=== PATIENT | female | born 1950 | race Caucasian/White ===

== ENCOUNTER 2016-07-28 20:31 | Emergency (ER) | payer MEDICARE, OTHER ==
[2016-07-28 20:51] VITALS: TEMP 97.9
--- NOTE | 2016-07-28 21:27 | XR ---
EXAMINATION TYPE: XR wrist complete LT DATE OF EXAM: 07/28/2016 9:17 PM COMPARISON: NONE HISTORY: Pain after a fall TECHNIQUE: 4 views FINDINGS: There is impacted transverse fracture of the distal radial metaphysis. There is probably co mminution. Distal ulna appears intact. There is no dislocation. There is spurring at the scaphoid tra pezium joint with subchondral cystic changes on both sides of the joint. IMPRESSION: Acute impacted transverse fracture distal radial metaphysis. 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
--- NOTE | 2016-07-28 21:34 | ED ---
Upper Extremity HPI - General Chief Complaint: Extremity Injury, Upper Stated Complaint: fell, left arm injury Time Seen by Provider: 07/28/16 21:17 Source: patient, RN notes reviewed Mode of arrival: ambulatory Limitations: no limitations - History of Present Illness Initial Comments: 66 yo female presents to the ER with a chief complaint of right wrist pain. 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 At this time the patient is complaining of left wrist pain. Patient states there is no lightheadedness or dizziness before the incident. Patient states her original injury besides the left wrist with the incident. Patient states her pain is moderate worse to touch or movement. Patient states that she is not currently having any other symptoms at this time.Patient denies any recent fever, chills, shortness of breath, chest pain, back pain, abdominal pain, nausea vomiting, numbness or tingling, dysuria or hematuria, constipation or diarrhea, headaches or visual changes, or any other current symptoms. - Related Data Previous Rx's Medication Instructions Recorded Hydrocodone/Acetaminophen [Bill[place] 1 each PO Q6HR PRN #20 tab 07/28/16 5-325] Allergies Allergy/AdvReac Type Severity Reaction Status Date / Time No Known Allergies Allergy Verified 07/28/16 21:06 Review of Systems ROS Statement: Those systems with pertinent positive or pertinent negative responses have been documented in the HPI. ROS Other: All systems not noted in ROS Statement are negative. Past Medical History Past Medical History: No Reported History History of Any Multi-Drug Resistant Organisms: None Reported Past Surgical History: No Surgical Hx Reported Past Psychological History: No Psychological Hx Reported Smoking Status: Never smoker Past Alcohol Use History: None Reported Past Drug Use History: None Reported General Exam - General Exam Comments Initial Comments: General: The patient is awake and alert, in no distress, and does not appear acutely ill. Neck: The neck is supple, there is no tenderness . Cardiovascular: There is a regular rate and rhythm. No murmur, rub or gallop is appreciated. Respiratory: Lungs are clear to auscultation, respirations are non-labored, breath sounds are equal. No wheezes, stridor, rales, or rhonchi. Musculoskeletal: Sensation intact with 2+ pulses. Left . Full range of motion of the digits of the left hand. Patient has pain to palpation over the couple to the left hand into the wrist with noted swelling. No tenderness patient left elbow. Neurological: CN II-XII intact, There are no obvious motor or sensory deficits. Coordination appears grossly intact. Speech is normal. Skin: Skin is warm and dry and no rashes or lesions are noted. Psychiatric: Normal mood and affect. Limitations: no limitations Course Vital Signs 07/28/16 20:48 Temperature 97.9 F Pulse Rate 69 Respiratory 18 Rate Blood Pressure 118/65 O2 Sat by Pulse 100 Oximetry Procedures - Orthopedic Splinting/Casting Injury #1 Side: left Upper Extremity Injury Location: wrist Upper Extremity Immobilizer: thumb spica (Short arm) Medical Decision Making - Medical Decision Making 66-year-old female presents with what appears to be a left radial fracture as well as left scaphoid fracture. At this time patient was placed in a splint and given follow-up to orthopedics. We did discuss rest and ice. We did discuss follow-up and return parameters. We discussed all the patient's family' s questions. He stated he understood and agreed with plan. This and will be discharged home. - Radiology Data Radiology results: report reviewed, image reviewed Interpreted by me: There is concern for also a scaphoid fracture as well as an addition to the left radius fracture. Disposition Clinical Impression: Closed left radial fracture, Fracture of scaphoid of left wrist Disposition: HOME SELF-CARE Condition: Stable Instructions: Wrist Fracture in Adults (ED) Additional Instructions: Please use medication as discussed. Please follow up with family doctor if symptoms have not improved over the next two days. Please return to the emergency room if your symptoms increase or worsen or for any other concerns. Prescriptions: Hydrocodone/Acetaminophen [Billingsley 5-325] 1 each PO Q6HR PRN #20 tab PRN Reason: Pain Referrals: Magdy Cadet MD [Primary Care Provider] - 1-2 days Andrae Galvan MD [STAFF PHYSICIAN] - 1-2 days Time of Disposition: 21:34
[2016-07-28 22:01] VITALS: BP 118/72; PULSE 64; RESP 16
== END 2016-07-28 22:01 | disposition home or self-care (01) ==
LOC: EC 20:31
DX: S62.002A Unspecified fracture of navicular [scaphoid] bone of left wrist, initial encounter for closed fracture (principal); S59.202A Unspecified physeal fracture of lower end of radius, left arm, initial encounter for closed fracture; M25.531 Pain in right wrist; W01.0XXA Fall on same level from slipping, tripping and stumbling without subsequent striking against object, initial encounter; Y93.K1 Activity, walking an animal
CPT/HCPCS: 29125; 99283

== ENCOUNTER → 2016-07-29 | Outpatient (CLI) | payer MEDICARE, OTHER ==
--- NOTE | 2016-07-29 18:09 | XR ---
EXAMINATION TYPE: XR knee limited RT DATE OF EXAM: 07/29/2016 5:56 PM COMPARISON: NONE HISTORY: Knee pain TECHNIQUE: 2 views FINDINGS: I see no fracture nor dislocation. Joint spaces are normal. There is no sign of knee joint effusion. IMPRESSION: Negative right knee exam.
== END ==
LOC: RADXRMAIN 17:40
PROVIDERS: ATTEND Family Medicine
DX: M25.561 Pain in right knee (principal)

== ENCOUNTER 2020-04-17 07:16 | Inpatient (IN) | payer MEDICARE, OTHER ==
--- NOTE | 2020-04-17 07:40 | ED ---
SOB HPI - General Chief Complaint: Shortness of Breath Stated Complaint: ALTA Time Seen by Provider: 04/17/20 07:20 Source: patient, EMS Mode of arrival: EMS Limitations: no limitations - History of Present Illness Initial Comments: Patient is an 69-year-old female with no past medical history who presents to the emergency department with shortness of breath. Patient states she's been more dyspneic over the past couple days. 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 States that she's been unable to walk into work without feeling short of breath. She denies chest pain. No history of underlying lung or cardiac issues. Denies cough, fevers or chills, sick contacts with similar symptoms. No lower extremely swelling. No history of DVT or PE. No other alleviating, precipitating or modifying factors - Related Data Home Medications Medication Instructions Recorded Confirmed Ibuprofen [Motrin Ib] 400 mg PO DAILY PRN 04/17/20 04/17/20 Previous Rx's Medication Instructions Recorded Aspirin 81 mg PO DAILY #30 chew 04/21/20 Atorvastatin [Lipitor] 40 mg PO HS #30 tab 04/21/20 Famotidine [Pepcid] 20 mg PO Q24HR #30 tab 04/21/20 Furosemide [Lasix] 20 mg PO DAILY@1600 #30 tab 04/21/20 Metoprolol Tartrate [Lopressor] 12.5 mg PO DAILY #60 tab 04/21/20 Nitroglycerin Sl Tabs [Nitrostat] 0.4 mg SUBLINGUAL Q5M PRN #20 tab 04/21/20 Allergies Allergy/AdvReac Type Severity Reaction Status Date / Time No Known Allergies Allergy Verified 04/17/20 08:38 Review of Systems ROS Statement: Those systems with pertinent positive or pertinent negative responses have been documented in the HPI. ROS Other: All systems not noted in ROS Statement are negative. Past Medical History Past Medical History: No Reported History History of Any Multi-Drug Resistant Organisms: None Reported Past Surgical History: No Surgical Hx Reported Past Psychological History: No Psychological Hx Reported Smoking Status: Never smoker Past Alcohol Use History: None Reported Past Drug Use History: None Reported - Past Family History Father Family Medical History: Diabetes Mellitus Mother Family Medical History: Cancer Additional Family Medical History / Comment(s): cervical General Exam Limitations: no limitations General appearance: alert, in no apparent distress Head exam: Present: atraumatic, normocephalic, normal inspection Eye exam: Present: normal appearance, PERRL, EOMI. Absent: scleral icterus, conjunctival injection, periorbital swelling ENT exam: Present: normal exam, mucous membranes moist Neck exam: Present: normal inspection. Absent: tenderness, meningismus, lymphad enopathy Respiratory exam: Present: normal lung sounds bilaterally, other (Tachypnea). Absent: respiratory distress, wheezes, rales, rhonchi, stridor Cardiovascular Exam: Present: normal rhythm, tachycardia, normal heart sounds. Absent: systolic murmur, diastolic murmur, rubs, gallop, clicks GI/Abdominal exam: Present: soft, normal bowel sounds. Absent: distended, tenderness, guarding, rebound, rigid Extremities exam: Present: normal inspection, full ROM, normal capillary refill. Absent: tenderness, pedal edema, joint swelling, calf tenderness Back exam: Present: normal inspection Neurological exam: Present: alert, oriented X3, CN II-XII intact Psychiatric exam: Present: normal affect, normal mood Skin exam: Present: warm, dry, intact, normal color. Absent: rash Course Vital Signs 04/17/20 04/17/20 04/17/20 07:18 07:29 09:11 Temperature 97.9 F Pulse Rate 115 H 112 H Respiratory 22 22 20 Rate Blood Pressure 153/107 137/99 O2 Sat by Pulse 99 96 Oximetry 04/17/20 04/17/20 04/17/20 10:00 11:00 11:33 Temperature 97.9 F Pulse Rate 100 102 H 102 H Respiratory 24 24 24 Rate Blood Pressure 119/77 124/85 124/85 O2 Sat by Pulse 97 97 97 Oximetry Medical Decision Making - Medical Decision Making The patient is placed in room 15. A thorough history and physical was performed. Patient is tachycardic and tachypneic. She is placed on 2 L of oxygen. Laboratory studies were conducted. D-dimer elevated at 0.85. Troponin 0.023. BNP 8910. Chest x-ray demonstrates suspected CHF exacerbation with cardiomegaly and mild interstitial edema. Mild central vascular congestion with small tiny left pleural effusion. Chest CT demonstrates no CT evidence of acute pulmonary embolism. Patient does return from CT and is more dyspneic. She is placed on BiPAP. Did discuss results. Recommended hospitalization reports patient did agree to. The patient to Dr. Oconnor who accepted admission. Lasix 60 mg ordered as well as echo and cardio consult. Patient tolerated BiPap extremely well and is awaiting a bed on the floor - Lab Data Result diagrams: 04/18/20 07:26 04/20/20 10:22 Lab Results 04/17/20 04/17/20 04/17/20 Range/Units 07:36 07:36 07:36 WBC 8.6 (3.8-10.6) k/uL RBC 4.37 (3.80-5.40) m/uL Hgb 13.2 (11.4-16.0) gm/dL Hct 41.3 (34.0-46.0) % MCV 94.7 (80.0-100.0) fL MCH 30.2 (25.0-35.0) pg MCHC 31.9 (31.0-37.0) g/dL RDW 13.7 (11.5-15.5) % Plt Count 260 (150-450) k/uL MPV 7.1 Neutrophils % 84 % Lymphocytes % 9 % Monocytes % 5 % Eosinophils % 0 % Basophils % 1 % Neutrophils # 7.3 (1.3-7.7) k/uL Lymphocytes # 0.8 L (1.0-4.8) k/uL Monocytes # 0.4 (0-1.0) k/uL Eosinophils # 0.0 (0-0.7) k/uL Basophils # 0.1 (0-0.2) k/uL PT 10.6 (9.0-12.0) sec INR 1.0 (<1.2) APTT 21.4 L (22.0-30.0) sec D-Dimer 0.85 H (<0.60) mg/L FEU Sodium 138 (137-145) mmol/L Potassium 3.9 (3.5-5.1) mmol/L Chloride 110 H (98-107) mmol/L Carbon Dioxide 22 (22-30) mmol/L Anion Gap 6 mmol/L BUN 20 H (7-17) mg/dL Creatinine 0.80 (0.52-1.04) mg/dL Est GFR (CKD-EPI)AfAm 88 (>60 ml/min/1.73 sqM) Est GFR (CKD-EPI)NonAf 76 (>60 ml/min/1.73 sqM) Glucose 159 H (74-99) mg/dL Plasma Lactic Acid Sridhar (0.7-2.0) mmol/L Calcium 9.1 (8.4-10.2) mg/dL Total Bilirubin 0.7 (0.2-1.3) mg/dL AST 41 H (14-36) U/L ALT 50 H (4-34) U/L Alkaline Phosphatase 107 (38-126) U/L Troponin I (0.000-0.034) ng/mL NT-Pro-B Natriuret Pep pg/mL Total Protein 6.9 (6.3-8.2) g/dL Albumin 4.2 (3.5-5.0) g/dL Coronavirus (PCR) (Not Detectd) Influenza Type A RNA (Not Detectd) Influenza Type B (PCR) (Not Detectd) 04/17/20 04/17/20 04/17/20 Range/Units 07:36 07:36 07:37 WBC (3.8-10.6) k/uL RBC (3.80-5.40) m/uL Hgb (11.4-16.0) gm/dL Hct (34.0-46.0) % MCV (80.0-100.0) fL MCH (25.0-35.0) pg MCHC (31.0-37.0) g/dL RDW (11.5-15.5) % Plt Count (150-450) k/uL MPV Neutrophils % % Lymphocytes % % Monocytes % % Eosinophils % % Basophils % % Neutrophils # (1.3-7.7) k/uL Lymphocytes # (1.0-4.8) k/uL Monocytes # (0-1.0) k/uL Eosinophils # (0-0.7) k/uL Basophils # (0-0.2) k/uL PT (9.0-12.0) sec INR (<1.2) APTT (22.0-30.0) sec D-Dimer (<0.60) mg/L FEU Sodium (137-145) mmol/L Potassium (3.5-5.1) mmol/L Chloride (98-107) mmol/L Carbon Dioxide (22-30) mmol/L Anion Gap mmol/L BUN (7-17) mg/dL Creatinine (0.52-1.04) mg/dL Est GFR (CKD-EPI)AfAm (>60 ml/min/1.73 sqM) Est GFR (CKD-EPI)NonAf (>60 ml/min/1.73 sqM) Glucose (74-99) mg/dL Plasma Lactic Acid Sridhar 1.5 (0.7-2.0) mmol/L Calcium (8.4-10.2) mg/dL Total Bilirubin (0.2-1.3) mg/dL AST (14-36) U/L ALT (4-34) U/L Alkaline Phosphatase (38-126) U/L Troponin I 0.023 (0.000-0.034) ng/mL NT-Pro-B Natriuret Pep 8910 pg/mL Total Protein (6.3-8.2) g/dL Albumin (3.5-5.0) g/dL Coronavirus (PCR) (Not Detectd) Influenza Type A RNA (Not Detectd) Influenza Type B (PCR) (Not Detectd) 04/17/20 Range/Units 07:43 WBC (3.8-10.6) k/uL RBC (3.80-5.40) m/uL Hgb (11.4-16.0) gm/dL Hct (34.0-46.0) % MCV (80.0-100.0) fL MCH (25.0-35.0) pg MCHC (31.0-37.0) g/dL RDW (11.5-15.5) % Plt Count (150-450) k/uL MPV Neutrophils % % Lymphocytes % % Monocytes % % Eosinophils % % Basophils % % Neutrophils # (1.3-7.7) k/uL Lymphocytes # (1.0-4.8) k/uL Monocytes # (0-1.0) k/uL Eosinophils # (0-0.7) k/uL Basophils # (0-0.2) k/uL PT (9.0-12.0) sec INR (<1.2) APTT (22.0-30.0) sec D-Dimer (<0.60) mg/L FEU Sodium (137-145) mmol/L Potassium (3.5-5.1) mmol/L Chloride (98-107) mmol/L Carbon Dioxide (22-30) mmol/L Anion Gap mmol/L BUN (7-17) mg/dL Creatinine (0.52-1.04) mg/dL Est GFR (CKD-EPI)AfAm (>60 ml/min/1.73 sqM) Est GFR (CKD-EPI)NonAf (>60 ml/min/1.73 sqM) Glucose (74-99) mg/dL Plasma Lactic Acid Sridhar (0.7-2.0) mmol/L Calcium (8.4-10.2) mg/dL Total Bilirubin (0.2-1.3) mg/dL AST (14-36) U/L ALT (4-34) U/L Alkaline Phosphatase (38-126) U/L Troponin I (0.000-0.034) ng/mL NT-Pro-B Natriuret Pep pg/mL Total Protein (6.3-8.2) g/dL Albumin (3.5-5.0) g/dL Coronavirus (PCR) Not Detected (Not Detectd) Influenza Type A RNA Not Detected (Not Detectd) Influenza Type B (PCR) Not Detected (Not Detectd) - EKG Data EKG Comments: EKG demonstrates a sinus tachycardia with a ventricular rate of 110. LA interval 136. QRS 126. QTC 492. There is a left bundle-branch block present. No acute ST segment elevations Critical Care Time Critical Care Time: Yes Critical Care Time: 32 minutes Disposition Clinical Impression: Congestive heart failure, Tachycardia, Dependence on non-invasive ventilation, Respiratory insufficiency Disposition: ADMITTED IP TO THIS HOSP Condition: Serious Is patient prescribed a controlled substance at d/c from ED?: No Decision to Admit Reason: Admit from EC Decision Date: 04/17/20 Decision Time: 09:57
[2020-04-17 07:54] LABS: Basophils # (A) 0.1 k/uL (0-0.2); Basophils % (A) 1 %; Eosinophils % (A) 0 %; HCT 41.3 % (34.0-46.0); HGB 13.2 gm/dL (11.4-16.0); Lymphocytes # (A) 0.8 k/uL (1.0-4.8); Lymphocytes % (A) 9 %; MCH 30.2 pg (25.0-35.0); MCHC 31.9 g/dL (31.0-37.0); MCV 94.7 fL (80.0-100.0); Mean Platelet Volume 7.1; Monocytes # (A) 0.4 k/uL (0-1.0); Monocytes % (A) 5 %; Neutrophils # (A) 7.3 k/uL (1.3-7.7); Neutrophils % (A) 84 %; Platelet Count 260 k/uL (150-450); RBC 4.37 m/uL (3.80-5.40); RDW 13.7 % (11.5-15.5); WBC 8.6 k/uL (3.8-10.6)
[2020-04-17 08:03] LABS: Albumin 4.2 g/dL (3.5-5.0); Calcium 9.1 mg/dL (8.4-10.2); Potassium 3.9 mmol/L (3.5-5.1); Total Bilirubin 0.7 mg/dL (0.2-1.3); Total Protein 6.9 g/dL (6.3-8.2)
[2020-04-17 08:10] LABS: SARS-CoV-2 RNA Rapid Abbott Not Detected (Not Detectd)
[2020-04-17 08:15] LABS: Partial Thromboplastin Time 21.4 sec (22.0-30.0); Prothrombin Time 10.6 sec (9.0-12.0)
--- NOTE | 2020-04-17 08:22 | XR ---
EXAMINATION TYPE: XR chest 2V DATE OF EXAM: 04/17/2020 COMPARISON: NONE HISTORY: Difficulty in breathing. TECHNIQUE: Frontal and lateral views of the chest are obtained. FINDINGS: There is cardiomegaly with central vascular congestion and small to tiny left pleural effu juan. Background reticular interstitial prominence bilaterally. The osseous structures are are grover neralized. IMPRESSION: Suspect CHF exacerbation as there is cardiomegaly with suspected mild interstitial edema and mild central vascular congestion with small to tiny left pleural effusion. Correlate clinically. Correlation with old outside x-ray would be beneficial.
[2020-04-17 08:48] LABS: D-Dimer 0.85 mg/L FEU (<0.60)
[2020-04-17] MEDS ORDERED: FUROSEMIDE 10 MG/ML 10 ML VIAL IV STA (09:36)
--- NOTE | 2020-04-17 09:40 | CT ---
EXAMINATION TYPE: CT chest angio for PE DATE OF EXAM: 04/17/2020 COMPARISON: Chest x-ray earlier today HISTORY: Trouble breathing, elevated d-dimer CT DLP: 255.7 mGycm Automated exposure control for dose reduction was used. CONTRAST: CT Chest for pulmonary embolism performed with with IV Contrast, patient injected with 100 mL of Isov ue 370. FINDINGS: LUNGS: Exam suboptimal as patient unable to hold breath. Small bilateral pleural effusions are confir med as suspected on x-ray. There is likely mild interstitial edema with intralobar septal thickening. No suspicious focal consolidation no pneumothorax seen bilaterally. MEDIASTINUM: There is satisfactory enhancement of the pulmonary artery and its branches, there is no CT evidence for pulmonary embolism. Enlarged pulmonary arteries are present consistent with underlyin g pulmonary artery hypertension There is enlarged subcarinal adenopathy and less prominently enlarge d bilateral hilar lymph nodes. Cardiomegaly is confirmed. Reflux of contrast into IVC and hepatic ve ins suggests degree of right heart failure. No pericardial effusion is seen. OTHER: Straightening of spine with moderate multilevel disc space narrowing and spurring. Multilevel endplate sclerosis is seen IMPRESSION: 1. Suboptimal study but no CT evidence for acute pulmonary embolism. 2. Findings correlate with CHF exacerbation as there is cardiomegaly with small bilateral pleural eff usions and mild interstitial edema bilaterally. Abnormal thoracic adenopathy, consider follow-up. Kimberly dence of underlying pulmonary artery hypertension and right-sided heart failure.
[2020-04-17] MEDS ORDERED: NALOXONE 0.4 MG/ML 1 ML VIAL IV PRN (09:57)
--- NOTE | 2020-04-17 12:25 | P.HPIM ---
History of Present Illness this is a pleasant 69 years old female with no past medical history presents because of dyspnea. Patient was on BiPAP so she was able to give limited history. Patient states she does not follow up with PCP. She presents because of dyspnea on 5 days duration with some little or no coughing but no chest pain. No abdominal pain. No change in urine or bowel habits. No fever on admission she was tachycardic of 112-115. Rest of Vitas looks stable.unremarkable cbc, bmp, liver enzymes are slightly elevated with ast 41 and alt 50. coronavirus is not detected, influenza virus nondetected. her d- dimer was elevated at 0.85 and she underwent cta of the chest:suboptimal study but no evidence of acute pulmonary embolism. Correlates for CHF exacerbation, there is cardiomegaly with small bilateral pleural effusions and mild interstitial edema bilaterally. There is a large subcarinal adenopathy and less prominently enlarged bilateral hilar lymph nodes.possible underlying pulmonary artery hypertension Suspect CHF. Review of Systems CONSTITUTIONAL: No fever, no malaise, no fatigue. HEENT: No recent visual problems or hearing problems. Denied any sore throat. CARDIOVASCULAR: no palpitations, no syncope. PULMONARY: no cough, no hemoptysis. GASTROINTESTINAL: No diarrhea, no nausea, no vomiting, no abdominal pain. Normoactive bowel sounds. NEUROLOGICAL: No headaches, no weakness, no numbness. HEMATOLOGICAL: Denies any bleeding or petechiae. GENITOURINARY: Denies any burning micturition, frequency, or urgency. MUSCULOSKELETAL/RHEUMATOLOGICAL: Denies any joint pain, swelling, or any muscle pain. ENDOCRINE: Denies any polyuria or polydipsia. Past Medical History Past Medical History: No Reported History History of Any Multi-Drug Resistant Organisms: None Reported Past Surgical History: No Surgical Hx Reported Past Psychological History: No Psychological Hx Reported Smoking Status: Never smoker Past Alcohol Use History: None Reported Past Drug Use History: None Reported Medications and Allergies Home Medications Medication Instructions Recorded Confirmed Type RX: Ibuprofen [Motrin Ib] 400 mg PO DAILY PRN 04/17/20 04/17/20 History Allergies Allergy/AdvReac Type Severity Reaction Status Date / Time No Known Allergies Allergy Verified 04/17/20 08:38 Physical Exam Vitals: Vital Signs Temp Pulse Resp BP Pulse Ox 04/17/20 09:11 112 H 20 137/99 96 04/17/20 07:29 22 12/08/20 07:18 97.9 F 115 H 22 153/107 99 Intake and Output 04/16/20 04/17/20 04/17/20 22:59 06:59 14:59 Output Total 1300 Balance -1300 Output: Urine 1300 Uretheral ([place]) 1300 Other: Weight 64.864 kg GENERAL: The patient is alert and oriented x3, not in any acute distress. Well developed, well nourished. HEENT: Pupils are round and equally reacting to light. EOMI. No scleral icterus. No conjunctival pallor. Normocephalic, atraumatic. No pharyngeal erythema. No thyromegaly. CARDIOVASCULAR: S1 and S2 present. No murmurs, rubs, or gallops. PULMONARY: Chest is clear to auscultation, no wheezing. bilateral basal crepitation ABDOMEN: Soft, nontender, nondistended, normoactive bowel sounds. No palpable organomegaly. MUSCULOSKELETAL: No joint swelling or deformity. EXTREMITIES: No cyanosis, clubbing, or pedal edema. NEUROLOGICAL: Gross neurological examination did not reveal any focal deficits. SKIN: No rashes. No petechiae Results CBC & Chem 7: 04/17/20 07:36 04/17/20 07:36 Labs: Abnormal Lab Results - Last 24 Hours (Table) 04/17/20 04/17/20 04/17/20 Range/Units 07:36 07:36 07:36 Lymphocytes # 0.8 L (1.0-4.8) k/uL APTT 21.4 L (22.0-30.0) sec D-Dimer 0.85 H (<0.60) mg/L FEU Chloride 110 H (98-107) mmol/L BUN 20 H (7-17) mg/dL Glucose 159 H (74-99) mg/dL AST 41 H (14-36) U/L ALT 50 H (4-34) U/L Assessment and Plan Assessment: acute CHF exacerbation, unknown ejection fraction possible pulmonary artery hypertension large subcarinal adenopathy and less prominently enlarged bilateral hilar lymph nodes Plan: this is a pleasant 69 years old female who presents with CHF. We'll do serial troponins, cardiology consult. Check echocardiogram. Continue with Lasix twice daily. Monitor input and output. Pulmonary consult for lymphadenopathy. Labs and medication were reviewed.. Continue same treatment. Continue with symptomatic treatment. Resume home medication. Monitor lytes and vitals. DVT and GI prophylaxis. Further recommendationsas per clinical course of the patient DVT prophylaxis: Subcutaneous heparin GI Prophylaxis: Pepcid Prognosis is guarded
--- NOTE | 2020-04-17 13:47 | P.CRDCN ---
History of Present Illness History of present illness: HISTORY OF PRESENTING ILLNESS This is a pleasant 69-year-old female with no significant past medical history. She does not follow in the office with a police sergeant or even a prima ry care physician for that matter. We have been asked to see in consultation for new-onset heart failure. She presented to the hospital with symptoms of exertional shortness of breath. She states for the previous 2 days she has noticed a drastic increase in exertional shortness of breath. Even simple activities cause her to have to stop to catch her breath. In the previous one month she has had difficulty sleeping at night. Not specific orthopnea but just inability to get comfortable or have a restful night's week. She denies any associated chest pain, dizziness or palpitations. Initially on admission she was started on bipap and put out 2900 ml. DIAGNOSTICS EKG reveals sinus tachycardia heart rate of 110 with left axis deviation and left bundle branch block. There is no old EKG for comparison. Chest xray cardiomegaly with suspected mild interstitial edema and mild central vascular congestion with small to tiny left pleural effusion. CT angios was suboptimal for an acute PE, cardiomegaly with small bilateral pleural effusions and mild interstitial edema bilaterally with abnormal thoracic adenopathy noted. There is evidence of underlying pulmonary artery hypertension and right-sided heart failure. Laboratory reviewed, CBC unremarkable, d-dimer 0.85, sodium 138, potassium 3.9, creatinine 0.8, troponin 0.023 and 0.064, NT proBNP 8910 and covid negative. She takes no daily medications. REVIEW OF SYSTEMS At the time of my exam: CONSTITUTIONAL: Denies fever or chills. CARDIOVASCULAR: Complains of shortness of breath and PND. Denies chest pain, orthopnea or palpitations. RESPIRATORY: Denies cough. GASTROINTESTINAL: Denies abdominal pain, diarrhea, constipation, nausea or vomiting. MUSCULOSKELETAL: Denies myalgias. NEUROLOGIC: Denies numbness, tingling or weakness. ENDOCRINE: Denies fatigue, weight change, polydipsia or polyurina. GENITOURINARY: Denies burning, hematuria or urgency with micturation. HEMATOLOGIC: Denies history of anemia or bleeding. PHYSICAL EXAMINATION Blood pressure 112/67 heart rate 96 afebrile and maintaining oxygen saturation on nasal cannula. CONSTITUTIONAL: No apparent distress. HEENT: Head is normocephalic. Pupils are equal, round. Sclerae anicteric. Mucous membranes of the mouth are moist. No JVD. No carotid bruit. CHEST EXAMINATION: Bibasilar rales and expiratory wheezes. No rhonchi. No chest wall tenderness is noted on palpation or with deep breathing. HEART EXAMINATION: Regular rate and rhythm. S1, S2 heard. Systolic ejection murmur at all listening points, no gallops or rub. ABDOMEN: Soft, nontender. Positive bowel sounds. EXTREMITIES: 2+ peripheral pulses, no lower extremity edema and no calf tenderness. NEUROLOGIC EXAMINATION: Patient is awake, alert and oriented x3. ASSESSMENT Acute systolic heart failure, EF less than 20% Aortic stenosis, sounds moderate-severe on auscultation PLAN Continue IV diuresis. Document accurate intake and output along with daily weights. Follow renal function and electrolytes in the morning. Initiate small dose of beta jose, 12.5 mg BID and losartan 25 mg daily. Telemetry monitoring for an acute arrhythmia. Further recommendations to follow based on clinical course. Thank you kindly for this consultation. Nurse Practitioner note has been reviewed, I agree with a documented findings and plan of care. Patient was seen and examined. Past Medical History Past Medical History: No Reported History History of Any Multi-Drug Resistant Organisms: None Reported Past Surgical History: No Surgical Hx Reported Past Anesthesia/Blood Transfusion Reactions: No Reported Reaction Past Psychological History: No Psychological Hx Reported Smoking Status: Never smoker Past Alcohol Use History: None Reported Past Drug Use History: None Reported - Past Family History Father Family Medical History: Diabetes Mellitus Mother Family Medical History: Cancer Additional Family Medical History / Comment(s): cervical Medications and Allergies Home Medications Medication Instructions Recorded Confirmed Type Ibuprofen [Motrin Ib] 400 mg PO DAILY PRN 04/17/20 04/17/20 History Allergies Allergy/AdvReac Type Severity Reaction Status Date / Time No Known Allergies Allergy Verified 04/17/20 08:38 Physical Exam Vitals: Vital Signs Temp Pulse Pulse Resp BP BP Pulse Ox 04/17/20 12:30 98.1 F 96 16 112/67 95 04/17/20 11:33 97.9 F 102 H 24 124/85 97 04/17/20 11:00 102 H 24 124/85 97 04/17/20 10:00 100 24 119/77 97 04/17/20 09:11 112 H 20 137/99 96 04/17/20 07:29 22 04/17/20 07:18 97.9 F 115 H 22 153/107 99 Intake and Output 04/16/20 04/17/20 04/17/20 22:59 06:59 14:59 Output Total 2900 Balance -2900 Output: Urine 2900 Uretheral ([place]) 1300 Other: Voiding Method Indwelling Catheter Weight 63.3 kg Results 04/17/20 07:36 04/17/20 07:36 Cardiac Enzymes 04/17/20 04/17/20 04/17/20 Range/Units 07:36 07:36 11:52 AST 41 H (14-36) U/L Troponin I 0.023 0.064 H* (0.000-0.034) ng/mL Coagulation 04/17/20 Range/Units 07:36 PT 10.6 (9.0-12.0) sec APTT 21.4 L (22.0-30.0) sec CBC 04/17/20 Range/Units 07:36 WBC 8.6 (3.8-10.6) k/uL RBC 4.37 (3.80-5.40) m/uL Hgb 13.2 (11.4-16.0) gm/dL Hct 41.3 (34.0-46.0) % Plt Count 260 (150-450) k/uL Comprehensive Metabolic Panel 04/17/20 Range/Units 07:36 Sodium 138 (137-145) mmol/L Potassium 3.9 (3.5-5.1) mmol/L Chloride 110 H (98-107) mmol/L Carbon Dioxide 22 (22-30) mmol/L BUN 20 H (7-17) mg/dL Creatinine 0.80 (0.52-1.04) mg/dL Glucose 159 H (74-99) mg/dL Calcium 9.1 (8.4-10.2) mg/dL AST 41 H (14-36) U/L ALT 50 H (4-34) U/L Alkaline Phosphatase 107 (38-126) U/L Total Protein 6.9 (6.3-8.2) g/dL Albumin 4.2 (3.5-5.0) g/dL Current Medications Generic Name Dose Route Start Last Admin Trade Name Freq PRN Reason Stop Dose Admin Famotidine 20 mg 04/17/20 21:00 Famotidine 20 Mg/2 Ml Vial IV Q12HR [facility] Furosemide 40 mg 04/17/20 21:00 Furosemide 10 Mg/Ml 4 Ml Vial IV Q12HR [facility] Heparin Sodium (Porcine) 5,000 unit 04/17/20 21:00 Heparin Sodium,Porcine 5,000 Unit/Ml 1 Ml Vial SQ Q12HR [facility] Losartan Potassium 25 mg 04/18/20 09:00 Losartan 25 Mg Tab PO DAILY [facility] Metoprolol Tartrate 12.5 mg 04/17/20 21:00 Metoprolol Tartrate 12.5 Mg Tab PO BID [facility] Naloxone HCl 0.2 mg 04/17/20 09:57 Naloxone 0.4 Mg/Ml 1 Ml Vial IV Q2M PRN Opioid Reversal Intake and Output 04/16/20 04/17/20 04/17/20 22:59 06:59 14:59 Output Total 2900 Balance -2900 Output: Urine 2900 Uretheral ([place]) 1300 Other: Voiding Method Indwelling Catheter Weight 63.3 kg Patient Weight 04/18/20 06:59 Weight 63.3 kg 04/17/20 07:36 04/17/20 07:36
--- NOTE | 2020-04-17 17:48 | ECHOF ---
Referral Reason:new onset heart failure MEASUREMENTS -------- HEIGHT: 149.9 cm WEIGHT: 64.9 kg BP: 137/99 RVIDd: 1.9 cm (< 3.3) IVSd: 1.2 cm (0.6 - 1.1) LVIDd: 3.9 cm (3.9 - 5.3) LVPWd: 1.3 cm (0.6 - 1.1) IVSs: 1.3 cm LVIDs: 3.3 cm LVPWs: 1.6 cm LA Diam: 3.0 cm (2.7 - 3.8) LAESV Index (A-L): 29.83 ml/m Ao Diam: 2.8 cm (2.0 - 3.7) MV EXCURSION: 9.369 mm (> 18.000) MV EF SLOPE: 50 mm/s (70 - 150) EPSS: 1.5 cm MV E Ramon: 0.46 m/s MV DecT: 135 ms MV A Ramon: 0.96 m/s MV E/A Ratio: 0.48 AV maxP.24 mmHg AV meanP.35 mmHg RAP: 5.00 mmHg RVSP: 37.36 mmHg FINDINGS -------- This was a technically adequate study. The left ventricular size is normal. There is mild concentric left ventricular hypertrophy. Overa ll left ventricular systolic function is severely impaired with, an EF between 20 - 25 %. The right ventricle is normal in size. LA is midly dilated 29-33ml/m2. The right atrium is normal in size. Interatrial and interventricular septum intact. There is severe aortic valve sclerosis. There is severe aortic stenosis present. The maximum pres sure gradient across the aortic valve is 65.24mmHg. Vmax 4.08, dimensionless index 0.18. Peak/mean gradient across the Aortic Valve is 65.24mmHg / 37.35mmHg. Can't exclude Bicuspid valve vs fused c half-way. The mitral valve leaflets are mildly thickened. Moderate mitral annular calcification present. Mi ld mitral regurgitation is present. Mild tricuspid regurgitation present. There is mild pulmonary hypertension. The right ventricular systolic pressure, as measured by Doppler, is 37.36mmHg. Trace/mild (physiologic) pulmonic regurgitation. The aortic root size is normal. Normal inferior vena cava with normal inspiratory collapse consistent with estimated right atrial pre ssure of 5 mmHg. Echo free space represents a pericardial fat pad. There is a trivial pericardial effusion present. CONCLUSIONS -------- 1. The left ventricular size is normal. 2. There is mild concentric left ventricular hypertrophy. 3. Overall left ventricular systolic function is severely impaired with, an EF between 20 - 25 %. 4. LA is midly dilated 29-33ml/m2. 5. There is severe aortic stenosis present. 6. Peak/mean gradient across the Aortic Valve is 65.24mmHg / 37.35mmHg. 7. The mitral valve leaflets are mildly thickened. 8. Moderate mitral annular calcification present. 9. Mild mitral regurgitation is present. 10. Mild tricuspid regurgitation present. 11. There is mild pulmonary hypertension. 12. The right ventricular systolic pressure, as measured by Doppler, is 37.36mmHg. 13. Trace/mild (physiologic) pulmonic regurgitation. 14. Echo free space represents a pericardial fat pad. 15. There is a trivial pericardial effusion present. ADJUNCT HISTORY INSTRUCTOR: KIRSTEN Ramires
[2020-04-17] MEDS: METOPROLOL TARTRATE 12.5 MG TAB PO SCH (19:51)
[2020-04-17] MEDS: FAMOTIDINE 20 MG/2 ML VIAL IV SCH (19:51)
[2020-04-17] MEDS: FUROSEMIDE 10 MG/ML 4 ML VIAL IV SCH (19:52)
[2020-04-17] MEDS: HEPARIN SODIUM,PORCINE 5,000 UNIT/ML 1 ML VIAL SQ SCH (19:52)
[2020-04-18 08:34] LABS: Basophils % (A) 1 %; Eosinophils % (A) 0 %; HCT 45.2 % (34.0-46.0); HGB 14.8 gm/dL (11.4-16.0); Lymphocytes # (A) 1.2 k/uL (1.0-4.8); Lymphocytes % (A) 17 %; MCH 30.8 pg (25.0-35.0); MCHC 32.8 g/dL (31.0-37.0); MCV 94.1 fL (80.0-100.0); Mean Platelet Volume 7.2; Monocytes # (A) 0.5 k/uL (0-1.0); Monocytes % (A) 7 %; Neutrophils # (A) 4.9 k/uL (1.3-7.7); Neutrophils % (A) 73 %; Platelet Count 233 k/uL (150-450); RBC 4.81 m/uL (3.80-5.40); RDW 13.3 % (11.5-15.5); WBC 6.8 k/uL (3.8-10.6)
[2020-04-18] MEDS: METOPROLOL TARTRATE 12.5 MG TAB PO SCH ×2 (08:50→21:11)
[2020-04-18] MEDS: FUROSEMIDE 10 MG/ML 4 ML VIAL IV SCH ×3 (08:50→23:33)
[2020-04-18] MEDS: HEPARIN SODIUM,PORCINE 5,000 UNIT/ML 1 ML VIAL SQ SCH ×2 (08:50→21:14)
[2020-04-18] MEDS: FAMOTIDINE 20 MG/2 ML VIAL IV SCH (08:51)
[2020-04-18 08:58] LABS: Calcium 9.4 mg/dL (8.4-10.2)
[2020-04-18] MEDS ORDERED: LOSARTAN 25 MG TAB PO SCH (09:00)
--- NOTE | 2020-04-18 11:43 | P.PN ---
Subjective this is a pleasant 69 years old female with no past medical history presents because of dyspnea. Patient was on BiPAP so she was able to give limited history. Patient states she does not follow up with PCP. She presents because of dyspnea on 5 days duration with some little or no coughing but no chest pain. No abdominal pain. No change in urine or bowel habits. No fever on admission she was tachycardic of 112-115. Rest of Vitas looks st able.unremarkable cbc, bmp, liver enzymes are slightly elevated with ast 41 and alt 50. coronavirus is not detected, influenza virus nondetected. her d-dimer was elevated at 0.85 and she underwent cta of the chest:suboptimal study but no evidence of acute pulmonary embolism. Correlates for CHF exacerbation, there is cardiomegaly with small bilateral pleural effusions and mild interstitial edema bilaterally. There is a large subcarinal adenopathy and less prominently enlarged bilateral hilar lymph nodes.possible underlying pulmonary artery hypertension Suspect CHF. 04/18/2020 Patient is awake, no chest pain, her breathing is improving, currently she is on 3 L oxygen via nasal cannula. Patient informed she has CHF and severe aortic stenosis which she did not know about before Labs and vitals are stable. Creatinine and electrolytes are normal Patient continue with Lasix IV Follow-up with further recommendation by fish roe technician Review of Systems CONSTITUTIONAL: No fever, no malaise, no fatigue. HEENT: No recent visual problems or hearing problems. Denied any sore throat. CARDIOVASCULAR: no palpitations, no syncope. PULMONARY: no cough, no hemoptysis. GASTROINTESTINAL: No diarrhea, no nausea, no vomiting, no abdominal pain. Normoactive bowel sounds. NEUROLOGICAL: No headaches, no weakness, no numbness. HEMATOLOGICAL: Denies any bleeding or petechiae. Active Medications Generic Name Dose Route Start Last Admin Trade Name Freq PRN Reason Stop Dose Admin Famotidine 20 mg 04/17/20 21:00 04/18/20 08:51 Famotidine 20 Mg/2 Ml Vial IV 20 mg Q12HR MARAL Administration Furosemide 40 mg 04/17/20 21:00 04/18/20 08:50 Furosemide 10 Mg/Ml 4 Ml Vial IV 40 mg Q12HR MARAL Administration Heparin Sodium (Porcine) 5,000 unit 04/17/20 21:00 04/18/20 08:50 Heparin Sodium,Porcine 5,000 Unit/Ml 1 Ml Vial SQ 5,000 unit Q12HR [facility]AL Administration Losartan Potassium 25 mg 04/18/20 09:00 04/18/20 08:50 Losartan 25 Mg Tab PO 25 mg DAILY MARAL Administration Metoprolol Tartrate 12.5 mg 04/17/20 21:00 04/18/20 08:50 Metoprolol Tartrate 12.5 Mg Tab PO 12.5 mg BID MARAL Administration Naloxone HCl 0.2 mg 04/17/20 09:57 Naloxone 0.4 Mg/Ml 1 Ml Vial IV Q2M PRN Opioid Reversal Objective - Vital Signs Vital signs: Vital Signs Temp 98.6 F 04/18/20 08:00 Pulse 84 04/18/20 08:00 Resp 18 04/18/20 08:00 BP 108/47 04/18/20 08:00 Pulse Ox 96 04/18/20 08:00 Intake & Output 04/17/20 04/18/20 04/18/20 18:59 06:59 18:59 Intake Total 600 240 Output Total 2900 1200 Balance -2300 -1200 240 Weight 63.3 kg 62.4 kg Intake: Oral 600 240 Output: Urine 2900 1200 Uretheral ([place]) 1300 Other: Voiding Method Indwelling Catheter Indwelling Catheter Indwelling Catheter # Bowel Movements 1 - Exam GENERAL: The patient is alert and oriented x3, not in any acute distress. Well developed, well nourished. HEENT: Pupils are round and equally reacting to light. EOMI. No scleral icterus. No conjunctival pallor. Normocephalic, atraumatic. No pharyngeal erythema. No thyromegaly. CARDIOVASCULAR: S1 and S2 present. No murmurs, rubs, or gallops. -PULMONARY: Chest is clear to auscultation, no wheezing. Bilateral basal crepitation ABDOMEN: Soft, nontender, nondistended, normoactive bowel sounds. No palpable organomegaly. MUSCULOSKELETAL: No joint swelling or deformity. EXTREMITIES: No cyanosis, clubbing, or pedal edema. NEUROLOGICAL: Gross neurological examination did not reveal any focal deficits. SKIN: No rashes. no petechiae. - Labs CBC & Chem 7: 04/18/20 07:26 04/18/20 07:26 Labs: Abnormal Lab Results - Last 24 Hours (Table) 04/17/20 04/17/20 04/18/20 Range/Units 11:52 15:35 07:26 BUN 20 H (7-17) mg/dL Glucose 164 H (74-99) mg/dL Troponin I 0.064 H* 0.103 H* (0.000-0.034) ng/mL Assessment and Plan Assessment: acute CHF exacerbation, unknown ejection fraction possible pulmonary artery hypertension large subcarinal adenopathy and less prominently enlarged bilateral hilar lymph nodes Plan: this is a pleasant 69 years old female who presents with CHF. We'll do serial troponins, cardiology consult. Check echocardiogram. Continue with Lasix twice daily. Monitor input and output. Pulmonary consult for lymphadenopathy. Labs and medication were reviewed.. Continue same treatment. Continue with symptomatic treatment. Resume home medication. Monitor lytes and vitals. DVT and GI prophylaxis. Further recommendationsas per clinical course of the patient DVT prophylaxis: Subcutaneous heparin GI Prophylaxis: Pepcid Prognosis is guarded
--- NOTE | 2020-04-18 13:12 | P.CNPUL ---
History of Present Illness Consult date: 04/18/20 Reason for consult: dyspnea, hypoxemia Chief complaint: Shortness of breath History of present illness: This is a 69-year-old female with no significant past medical problems, patient presented into the hospital because of shortness of breath, she was placed on BiPAP in the emergency department, it appears that the shortness of breath started about 5 days ago has been more progressive however she denies any chest pain or cough or sputum production, on arrival in the emergency department she was noted to be tachycardic, testing for coronary virus is negative as well as influenza, d-dimer was elevated however, a computed tomography scan of the chest failed revealed presence of pulmonary embolism, obviously findings were more of a CHF exacerbation, patient also noted to have cardiomegaly interstitial edema bilateral small pleural effusion, subcarinal lymph nodes were seen as well likely reactive today however she feels much better shortness of breath improved significantly, she is not wearing oxygen, echocardiogram revealed ejection fraction only 20-25%, severe aortic stenosis has been noted, cardiovascular services are following Review of Systems All systems: negative Past Medical History Past Medical History: No Reported History History of Any Multi-Drug Resistant Organisms: None Reported Past Surgical History: No Surgical Hx Reported Past Anesthesia/Blood Transfusion Reactions: No Reported Reaction Past Psychological History: No Psychological Hx Reported Smoking Status: Never smoker Past Alcohol Use History: None Reported Past Drug Use History: None Reported - Past Family History Father Family Medical History: Diabetes Mellitus Mother Family Medical History: Cancer Additional Family Medical History / Comment(s): cervical Medications and Allergies Home Medications Medication Instructions Recorded Confirmed Type Ibuprofen [Motrin Ib] 400 mg PO DAILY PRN 04/17/20 04/17/20 History Allergies Allergy/AdvReac Type Severity Reaction Status Date / Time No Known Allergies Allergy Verified 04/17/20 08:38 Physical Exam Vitals: Vital Signs Temp Pulse Resp BP Pulse Ox 04/18/20 08:00 98.6 F 84 18 108/47 96 04/18/20 04:00 98.4 F 68 19 101/60 94 L 04/17/20 23:24 98.7 F 86 17 92/58 96 04/17/20 20:00 98.6 F 83 19 95/56 95 04/17/20 16:00 98.2 F 87 18 104/65 97 Intake and Output 04/17/20 04/18/2004/18/20 22:59 06:59 14:59 Intake Total 120 240 Output Total 1200 Balance -1080 240 Intake: Oral 120 240 Output: Urine 1200 Other: Voiding Method Indwelling Catheter Indwelling Catheter Indwelling Catheter # Bowel Movements 1 Weight 62.4 kg - Constitutional General appearance: average body habitus, cooperative, disheveled - EENT Eyes: PERRLA Ears: bilateral: normal - Neck Carotids: bilateral: upstroke normal - Respiratory Respiratory: bilateral: rales - Cardiovascular Rhythm: regular Heart sounds: normal: S1, S2 - Neurologic Neurologic: CNII-XII intact - Musculoskeletal Musculoskeletal: gait normal, generalized weakness, strength equal bilaterally - Psychiatric Psychiatric: A&O x's 3, appropriate affect, intact judgment & insight Results - Laboratory Findings CBC and BMP: 04/18/20 07:26 04/18/20 07:26 PT/INR, D-dimer PT 10.6 sec (9.0-12.0) 04/17/20 07:36 INR 1.0 (<1.2) 04/17/20 07:36 D-Dimer 0.85 mg/L FEU (<0.60) H 04/17/20 07:36 Abnormal lab findings: Abnormal Labs 04/17/20 04/17/20 04/17/20 07:36 07:36 07:36 Lymphocytes # 0.8 L APTT 21.4 L D-Dimer 0.85 H Chloride 110 H BUN 20 H Glucose 159 H AST 41 H ALT 50 H Troponin I 04/17/20 04/17/20 04/18/20 11:52 15:35 07:26 Lymphocytes # APTT D-Dimer Chloride BUN 20 H Glucose 164 H AST ALT Troponin I 0.064 H* 0.103 H* - Diagnostic Findings Chest x-ray: report reviewed, image reviewed Assessment and Plan Assessment: Acute systolic heart failure Severe aortic stenosis Mediastinal lymphadenopathy likely reactive cause is not clear well due to her short-term computed tomography scan once cardiovascular evaluation is completed for reassessment Pulmonary hypertension likely group 2/3 Plan: Continue gentle diuresis Further workup as per cardiovascular services For mediastinal lymphadenopathy will reassess with short-term computed tomography scan into the three-month as outpatient Time with Patient: Greater than 30
--- NOTE | 2020-04-18 13:23 | P.PN ---
Subjective HISTORY OF PRESENTING ILLNESS This is a pleasant 69-year-old female with no significant past medical history. She does not follow in the office with a certified detention deputy or even a primary care physician for that matter. She is seen and examined sitting up in bed. She continues to feel short of breath but with significant improvement since yesterday. She denies chest pain, dizziness or palpitations. Blood pressure 108/47 heart rate 84 afebrile maintaining oxygen saturation on nasal cannula. Laboratory data reviewed, CBC unremarkable, sodium 139, potassium 4.0, creatinine 0.87, troponin 0.023, 0.064 and 0.103. Currently maintained on Lasix IV 40 mg twice a day, losartan 25 mg daily and metoprolol 12.5 mg twice a day. Echocardiogram obtained reveals severely impaired LV systolic function with ejection fraction 20-25%, severe aortic stenosis with a mean gradient of 37 mmHg, moderate mitral annual calcification, mild mitral regurgitation, mild tricuspid regurgitation and mild pulmonary hypertension with an RVSP of 37 mmHg. Aortic valve is bicuspid. Telemetry tracings reveal persistent sinus mechanism. PHYSICAL EXAMINATION CONSTITUTIONAL: No apparent distress. HEENT: Head is normocephalic. Pupils are equal, round. Sclerae anicteric. Mucous membranes of the mouth are moist. No JVD. No carotid bruit. CHEST EXAMINATION: Bibasilar rales. No wheezes or rhonchi. No chest wall tenderness is noted on palpation or with deep breathing. HEART EXAMINATION: Regular rate and rhythm. S1, S2 heard. Systolic ejection murmur at all listening points, no gallops or rub. EXTREMITIES: 2+ peripheral pulses, no lower extremity edema and no calf tenderness. ASSESSMENT Acute systolic heart failure, EF less than 20% Aortic stenosis, severe Cardiomyopathy, unsure if ischemic or non-ischemic at this point Pulmonary hypertension PLAN Increase Lasix to 3 times a day. Add daily aspirin and atorvastatin to her regimen. If she continues to improve we will plan for left heart catheterization on Thursday to assess for underlying CAD. Follow renal function and electrolytes in the morning. Nurse Practitioner note has been reviewed, I agree with a documented findings and plan of care. Patient was seen and examined. Objective - Vital Signs Vital signs: Vital Signs Temp 98.6 F 04/18/20 08:00 Pulse 84 04/18/20 08:00 Resp 18 04/18/20 08:00 BP 108/47 04/18/20 08:00 Pulse Ox 96 04/18/20 08:00 Intake & Output 04/17/20 04/18/20 04/18/20 18:59 06:59 18:59 Intake Total 600 240 Output Total 2900 1200 Balance -2300 -1200 240 Weight 63.3 kg 62.4 kg Intake: Oral 600 240 Output: Urine 2900 1200 Uretheral ([place]) 1300 Other: Voiding Method Indwelling Catheter Indwelling Catheter Indwelling Catheter # Bowel Movements 1 - Labs CBC & Chem 7: 04/18/20 07:26 04/18/20 07:26 Labs: Abnormal Lab Results - Last 24 Hours (Table) 04/17/20 04/18/20 Range/Units 15:35 07:26 BUN 20 H (7-17) mg/dL Glucose 164 H (74-99) mg/dL Troponin I 0.103 H* (0.000-0.034) ng/mL
[2020-04-18] MEDS: ASPIRIN 81 MG PO SCH (15:48)
[2020-04-18] MEDS: ATORVASTATIN 40 MG TAB PO SCH (21:14)
[2020-04-18] MEDS: SODIUM CHLORIDE 0.9% 1,000 ML IV SCH (21:15)
[2020-04-19 08:10] LABS: Potassium 4.2 mmol/L (3.5-5.1)
[2020-04-19] MEDS ORDERED: FAMOTIDINE 20 MG/2 ML VIAL IV SCH (09:00)
[2020-04-19] MEDS: HEPARIN SODIUM,PORCINE 5,000 UNIT/ML 1 ML VIAL SQ SCH ×2 (09:04→21:18)
[2020-04-19] MEDS: ASPIRIN 81 MG PO SCH (09:04)
[2020-04-19] MEDS: METOPROLOL TARTRATE 12.5 MG TAB PO SCH (09:04)
[2020-04-19] MEDS: FUROSEMIDE 10 MG/ML 4 ML VIAL IV SCH (09:05)
--- NOTE | 2020-04-19 11:04 | P.PN ---
Subjective Progress Note Date: 04/19/20 Principal diagnosis: Acute systolic heart failure Severe aortic stenosis Mediastinal lymphadenopathy likely reactive cause is not clear well due to her short-term computed tomography scan once cardiovascular evaluation is completed for reassessment Pulmonary hypertension likely group 2/3 04/20/2020, shortness of breath slightly better cough congestion improved, breathing more comfortably, denies any chest pain no fever or chills present, patient underwent echocardiogram with ejection fraction of 25% was severity stenosis, mild pulmonary hypertension is seen as well, cardiovascular services following increasing the diuretics and optimizing care with maximum medical the rapy This is a 69-year-old female with no significant past medical problems, patient presented into the hospital because of shortness of breath, she was placed on BiPAP in the emergency department, it appears that the shortness of breath started about 5 days ago has been more progressive however she denies any chest pain or cough or sputum production, on arrival in the emergency department she was noted to be tachycardic, testing for coronary virus is negative as well as influenza, d-dimer was elevated however, a computed tomography scan of the chest failed revealed presence of pulmonary embolism, obviously findings were more of a CHF exacerbation, patient also noted to have cardiomegaly interstitial edema bilateral small pleural effusion, subcarinal lymph nodes were seen as well likely reactive today however she feels much better shortness of breath improved significantly, she is not wearing oxygen, echocardiogram revealed ejection fraction only 20-25%, severe aortic stenosis has been noted, cardiovascular services are following Objective - Vital Signs Vital signs: Vital Signs Temp 98.2 F 04/19/20 08:00 Pulse 82 04/19/20 08:00 Resp 16 04/19/20 08:00 BP 101/56 04/19/20 08:00 Pulse Ox 99 04/19/20 08:00 Intake & Output 04/18/20 04/19/20 04/19/20 18:59 06:59 18:59 Intake Total 1170 Balance 1170 Weight 62.5 kg Intake: Oral 1170 Other: Voiding Method Indwelling Catheter Indwelling Catheter Indwelling Catheter - Exam - Constitutional General appearance: average body habitus, cooperative, disheveled - EENT Eyes: PERRLA Ears: bilateral: normal - Neck Carotids: bilateral: upstroke normal - Respiratory Respiratory: bilateral: rales - Cardiovascular Rhythm: regular Heart sounds: normal: S1, S2 - Neurologic Neurologic: CNII-XII intact - Musculoskeletal Musculoskeletal: gait normal, generalized weakness, strength equal bilaterally - Psychiatric Psychiatric: A&O x's 3, appropriate affect, intact judgment & insight - Labs CBC & Chem 7: 04/18/20 07:26 04/19/20 07:05 Labs: Abnormal Lab Results - Last 24 Hours (Table) 04/19/20 Range/Units 07:05 BUN 31 H (7-17) mg/dL Glucose 135 H (74-99) mg/dL Assessment and Plan Assessment: Acute systolic heart failure Severe aortic stenosis Mediastinal lymphadenopathy likely reactive cause is not clear well due to her short-term computed tomography scan once cardiovascular evaluation is completed for reassessment Pulmonary hypertension likely group 2/3 Plan: Continue gentle diuresis Further workup as per cardiovascular services For mediastinal lymphadenopathy will reassess with short-term computed tomography scan into the three-month as outpatient
--- NOTE | 2020-04-19 12:24 | P.PN ---
Subjective this is a pleasant 69 years old female with no past medical history presents because of dyspnea. Patient was on BiPAP so she was able to give limited history. Patient states she does not follow up with PCP. She presents because of dyspnea on 5 days duration with some little or no coughing but no chest pain. No abdominal pain. No change in urine or bowel habits. No fever on admission she was tachycardic of 112-115. Rest of Vitas looks st able.unremarkable cbc, bmp, liver enzymes are slightly elevated with ast 41 and alt 50. coronavirus is not detected, influenza virus nondetected. her d-dimer was elevated at 0.85 and she underwent cta of the chest:suboptimal study but no evidence of acute pulmonary embolism. Correlates for CHF exacerbation, there is cardiomegaly with small bilateral pleural effusions and mild interstitial edema bilaterally. There is a large subcarinal adenopathy and less prominently enlarged bilateral hilar lymph nodes.possible underlying pulmonary artery hypertension Suspect CHF. 04/18/2020 Patient is awake, no chest pain, her breathing is improving, currently she is on 3 L oxygen via nasal cannula. Patient informed she has CHF and severe aortic stenosis which she did not know about before Labs and vitals are stable. Creatinine and electrolytes are normal Patient continue with Lasix IV Follow-up with further recommendation by dry roaster 04/19/2020 Patient feels a little better today. She's been feeling generally weak even before Admission to the hospital, mostly related to her aortic stenosis. Hemodynamically stable. Labs are stable. Patient is planned for cardiac cath tomorrow Objective - Vital Signs Vital signs: Vital Signs Temp 98.2 F 04/19/20 08:00 Pulse 82 04/19/20 08:00 Resp 16 04/19/20 08:00 BP 101/56 04/19/20 08:00 Pulse Ox 99 04/19/20 08:00 Intake & Output 04/18/20 04/19/20 04/19/20 18:59 06:59 18:59 Intake Total 1170 Balance 1170 Weight 62.5 kg Intake: Oral 1170 Other: Voiding Method Indwelling Catheter Indwelling Catheter Indwelling Catheter - Exam GENERAL: The patient is alert and oriented x3, not in any acute distress. Well developed, well nourished. HEENT: Pupils are round and equally reacting to light. EOMI. No scleral icterus. No conjunctival pallor. Normocephalic, atraumatic. No pharyngeal erythema. No thyromegaly. CARDIOVASCULAR: S1 and S2 present. No murmurs, rubs, or gallops. -PULMONARY: Chest is clear to auscultation, no wheezing. Bilateral basal crepitation ABDOMEN: Soft, nontender, nondistended, normoactive bowel sounds. No palpable organomegaly. MUSCULOSKELETAL: No joint swelling or deformity. EXTREMITIES: No cyanosis, clubbing, or pedal edema. NEUROLOGICAL: Gross neurological examination did not reveal any focal deficits. SKIN: No rashes. no petechiae. - Labs CBC & Chem 7: 04/18/20 07:26 04/19/20 07:05 Labs: Abnormal Lab Results - Last 24 Hours (Table) 04/19/20 Range/Units 07:05 BUN 31 H (7-17) mg/dL Glucose 135 H (74-99) mg/dL Assessment and Plan Assessment: acute CHF exacerbation, unknown ejection fraction possible pulmonary artery hypertension large subcarinal adenopathy and less prominently enlarged bilateral hilar lymph nodes Plan: this is a pleasant 69 years old female who presents with CHF. We'll do serial troponins, cardiology consult. Check echocardiogram. Continue with Lasix twice daily. Monitor input and output. Pulmonary consult for lymphadenopathy. Labs and medication were reviewed.. Continue same treatment. Continue with symptomatic treatment. Resume home medication. Monitor lytes and vitals. DVT and GI prophylaxis. Further recommendationsas per clinical course of the patient DVT prophylaxis: Subcutaneous heparin GI Prophylaxis: Pepcid Prognosis is guarded
[2020-04-19] MEDS ORDERED: NITROGLYCERIN SL TABS 0.4 MG TAB SUBLINGUAL PRN (12:43)
[2020-04-19] MEDS ORDERED: SODIUM CHLORIDE 0.9% 1,000 ML in EMPTY BAG 1 BAG IV ONE (12:43)
[2020-04-19] MEDS ORDERED: ALPRAZolam 0.25 MG TAB PO PRN (12:43)
[2020-04-19] MEDS ORDERED: ALPRAZolam 0.5 MG TAB PO PRN (12:43)
--- NOTE | 2020-04-19 12:46 | P.PN ---
Subjective HISTORY OF PRESENTING ILLNESS This is a pleasant 69-year-old female with no significant past medical history. She does not follow in the office with a accounting consultant or even a primary care physician for that matter. She is seen and examined sitting up in bed. She continues to feel short of breath but with significant improvement since yesterday. She denies chest pain, dizziness or palpitations. Blood pressure 108/47 heart rate 84 afebrile maintaining oxygen saturation on nasal cannula. Laboratory data reviewed, CBC unremarkable, sodium 139, potassium 4.0, creatinine 0.87, troponin 0.023, 0.064 and 0.103. Currently maintained on Lasix IV 40 mg twice a day, losartan 25 mg daily and metoprolol 12.5 mg twice a day. Echocardiogram obtained reveals severely impaired LV systolic function with ejection fraction 20-25%, severe aortic stenosis with a mean gradient of 37 mmHg, moderate mitral annual calcification, mild mitral regurgitation, mild tricuspid regurgitation and mild pulmonary hypertension with an RVSP of 37 mmHg. Aortic valve is bicuspid. Telemetry tracings reveal persistent sinus mechanism. 04/19/2020 Patient seen and examined sitting up in bed in no acute distress. Overall her breathing has greatly improved since admission. She has been up and moving around the room without difficulty. She denies chest pain, dizziness or palpitations. Blood pressure 101/56 heart rate 82 afebrile maintaining oxygen saturation on nasal cannula. Laboratory data reviewed, sodium 138, potassium 4.2, creatinine 1.03. No urine output has been documented for the previous 24 hours. PHYSICAL EXAMINATION CONSTITUTIONAL: No apparent distress. HEENT: Head is normocephalic. Pupils are equal, round. Sclerae anicteric. Mucous membranes of the mouth are moist. No JVD. No carotid bruit. CHEST EXAMINATION: Clear to auscultation bilaterally. No rales, wheezes or rhonchi. No chest wall tenderness is noted on palpation or with deep breathing. HEART EXAMINATION: Regular rate and rhythm. S1, S2 heard. Systolic ejection murmur at all listening points, no gallops or rub. EXTREMITIES: 2+ peripheral pulses, no lower extremity edema and no calf tenderness. ASSESSMENT Acute systolic heart failure, EF less than 20% Aortic stenosis, severe Cardiomyopathy, unsure if ischemic or non-ischemic at this point Pulmonary hypertension PLAN Transition to oral lasix. Decrease lopressor to daily dosing secondary to hypotension. The importance of accurate output documentation discussed with nursing staff. She will undergo cardiac catheterization tomorrow morning. I have discussed the risks, benefits and alternative therapies for the above-mentioned procedure and for both sedation/analgesia as well as necessary blood product administration, if indicated, as they pertain to this patient. The patient has indicated understanding and acceptance of the risks and procedures discussed. Questions have been answered appropriately and she is agreeable to move forward with the above stated procedure. Further recommendations to follow based upon clinical course. Nurse Practitioner note has been reviewed, I agree with a documented findings and plan of care. Patient was seen and examined. Objective - Vital Signs Vital signs: Vital Signs Temp 98.2 F 04/19/20 08:00 Pulse 82 04/19/20 08:00 Resp 16 04/19/20 08:00 BP 101/56 04/19/20 08:00 Pulse Ox 99 04/19/20 08:00 Intake & Output 04/18/20 04/19/20 04/19/20 18:59 06:59 18:59 Intake Total 1170 Balance 1170 Weight 62.5 kg Intake: Oral 1170 Other: Voiding Method Indwelling Catheter Indwelling Catheter Indwelling Catheter - Labs CBC & Chem 7: 04/18/20 07:26 04/19/20 07:05 Labs: Abnormal Lab Results - Last 24 Hours (Table) 04/19/20 Range/Units 07:05 BUN 31 H (7-17) mg/dL Glucose 135 H (74-99) mg/dL
[2020-04-19] MEDS: FUROSEMIDE 20 MG TAB PO SCH (17:21)
[2020-04-19] MEDS: SODIUM CHLORIDE 0.9% 1,000 ML IV SCH (17:22)
[2020-04-19] MEDS: ATORVASTATIN 40 MG TAB PO SCH (21:18)
[2020-04-20] MEDS ORDERED: ASPIRIN 325 MG TAB PO ONE (06:00)
[2020-04-20] MEDS ORDERED: LIDOCAINE 1% INJ 10MG/ML (20 ML MDV) ONE (07:19)
[2020-04-20] MEDS ORDERED: IV FLUID CONTINUATION 1,000 ML IV ONE (07:35)
[2020-04-20] MEDS ORDERED: VERAPAMIL 2.5 MG/ML 2 ML AMP ONE (07:47)
[2020-04-20] MEDS ORDERED: MIDAZOLAM 2 MG/2 ML VIAL IV ONE ×4 (07:58→09:16)
[2020-04-20] MEDS ORDERED: LIDOCAINE 1% INJ 10MG/ML (20 ML MDV) SQ ONE (08:00)
[2020-04-20] MEDS: VERAPAMIL SYRINGE (5 MG/10 ML) INTRAARTER ONE ×2 (08:07→08:17)
[2020-04-20] MEDS ORDERED: HEPARIN SODIUM 1,000 UN/ML (10ML VL) IV ONE (08:09)
[2020-04-20] MEDS ORDERED: IOPAMIDOL-370 100ML BTL INJ ONE (08:17)
[2020-04-20] MEDS ORDERED: fentaNYL (PF) 50 MCG/ML 2 ML AMP ONE (08:52)
[2020-04-20] MEDS ORDERED: IV FLUID CONTINUATION 800 ML IV ONE (09:02)
[2020-04-20] MEDS ORDERED: fentaNYL (PF) 50 MCG/ML 2 ML AMP IV ONE (09:05)
[2020-04-20] MEDS ORDERED: BENZOCAINE SPRAY 1 CAN TOPICAL ONE (09:05)
[2020-04-20] MEDS: METOPROLOL TARTRATE 12.5 MG TAB PO SCH (10:21)
--- NOTE | 2020-04-20 10:29 | CC ---
CARDIAC CATHETERIZATION REPORT DATE OF SERVICE: 04/20/2020. PROCEDURE: Coronary angiography. PERFORMED BY: Dr. Cinthya Zayas. Moderate conscious sedation time was 21 minutes. Patient was administered Versed. Oxygen saturation, hemodynamics and EKG were monitored closely. CLINICAL INFORMATION: Mrs. Najma Richardson is a 69-year-old lady with aortic stenosis and heart failure, who came into the hospital with congestive heart failure and was found to have significant aortic stenosis. After stabilizing her, she was advised coronary angiography to rule out obstructive CAD and a transesophageal echo and was brought in for the procedure electively. I had a long discussion with the patient regarding the risks, benefits, options, rationale, and she understood all details and wished to proceed. PROCEDURE NOTE: Under local anesthesia and strict aseptic precautions, a 6-Bengali introducer was placed in the right radial artery. Using a JL3.5 and JR4 catheters, I performed coronary angiography. I did not check LV pressures. The sheath was taken out and TR band applied as per protocol and patient was sent to the room in stable condition. CORONARY ANGIOGRAPHY FINDING: RIGHT CORONARY ARTERY: Nondominant vessel. No significant disease. LEFT MAIN CORONARY ARTERY: Long patent, disease-free vessel that bifurcates into LAD and circumflex. LEFT ANTERIOR DESCENDING CORONARY ARTERY: Good caliber vessel, extends along the anterior wall, gives off a large diagonal branch proximally. LAD: The large system supplies a lot of myocardium and inferoapical portion is also supplied by LAD. No significant disease. LEFT POSTERIOR CIRCUMFLEX CORONARY ARTERY: Technically a dominant vessel, gives off a large obtuse marginal proximally and in the distal portion it gives off two small PLV and PDA branches, both of which have minor irregularities. No significant disease. No significant disease noted in the dominant circumflex. FINAL IMPRESSION: This patient has a left dominant system, no significant obstructive CAD. Right coronary is small nondominant. LV pressures were not checked. RECOMMENDATIONS: Findings discussed with the patient and her friend, Clay Marie. I will await the for findings of PE and then make specific recommendations. Discussed my thoughts with the patient. MMODL / IJN: [id number] /
[2020-04-20 10:47] LABS: Calcium 8.7 mg/dL (8.4-10.2)
--- NOTE | 2020-04-20 13:15 | PN ---
PROGRESS NOTE Mrs. Najma Richardson had a cardiac cath today which revealed no significant obstructive CAD. She had a transesophageal echo by Dr. Null, which revealed a bicuspid aortic valve with severe aortic stenosis. It appears that her LV dysfunction is quite significant and even with such a poor LV she is able to generate a gradient of more than 50 mmHg, suggests that she will benefit from aortic valve replacement. Patient does not wish to have any procedures performed today wishes to go home. I will discharge her on current medical therapy, see her in the office and we will consider a percutaneous aortic valve implant to be in view of the fact patient is a moderate risk with multiple comorbid conditions and severely decreased LV systolic function. I discussed my thoughts in detail with the patient. PHYSICAL EXAMINATION: Vitals are stable. JVD is not evident, S1-S2 heard normally, ejection systolic murmur is audible. Second heart sound is not well heard. LUNGS: Revealed improved air entry. ABDOMEN: Soft. Lower extremities reveal diminished pulses. Right radial cath site is clean and dry with a good pulse. MMODL / IJN: [id number] /
[2020-04-20] MEDS: FAMOTIDINE 20 MG TAB PO SCH (13:57)
[2020-04-20] MEDS: HEPARIN SODIUM,PORCINE 5,000 UNIT/ML 1 ML VIAL SQ SCH ×2 (13:57→20:44)
[2020-04-20] MEDS: SODIUM CHLORIDE 0.9% 1,000 ML IV SCH (13:58)
--- NOTE | 2020-04-20 15:44 | P.PN ---
Subjective Progress Note Date: 04/20/20 Principal diagnosis: Acute systolic heart failure Severe aortic stenosis Mediastinal lymphadenopathy likely reactive cause is not clear well due to her short-term computed tomography scan once cardiovascular evaluation is completed for reassessment Pulmonary hypertension likely group 2/3 04/20/2020, patient seen eval examined during the rounds labs reviewed medications reviewed shortness of breath is stable, denies any chest pain, no cough congestion is present, currently stable, oxygen saturation is the 96% on 2 L oxygen down from 3 L now 04/19/2020, shortness of breath slightly better cough congestion improved, breathing more comfortably, denies any chest pain no fever or chills present, patient underwent echocardiogram with ejection fraction of 25% was severity s tenosis, mild pulmonary hypertension is seen as well, cardiovascular services following increasing the diuretics and optimizing care with maximum medical therapy This is a 69-year-old female with no significant past medical problems, patient presented into the hospital because of shortness of breath, she was placed on BiPAP in the emergency department, it appears that the shortness of breath star sydnie about 5 days ago has been more progressive however she denies any chest pain or cough or sputum production, on arrival in the emergency department she was noted to be tachycardic, testing for coronary virus is negative as well as influenza, d-dimer was elevated however, a computed tomography scan of the chest failed revealed presence of pulmonary embolism, obviously findings were more of a CHF exacerbation, patient also noted to have cardiomegaly interstitial edema bilateral small pleural effusion, subcarinal lymph nodes were seen as well likely reactive today however she feels much better shortness of breath improved significantly, she is not wearing oxygen, echocardiogram revealed ejection fraction only 20-25%, severe aortic stenosis has been noted, cardiovascular services are following Objective - Vital Signs Vital signs: Vital Signs Temp 97.9 F 04/20/20 09:40 Pulse 69 04/20/20 10:45 Resp 16 04/20/20 10:45 BP 105/62 04/20/20 10:45 Pulse Ox 96 04/20/20 10:45 Intake & Output 04/19/20 04/20/20 04/20/20 18:59 06:59 18:59 Intake Total 422 Output Total 1425 450 425 Balance -1425 -450 -3 Weight 62.7 kg Intake: IV 200 Oral 222 Output: Urine 1425 450 425 Other: Voiding Method Indwelling Catheter Indwelling Catheter Indwelling Catheter # Bowel Movements 1 - Exam - Constitutional General appearance: average body habitus, cooperative, disheveled - EENT Eyes: PERRLA Ears: bilateral: normal - Neck Carotids: bilateral: upstroke normal - Respiratory Respiratory: bilateral: rales - Cardiovascular Rhythm: regular Heart sounds: normal: S1, S2 - Neurologic Neurologic: CNII-XII intact - Musculoskeletal Musculoskeletal: gait normal, generalized weakness, strength equal bilaterally - Psychiatric Psychiatric: A&O x's 3, appropriate affect, intact judgment & insight - Labs CBC & Chem 7: 04/18/20 07:26 04/20/20 10:22 Labs: Abnormal Lab Results - Last 24 Hours (Table) 04/20/20 Range/Units 10:22 BUN 21 H (7-17) mg/dL Glucose 103 H (74-99) mg/dL Assessment and Plan Assessment: Acute systolic heart failure Severe aortic stenosis Mediastinal lymphadenopathy likely reactive cause is not clear well due to her short-term computed tomography scan once cardiovascular evaluation is completed for reassessment Pulmonary hypertension likely group 2/3 Plan: Continue gentle diuresis Further workup as per cardiovascular services For mediastinal lymphadenopathy will reassess with short-term computed tomog charlene scan into the three-month as outpatient Time with Patient: Greater than 30
[2020-04-20] MEDS: FUROSEMIDE 20 MG TAB PO SCH (17:15)
[2020-04-20 19:19] VITALS: RESP 18
[2020-04-20] MEDS: ATORVASTATIN 40 MG TAB PO SCH (20:44)
--- NOTE | 2020-04-20 22:33 | P.PN ---
Subjective this is a pleasant 69 years old female with no past medical history presents because of dyspnea. Patient was on BiPAP so she was able to give limited history. Patient states she does not follow up with PCP. She presents because of dyspnea on 5 days duration with some little or no coughing but no chest pain. No abdominal pain. No change in urine or bowel habits. No fever on admission she was tachycardic of 112-115. Rest of Vitas looks st able.unremarkable cbc, bmp, liver enzymes are slightly elevated with ast 41 and alt 50. coronavirus is not detected, influenza virus nondetected. her d-dimer was elevated at 0.85 and she underwent cta of the chest:suboptimal study but no evidence of acute pulmonary embolism. Correlates for CHF exacerbation, there is cardiomegaly with small bilateral pleural effusions and mild interstitial edema bilaterally. There is a large subcarinal adenopathy and less prominently enlarged bilateral hilar lymph nodes.possible underlying pulmonary artery hypertension Suspect CHF. 04/18/2020 Patient is awake, no chest pain, her breathing is improving, currently she is on 3 L oxygen via nasal cannula. Patient informed she has CHF and severe aortic stenosis which she did not know about before Labs and vitals are stable. Creatinine and electrolytes are normal Patient continue with Lasix IV Follow-up with further recommendation by glass bulb machine adjuster 04/19/2020 Patient feels a little better today. She's been feeling generally weak even before Admission to the hospital, mostly related to her aortic stenosis. Hemodynamically stable. Labs are stable. Patient is planned for cardiac cath tomorrow 04/20/2020 Patient underwent cardiac cath today which reveals no significant coronary artery disease CAYDEN was done with Dr. Null shows severe aortic disease however as per cardiology note the patient does not want any surgical intervention for her aortic stenosis at this time, glass bulb machine adjuster recommended to discharge the patient on the current regimen and follow-up as an outpatient for possible percutaneous aortic valve procedure Objective - Vital Signs Vital signs: Vital Signs Temp 98.6 F 04/20/20 20:00 Pulse 81 04/20/20 20:00 Resp 18 04/20/20 20:00 BP 95/56 04/20/20 20:00 Pulse Ox 96 04/20/20 20:00 Intake & Output 04/20/20 04/20/20 04/21/20 06:59 18:59 06:59 Intake Total 602 Output Total 450 625 Balance -450 -23 Weight 62.7 kg Intake: IV 200 Oral 402 Output: Urine 450 625 Other: Voiding Method Indwelling Catheter Indwelling Catheter Indwelling Catheter # Bowel Movements 1 - Exam GENERAL: The patient is alert and oriented x3, not in any acute distress. Well developed, well nourished. HEENT: Pupils are round and equally reacting to light. EOMI. No scleral icterus. No conjunctival pallor. Normocephalic, atraumatic. No pharyngeal erythema. No thyromegaly. CARDIOVASCULAR: S1 and S2 present. No murmurs, rubs, or gallops. -PULMONARY: Chest is clear to auscultation, no wheezing. Bilateral basal crepitation ABDOMEN: Soft, nontender, nondistended, normoactive bowel sounds. No palpable organomegaly. MUSCULOSKELETAL: No joint swelling or deformity. EXTREMITIES: No cyanosis, clubbing, or pedal edema. NEUROLOGICAL: Gross neurological examination did not reveal any focal deficits. SKIN: No rashes. no petechiae. - Labs CBC & Chem 7: 04/18/20 07:26 04/20/20 10:22 Labs: Abnormal Lab Results - Last 24 Hours (Table) 04/20/20 Range/Units 10:22 BUN 21 H (7-17) mg/dL Glucose 103 H (74-99) mg/dL Assessment and Plan Assessment: acute systolic CHF exacerbation, ejection fraction 20-25% (nonischemic cardiomyopathy) Severe aortic stenosis with unremarkable cardiac cath possible pulmonary artery hypertension large subcarinal adenopathy and less prominently enlarged bilateral hilar lymph nodes Plan: this is a pleasant 69 years old female who presents with CHF. We'll do serial troponins, cardiology consult. Principal Technologist. The patient for discharge and follow-up as an outpatient for possible percutaneous aortic valve procedure Labs and medication were reviewed.. Continue same treatment. Continue with symptomatic treatment. Resume home medication. Monitor lytes and vitals. DVT and GI prophylaxis. Further recommendationsas per clinical course of the patient DVT prophylaxis: Subcutaneous heparin GI Prophylaxis: Pepcid Prognosis is guarded possible discharge in 24-48 hours
[2020-04-21] MEDS: HEPARIN SODIUM,PORCINE 5,000 UNIT/ML 1 ML VIAL SQ SCH (07:56)
[2020-04-21] MEDS: SODIUM CHLORIDE 0.9% 1,000 ML IV SCH (07:56)
[2020-04-21] MEDS: METOPROLOL TARTRATE 12.5 MG TAB PO SCH (07:56)
[2020-04-21] MEDS: FAMOTIDINE 20 MG TAB PO SCH (07:56)
[2020-04-21] MEDS ORDERED: ASPIRIN 81 MG PO SCH (09:00)
--- NOTE | 2020-04-21 11:06 | P.PN ---
Subjective Progress Note Date: 04/21/20 Principal diagnosis: Acute systolic heart failure Severe aortic stenosis Mediastinal lymphadenopathy likely reactive cause is not clear well due to her short-term computed tomography scan once cardiovascular evaluation is completed for reassessment Pulmonary hypertension likely group 2/3 04/21/2020, patient seen eval examined during the rounds labs reviewed medications reviewed care plan discussed, denies any chest pain respiratory status remains stable, breathing comfortably, oxygen saturation 97% room air, cardiac cath and angiogram negative for significant stenosis however severity stenosis is seen, patient declined surgical evaluation cardiovascular service is planning to treat with maximum medical therapy as outpatient 04/20/2020, patient seen eval examined during the rounds labs reviewed medications reviewed shortness of breath is stable, denies any chest pain, no cough congestion is present, currently stable, oxygen saturation is the 96% on 2 L oxygen down from 3 L now 04/19/2020, shortness of breath slightly better cough congestion improved, breathing more comfortably, denies any chest pain no fever or chills present, patient underwent echocardiogram with ejection fraction of 25% was severity stenosis, mild pulmonary hypertension is seen as well, cardiovascular services following increasing the diuretics and optimizing care with maximum medical therapy This is a 69-year-old female with no significant past medical problems, patient presented into the hospital because of shortness of breath, she was placed on BiPAP in the emergency department, it appears that the shortness of breath started about 5 days ago has been more progressive however she denies any chest pain or cough or sputum production, on arrival in the emergency department she was noted to be tachycardic, testing for coronary virus is negative as well as influenza, d-dimer was elevated however, a computed tomography scan of the chest failed revealed presence of pulmonary embolism, obviously findings were more of a CHF exacerbation, patient also noted to have cardiomegaly interstitial edema bilateral small pleural effusion, subcarinal lymph nodes were seen as well likel y reactive today however she feels much better shortness of breath improved significantly, she is not wearing oxygen, echocardiogram revealed ejection fraction only 20-25%, severe aortic stenosis has been noted, cardiovascular services are following Objective - Vital Signs Vital signs: Vital Signs Temp 98.2 F 04/21/20 08:00 Pulse 66 04/21/20 08:00 Resp 18 04/21/20 08:00 BP 97/60 04/21/20 08:00 Pulse Ox 97 04/21/20 08:00 Intake & Output 04/20/20 04/21/20 04/21/20 18:59 06:59 18:59 Intake Total 602 120 Output Total 625 250 Balance -23 -250 120 Weight 63.5 kg Intake: IV 200 Oral 402 120 Output: Urine 625 250 Other: Voiding Method Indwelling Catheter Indwelling Catheter # Bowel Movements 1 - Exam - Constitutional General appearance: average body habitus, cooperative, disheveled - EENT Eyes: PERRLA Ears: bilateral: normal - Neck Carotids: bilateral: upstroke normal - Respiratory Respiratory: bilateral: rales - Cardiovascular Rhythm: regular Heart sounds: normal: S1, S2 - Neurologic Neurologic: CNII-XII intact - Musculoskeletal Musculoskeletal: gait normal, generalized weakness, strength equal bilaterally - Psychiatric Psychiatric: A&O x's 3, appropriate affect, intact judgment & insight - Labs CBC & Chem 7: 04/18/20 07:26 04/20/20 10:22 Assessment and Plan Assessment: Acute systolic heart failure Severe aortic stenosis Mediastinal lymphadenopathy likely reactive cause is not clear well due to her short-term computed tomography scan once cardiovascular evaluation is completed for reassessment Pulmonary hypertension likely group 2/3 Plan: Maximal medical therapy for aortic stenosis Continue gentle diuresis Further workup as per cardiovascular services Patient will need a sleep study as outpatient For mediastinal lymphadenopathy will reassess with short-term computed tomography scan into the three-month as outpatient Time with Patient: Greater than 30
[2020-04-21 11:54] VITALS: BP 99/66; PULSE 69; TEMP 98.4
--- NOTE | 2020-04-21 13:16 | P.PN ---
Subjective HISTORY OF PRESENTING ILLNESS This is a pleasant 69-year-old female with no significant past medical history. She does not follow in the office with a standpipe tender or even a primary care physician for that matter. She underwent cardiac catheterization yesterday with no significant obstructive disease noted. Transesophageal echocardiogram revealed bicuspid aortic valve for severe aortic stenosis. Gradient across the valve is [address] Null plans to evaluate the patient for TAVR. She is seen and examined resting comfortably in no acute distress. She denies any shortness of breath, dizziness or palpitations but she states s omar coming to the hospital and being diuresed her breathing is greatly improved and she feels back to her baseline. Blood pressure 97/60 heart rate 66 afebrile maintaining oxygen saturation on room air. Currently maintained on aspirin 81 mg daily, atorvastatin 40 mg at bedtime, Lasix 20 mg by mouth twice a day, Toprol 12.5 mg daily. Losartan has been discontinued secondary to hypotension. PHYSICAL EXAMINATION CONSTITUTIONAL: No apparent distress. HEENT: Head is normocephalic. Pupils are equal, round. Sclerae anicteric. Mucous membranes of the mouth are moist. No JVD. No carotid bruit. CHEST EXAMINATION: Clear to auscultation bilaterally. No rales, wheezes or rhonchi. No chest wall tenderness is noted on palpation or with deep breathing. HEART EXAMINATION: Regular rate and rhythm. S1, S2 heard. Systolic ejection murmur at all listening points, no gallops or rub. EXTREMITIES: 2+ peripheral pulses, no lower extremity edema and no calf tenderness. ASSESSMENT Acute systolic heart failure, EF less than 20% Aortic stenosis, severe Cardiomyopathy, unsure if ischemic or non-ischemic at this point Pulmonary hypertension PLAN Stable for discharge on current medical regimen. Follow-up in the office with Dr. Zayas in 1-2 weeks. Nurse Practitioner note has been reviewed, I agree with a documented findings and plan of care. Patient was seen and examined. Objective - Vital Signs Vital signs: Vital Signs Temp 98.2 F 04/21/20 08:00 Pulse 66 04/21/20 08:00 Resp 18 04/21/20 08:00 BP 97/60 04/21/20 08:00 Pulse Ox 97 04/21/20 08:00 Intake & Output 12/11/20 12/12/20 12/12/20 18:59 06:59 18:59 Intake Total 602 120 Output Total 625 250 Balance -23 -250 120 Weight 63.5 kg Intake: IV 200 Oral 402 120 Output: Urine 625 250 Other: Voiding Method Indwelling Catheter Indwelling Catheter # Bowel Movements 1 - Labs CBC & Chem 7: 04/18/20 07:26 04/20/20 10:22
--- NOTE | 2020-04-22 02:42 | P.DS ---
Providers Date of admission: 04/17/20 09:57 Attending physician: Magdaleno Oconnor MD Consults: 04/17/20 09:58 Consult Physician Urgent Consulting Provider: [facility] Consult Reason/Comments: new onset heart failure Do you want consulting provider notified?: Yes 04/17/20 11:09 Consult Physician Routine Consulting Provider: Martin Melchor Consult Reason/Comments: Hilar lymphadenopathy Do you want consulting provider notified?: Yes Primary care physician: Stated None Hospital Course: Diagnoses: acute systolic CHF exacerbation, ejection fraction 20-25% (nonischemic cardiomyopathy) Severe aortic stenosis with unremarkable cardiac cath possible pulmonary artery hypertension large subcarinal adenopathy and less prominently enlarged bilateral hilar lymph nodes hospital course: this is a pleasant 69 years old female with no past medical history presents because of dyspnea. Patient found to have acute systolic CHF with ejection fraction less than 20%, systems software specialist evaluated the patient, she underwent cardiac cath with systems software specialist team which was unremarkable for coronary artery disease, however CAYDEN done by Dr. Alcantara showing severe aortic stenosis with pressure gradient across the valve more than 50 mm which make her eligible for aortic valve repair, however patient does not want any surgical intervention now but she wants to follow up as an outpatient with Dr. pike for possible percutaneous aortic valve repair, risks, benefits explained to the patient extensively and she agrees as stated she will definitely call and make her own appointment. Also airport traffic controller evaluated the patient for hilar lymphadenopathy, felt it is reactive, patient was instructed upon Dr. Melchor the airport traffic controller recommendation to follow up with him to repeat imaging as an outpatient to monitor stability, risks including but not limited to cancer are explained to the patient and she is willing to: Make her own appointment with Dr. Melchor in about 2 weeks as she told me On the day of discharge patient was fully awake and oriented when she was breathing quietly on room air, no respiratory difficulty, no chest pain, no other symptoms. Patient states that she is at her normal self and she thinks emily sinclair can go home today. I discussed the case with cardiology team and they cleared her for discharge Patient also was cleared for discharge by pulmonary service Problems and management plan were discussed with the patient and he verbalized understanding and acceptance Patient was found stable and can be discharged home however he needs follow-up as an outpatient. Patient was instructed to follow up with PCP within one week and patient agrees.Patient does not have PCP and she wants to follow up with Dr. Ponce Suarez and his contact information is provided for the patient. Also patient was instructed to follow up with Dr. pike the systems software specialist in 1 week and she told me she going to call and make appointment in 1 week as instructed. Also she was instructed to follow up with Dr. Melchor the airport traffic controller and make appointment with him within a few weeks and she agrees with that as well Gen: patient is a AAOx3, no distress CVS: S1-S2, RRR, no murmur Lungs: B/L CTA, no wheezing Abdomen: soft, no distention, no tenderness, positive bowel sounds Extremity: no leg edema or induration Time spent more than 35 minutes Patient Condition at Discharge: Serious Plan - Discharge Summary Discharge Rx Participant: No New Discharge Prescriptions: New Aspirin 81 mg PO DAILY #30 chew Furosemide [Lasix] 20 mg PO DAILY@1600 #30 tab Atorvastatin [Lipitor] 40 mg PO HS #30 tab Metoprolol Tartrate [Lopressor] 12.5 mg PO DAILY #60 tab Nitroglycerin Sl Tabs [Nitrostat] 0.4 mg SUBLINGUAL Q5M PRN #20 tab PRN Reason: Chest Pain Famotidine [Pepcid] 20 mg PO Q24HR #30 tab Continue Ibuprofen [Motrin Ib] 400 mg PO DAILY PRN PRN Reason: leg pain Discharge Medication List Ibuprofen [Motrin Ib] 400 mg PO DAILY PRN 04/17/20 [History] Aspirin 81 mg PO DAILY #30 chew 04/21/20 [Rx] Atorvastatin [Lipitor] 40 mg PO HS #30 tab 04/21/20 [Rx] Famotidine [Pepcid] 20 mg PO Q24HR #30 tab 04/21/20 [Rx] Furosemide [Lasix] 20 mg PO DAILY@1600 #30 tab 04/21/20 [Rx] Metoprolol Tartrate [Lopressor] 12.5 mg PO DAILY #60 tab 04/21/20 [Rx] Nitroglycerin Sl Tabs [Nitrostat] 0.4 mg SUBLINGUAL Q5M PRN #20 tab 04/21/20 [Rx] Follow up Appointment(s)/Referral(s): Ponce Suarez MD [STAFF PHYSICIAN] - 1 Week (call office to make follow up appt ) Odilia Zayas MD [STAFF PHYSICIAN] - 1 Week (call office to make follow up appt ) Martin Melchor MD [STAFF PHYSICIAN] - 4 Weeks (call office to make follow up appt) Patient Instructions/Handouts: Heart Failure (DC) Activity/Diet/Wound Care/Special Instructions: heart healthy diet activity is restricted till you see your doctor Discharge Disposition: HOME SELF-CARE
--- NOTE | 2020-04-23 09:40 | ECHOT ---
TRANSESOPHAGEAL ECHOCARDIOGRAM DATE OF SERVICE: 04/20/2020. PERFORMING PHYSICIAN: Amos Null MD. PROCEDURE PERFORMED: Transesophageal echocardiogram. INDICATION: Aortic stenosis. COMPLICATION: None. LEVEL OF SEDATION: Moderate with sedation length of about 10 minutes. PROCEDURE: Description please use my template for transesophageal echo. FINDINGS: The left ventricle appeared to be severely dilated. The left ventricular systolic function is severely impaired with EF around 15% only with global hypokinesia. The right ventricle appeared to be of normal size and function. The left atrium appeared to be dilated. The interatrial septum appeared to be intact. The aortic valve is bicuspid valve with fusion of the right and non coronary cusp and evidence of severe aortic stenosis with a mean gradient of 40 and peak of 68 mmHg. The mitral valve appeared thickened with moderate MR. There was moderate tricuspid regurgitation seen. CONCLUSION: 1. Severely impaired LV function with ejection fraction of 15%-20% and global hypokinesia. 2. Bicuspid aortic valve with evidence of fusion of the right and non coronary cusp and evidence of severe aortic stenosis with a mean gradient of 40 and peak of 68 mmHg. 3. Moderately thickened mitral valve leaflets with moderate mitral regurgitation. 4. Moderate tricuspid regurgitation. 5. No evidence of pericardial effusion. MMODL / IJN: [id number] /
== END 2020-04-21 15:02 | disposition home or self-care (01) | DRG 287 ==
LOC: EC 07:16 → 3SCARD 09:57
PROVIDERS: ADMIT Internal Medicine; ATTEND Internal Medicine
PROC: 5A09357 Assistance with Respiratory Ventilation, Less than 24 Consecutive Hours, Continuous Positive Airway Pressure (ICD-10-PCS; 2020-04-17)
PROC: B2111ZZ Fluoroscopy of Multiple Coronary Arteries using Low Osmolar Contrast (ICD-10-PCS; principal; 2020-04-20 07:30)
DX: I50.23 Acute on chronic systolic (congestive) heart failure (principal); Q23.1 Congenital insufficiency of aortic valve; I42.8 Other cardiomyopathies; I27.21 Secondary pulmonary arterial hypertension; I44.7 Left bundle-branch block, unspecified; Z20.828 Contact with and (suspected) exposure to other viral communicable diseases; R59.0 Localized enlarged lymph nodes; Z79.899 Other long term (current) drug therapy; Z79.82 Long term (current) use of aspirin; Z83.3 Family history of diabetes mellitus; Z80.8 Family history of malignant neoplasm of other organs or systems
CPT/HCPCS: 36415; 51702; 71046; 71275; 80048; 80053; 83605; 83880; 84484; 85025; 85379; 85610; 85730; 87502; 87635; 93005; 93306; 93312; 93320; 93325; 93454; 94660; 96374; 99285

== ENCOUNTER → 2020-05-24 | Outpatient (CLI) | payer MEDICARE ==
[2020-05-24 14:56] LABS: HCT 41.4 % (34.0-46.0); HGB 14.2 gm/dL (11.4-16.0); MCHC 34.3 g/dL (31.0-37.0); MCV 93.4 fL (80.0-100.0); Mean Platelet Volume 6.6; Platelet Count 265 k/uL (150-450); RBC 4.43 m/uL (3.80-5.40); RDW 12.6 % (11.5-15.5); WBC 7.6 k/uL (3.8-10.6)
[2020-05-25 03:38] LABS: African American GFR (CKD) 53.8 (60.0-200.0); Albumin/Globulin Ratio 2.27 (1.60-3.17); Anion Gap 11.4 mmol/L (4.00-12.00); BUN/Creat Ratio 14.17 Ratio (12.00-20.00); Calcium 9.9 mg/dL (8.7-10.3); Carbon Dioxide 26.6 mmol/L (21.6-31.8); Globulin 2.2 g/dL (1.6-3.3); Non-African American GFR(CKD) 46.4 (60.0-200.0); Potassium 3.7 mmol/L (3.5-5.5); Total Bilirubin 0.8 mg/dL (0.3-1.2); Total Protein 7.2 g/dL (6.2-8.2)
[2020-05-25 04:20] LABS: Hemoglobin A1C 6.2 % (4.0-6.0)
== END | disposition home or self-care (01) ==
LOC: LABWHC1 14:18
PROVIDERS: ATTEND Thoracic Surgery (Cardiothoracic Vascular Surgery)
DX: I50.9 Heart failure, unspecified (principal); R73.9 Hyperglycemia, unspecified; R94.6 Abnormal results of thyroid function studies
CPT/HCPCS: 36415; 80053; 83036; 83880; 84443; 85027

== ENCOUNTER 2020-06-12 15:57 | Observation (INO) | payer MEDICARE ==
[2020-06-12 16:48] LABS: Basophils % (A) 0 %; Eosinophils % (A) 0 %; HCT 40.6 % (34.0-46.0); HGB 13.4 gm/dL (11.4-16.0); Lymphocytes # (A) 1.2 k/uL (1.0-4.8); Lymphocytes % (A) 14 %; MCH 30.3 pg (25.0-35.0); MCHC 32.9 g/dL (31.0-37.0); MCV 91.9 fL (80.0-100.0); Mean Platelet Volume 6.8; Monocytes # (A) 0.5 k/uL (0-1.0); Monocytes % (A) 6 %; Neutrophils # (A) 6.7 k/uL (1.3-7.7); Neutrophils % (A) 78 %; Platelet Count 221 k/uL (150-450); RBC 4.41 m/uL (3.80-5.40); RDW 13.2 % (11.5-15.5); WBC 8.6 k/uL (3.8-10.6)
[2020-06-12 16:58] LABS: ALT 21 U/L (4-34); AST 28 U/L (14-36); African American GFR (CKD) >90 (>60 ml/min/1.73 sqM); Albumin 4.2 g/dL (3.5-5.0); Alkaline Phosphatase 91 U/L (38-126); Anion Gap 10 mmol/L; Blood Urea Nitrogen 14 mg/dL (7-17); Calcium 9.3 mg/dL (8.4-10.2); Carbon Dioxide 28 mmol/L (22-30); Chloride 100 mmol/L (98-107); Creatine Kinase 208 U/L (30-135); Glucose 123 mg/dL (74-99); Non-African American GFR(CKD) 89 (>60 ml/min/1.73 sqM); Potassium 3.7 mmol/L (3.5-5.1); Sodium 138 mmol/L (137-145); Total Bilirubin 0.9 mg/dL (0.2-1.3); Total Protein 7.1 g/dL (6.3-8.2)
--- NOTE | 2020-06-12 17:09 | ED ---
General Adult HPI - General Chief complaint: Syncope Stated complaint: Heart problems,Poss broken nose Time Seen by Provider: 06/12/20 16:00 Source: patient Mode of arrival: ambulatory Limitations: no limitations - History of Present Illness Initial comments: 69-year-old female with past history of aortic stenosis, nonischemic cardiomyopathy who presents to the emergency room after she had a syncopal episode. Patient states that she had awoken early in the morning to let her dogs outside. States she ambulated down the hallway when she ended up having a syncopal episode. She fell to the ground and hit her face on the wooden floor. She was able to get up right after the incident. Denies having any chest pain or shortness of breath prior to the incident. She does admit to a presyncopal sensation. No headaches or visual changes. Did have some bleeding from the right nare which has since stopped. She is not on any blood thinners. She is currently awaiting aortic valve replacement by Dr. Arias. Patient admits that she did have 4 teeth pulled yesterday. Denies any changes in her medication. No fevers or chills. She followed up with Dr. Suarez for the incident recommended that she come into the emergency room for evaluation. Denies any back or flank pain. Does admit to bilateral ischial pain. No difficulties with ambulation. No other alleviating, precipitating or modifying factors - Related Data Home Medications Medication Instructions Recorded Confirmed Ibuprofen [Motrin Ib] 400 mg PO DAILY PRN 04/17/20 06/12/20 Famotidine [Pepcid] 20 mg PO DAILY 06/12/20 06/12/20 Previous Rx's Medication Instructions Recorded Aspirin 81 mg PO DAILY #30 chew 04/21/20 Atorvastatin [Lipitor] 40 mg PO HS #30 tab 04/21/20 Furosemide [Lasix] 20 mg PO DAILY@1600 #30 tab 04/21/20 Metoprolol Tartrate [Lopressor] 12.5 mg PO DAILY #60 tab 04/21/20 Nitroglycerin Sl Tabs [Nitrostat] 0.4 mg SUBLINGUAL Q5M PRN #20 tab 04/21/20 Allergies Allergy/AdvReac Type Severity Reaction Status Date / Time No Known Allergies Allergy Verified 06/12/20 18:21 Review of Systems ROS Statement: Those systems with pertinent positive or pertinent negative responses have been documented in the HPI. ROS Other: All systems not noted in ROS Statement are negative. Past Medical History Past Medical History: No Reported History Additional Past Medical History / Comment(s): Aortic stenosis History of Any Multi-Drug Resistant Organisms: None Reported Past Surgical History: No Surgical Hx Reported Past Anesthesia/Blood Transfusion Reactions: No Reported Reaction Past Psychological History: No Psychological Hx Reported Smoking Status: Never smoker Past Alcohol Use History: None Reported Past Drug Use History: None Reported - Past Family History Father Family Medical History: Diabetes Mellitus Mother Family Medical History: Cancer Additional Family Medical History / Comment(s): cervical General Exam Limitations: no limitations General appearance: alert, in no apparent distress Head exam: Present: atraumatic, normocephalic, normal inspection Eye exam: Present: normal appearance, PERRL, EOMI. Absent: scleral icterus, conjunctival injection, periorbital swelling ENT exam: Present: mucous membranes moist, other (ecchymosis under patients right eye. ecchymosis of right nasal ala with enlargement. no compression on nasal septum. no septal hematoma. no palpable step offs. No occular entraptment) Neck exam: Present: normal inspection. Absent: tenderness, meningismus, lymphadenopathy Respiratory exam: Present: normal lung sounds bilaterally. Absent: respiratory distress, wheezes, rales, rhonchi, stridor Cardiovascular Exam: Present: regular rate, normal rhythm, normal heart sounds. Absent: systolic murmur, diastolic murmur, rubs, gallop, clicks GI/Abdominal exam: Present: soft, normal bowel sounds. Absent: distended, tenderness, guarding, rebound, rigid Extremities exam: Present: normal inspection, full ROM, normal capillary refill. Absent: tenderness, pedal edema, joint swelling, calf tenderness Back exam: Present: normal inspection Neurological exam: Present: alert, oriented X3, CN II-XII intact Psychiatric exam: Present: normal affect, normal mood Skin exam: Present: warm, dry, intact, normal color. Absent: rash Course Vital Signs 06/12/20 06/12/20 06/12/20 15:59 17:33 18:40 Temperature 98.1 F Pulse Rate 85 64 63 Respiratory 20 16 16 Rate Blood Pressure 125/79 126/67 95/68 O2 Sat by Pulse 97 100 97 Oximetry EKG Findings - EKG Comments: EKG Findings:: EKG demonstrates a sinus rhythm with a ventricular rate 72. CO interval 112. QRS 130. QTC of 462. Left bundle branch block present. Negative for sgarbossa criteria. branch seen on previous EKG during last hospitalization Medical Decision Making - Medical Decision Making Upon arrival patient was placed into room 6. A thorough history and physical exam was performed here patient hooked up to continuous pulse ox and cardiac monitoring. 12-lead EKG is performed. Laboratory studies were conducted and reviewed. Patient went over for CT of her head, cervical spine and facial bones. Chest and pelvic x-ray are also performed. CT of the brain demonstrates mild cerebral atrophy. No acute intracranial abnormality. Minor degenerative disc changes. 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 Chest x-ray demonstrates no active cardiopulmonary disease. Results are discussed the patient. Did recommend admission for cardiothoracic and cardiology consultation. Spoke with Anila from Dr. Suarez's office, who is on site to evaluate the patien, who agreed with the patient. We'll consult ENT. Patient agreed to the treatment plan and was transferred to the floor in stable condition - Lab Data Result diagrams: 06/13/20 04:35 06/13/20 04:35 Lab Results 06/12/20 06/12/20 06/12/20 Range/Units 16:28 16:28 16:28 WBC 8.6 (3.8-10.6) k/uL RBC 4.41 (3.80-5.40) m/uL Hgb 13.4 (11.4-16.0) gm/dL Hct 40.6 (34.0-46.0) % MCV 91.9 (80.0-100.0) fL MCH 30.3 (25.0-35.0) pg MCHC 32.9 (31.0-37.0) g/dL RDW 13.2 (11.5-15.5) % Plt Count 221 (150-450) k/uL MPV 6.8 Neutrophils % 78 % Lymphocytes % 14 % Monocytes % 6 % Eosinophils % 0 % Basophils % 0 % Neutrophils # 6.7 (1.3-7.7) k/uL Lymphocytes # 1.2 (1.0-4.8) k/uL Monocytes # 0.5 (0-1.0) k/uL Eosinophils # 0.0 (0-0.7) k/uL Basophils # 0.0 (0-0.2) k/uL PT 10.5 (9.0-12.0) sec INR 1.0 (<1.2) APTT 21.8 L (22.0-30.0) sec Sodium 138 (137-145) mmol/L Potassium 3.7 (3.5-5.1) mmol/L Chloride 100 (98-107) mmol/L Carbon Dioxide 28 (22-30) mmol/L Anion Gap 10 mmol/L BUN 14 (7-17) mg/dL Creatinine 0.70 (0.52-1.04) mg/dL Est GFR (CKD-EPI)AfAm >90 (>60 ml/min/1.73 sqM) Est GFR (CKD-EPI)NonAf 89 (>60 ml/min/1.73 sqM) Glucose 123 H (74-99) mg/dL Calcium 9.3 (8.4-10.2) mg/dL Total Bilirubin 0.9 (0.2-1.3) mg/dL AST 28 (14-36) U/L ALT 21 (4-34) U/L Alkaline Phosphatase 91 (38-126) U/L Creatine Kinase 208 H (30-135) U/L Troponin I (0.000-0.034) ng/mL Total Protein 7.1 (6.3-8.2) g/dL Albumin 4.2 (3.5-5.0) g/dL 06/12/20 Range/Units 16:36 WBC (3.8-10.6) k/uL RBC (3.80-5.40) m/uL Hgb (11.4-16.0) gm/dL Hct (34.0-46.0) % MCV (80.0-100.0) fL MCH (25.0-35.0) pg MCHC (31.0-37.0) g/dL RDW (11.5-15.5) % Plt Count (150-450) k/uL MPV Neutrophils % % Lymphocytes % % Monocytes % % Eosinophils % % Basophils % % Neutrophils # (1.3-7.7) k/uL Lymphocytes # (1.0-4.8) k/uL Monocytes # (0-1.0) k/uL Eosinophils # (0-0.7) k/uL Basophils # (0-0.2) k/uL PT (9.0-12.0) sec INR (<1.2) APTT (22.0-30.0) sec Sodium (137-145) mmol/L Potassium (3.5-5.1) mmol/L Chloride (98-107) mmol/L Carbon Dioxide (22-30) mmol/L Anion Gap mmol/L BUN (7-17) mg/dL Creatinine (0.52-1.04) mg/dL Est GFR (CKD-EPI)AfAm (>60 ml/min/1.73 sqM) Est GFR (CKD-EPI)NonAf (>60 ml/min/1.73 sqM) Glucose (74-99) mg/dL Calcium (8.4-10.2) mg/dL Total Bilirubin (0.2-1.3) mg/dL AST (14-36) U/L ALT (4-34) U/L Alkaline Phosphatase (38-126) U/L Creatine Kinase (30-135) U/L Troponin I <0.012 (0.000-0.034) ng/mL Total Protein (6.3-8.2) g/dL Albumin (3.5-5.0) g/dL Disposition Clinical Impression: Syncope and collapse, Traumatic hematoma of face, Aortic stenosis Disposition: ADMITTED IP TO THIS [facility] Condition: Fair Is patient prescribed a controlled substance at d/c from ED?: No Decision to Admit Reason: Admit from EC Decision Date: 06/12/20 Decision Time: 18:22
[2020-06-12 17:15] LABS: Prothrombin Time 10.5 sec (9.0-12.0)
[2020-06-12 17:20] LABS: Partial Thromboplastin Time 21.8 sec (22.0-30.0)
--- NOTE | 2020-06-12 17:39 | CT ---
EXAMINATION TYPE: CT brain chris fields DATE OF EXAM: 06/12/2020 COMPARISON: None HISTORY: syncope Headache Neck pain CT DLP: 1024.3 mGycm Automated exposure control for dose reduction was used. There is mild cerebral cortical atrophy. There is no mass effect nor midline shift. There is no sign of intracranial hemorrhage. The calvarium is intact. There is some straightening of the cervical spine. There is disc space narrowing from C4 to C7 with m ild spurring of the endplates. The posterior elements are intact. There is minimal cervical facet art hropathy. Prevertebral soft tissues are intact. The skull base is intact. There is normal aeration of the mastoid sinuses. IMPRESSION: Mild cerebral atrophy. No acute intracranial abnormality. Minor degenerative disc changes in the cervical spine. No fracture seen.
--- NOTE | 2020-06-12 17:41 | CT ---
EXAMINATION TYPE: CT facial bones wo con DATE OF EXAM: 06/12/2020 COMPARISON: None HISTORY: syncope, fall, nose disfigurement CT DLP: 747.2 mGycm Automated exposure control for dose reduction was used. Images obtained from the bottom of the mandible to the top of the frontal sinuses without contrast. The mandibular ring is intact. Temporomandibular joints appear intact. Zygomatic arches appear normal . The maxilla is intact. There is no evidence of a blowout fracture. Orbital margins are intact. Ther e is no retro-orbital mass. There is soft tissue swelling around the nasal bone. There is increased density in the anterior nasop harynx consistent with blood clot and debris. I see no displaced nasal bone fracture. The temporal vince poonam are intact. There is normal aeration of the mastoid sinuses. There is normal aeration of the epit ympanic recess bilaterally. IMPRESSION: Nasal soft tissue swelling. Increased density in the anterior nasopharynx. No displaced fracture seen .
--- NOTE | 2020-06-12 18:17 | XR ---
EXAMINATION TYPE: XR pelvis AP view DATE OF EXAM: 06/12/2020 COMPARISON: NONE HISTORY: Pain TECHNIQUE: Single view FINDINGS: Pelvic ring is intact. There is sclerosis and cystic changes in the right femoral head with some collapse of the articular surface. Sacroiliac joints appear normal. Left proximal femur and hip joint appear intact. 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 No acute bony abnormality.
--- NOTE | 2020-06-12 18:20 | XR ---
EXAMINATION TYPE: XR chest 2V DATE OF EXAM: 06/12/2020 COMPARISON: 04/17/2020 HISTORY: Syncope TECHNIQUE: FINDINGS: There is no heart failure nor confluent pneumonic infiltrate. Costophrenic angles are clear . There are chest leads. Bony thorax is intact. IMPRESSION: No active cardiopulmonary disease. Normal heart. There is clearing of the pulmonary edema compared to old exam.
[2020-06-12] MEDS ORDERED: NALOXONE 0.4 MG/ML 1 ML VIAL IV PRN (18:22)
[2020-06-12] MEDS ORDERED: ATORVASTATIN 40 MG TAB PO SCH (21:00)
[2020-06-13 03:28] VITALS: RESP 16
--- NOTE | 2020-06-13 08:55 | P.HPIM ---
History of Present Illness H&P Date: 06/13/20 Chief Complaint: Acute syncopal episode, facial trauma This 69-year-old female is known to the practice, she presented to the office yesterday after she states she woke up at 2 AM to let her dogs outside, she walked to the area to get leashes and by the time she got to the chair she felt lightheaded and fell, she states she hit her face when she fell and experienced epistaxis, she denies any loss of consciousness during the fall. She states she had had for teeth removed the day before from the dentist for an upcoming cardiac surgery, she states she did have something to eat light soft foods during the day but did not eat a full meal she did not experience any vertigo symptoms she states she was lightheaded after walking throughout her house. She was sent to the ER for an evaluation as there are concerns for her having the fall as result of a cardiac episode, as she has history of systolic congestive heart failure and severe aortic stenosis. Chest x-sera did not reveal any congestive heart failure at this time, CT of head and pelvis do not show any acute fracture, she is alert and oriented 3 and is in agreement for the admission at this time. Review of Systems Constitutional: Reports as per HPI Ears, nose, mouth and throat: Reports epistaxis (Beta-2, which has since resolved), Reports nose pain (Related to trauma) Cardiovascular: Reports lightheadedness, Reports syncope Musculoskeletal: Reports as per HPI (Recent fall with facial injury) Past Medical History Past Medical History: No Reported History, Heart Failure Additional Past Medical History / Comment(s): Aortic stenosis History of Any Multi-Drug Resistant Organisms: None Reported Past Surgical History: No Surgical Hx Reported Past Anesthesia/Blood Transfusion Reactions: No Reported Reaction Past Psychological History: No Psychological Hx Reported Smoking Status: Never smoker Past Alcohol Use History: None Reported Past Drug Use History: None Reported - Past Family History Father Family Medical History: Diabetes Mellitus Mother Family Medical History: Cancer Additional Family Medical History / Comment(s): cervical Medications and Allergies Home Medications Medication Instructions Recorded Confirmed Type Ibuprofen [Motrin Ib] 400 mg PO DAILY PRN 04/17/20 06/12/20 History Aspirin 81 mg PO DAILY #30 chew 04/21/20 06/12/20 Rx Atorvastatin [Lipitor] 40 mg PO HS #30 tab 04/21/20 06/12/20 Rx Furosemide [Lasix] 20 mg PO DAILY@1600 #30 tab 04/21/20 06/12/20 Rx Metoprolol Tartrate [Lopressor] 12.5 mg PO DAILY #60 tab 04/21/20 06/12/20 Rx Nitroglycerin Sl Tabs [Nitrostat] 0.4 mg SUBLINGUAL Q5M PRN #20 tab 04/21/20 06/12/20 Rx Famotidine [Pepcid] 20 mg PO DAILY 06/12/20 06/12/20 History Allergies Allergy/AdvReac Type Severity Reaction Status Date / Time No Known Allergies Allergy Verified 06/12/20 18:21 Physical Exam Vitals: Vital Signs Temp Pulse Pulse Resp BP BP Pulse Ox 06/13/20 07:52 98.6 F 72 16 109/68 96 06/13/20 07:24 72 16 06/13/20 03:28 98.3 F 70 16 108/59 95 06/12/20 20:10 72 15 06/12/20 20:00 97.8 F 72 15 111/66 98 06/12/20 18:40 63 16 95/68 97 06/12/20 17:33 64 16 126/67 100 06/12/20 15:59 98.1 F 85 20 125/79 97 Intake and Output 06/12/20 06/13/20 06/13/20 22:59 06:59 14:59 Intake Total 720 Balance 720 Intake: Oral 720 Other: Voiding Method Toilet # Voids 1 Weight 61.689 kg - Constitutional General appearance: average body habitus, cooperative, mild distress - EENT Eyes: poor dentition ENT: hearing grossly normal Ears: bilateral: normal - Respiratory Respiratory: bilateral: CTA - Cardiovascular Rhythm: regular Abnormal Heart Sounds: systolic murmur - Gastrointestinal General gastrointestinal: normal bowel sounds, soft - Integumentary Integumentary: normal - Neurologic Neurologic: CNII-XII intact - Musculoskeletal Musculoskeletal: gait normal, strength equal bilaterally - Psychiatric Psychiatric: A&O x's 3, appropriate affect, intact judgment & insight Results CBC & Chem 7: 06/12/20 16:28 06/12/20 16:28 Labs: Abnormal Lab Results - Last 24 Hours (Table) 06/12/20 06/12/20 Range/Units 16:28 16:28 APTT 21.8 L (22.0-30.0) sec Glucose 123 H (74-99) mg/dL Creatine Kinase 208 H (30-135) U/L Chest x-ray: report reviewed CT Scan - head: report reviewed CT scan - pelvis: report reviewed Thrombosis Risk Factor Assmnt - Choose All That Apply Each Factor Represents 1 point: Swollen legs (current) Other Risk Factors: Yes Each Risk Factor Represents 2 Points: Age 61-74 years Other congenital or acquired thrombophilia - If yes, enter type in comment: No Thrombosis Risk Factor Assessment Total Risk Factor Score: 3 Thrombosis Risk Factor Assessment Level: Moderate Risk Assessment and Plan Assessment: Syncope with collapse Traumatic facial injury without airway obstruction History of systolic murmur History of systolic congestive heart failure with EF of 15% in 04/2020 History of aortic stenosis (1) Syncope and collapse Narrative/Plan: Cardiology consultation for recommendations of further treatment and plan Cardiothoracic surgery consultation for recommendations for treatment and plan Imdurand throat consultation for recommendations Current Visit: Yes Status: Acute Code(s): R55 - SYNCOPE AND COLLAPSE SNOMED Code(s): 947389872 Plan: Cardiology consultation for treatment recommendations and plan Cardiothoracic surgery consultation for treatment recommendations and plan Ear nose and throat consultation for recommendations and plan Continue medications as prescribed Telemetry monitoring Time with Patient: Greater than 30
[2020-06-13] MEDS ORDERED: ASPIRIN 81 MG PO SCH (09:00)
[2020-06-13] MEDS ORDERED: FAMOTIDINE 20 MG TAB PO SCH (09:00)
[2020-06-13] MEDS ORDERED: METOPROLOL TARTRATE 12.5 MG TAB PO SCH (09:00)
[2020-06-13 09:17] LABS: Basophils # (A) 0.05 X 10*3/uL (0.00-0.10); Basophils % (A) 0.8 %; Eosinophils # (A) 0.05 X 10*3/uL (0.04-0.35); Eosinophils % (A) 0.8 %; HCT 36.9 % (37.2-46.3); HGB 12.2 g/dL (12.0-15.0); Lymphocytes # (A) 1.33 X 10*3/uL (0.90-5.00); Lymphocytes % (A) 20.8 %; MCH 30.9 pg (27.0-32.0); MCHC 33.1 g/dL (32.0-37.0); MCV 93.4 fL (80.0-97.0); Mean Platelet Volume 9.7 fL (9.5-12.2); Monocytes % (A) 12.5 %; Neutrophils # (A) 4.16 X 10*3/uL (1.80-7.70); Neutrophils % (A) 64.9 %; Platelet Count 203 X 10*3/uL (140-440); RBC 3.95 X 10*6/uL (4.10-5.20)
[2020-06-13 10:01] LABS: African American GFR (CKD) 103.2 (60.0-200.0); Anion Gap 8.7 mmol/L (4.00-12.00); BUN/Creat Ratio 17.14 Ratio (12.00-20.00); Calcium 9.1 mg/dL (8.7-10.3); Carbon Dioxide 28.3 mmol/L (21.6-31.8); Potassium 3.6 mmol/L (3.5-5.5)
--- NOTE | 2020-06-13 10:26 | P.CRDCN ---
History of Present Illness Consult date: 06/13/20 History of present illness: CHIEF COMPLAINT: Syncope, aortic stenosis HISTORY OF PRESENT ILLNESS: This is a 69-year-old female with a past medical history significant for aortic stenosis and congestive heart failure. Patient junior lopezs in the office with Dr. Zayas. We have been asked to see the patient in consultation for syncope. Patient examined this morning at the bedside. Patient is currently in the process of getting scheduled for an aortic valve replacement. She reports having some teeth pulled on Thursday. She states that Thursday morning she woke up around 2am to let her dogs outside to go to the bathroom. She states she had bent over to grab the dog leashes when she began to feel dizzy and lightheaded. She reports falling onto the wood floor and also hitting a chair as she fell. She denies any loss of consciousness. She reports having a nosebleed after she fell. She also sustained some trauma to her right eye. She currently denies chest pain or pressure. Denies shortness of breath. Denies dizziness or lightheadedness. DIAGNOSTICS: EKG reveals sinus mechanism with left axis deviation and left bundle branch block Chest xray no active cardiopulmonary process Laboratory data: WBC 6.4. Hemoglobin 12.2. Platelet count 203. Sodium 140. Potassium 3.6. BUN 12. Creatinine 0.7. Troponin negative 3. Current home cardiac medications include Lasix 20 mg daily, Lipitor 40 mg daily, metoprolol 12.5 mg daily, and aspirin 81 mg daily Echocardiogram completed in April 2020 revealed ejection fraction 20-25%, severe aortic stenosis, mild mitral regurgitation, and mild tricuspid regurg itation Chronic catheterization performed in April 2020 revealed a left dominant system, no significant obstructive CAD. REVIEW OF SYSTEMS: At the time of my exam: CONSTITUTIONAL: Denies fever or chills. HEENT: Denies blurred vision, vision changes, or eye pain. Denies hemoptysis CARDIOVASCULAR: Denies chest pain, orthopnea, PND or palpitations RESPIRATORY: No shortness of breath. GASTROINTESTINAL: Denies abdominal pain. Denies nausea or vomiting. HEMATOLOGIC: Denies bleeding disorders. GENITOURINARY: Denies any blood in urine. SKIN: Denies pruitis. Denies rash. PHYSICAL EXAM: VITAL SIGNS: Reviewed. GENERAL: Well-developed in no acute distress. HEENT: Ecchymosis of right orbital region. Head is normocephalic. Pupils are equal, round. Sclerae anicteric. Mucous membranes of the mouth are moist. Neck supple. No JVD or thyromegaly LUNGS: Respirations even and unlabored. Lungs essentially clear to auscultation bilaterally. HEART: Regular rate and rhythm. S1 and S2 heard. Systolic murmur noted. ABDOMEN: Soft. Nondistended. Nontender. EXTREMITIES: Normal range of motion. No clubbing or cyanosis. Peripheral pulses intact. No lower extremity edema NEUROLOGIC: Awake and alert. Oriented x 3. ASSESSMENT: Pre-syncope Facial trauma and epistaxis secondary to fall Severe aortic stenosis Chronic systolic heart failure, EF 20-25%, currently euvolemic PLAN: No need to repeat echocardiogram as this was performed April 2020 Obtain orthostatic blood pressures. Recommend small dose SUBHASH inhibitor if blood pressure able to tolerate. Will hold off for now and continue monitoring blood pressures. Cardiothoracic surgery on consult. Await recommendations Patient to have a 30 day event monitor placed at discharge Further recommendations pending patient course Nurse practitioner note has been reviewed by physician. Signing provider agrees with the documented findings, assessment, and plan of care. Past Medical History Past Medical History: No Reported History, Heart Failure Additional Past Medical History / Comment(s): Aortic stenosis History of Any Multi-Drug Resistant Organisms: None Reported Past Surgical History: No Surgical Hx Reported Past Anesthesia/Blood Transfusion Reactions: No Reported Reaction Past Psychological History: No Psychological Hx Reported Smoking Status: Never smoker Past Alcohol Use History: None Reported Past Drug Use History: None Reported - Past Family History Father Family Medical History: Diabetes Mellitus Mother Family Medical History: Cancer Additional Family Medical History / Comment(s): cervical Medications and Allergies Home Medications Medication Instructions Recorded Confirmed Type Ibuprofen [Motrin Ib] 400 mg PO DAILY PRN 04/17/20 06/12/20 History Aspirin 81 mg PO DAILY #30 chew 04/21/20 06/12/20 Rx Atorvastatin [Lipitor] 40 mg PO HS #30 tab 04/21/20 06/12/20 Rx Furosemide [Lasix] 20 mg PO DAILY@1600 #30 tab 04/21/20 06/12/20 Rx Metoprolol Tartrate [Lopressor] 12.5 mg PO DAILY #60 tab 04/21/20 06/12/20 Rx Nitroglycerin Sl Tabs [Nitrostat] 0.4 mg SUBLINGUAL Q5M PRN #20 tab 04/21/20 06/12/20 Rx Famotidine [Pepcid] 20 mg PO DAILY 06/12/20 06/12/20 History Allergies Allergy/AdvReac Type Severity Reaction Status Date / Time No Known Allergies Allergy Verified 06/12/20 18:21 Physical Exam Vitals: Vital Signs Temp Pulse Pulse Resp BP BP Pulse Ox 06/13/20 07:52 98.6 F 72 16 109/68 96 06/13/20 07:24 72 16 06/13/20 03:28 98.3 F 70 16 108/59 95 06/12/20 20:10 72 15 06/12/20 20:00 97.8 F 72 15 111/66 98 06/12/20 18:40 63 16 95/68 97 06/12/20 17:33 64 16 126/67 100 06/12/20 15:59 98.1 F 85 20 125/79 97 Intake and Output 06/12/20 06/13/20 06/13/20 22:59 06:59 14:59 Intake Total 720 Balance 720 Intake: Oral 720 Other: Voiding Method Toilet # Voids 1 Weight 61.689 kg Results 06/13/20 04:35 06/13/20 04:35 Cardiac Enzymes 06/12/20 06/12/20 06/12/20 Range/Units 16:28 16:36 19:17 AST 28 (14-36) U/L Troponin I <0.012 <0.012 (0.000-0.034) ng/mL 06/12/20 Range/Units 23:06 AST (14-36) U/L Troponin I <0.012 (0.000-0.034) ng/mL Coagulation 06/12/20 Range/Units 16:28 PT 10.5 (9.0-12.0) sec APTT 21.8 L (22.0-30.0) sec CBC 06/12/20 06/13/20 Range/Units 16:28 04:35 WBC 8.6 6.40 (3.8-10.6) k/uL RBC 4.41 3.95 L (3.80-5.40) m/uL Hgb 13.4 12.2 (11.4-16.0) gm/dL Hct 40.6 36.9 L (34.0-46.0) % Plt Count 221 203 (150-450) k/uL Comprehensive Metabolic Panel 06/12/20 Range/Units 16:28 Sodium 138 (137-145) mmol/L Potassium 3.7 (3.5-5.1) mmol/L Chloride 100 (98-107) mmol/L Carbon Dioxide 28 (22-30) mmol/L BUN 14 (7-17) mg/dL Creatinine 0.70 (0.52-1.04) mg/dL Glucose 123 H (74-99) mg/dL Calcium 9.3 (8.4-10.2) mg/dL AST 28 (14-36) U/L ALT 21 (4-34) U/L Alkaline Phosphatase 91 (38-126) U/L Total Protein 7.1 (6.3-8.2) g/dL Albumin 4.2 (3.5-5.0) g/dL Current Medications Generic Name Dose Route Start Last Admin Trade Name Freq PRN Reason Stop Dose Admin Aspirin 81 mg 06/13/20 09:00 Aspirin 81 Mg PO DAILY [facility] Atorvastatin Calcium 40 mg 06/12/20 21:00 06/12/20 21:25 Atorvastatin 40 Mg Tab PO 40 mg HS MARAL Administration Famotidine 20 mg 06/13/20 09:00 Famotidine 20 Mg Tab PO DAILY [facility] Furosemide 20 mg 06/13/20 16:00 Furosemide 20 Mg Tab PO DAILY@1600 [facility] Metoprolol Tartrate 12.5 mg 06/13/20 09:00 Metoprolol Tartrate 12.5 Mg Tab PO DAILY [facility] Naloxone HCl 0.2 mg 06/12/20 18:22 Naloxone 0.4 Mg/Ml 1 Ml Vial IV Q2M PRN Opioid Reversal Intake and Output 06/12/20 06/13/20 06/13/20 22:59 06:59 14:59 Intake Total 720 Balance 720 Intake: Oral 720 Other: Voiding Method Toilet # Voids 1 Weight 61.689 kg 06/13/20 04:35 06/12/20 16:28
--- NOTE | 2020-06-13 12:24 | P.GSCN ---
History of Present Illness Consult date: 06/13/20 Reason for Consult: Symptomatic aortic stenosis Requesting physician: Ida Leal History of present illness: This is a 69-year-old female who follows on an outpatient basis with Dr. Ponce Suarez for primary care and Dr. SANYA Zayas for cardiology. She has a previous medical history of severe aortic valve stenosis with a bicuspid aortic valve and severe left ventricular dysfunction, hypertension, and hyperlipidemia. Apparently she was admitted to [facility] in April with signs and symptoms of acute congestive heart failure. Workup at that time included heart catheterization revealing nonsignificant coronary artery disease, transthoracic echocardiogram, followed by transesophageal echocardiogram which demonstrated severely impaired LV dysfunction with ejection fraction 15-20% and global hypokinesia, bicuspid aortic valve with evidence of fusion of the right and non- coronary cusp and severe aortic stenosis with peak/mean gradient 68/40 mmHg, moderate mitral regurgitation, and moderate tricuspid regurgitation. She was treated for her heart failure symptoms, diuresed appropriately, improved c linically and she was discharged. She had an outpatient follow-up transthoracic echocardiogram at [facility] which demonstrated ejection fraction 35%, severe/critical bicuspid aortic stenosis with valve area 0.37 cm and mean gradient 55 mmHg, mild mitral regurgitation, and mild to moderate tricuspid regurgitation. She was referred to the [facility] at [facility] for potential TAVR. At that time she denied chest pain, lightheadedness, or syncope. Computed tomography scan demonstrated no ascending aortic dilatation and calcification at the level of the aortic valve. Carotid Dopplers demonstrated no significant disease. Pulmonary function test demonstrated FEV1 of 1.44 which is 80% of predicted. EKG showed sinus rhythm with left bundle branch block. Her STS risk was calculated at 2.6%. The patient was doing clinically better and was generating enough mean gradient across the aortic valve demonstrating substantial reserve in her ventricular function, she was considered to be low surgical risk. Discussion took place between Dr. Zayas and Dr. Arias who felt that the patient should undergo surgical aortic valve replacement after appropriate dental clearance. She did have 4 teeth extracted 06/11/2020. Yesterday morning she went to let her dogs outside and when she bent over to grab the dogs leashes she began to feel dizzy and lightheaded and subsequently fell onto the wood floor hitting her face. She denies any loss of consciousness, she did have a nosebleed after the fall. She came in to [facility] emergency room for evaluation and treatment. Chest x-ray demonstrated no acute cardiopulmonary process. EKG showed sinus rhythm with left bundle branch block. A CT demonstrated soft tissue swelling around the nasal bone with no displaced fracture. WBC 8.6, hemoglobin 13.4, creatinine 0.7, troponin negative 3, Miller virus non-detected by PCR. She was admitted to observation for evaluation and treatment. Consultation was placed to cardiology and Dr. Arias from cardiothoracic surgery regarding her aortic stenosis. Review of Systems Review of systems was completed and was negative except as noted - Cardiovascular Cardiovascular Comment(s): States she previously had lower extremity swelling which has resolved Reports as per HPI, Reports leg edema, Reports lightheadedness Past Medical History Past Medical History: Heart Failure, Hyperlipidemia, Hypertension, Syncope Additional Past Medical History / Comment(s): Severe aortic stenosis, impaired left ventricular function History of Any Multi-Drug Resistant Organisms: None Reported Past Surgical History: No Surgical Hx Reported Past Anesthesia/Blood Transfusion Reactions: No Reported Reaction Past Psychological History: No Psychological Hx Reported Smoking Status: Never smoker Past Alcohol Use History: None Reported Past Drug Use History: None Reported - Past Family History Father Family Medical History: Diabetes Mellitus Mother Family Medical History: Cancer Additional Family Medical History / Comment(s): cervical Medications and Allergies Home Medications Medication Instructions Recorded Confirmed Type Ibuprofen [Motrin Ib] 400 mg PO DAILY PRN 04/17/20 06/12/20 History Aspirin 81 mg PO DAILY #30 chew 04/21/20 06/12/20 Rx Atorvastatin [Lipitor] 40 mg PO HS #30 tab 04/21/20 06/12/20 Rx Furosemide [Lasix] 20 mg PO DAILY@1600 #30 tab 04/21/20 06/12/20 Rx Metoprolol Tartrate [Lopressor] 12.5 mg PO DAILY #60 tab 04/21/20 06/12/20 Rx Nitroglycerin Sl Tabs [Nitrostat] 0.4 mg SUBLINGUAL Q5M PRN #20 tab 04/21/20 06/12/20 Rx Famotidine [Pepcid] 20 mg PO DAILY 06/12/20 06/12/20 History Allergies Allergy/AdvReac Type Severity Reaction Status Date / Time No Known Allergies Allergy Verified 06/12/20 18:21 Surgical - Exam Vital Signs Temp Pulse Resp BP Pulse Ox 98.1 F 85 20 125/79 97 06/12/20 15:59 06/12/20 15:59 06/12/20 15:59 06/12/20 15:59 06/12/20 15:59 - General well developed, well nourished, no distress, no pain - Eyes Bruising around the right eye normal ocular movement - ENT no hearing loss, poor senior care - Neck no masses, trachea midline carotid bruit: bilateral - Respiratory Lungs sounds clear bilaterally. Respirations even, nonlabored. Currently on room air with oxygen saturation 96%. No chest wall deformities. No clubbing or cyanosis present. - Cardiovascular S1, St. S2 present. High-pitched 3/6 systolic ejection murmur heard. Regular rate and rhythm, sinus rhythm with bundle branch block with rate in the 70s on telemetry. Palpable peripheral pulses bilaterally. No edema present. No calf pain or tenderness noted. - Abdomen Abdomen: soft, non tender, bowel sounds - Genitourinary Deferred - Rectum Deferred - Integumentary no rash, no growths - Neurologic normal sensation - Musculoskeletal normal posture - Psychiatric oriented to time, oriented to person, oriented to place, speech is normal Results - Labs 06/13/20 04:35 06/13/20 04:35 Abnormal Lab Results - Last 24 Hours (Table) 06/12/20 06/12/20 06/13/20 Range/Units 16:28 16:28 04:35 RBC 3.95 L (4.10-5.20) X 10*6/uL Hct 36.9 L (37.2-46.3) % APTT 21.8 L (22.0-30.0) sec Glucose 123 H (74-99) mg/dL Creatine Kinase 208 H (30-135) U/L 06/13/20 Range/Units 04:35 RBC (4.10-5.20) X 10*6/uL Hct (37.2-46.3) % APTT (22.0-30.0) sec Glucose 112 H (74-99) mg/dL Creatine Kinase (30-135) U/L Diabetes panel 06/12/20 06/13/20 Range/Units 16:28 04:35 Sodium 138 140 (137-145) mmol/L Potassium 3.7 3.6 (3.5-5.1) mmol/L Chloride 100 103 (98-107) mmol/L Carbon Dioxide 28 28.3 (22-30) mmol/L BUN 14 12.0 (7-17) mg/dL Creatinine 0.70 0.7 (0.52-1.04) mg/dL Glucose 123 H 112 H (74-99) mg/dL Calcium 9.3 9.1 (8.4-10.2) mg/dL AST 28 (14-36) U/L ALT 21 (4-34) U/L Alkaline Phosphatase 91 (38-126) U/L Total Protein 7.1 (6.3-8.2) g/dL Albumin 4.2 (3.5-5.0) g/dL Calcium panel 06/12/20 06/13/20 Range/Units 16:28 04:35 Calcium 9.3 9.1 (8.4-10.2) mg/dL Albumin 4.2 (3.5-5.0) g/dL Pituitary panel 06/12/20 06/13/20 Range/Units 16:28 04:35 Sodium 138 140 (137-145) mmol/L Potassium 3.7 3.6 (3.5-5.1) mmol/L Chloride 100 103 (98-107) mmol/L Carbon Dioxide 28 28.3 (22-30) mmol/L BUN 14 12.0 (7-17) mg/dL Creatinine 0.70 0.7 (0.52-1.04) mg/dL Glucose 123 H 112 H (74-99) mg/dL Calcium 9.3 9.1 (8.4-10.2) mg/dL Adrenal panel 06/12/20 06/13/20 Range/Units 16:28 04:35 Sodium 138 140 (137-145) mmol/L Potassium 3.7 3.6 (3.5-5.1) mmol/L Chloride 100 103 (98-107) mmol/L Carbon Dioxide 28 28.3 (22-30) mmol/L BUN 14 12.0 (7-17) mg/dL Creatinine 0.70 0.7 (0.52-1.04) mg/dL Glucose 123 H 112 H (74-99) mg/dL Calcium 9.3 9.1 (8.4-10.2) mg/dL Total Bilirubin 0.9 (0.2-1.3) mg/dL AST 28 (14-36) U/L ALT 21 (4-34) U/L Alkaline Phosphatase 91 (38-126) U/L Total Protein 7.1 (6.3-8.2) g/dL Albumin 4.2 (3.5-5.0) g/dL - Imaging Chest x-ray: report reviewed, image reviewed EKG: image reviewed Additional studies: Head and cervical spine, face CT reviewed. Transthoracic echocardiogram report and TAVR workup from [facility] reviewed Assessment and Plan Assessment: 1. Syncopal episode 2. Severe aortic stenosis with bicuspid aortic valve 3. Severe left ventricular dysfunction 4. History of hypertension 5. History of hyperlipidemia 6. Recent teeth extraction Plan: The patient was seen and examined at the bedside. Chart/diagnostics were revie wed. The case was discussed in detail with Dr. Arias. The patient is currently chest pain-free, denies any shortness of breath, denies any dizziness. She has been up to the bathroom with standby assist without any lightheadedness or dizziness. Our office did receive a phone call from the patient's dentist who extracted her teeth 2 days ago, he did say he would not clear her for surgical aortic valve replacement for at least 1 week after extraction. The patient does have a follow-up appointment with Dr. Arias in the office this 06/15/2020 at 10 AM, if she is discharged from the ospital she should keep that appointment to schedule surgical aortic valve replacement. The patient was instructed to avoid getting out of bed or out of the chair fast, she was instructed to take her time to reduce the incidence of lightheadedness/dizziness. She should continue current medication regimen. No plans for surgical intervention during this admission. Medical management per primary care, cardiology. Thank you for this consult. Please call us with any further questions Time with Patient: Greater than 30
[2020-06-13 13:51] VITALS: BP 94/53; PULSE 73; TEMP 97.6
[2020-06-13] MEDS ORDERED: FUROSEMIDE 20 MG TAB PO SCH (16:00)
--- NOTE | 2020-06-13 17:27 | P.DS ---
Providers Date of admission: 06/12/20 18:22 Expected date of discharge: 06/13/20 Attending physician: Ponce Suarez Consults: 06/12/20 18:26 Consult Physician Urgent Consulting Provider: Thomas Airas Consult Reason/Comments: aortic stenosis Do you want consulting provider notified?: Yes 06/12/20 18:28 Consult Physician Urgent Consulting Provider: Johnny Ochoa Consult Reason/Comments: acute syncope, severe aortic stenosis Do you want consulting provider notified?: Yes 06/12/20 18:30 Consult Physician Urgent Consulting Provider: Fabian Rosas Consult Reason/Comments: facial trauma s/p fall Do you want consulting provider notified?: Yes Primary care physician: Ponce Suarez - Discharge Diagnosis(es) (1) Syncope and collapse She was placed on a telemetry floor for monitoring has not experienced any near- syncope episodes, lightheadedness, dizziness, shortness of breath, or chest pain during this admission. Current Visit: Yes Status: Acute Hospital Course: This pleasant 69-year-old female patient was admitted overnight for syncope and collapse with facial trauma, she denies any feelings of lightheadedness, dizziness, shortness of breath, palpitations, or chest pain during admission. She was placed on telemetry floor for monitoring had consultation by cardiology; orthostatic pressures were taken no other intervention at this time per cardiology, she was evaluated by ear nose and throat physician with no intervention at this time, she was seen by cardiothoracic surgeon with no plans of intervention during this admission. She remains alert and oriented 3 she is in distress at the bedside and will be discharged home with self-care with follow-up with cardiology and cardiothoracic surgeon as previously scheduled. Assessment: Syncope with collapse Traumatic facial injury without airway obstruction History of systolic murmur History of systolic congestive heart failure with EF of 15% in 04/2020 Severe artery stenosis with bicuspid aortic valve Severe left ventricular dysfunction History of hypertension History of hyperlipidemia Recent teeth extraction Health Concerns: Significant cardiac history and she lives alone she does have a friend that does check in on her and attends her physician appointments Pertinent Studies: Head, cervical spine, and facial CT Chest x-ray Patient Condition at Discharge: Fair Plan - Discharge Summary New Discharge Prescriptions: Continue Ibuprofen [Motrin Ib] 400 mg PO DAILY PRN PRN Reason: leg pain Aspirin 81 mg PO DAILY #30 chew Furosemide [Lasix] 20 mg PO DAILY@1600 #30 tab Atorvastatin [Lipitor] 40 mg PO HS #30 tab Metoprolol Tartrate [Lopressor] 12.5 mg PO DAILY #60 tab Nitroglycerin Sl Tabs [Nitrostat] 0.4 mg SUBLINGUAL Q5M PRN #20 tab PRN Reason: Chest Pain Famotidine [Pepcid] 20 mg PO DAILY Discharge Medication List Ibuprofen [Motrin Ib] 400 mg PO DAILY PRN 04/17/20 [History] Aspirin 81 mg PO DAILY #30 chew 04/21/20 [Rx] Atorvastatin [Lipitor] 40 mg PO HS #30 tab 04/21/20 [Rx] Furosemide [Lasix] 20 mg PO DAILY@1600 #30 tab 04/21/20 [Rx] Metoprolol Tartrate [Lopressor] 12.5 mg PO DAILY #60 tab 04/21/20 [Rx] Nitroglycerin Sl Tabs [Nitrostat] 0.4 mg SUBLINGUAL Q5M PRN #20 tab 04/21/20 [Rx] Famotidine [Pepcid] 20 mg PO DAILY 06/12/20 [History] Follow up Appointment(s)/Referral(s): Ponce Suarez MD [Primary Care Provider] - 1-2 days Thomas Arias MD [STAFF PHYSICIAN] - 06/15/20 10:00 am Discharge Disposition: HOME SELF-CARE
--- NOTE | 2020-06-13 18:02 | CONS ---
CONSULTATION REASON FOR CONSULTATION: Facial trauma. HISTORY: This is a 69-year-old white female who yesterday early in the morning went to let her dogs outside, and she became lightheaded and fell. She had no actual vertigo. She struck her face on the floor and had epistaxis, although it stopped spontaneously. She came to the ER and has had cardiac workup. She does have cardiac valvular disease and has had proposed valve replacement surgery. She had CT scan of the facial bones which did not show fracture but did show nasal soft tissue swelling. She does have some facial pain on the right side, although it is mild and improving. She has had no visual changes or any further epistaxis. She has not noted any malocclusion. She did just have some dental extractions 2 days ago. She has had no further lightheadedness or dizziness. She states she did not pass out. PAST MEDICAL HISTORY: Positive for heart failure and aortic stenosis. PAST SURGICAL HISTORY: Negative. ALLERGIES: NO KNOWN DRUG ALLERGIES. HOME MEDICATIONS: Ibuprofen, baby aspirin a day, Lipitor, Lasix, Lopressor, Nitrostat as needed, Pepcid. FAMILY HISTORY: Positive for diabetes. SOCIAL HISTORY: She does not smoke or drink alcohol. REVIEW OF SYSTEMS: Pertinent positive and negative responses were documented in the HPI. Other all systems not noted in review of systems were negative. PHYSICAL EXAMINATION: GENERAL: This is a well-developed adult white female in no acute distress. Vital signs are overall stable. HEENT: Head normocephalic. Facial appearance: Periorbital ecchymosis on the right as well as ecchymosis of the right nasal ala, including intranasal. This is purple ecchymosis. Eyes show extraocular movements are intact. Grossly normal vision. The facial bones in general show no palpable step-offs or tenderness. The nose shows no drainage or bleeding. No septal hematoma. Septum is deviated mildly to the left. Again, no hematoma or perforation is noted. External nasal bones appear intact. Mouth and throat show some missing teeth with recent extraction sites that are appearing to be healing well. Occlusion is intact with no tenderness on chewing. Oropharynx shows no abnormal lesions or masses. No postnasal bleeding. NECK: Supple without adenopathy or tenderness. ASSESSMENT: Facial contusions, including right periorbital and right nasal. PLAN: The patient does not have any focal facial fractures and therefore does not appear to require any surgical intervention. The ecchymosis will resolve given time, and I have reviewed this with the patient today. If she does have any issues with nasal airway obstruction or any other facial symptomatology issues once the swelling subsides, then she will call for outpatient followup in our office. If there are questions or concerns regarding this consultation, please free to contact me. THEA / DION: [id number] /
== END 2020-06-13 17:51 | disposition home or self-care (01) ==
LOC: EC 15:57 → 6NMEDSUR 18:22
PROVIDERS: ADMIT Family Medicine; ATTEND Family Medicine
DX: R55 Syncope and collapse (principal); S00.11XA Contusion of right eyelid and periocular area, initial encounter; S00.33XA Contusion of nose, initial encounter; S00.83XA Contusion of other part of head, initial encounter; I11.0 Hypertensive heart disease with heart failure; I50.22 Chronic systolic (congestive) heart failure; I42.8 Other cardiomyopathies; Q23.1 Congenital insufficiency of aortic valve; E78.5 Hyperlipidemia, unspecified; M79.89 Other specified soft tissue disorders; R01.1 Cardiac murmur, unspecified; R04.0 Epistaxis; Z79.899 Other long term (current) drug therapy; Z79.1 Long term (current) use of non-steroidal anti-inflammatories (NSAID); Z79.82 Long term (current) use of aspirin; Z83.3 Family history of diabetes mellitus; Z80.49 Family history of malignant neoplasm of other genital organs; Z20.822 Contact with and (suspected) exposure to COVID-19; W19.XXXA Unspecified fall, initial encounter; W22.03XA Walked into furniture, initial encounter
CPT/HCPCS: 99285; 36415; 93005; 93270; 80053; 80048; 82550; 84484; 85025 ×2; 85610; 85730; 87635; 72170; 71046; 72125; 70486; 70450; G0378 ×2

== ENCOUNTER → 2020-06-15 | Outpatient (CLI) | payer MEDICARE ==
--- NOTE | 2020-06-15 12:15 | P.PN ---
Progress Note - Text Progress Note Date: 06/15/20 Five meter walk test completed with the patient. Time 1: 2.25 seconds, time 2: 2.29 seconds, time 3: 2.56 seconds. STS risk was calculated and discussed with the patient by Dr. Arias.
[2020-06-15 12:27] LABS: HCT 37.3 % (34.0-46.0); HGB 12.6 gm/dL (11.4-16.0); MCH 31.2 pg (25.0-35.0); MCHC 33.9 g/dL (31.0-37.0); MCV 92.1 fL (80.0-100.0); Mean Platelet Volume 6.7; Platelet Count 228 k/uL (150-450); RBC 4.05 m/uL (3.80-5.40); RDW 12.9 % (11.5-15.5); WBC 7.1 k/uL (3.8-10.6)
[2020-06-15 12:41] LABS: INR 0.9 (<1.2); Prothrombin Time 10.2 sec (9.0-12.0)
[2020-06-15 12:52] LABS: ALT 23 U/L (4-34); AST 26 U/L (14-36); African American GFR (CKD) >90 (>60 ml/min/1.73 sqM); Albumin 4.2 g/dL (3.5-5.0); Alkaline Phosphatase 101 U/L (38-126); Anion Gap 10 mmol/L; Blood Urea Nitrogen 12 mg/dL (7-17); Calcium 9.3 mg/dL (8.4-10.2); Carbon Dioxide 26 mmol/L (22-30); Chloride 103 mmol/L (98-107); Cholesterol 160 mg/dL (<200); Glucose 99 mg/dL (74-99); HDL Cholesterol 48 mg/dL (40-60); LDL Cholesterol,Calculated 91 mg/dL (0-99); Non-African American GFR(CKD) 87 (>60 ml/min/1.73 sqM); Potassium 3.9 mmol/L (3.5-5.1); Sodium 139 mmol/L (137-145); Total Bilirubin 0.8 mg/dL (0.2-1.3); Total Protein 7.1 g/dL (6.3-8.2); Triglycerides 107 mg/dL (<150)
[2020-06-15 13:19] LABS: Appearance,Urine Cloudy (Clear); Bilirubin,Urine Negative (Negative); Blood,Urine Trace (Negative); Color,Urine Yellow; Glucose,Urine (UA) Negative (Negative); Ketones,Urine Negative (Negative); Leukocyte Esterase,Urine Negative (Negative); Mucus,Urine Many /hpf; Nitrite,Urine Negative (Negative); PH, Urine 5.5 (5.0-8.0); Protein,Urine Trace (Negative); RBC,Urine 5 /hpf (0-5); Squamous Epithelial Cell,Urine 7 /hpf (0-4); WBC,Urine 2 /hpf (0-5)
[2020-06-16 02:21] LABS: Hepatitis A Antibody IgM Non-Reactive (Non-Reactive); Hepatitis B Core IgM Non-Reactive (Non-Reactive); Hepatitis B Surface Antigen Non-Reactive (Non-Reactive); Hepatitis C IgG Antibody Non-Reactive (Non-Reactive)
== END | disposition home or self-care (01) ==
LOC: LABPAT 11:38
PROVIDERS: ATTEND Surgery
DX: Z01.818 Encounter for other preprocedural examination (principal); U07.1 COVID-19; I35.1 Nonrheumatic aortic (valve) insufficiency; R55 Syncope and collapse; Z79.01 Long term (current) use of anticoagulants
CPT/HCPCS: 80053; 80074; 80061; 85027; 85610; 81001; 87070; U0003; C9803; U0005

== ENCOUNTER 2020-06-19 05:46 | Inpatient (IN) | payer MEDICARE ==
[~2020-06-19 05:46] MED LIST: ALBUMIN HUMAN 25% 50 ML IV ONE; ALBUMIN HUMAN 5% 500 ML IVPB ONE; ASPIRIN 325 MG TAB PO ONE; ATORVASTATIN 10 MG TAB PO ONE; CALCIUM CHLORIDE 100 MG/ML 10 ML SYRINGE IV ONE; CHLORHEXIDINE GLUCONATE 15 ML CUP MUCOUS MEM ONE; CLEVIDIPINE BUTYRATE 25 MG in EMPTY BAG 1 BAG IV ONE; DEXTROSE 5% IN WATER 1,000 ML with POTASSIUM CHLORIDE 110 MEQ, MAGNESIUM SULFATE 16 MEQ... IV ONE; DEXTROSE 5% IN WATER 1,000 ML with POTASSIUM CHLORIDE 25 MEQ, SODIUM CHLORIDE 4MEQ/ML V... IRRIGATION ONE; HEPARIN SODIUM 1,000 UN/ML (10ML VL) IV ONE; HEPARIN SODIUM,PORCINE 5,000 UNIT in SODIUM CHLORIDE 0.9% 500 ML 500 ML IV ONE; INSULIN REGULAR 100 UNIT in SODIUM CHLORIDE 0.9% 100 ML IV ONE; LACTATED RINGERS 1,000 ML IV ONE; LACTATED RINGERS 1,000 ML IV SCH; MAGNESIUM SULFATE MG 500 MG/ML IV ONE; MANNITOL 25% 12.5 GM/50 ML VIAL IV ONE; METOPROLOL TARTRATE 12.5 MG TAB PO ONE; MIDAZOLAM 2 MG/2 ML VIAL IV PRN; NITROGLYCERIN-D5W PMX 25 MG/250 ML BTL IV ONE; NITROGLYCERIN-D5W PMX 50 MG in DEXTROSE/WATER 1 250ML.BAG IV ONE; NOREPINEPHRINE 4 MG in SODIUM CHLORIDE 0.9% 250 ML IV ONE; PHENYLEPHRINE 10 MG/ML VIAL IV ONE; PHENYLEPHRINE 40 MG in SODIUM CHLORIDE 0.9% 250 ML IV ONE; PROTAMINE SULFATE 10 MG/ML 25 ML VIAL IV ONE; PROTAMINE SULFATE 250 MG in EMPTY BAG 1 BAG IV ONE; SODIUM BICARB 8.4% 50 ML SYR (1 MEQ/ML) IV ONE; SODIUM CHLORIDE 0.9% 1,000 ML IV ONE; TRANEXAMIC ACID 2,000 MG in SODIUM CHLORIDE 0.9% 80 ML IV ONE; ceFAZolin 1,000 MG in SODIUM CHLORIDE 0.9% IRRIGATIO 1,000 ML IRRIGATION ONE; propofoL 1,000 MG/100 ML VIAL IV ONE
[2020-06-19] MEDS ORDERED: HEPARIN SODIUM,PORCINE 10,000 UNIT/ML 1 ML VIAL ONE (07:51)
[2020-06-19] MEDS ORDERED: fentaNYL (PF) 50 MCG/ML 2 ML AMP ONE (07:51)
[2020-06-19] MEDS ORDERED: GLYCOPYRROLATE 0.2 MG/ML 2 ML VIAL ONE (07:51)
[2020-06-19] MEDS ORDERED: ceFAZolin 1,000 MG VIAL ONE (07:51)
[2020-06-19] MEDS ORDERED: ALBUMIN HUMAN 5% (25gm) 500 ML VIAL IVPB ONE (07:51)
[2020-06-19] MEDS ORDERED: SODIUM CHLORIDE 0.9% 100 ML BAG ONE (07:51)
[2020-06-19] MEDS ORDERED: VECURONIUM 10 MG VIAL IV ONE (07:51)
[2020-06-19] MEDS ORDERED: MIDAZOLAM 2 MG/2 ML VIAL ONE (07:51)
[2020-06-19] MEDS ORDERED: ELECTROLYTE-R (PH 7.4) 1,000 ML IV.SOLN IV ONE (07:51)
[2020-06-19] MEDS ORDERED: SUCCINYLCHOLINE CHLORIDE 100 MG/5 ML SYR IV ONE (07:51)
[2020-06-19] MEDS ORDERED: SODIUM CHLORIDE 0.9% IRRIG 1,000 ML BTL IRRIGATION ONE (07:51)
[2020-06-19] MEDS ORDERED: LIDOCAINE 2% SYG (PF) 100 MG/5 ML ONE (07:51)
[2020-06-19] MEDS ORDERED: MAGNESIUM SULFATE 4 MEQ/ML 10ML VIAL ONE (07:51)
[2020-06-19] MEDS ORDERED: PROPOFOL 10 MG/ML 20 ML VIAL IV ONE (07:51)
[2020-06-19] MEDS ORDERED: INSULIN REGULAR 100 UNIT/ML VIAL ONE (07:51)
[2020-06-19] MEDS ORDERED: TRANEXAMIC ACID 1,000 MG/10 ML VIAL ONE (07:51)
[2020-06-19] MEDS ORDERED: SODIUM CHLORIDE 0.9% 250 ML BAG ONE (07:51)
[2020-06-19] MEDS ORDERED: PROTAMINE SULFATE 10 MG/ML 25 ML VIAL IV ONE (07:51)
[2020-06-19] MEDS ORDERED: fentaNYL (PF) 50 MCG/ML 50 ML VIAL ONE (07:51)
[2020-06-19 08:39] LABS: ABG Base Excess 0.9 mmol/L; ABG Glucose Whole Blood 122 mg/dL (75-99); ABG HCO3 27 mmol/L (21-25); ABG Hematocrit 33 % (34.0-46.0); ABG Ionized Calcium 4.8 mg/dL (4.5-5.3); ABG Lactic Acid Whole Blood 1.6 mmol/L (0.5-1.6); ABG PCO2 45 mmHg (35-45); ABG PH 7.37 (7.35-7.45); ABG Potassium Whole Blood 4.3 mmol/L (3.4-4.5); ABG Sodium Whole Blood 143 mmol/L (135-146); ABG TCO2 28 mmol/L (19-24)
[2020-06-19 09:33] LABS: ABG Base Excess 1.5 mmol/L; ABG Glucose Whole Blood 126 mg/dL (75-99); ABG HCO3 26 mmol/L (21-25); ABG Hematocrit 32 % (34.0-46.0); ABG Ionized Calcium 4.6 mg/dL (4.5-5.3); ABG Lactic Acid Whole Blood 1.5 mmol/L (0.5-1.6); ABG PCO2 40 mmHg (35-45); ABG PH 7.43 (7.35-7.45); ABG PO2 215 mmHg (83-108); ABG Potassium Whole Blood 4.1 mmol/L (3.4-4.5); ABG Sodium Whole Blood 141 mmol/L (135-146); ABG TCO2 27 mmol/L (19-24)
[2020-06-19 10:12] LABS: ABG Base Excess 0.6 mmol/L; ABG Glucose Whole Blood 229 mg/dL (75-99); ABG HCO3 26 mmol/L (21-25); ABG Ionized Calcium 4.1 mg/dL (4.5-5.3); ABG Lactic Acid Whole Blood 1.5 mmol/L (0.5-1.6); ABG PCO2 42 mmHg (35-45); ABG PH 7.39 (7.35-7.45); ABG PO2 360 mmHg (83-108); ABG Potassium Whole Blood 5.8 mmol/L (3.4-4.5); ABG Sodium Whole Blood 139 mmol/L (135-146); ABG TCO2 27 mmol/L (19-24)
[2020-06-19 10:37] LABS: ABG Base Excess -0.4 mmol/L; ABG Glucose Whole Blood 183 mg/dL (75-99); ABG HCO3 25 mmol/L (21-25); ABG Ionized Calcium 4.3 mg/dL (4.5-5.3); ABG Lactic Acid Whole Blood 1.8 mmol/L (0.5-1.6); ABG PCO2 44 mmHg (35-45); ABG PH 7.36 (7.35-7.45); ABG PO2 393 mmHg (83-108); ABG Potassium Whole Blood 4.3 mmol/L (3.4-4.5); ABG Sodium Whole Blood 137 mmol/L (135-146); ABG TCO2 27 mmol/L (19-24)
[2020-06-19 11:05] LABS: ABG Base Excess -0.6 mmol/L; ABG Glucose Whole Blood 184 mg/dL (75-99); ABG HCO3 25 mmol/L (21-25); ABG Ionized Calcium 4.3 mg/dL (4.5-5.3); ABG PCO2 43 mmHg (35-45); ABG PH 7.37 (7.35-7.45); ABG Potassium Whole Blood 4.7 mmol/L (3.4-4.5); ABG Sodium Whole Blood 138 mmol/L (135-146); ABG TCO2 26 mmol/L (19-24)
[2020-06-19] MEDS ORDERED: BENZOCAINE/MENTHOL LOZENG 1 EACH LOZENGE MUCOUS MEM PRN (12:47)
[2020-06-19] MEDS ORDERED: AMIODARONE 360 MG in DEXTROSE 5% IN WATER 200 ML IV PRN ×2 (12:47)
[2020-06-19] MEDS ORDERED: hydrALAZINE HCL 20 MG/ML 1 ML VIAL IVP PRN (12:47)
[2020-06-19] MEDS ORDERED: AMIODARONE 450 MG in DEXTROSE 5% IN WATER 250 ML IV PRN ×2 (12:47)
[2020-06-19] MEDS ORDERED: Phosphorus Replacement Protoco 1 EACH MISC MISCELLANE PRN (12:47)
[2020-06-19] MEDS ORDERED: Potassium Replacement Protocol 1 EACH MISC MISCELLANE PRN (12:47)
[2020-06-19] MEDS ORDERED: CLEVIDIPINE BUTYRATE 25 MG in EMPTY BAG 1 BAG IV SCH (12:47)
[2020-06-19] MEDS ORDERED: Magnesium Replacement Protocol 1 EACH MISC MISCELLANE PRN (12:47)
[2020-06-19] MEDS ORDERED: INSULIN REGULAR 100 UNIT in SODIUM CHLORIDE 0.9% 100 ML IV SCH (12:47)
[2020-06-19] MEDS ORDERED: MORPHINE SULFATE 2 MG/ML SYRINGE IVP PRN (12:47)
[2020-06-19] MEDS ORDERED: DEXMEDETOMIDINE/0.9% NACL(PMX) 400 MCG in EMPTY BAG 1 BAG IV SCH (12:47)
[2020-06-19] MEDS ORDERED: ONDANSETRON 4 MG/2 ML VIAL IVP PRN (12:47)
[2020-06-19] MEDS ORDERED: CALCIUM GLUCONATE 2 GM in SODIUM CHLORIDE 0.9% 100 ML IVPB PRN (12:47)
[2020-06-19] MEDS ORDERED: METOCLOPRAMIDE 5 MG/ML 2 ML VIAL IVP PRN (12:47)
[2020-06-19] MEDS ORDERED: IPRATROPIUM-ALBUTEROL 3 ML NEB INHALATION PRN (12:47)
[2020-06-19 13:06] LABS: ABG PO2 >420 mmHg (83-108)
[2020-06-19 13:08] LABS: ABG Hematocrit 23 % (34.0-46.0)
[2020-06-19 13:10] LABS: ABG Hematocrit 22 % (34.0-46.0)
[2020-06-19 13:11] LABS: ABG Hematocrit 22 % (34.0-46.0); ABG Lactic Acid Whole Blood 2.7 mmol/L (0.5-1.6); ABG PO2 >420 mmHg (83-108)
[2020-06-19 13:14] LABS: Glucose,Whole Blood 100 mg/dL (75-99)
[2020-06-19 13:15] LABS: ABG Base Excess -0.5 mmol/L; ABG Glucose Whole Blood 113 mg/dL (75-99); ABG HCO3 25 mmol/L (21-25); ABG Ionized Calcium 4.5 mg/dL (4.5-5.3); ABG PCO2 41 mmHg (35-45); ABG PH 7.38 (7.35-7.45); ABG Potassium Whole Blood 3.9 mmol/L (3.4-4.5); ABG Sodium Whole Blood 141 mmol/L (135-146); ABG TCO2 26 mmol/L (19-24)
[2020-06-19 13:16] LABS: ABG Hematocrit 22 % (34.0-46.0); ABG Lactic Acid Whole Blood 2.6 mmol/L (0.5-1.6); ABG PO2 >420 mmHg (83-108)
[2020-06-19] MEDS: SODIUM CHLORIDE 0.9% 1,000 ML IV SCH (13:20)
[2020-06-19 13:23] LABS: Basophils % (A) 0 %; Eosinophils % (A) 0 %; HCT 24.7 % (34.0-46.0); Lymphocytes # (A) 0.9 k/uL (1.0-4.8); Lymphocytes % (A) 8 %; MCH 31.6 pg (25.0-35.0); MCHC 33.7 g/dL (31.0-37.0); MCV 93.9 fL (80.0-100.0); Monocytes # (A) 0.6 k/uL (0-1.0); Monocytes % (A) 6 %; Neutrophils # (A) 9.1 k/uL (1.3-7.7); Neutrophils % (A) 85 %; Platelet Count 117 k/uL (150-450); RBC 2.63 m/uL (3.80-5.40); RDW 13.1 % (11.5-15.5); WBC 10.7 k/uL (3.8-10.6)
[2020-06-19 13:35] LABS: HGB 8.3 gm/dL (11.4-16.0)
[2020-06-19 13:41] LABS: Ionized Calcium 5.5 mg/dL (4.5-5.3)
--- NOTE | 2020-06-19 13:49 | XR ---
EXAMINATION TYPE: XR chest 1V portable DATE OF EXAM: 06/19/2020 COMPARISON: Chest x-ray 06/12/2020 HISTORY: Postop cardiac surgery TECHNIQUE: Single frontal view of the chest is obtained. FINDINGS: Patient is post median sternotomy and left atrial appendage clipping placement, aortic froy ve replacement. Endotracheal tube, NG tube, right jugular central venous catheter are overlying appro priate positions, median sternal drains are in place. There is no evident pneumothorax. No pleural ef fusion is evident. Patchy basilar density is present. Heart is enlarged. IMPRESSION: Satisfactory postoperative chest x-ray, basilar atelectasis.
[2020-06-19 13:55] LABS: ALT 14 U/L (4-34); AST 31 U/L (14-36); African American GFR (CKD) >90 (>60 ml/min/1.73 sqM); Albumin 2.8 g/dL (3.5-5.0); Alkaline Phosphatase 41 U/L (38-126); Anion Gap 4 mmol/L; Blood Urea Nitrogen 11 mg/dL (7-17); Calcium 8.8 mg/dL (8.4-10.2); Carbon Dioxide 26 mmol/L (22-30); Chloride 107 mmol/L (98-107); Glucose 95 mg/dL (74-99); INR 1.2 (<1.2); Magnesium 2.9 mg/dL (1.6-2.3); Non-African American GFR(CKD) >90 (>60 ml/min/1.73 sqM); Partial Thromboplastin Time 29.3 sec (22.0-30.0); Potassium 4.9 mmol/L (3.5-5.1); Prothrombin Time 12.1 sec (9.0-12.0); Sodium 137 mmol/L (137-145); Total Bilirubin 0.7 mg/dL (0.2-1.3); Total Protein 4.5 g/dL (6.3-8.2)
[2020-06-19] MEDS: ALBUMIN HUMAN 5% 250 ML in EMPTY BAG 1 BAG IVPB PRN ×3 (14:15→23:01)
[2020-06-19 14:34] LABS: Glucose,Whole Blood 122 mg/dL (75-99)
[2020-06-19 15:20] LABS: Glucose,Whole Blood 140 mg/dL (75-99)
--- NOTE | 2020-06-19 15:51 | OP ---
OPERATIVE REPORT DATE OF THE SURGERY: 06/19/2020. SURGEON: Dr. Thomas Arias. TETRYL NITRATOR OPERATOR: 1. Issa Goodrich, nurse practitioner. 2. YUE Taylor. PREOPERATIVE DIAGNOSES: 1. Severe bicuspid aortic valve stenosis. 2. Left ventricular dysfunction. 3. Hyperlipidemia. 4. Hypertension. POSTOPERATIVE DIAGNOSIS: 1. Severe bicuspid aortic valve stenosis. 2. Left ventricular dysfunction. 3. Hyperlipidemia. 4. Hypertension. PROCEDURE: 1. Aortic valve replacement using a 21 mm Inspiris pericardial bioprosthesis. 2. Exclusion of the left atrial appendage using a 35 mm AtriClip. 3. Intraoperative transesophageal echocardiogram and epiaortic scanning. INDICATION FOR SURGERY: The patient is a 69-year-old lady who presented around 3 months ago to [facility] in congestive heart failure. A 2D echo at that time as well as CAYDEN showed severe bicuspid aortic valve stenosis with severe left ventricular dysfunction. The patient was considered for a transcatheter aortic valve replacement evaluation as she had been treated medically. While she was seen in our [facility], her functional status had been excellent relatively and repeat 2D echo showed ejection fraction of around 35%, and for that reason, in view of her severe calcified bicuspid aortic valve and the fact that she has reasonable reserve, we recommended surgical aortic valve replacement. The STS risk was discussed with her. She understood it and agreed to proceed. DESCRIPTION OF PROCEDURE: The patient had a right internal jugular Underwood-Kendy catheter and a right radial arterial line placed. Her PA pressure was 36/14 and cardiac index was 2.1. Subsequently, she was brought to the operating room where general endotracheal anesthesia was induced uneventfully. The León catheter was inserted. The chest, abdomen and both lower extremities were prepped and draped using ChloraPrep. Ioban was used to cover the skin. The patient received 2 grams of cefazolin intravenously. Transesophageal echocardiogram confirmed the preoperative finding of severe aortic valve stenosis, moderate left ventricular dysfunction and mild to moderate mitral valve regurgitation. Midline sternotomy was performed and the bone was mildly osteoporotic. Bone seal was used. Standard retractor was placed. Mediastinal fat was transected between 2 ties and epiaortic scanning revealed some posterior wall intramural calcific thickening in its mid aspect of the aorta. The pericardium was opened in an inverted T-fashion. Pericardial cradle was created. Findings included a normal size heart and normal size aorta. After systemic heparinization and after placement of respective pledgeted pursestring, aortic cannulation with a 21-Luxembourger soft flow cannula and venous cannulation with a 3- stage 29-Luxembourger cannula was performed via the right atrial appendage. Antegrade as well as retrograde cardioplegia catheters were placed. Cardiopulmonary bypass was initiated and patient temperature was allowed to drift down to 34 degrees Celsius. The aorta was clamped and successful arrest was obtained with 800 mL of antegrade cold blood cardioplegia followed by 300 mL of retrograde cold blood cardioplegia. All subsequent doses were given retrograde at 15-minute intervals. We started by excluding the left atrial appendage by deploying a 35 mm AtriClip at its base. Subsequently, a transverse aortotomy around 1 cm above the sinotubular junction was performed over around 2/3 of the circumference of the aorta. Exploration revealed a heavily calcified bicuspid aortic valve with fusion of the right and noncoronary cusp. The valve was excised and the anulus debrided to pliable tissue. Thorough irrigation with around 1 L of cold saline was done at this point. The coronary ostia were high. Subsequently, a total of 14 sutures of pledgeted Ti-Cron 2-0 were placed in horizontal mattress fashion with a pledget on the ventricular side. The valve was sized at this point, at a 21 mm Inspiris which was selected, brought into the field. All the sutures were passed symmetrically into the valve cuff which eventually seated nicely in a supra- annular position. All the needles were cut and the suture tied using the Cor-Knot device. Both coronary ostia were clear. Thorough irrigation had followed placement of the initial valve suture and after placement of the valve. At this point, rewarming was started and warm blood via the retrograde route was started as we closed the aorta in 2 layers using Prolene 4-0 pledgeted on each corner with the first layer being in a horizontal mattress and the second layer being an [id number] technique. The patient was placed in Trendelenburg position and de-airing maneuvers were followed. Subsequent to the aortic vent on maximum, we unclamped the aorta. The patient required a couple of electrocardioversions to regain spontaneous sinus rhythm. She was given lidocaine and magnesium. The aortotomy was hemostatic. Initial CAYDEN showed no paravalvular leak. After around 15 to 20 minutes of reperfusion, we were able to wean off cardiopulmonary bypass without the need of any inotropic or vasopressor support. Cardiac index was 2.2. The valve was functioning well with low gradient and no paravalvular leak. Left ventricular function was actually mildly depressed. There was mild mitral valve regurgitation. All the suckers were stopped as we gave a test dose and full dose protamine. Decannulation followed. No reinforcement sutures were required. Two monopolar atrial pacing wires were affixed to the respective pursestring of the right atrium and one bipolar ventricular pacing wire was driven via the inferior aspect of the right ventricle. Two 19-Luxembourger Emanuel drains were placed substernally. The pericardium was loosely approximated over the heart and the aorta. After ensuring adequate hemostasis and hemodynamic and after correct sponge, instrument, and needle count, the sternum was closed using 4 [id number] stainless steel wires as well as one additional interrupted stainless steel wires after interposing Fibrillar between the sternal edges. Thorough irrigation with cefazolin followed. The rest of the closure proceeded in layers. Skin glue was applied. Patient did not receive any blood product, but received 350 mL of Cell Saver blood. She was transferred to the ICU on atrial pacing at 70 for a baseline sinus bradycardia of around 60 with a mean arterial pressure of 60, PA pressure 28/13 and a cardiac index of 2.3. JANIL / IJN: [id number] /
[2020-06-19] MEDS ORDERED: IPRATROPIUM-ALBUTEROL 3 ML NEB INHALATION SCH (16:00)
[2020-06-19 16:10] LABS: Glucose,Whole Blood 145 mg/dL (75-99)
[2020-06-19 16:29] LABS: Basophils % (A) 0 %; Eosinophils % (A) 0 %; HCT 23.5 % (34.0-46.0); HGB 8.1 gm/dL (11.4-16.0); Lymphocytes # (A) 0.7 k/uL (1.0-4.8); Lymphocytes % (A) 7 %; MCH 32.4 pg (25.0-35.0); MCHC 34.4 g/dL (31.0-37.0); MCV 94.2 fL (80.0-100.0); Mean Platelet Volume 7.1; Monocytes # (A) 0.5 k/uL (0-1.0); Monocytes % (A) 5 %; Neutrophils # (A) 8.3 k/uL (1.3-7.7); Neutrophils % (A) 86 %; Platelet Count 117 k/uL (150-450); RBC 2.49 m/uL (3.80-5.40); RDW 13.1 % (11.5-15.5); WBC 9.6 k/uL (3.8-10.6)
[2020-06-19 17:12] LABS: Glucose,Whole Blood 141 mg/dL (75-99)
[2020-06-19 18:00] LABS: ABG Base Excess -0.9 mmol/L; ABG HCO3 25 mmol/L (21-25); ABG Oxygen Saturation 99.9 % (94-97); ABG PCO2 45 mmHg (35-45); ABG PH 7.35 (7.35-7.45); ABG PO2 166 mmHg (83-108); ABG TCO2 26 mmol/L (19-24); Allen Test Performed? Yes
[2020-06-19 18:01] LABS: Glucose,Whole Blood 141 mg/dL (75-99)
[2020-06-19] MEDS: KETOROLAC 15 MG/ML 1 ML VIAL IVP SCH ×2 (18:15→23:05)
[2020-06-19] MEDS: ACETAMINOPHEN IV (For NPO) 1,000 MG in EMPTY BAG 1 BAG IVPB SCH ×2 (18:16→23:25)
[2020-06-19] MEDS: IPRATROPIUM-ALBUTEROL 3 ML NEB INHALATION SCH ×2 (18:34→21:00)
[2020-06-19 19:02] LABS: Glucose,Whole Blood 121 mg/dL (75-99)
[2020-06-19 19:54] LABS: Basophils % (A) 0 %; Eosinophils % (A) 0 %; HCT 22.8 % (34.0-46.0); HGB 7.6 gm/dL (11.4-16.0); Lymphocytes # (A) 0.4 k/uL (1.0-4.8); Lymphocytes % (A) 4 %; MCH 31.3 pg (25.0-35.0); MCHC 33.3 g/dL (31.0-37.0); Monocytes # (A) 0.4 k/uL (0-1.0); Monocytes % (A) 4 %; Neutrophils # (A) 8.2 k/uL (1.3-7.7); Neutrophils % (A) 91 %; Platelet Count 109 k/uL (150-450); RBC 2.42 m/uL (3.80-5.40); RDW 13.2 % (11.5-15.5)
[2020-06-19 19:58] LABS: Glucose,Whole Blood 119 mg/dL (75-99)
--- NOTE | 2020-06-19 20:03 | P.HPIM ---
History of Present Illness H&P Date: 06/19/20 Chief Complaint: Symptomatic aortic stenosis/aortic valve replacement 69-year-old female was admitted to the hospital for aortic valve replacement, due to severe symptomatic aortic stenosis. Significant medical history severe aortic stenosis with a bicuspid aortic valve, severe left ventricular dysfunction-thin ejection fraction of 15-20% and global hypokinesia, hypertensi on, and hyperlipidemia. Cardiothoracic performed surgical intervention for aortic valve replacement. Patient evaluated this p.m., patient resting comfortably in bed, speaking full sentences, able to recall significant events; patient denies fever, chills, chest pain, palpitations, shortness of breath, abdominal pain, or nausea at this time. Cardiothoracic surgery consulted cardiology and pulmonology management from their perspective. Review of Systems Constitutional: Reports weakness Musculoskeletal: Reports muscle weakness Neurological: Reports lack of coordination, Reports weakness Past Medical History Past Medical History: Heart Failure, Hyperlipidemia, Hypertension Additional Past Medical History / Comment(s): Aortic stenosis, recent admission for fall, syncope & facial trauma, no fx's. per pt., wearing heart monitor @home History of Any Multi-Drug Resistant Organisms: None Reported Past Surgical History: Heart Catheterization Additional Past Surgical History / Comment(s): recent CAYDEN & cardiac cath Past Anesthesia/Blood Transfusion Reactions: No Reported Reaction Additional Past Anesthesia/Blood Transfusion Reaction / Comment(s): never had blood transfusion Smoking Status: Never smoker Past Alcohol Use History: None Reported Past Drug Use History: None Reported - Past Family History Father Family Medical History: Diabetes Mellitus Mother Family Medical History: Cancer Additional Family Medical History / Comment(s): cervical Medications and Allergies Home Medications and Allergies Comment(s): Medications and ALLERGIES reviewed Home Medications Medication Instructions Recorded Confirmed Type Aspirin 81 mg PO DAILY #30 chew 04/21/20 06/19/20 Rx Atorvastatin [Lipitor] 40 mg PO HS #30 tab 04/21/20 06/19/20 Rx Furosemide [Lasix] 20 mg PO DAILY@1600 #30 tab 04/21/20 06/19/20 Rx Metoprolol Tartrate [Lopressor] 12.5 mg PO DAILY #60 tab 04/21/20 06/19/20 Rx Nitroglycerin Sl Tabs [Nitrostat] 0.4 mg SUBLINGUAL Q5M PRN #20 tab 04/21/20 06/19/20 Rx Famotidine [Pepcid] 20 mg PO DAILY 06/12/20 06/19/20 History Mupirocin 2% Oint [Bactroban 2% 1 applic NASAL BID 06/18/20 06/19/20 History Oint] Allergies Allergy/AdvReac Type Severity Reaction Status Date / Time No Known Allergies Allergy Verified 06/19/20 05:59 Physical Exam Vitals: Vital Signs Temp Pulse Pulse Resp BP BP BP 06/19/20 19:00 73 20 91/48 06/19/20 18:30 70 16 94/46 06/19/20 18:20 89 25 H 94/46 06/19/20 18:10 70 19 101/46 06/19/20 18:00 70 16 101/42 06/19/20 17:30 70 22 99/45 06/19/20 17:00 69 16 99/46 06/19/20 16:30 71 12 103/46 06/19/20 16:00 37.2 F L 69 14 103/46 06/19/20 15:56 98 06/19/20 15:43 70 06/19/20 15:30 37.1 F L 70 26 H 108/82 06/19/20 15:15 70 16 108/82 06/19/20 15:00 69 15 99/53 06/19/20 14:45 69 16 98/48 06/19/20 14:30 70 16 06/19/20 14:15 69 15 06/19/20 14:00 69 14 06/19/20 13:45 69 12 06/19/20 13:30 70 12 06/19/20 13:15 36.1 F L 69 12 06/19/20 06:11 110/65 06/19/20 06:06 98.5 F 63 120/68 Pulse Ox 06/19/20 19:00 100 06/19/20 18:30 100 06/19/20 18:20 100 06/19/20 18:10 100 06/19/20 18:00 100 06/19/20 17:30 100 06/19/20 17:00 100 06/19/20 16:30 96 06/19/20 16:00 100 06/19/20 15:56 06/19/20 15:43 06/19/20 15:30 100 06/19/20 15:15 06/19/20 15:00 100 06/19/20 14:45 100 06/19/20 14:30 100 06/19/20 14:15 100 06/19/20 14:00 100 06/19/20 13:45 100 06/19/20 13:30 100 06/19/20 13:15 100 06/19/20 06:11 06/19/20 06:06 99 Intake and Output 06/19/20 06/19/20 06/19/20 06:59 14:59 22:59 Intake Total 200 166.906 932.836 Output Total 1605 435 Balance 200 -1438.094 497.836 Intake: IV 200 156 925 Albumin Human 5% 250 ml 500 In Empty Bag 1 bag @ 250 mls/hr IVPB Q1HR PRN Rx#: [id number] Cardiac Output 20 80 Pressure Bag 9 45 Sodium Chloride 0.9% 1, 75 250 000 ml @ 50 mls/hr IV . Q20H [facility] Rx#:[id number] ceFAZolin 2 gm In Sodium 50 Chloride 0.9% 50 ml @ 100 mls/hr IVPB Q8H [facility] Rx#: [id number] Intake, IV Titration 10.906 7.836 Amount Insulin Regular 100 unit 7.836 In Sodium Chloride 0.9% 100 ml @ Per Protocol IV .Q0M [facility] Rx#:[id number] propofoL 1,000 mg In 10.906 Empty Bag 1 bag @ Titrate IV .Q0M [facility] Rx#: [id number] Output: Chest Tube Drainage 90 50 Bilateral Mediastinal 90 50 Urine 515 385 Estimated Blood Loss 1000 Other: Voiding Method Indwelling Catheter Indwelling Catheter Weight 64 kg ABP, PAP, CO, CI - Last 8 Hours Arterial Blood Pressure 107/44 Arterial Blood Pressure 108/43 Arterial Blood Pressure 95/41 Arterial Blood Pressure 109/44 Arterial Blood Pressure 109/44 Arterial Blood Pressure 104/46 Arterial Blood Pressure 102/46 Arterial Blood Pressure 106/46 Arterial Blood Pressure 113/50 Arterial Blood Pressure 110/56 Arterial Blood Pressure 112/49 Arterial Blood Pressure 102/49 Arterial Blood Pressure 112/52 Arterial Blood Pressure 102/48 Arterial Blood Pressure 106/49 Arterial Blood Pressure 116/55 Pulmonary Artery Pressure 26/9 Pulmonary Artery Pressure 27/5 Pulmonary Artery Pressure 31/13 Pulmonary Artery Pressure 28/12 Pulmonary Artery Pressure 28/11 Pulmonary Artery Pressure 29/16 Pulmonary Artery Pressure 29/15 Pulmonary Artery Pressure 33/14 Pulmonary Artery Pressure 35/16 Pulmonary Artery Pressure 37/18 Pulmonary Artery Pressure 36/18 Pulmonary Artery Pressure 38/18 Pulmonary Artery Pressure 40/16 Pulmonary Artery Pressure 38/17 Pulmonary Artery Pressure 39/18 Pulmonary Artery Pressure 41/20 Pulmonary Artery Pressure 38/15 Pulmonary Artery Pressure 34/15 Pulmonary Artery Pressure 32/17 Cardiac Output 4.1 Cardiac Output 3.6 Cardiac Output 3.6 Cardiac Output 3.6 Cardiac Output 3.6 Cardiac Output 3.6 Cardiac Output 3.6 Cardiac Output 3.6 Cardiac Output 3.6 Cardiac Output 3.6 Cardiac Output 3.2 Cardiac Output 3.7 Cardiac Output 3.7 Cardiac Output 3.7 Cardiac Index 2.6 Cardiac Index 2.3 Cardiac Index 2.3 Cardiac Index 2.3 Cardiac Index 2.3 Cardiac Index 2.3 Cardiac Index 2.3 Cardiac Index 2.3 Cardiac Index 2.3 Cardiac Index 2.3 Cardiac Index 2 Cardiac Index 2.3 Cardiac Index 2.3 Cardiac Index 2.3 - Constitutional General appearance: mild distress - EENT Eyes: EOMI Ears: bilateral: normal - Neck Thyroid: bilateral: normal size - Respiratory Chest tube present Respiratory: bilateral: diminished (Anterior and posterior lung reyes) - Cardiovascular Pacer wires in place foot Peripheral Edema: bilateral: Trace radial pulse Peripheral Pulses: bilateral: Normal - Gastrointestinal General gastrointestinal: normal bowel sounds - Genitourinary León catheter in place - Integumentary Integumentary: pale - Musculoskeletal Musculoskeletal: generalized weakness - Psychiatric Alert to person and place Results CBC & Chem 7: 06/19/20 16:00 06/19/20 13:13 Labs: Abnormal Lab Results - Last 24 Hours (Table) 06/15/20 06/19/20 06/19/20 Range/Units 11:43 08:40 09:35 WBC (3.8-10.6) k/uL RBC (3.80-5.40) m/uL Hgb (11.4-16.0) gm/dL Hct (34.0-46.0) % Plt Count (150-450) k/uL Neutrophils # (1.3-7.7) k/uL Lymphocytes # (1.0-4.8) k/uL PT (9.0-12.0) sec INR (<1.2) ABG pO2 >420 H 215 H (83-108) mmHg ABG HCO3 27 H 26 H (21-25) mmol/L ABG Total CO2 28 H 27 H (19-24) mmol/L ABG O2 Saturation 100.0 H 100.0 H (94-97) % ABG Hematocrit 33 L 32 L (34.0-46.0) % ABG Potassium (3.4-4.5) mmol/L ABG Ionized Calcium (4.5-5.3) mg/dL ABG Glucose 122 H 126 H (75-99) mg/dL ABG Lactic Acid (0.5-1.6) mmol/L Hemoglobin 10.7 L 10.4 L (11.4-16.0) gm/dL POC Glucose (mg/dL) (75-99) mg/dL Ionized Calcium [place] (4.5-5.3) mg/dL Magnesium (1.6-2.3) mg/dL Total Protein (6.3-8.2) g/dL Albumin (3.5-5.0) g/dL Arterial Blood Potassium (3.4-4.5) mmol/L Arterial Blood Glucose 122 H 126 H (75-99) mg/dL Crossmatch See Detail 06/19/20 06/19/20 06/19/20 Range/Units 10:13 10:38 11:06 WBC (3.8-10.6) k/uL RBC (3.80-5.40) m/uL Hgb (11.4-16.0) gm/dL Hct (34.0-46.0) % Plt Count (150-450) k/uL Neutrophils # (1.3-7.7) k/uL Lymphocytes # (1.0-4.8) k/uL PT (9.0-12.0) sec INR (<1.2) ABG pO2 360 H 393 H >420 H (83-108) mmHg ABG HCO3 26 H (21-25) mmol/L ABG Total CO2 27 H 27 H 26 H (19-24) mmol/L ABG O2 Saturation 100.0 H 100.0 H 100.0 H (94-97) % ABG Hematocrit 23 L 22 L 22 L (34.0-46.0) % ABG Potassium 5.8 H 4.7 H (3.4-4.5) mmol/L ABG Ionized Calcium 4.1 L 4.3 L 4.3 L (4.5-5.3) mg/dL ABG Glucose 229 H 183 H 184 H (75-99) mg/dL ABG Lactic Acid 1.8 H 2.7 H* (0.5-1.6) mmol/L Hemoglobin 7.6 L 7.1 L 7.1 L (11.4-16.0) gm/dL POC Glucose (mg/dL) (75-99) mg/dL Ionized Calcium [place] (4.5-5.3) mg/dL Magnesium (1.6-2.3) mg/dL Total Protein (6.3-8.2) g/dL Albumin (3.5-5.0) g/dL Arterial Blood Potassium 5.8 H 4.7 H (3.4-4.5) mmol/L Arterial Blood Glucose 229 H 183 H 184 H (75-99) mg/dL Crossmatch 06/19/20 06/19/20 06/19/20 Range/Units 12:20 13:13 13:13 WBC 10.7 H (3.8-10.6) k/uL RBC 2.63 L (3.80-5.40) m/uL Hgb 8.3 L D (11.4-16.0) gm/dL Hct 24.7 L (34.0-46.0) % Plt Count 117 L (150-450) k/uL Neutrophils # 9.1 H (1.3-7.7) k/uL Lymphocytes # 0.9 L (1.0-4.8) k/uL PT 12.1 H (9.0-12.0) sec INR 1.2 H (<1.2) ABG pO2 >420 H (83-108) mmHg ABG HCO3 (21-25) mmol/L ABG Total CO2 26 H (19-24) mmol/L ABG O2 Saturation 100.0 H (94-97) % ABG Hematocrit 22 L (34.0-46.0) % ABG Potassium (3.4-4.5) mmol/L ABG Ionized Calcium (4.5-5.3) mg/dL ABG Glucose 113 H (75-99) mg/dL ABG Lactic Acid 2.6 H* (0.5-1.6) mmol/L Hemoglobin 7.3 L (11.4-16.0) gm/dL POC Glucose (mg/dL) (75-99) mg/dL Ionized Calcium [place] (4.5-5.3) mg/dL Magnesium (1.6-2.3) mg/dL Total Protein (6.3-8.2) g/dL Albumin (3.5-5.0) g/dL Arterial Blood Potassium (3.4-4.5) mmol/L Arterial Blood Glucose 113 H (75-99) mg/dL Crossmatch 06/19/20 06/19/20 06/19/20 Range/Units 13:13 13:13 14:24 WBC (3.8-10.6) k/uL RBC (3.80-5.40) m/uL Hgb (11.4-16.0) gm/dL Hct (34.0-46.0) % Plt Count (150-450) k/uL Neutrophils # (1.3-7.7) k/uL Lymphocytes # (1.0-4.8) k/uL PT (9.0-12.0) sec INR (<1.2) ABG pO2 (83-108) mmHg ABG HCO3 (21-25) mmol/L ABG Total CO2 (19-24) mmol/L ABG O2 Saturation (94-97) % ABG Hematocrit (34.0-46.0) % ABG Potassium (3.4-4.5) mmol/L ABG Ionized Calcium (4.5-5.3) mg/dL ABG Glucose (75-99) mg/dL ABG Lactic Acid (0.5-1.6) mmol/L Hemoglobin (11.4-16.0) gm/dL POC Glucose (mg/dL) 100 H 122 H (75-99) mg/dL Ionized Calcium [place] 5.5 H (4.5-5.3) mg/dL Magnesium 2.9 H (1.6-2.3) mg/dL Total Protein 4.5 L (6.3-8.2) g/dL Albumin 2.8 L (3.5-5.0) g/dL Arterial Blood Potassium (3.4-4.5) mmol/L Arterial Blood Glucose (75-99) mg/dL Crossmatch 06/19/20 06/19/20 06/19/20 Range/Units 15:17 16:00 16:08 WBC (3.8-10.6) k/uL RBC 2.49 L (3.80-5.40) m/uL Hgb 8.1 L (11.4-16.0) gm/dL Hct 23.5 L (34.0-46.0) % Plt Count 117 L (150-450) k/uL Neutrophils # 8.3 H (1.3-7.7) k/uL Lymphocytes # 0.7 L (1.0-4.8) k/uL PT (9.0-12.0) sec INR (<1.2) ABG pO2 (83-108) mmHg ABG HCO3 (21-25) mmol/L ABG Total CO2 (19-24) mmol/L ABG O2 Saturation (94-97) % ABG Hematocrit (34.0-46.0) % ABG Potassium (3.4-4.5) mmol/L ABG Ionized Calcium (4.5-5.3) mg/dL ABG Glucose (75-99) mg/dL ABG Lactic Acid (0.5-1.6) mmol/L Hemoglobin (11.4-16.0) gm/dL POC Glucose (mg/dL) 140 H 145 H (75-99) mg/dL Ionized Calcium [place] (4.5-5.3) mg/dL Magnesium (1.6-2.3) mg/dL Total Protein (6.3-8.2) g/dL Albumin (3.5-5.0) g/dL Arterial Blood Potassium (3.4-4.5) mmol/L Arterial Blood Glucose (75-99) mg/dL Crossmatch 06/19/20 06/19/20 06/19/20 Range/Units 17:10 17:54 17:59 WBC (3.8-10.6) k/uL RBC (3.80-5.40) m/uL Hgb (11.4-16.0) gm/dL Hct (34.0-46.0) % Plt Count (150-450) k/uL Neutrophils # (1.3-7.7) k/uL Lymphocytes # (1.0-4.8) k/uL PT (9.0-12.0) sec INR (<1.2) ABG pO2 166 H (83-108) mmHg ABG HCO3 (21-25) mmol/L ABG Total CO2 26 H (19-24) mmol/L ABG O2 Saturation 99.9 H (94-97) % ABG Hematocrit (34.0-46.0) % ABG Potassium (3.4-4.5) mmol/L ABG Ionized Calcium (4.5-5.3) mg/dL ABG Glucose (75-99) mg/dL ABG Lactic Acid (0.5-1.6) mmol/L Hemoglobin (11.4-16.0) gm/dL POC Glucose (mg/dL) 141 H 141 H (75-99) mg/dL Ionized Calcium [place] (4.5-5.3) mg/dL Magnesium (1.6-2.3) mg/dL Total Protein (6.3-8.2) g/dL Albumin (3.5-5.0) g/dL Arterial Blood Potassium (3.4-4.5) mmol/L Arterial Blood Glucose (75-99) mg/dL Crossmatch 06/19/20 Range/Units 19:00 WBC (3.8-10.6) k/uL RBC (3.80-5.40) m/uL Hgb (11.4-16.0) gm/dL Hct (34.0-46.0) % Plt Count (150-450) k/uL Neutrophils # (1.3-7.7) k/uL Lymphocytes # (1.0-4.8) k/uL PT (9.0-12.0) sec INR (<1.2) ABG pO2 (83-108) mmHg ABG HCO3 (21-25) mmol/L ABG Total CO2 (19-24) mmol/L ABG O2 Saturation (94-97) % ABG Hematocrit (34.0-46.0) % ABG Potassium (3.4-4.5) mmol/L ABG Ionized Calcium (4.5-5.3) mg/dL ABG Glucose (75-99) mg/dL ABG Lactic Acid (0.5-1.6) mmol/L Hemoglobin (11.4-16.0) gm/dL POC Glucose (mg/dL) 121 H (75-99) mg/dL Ionized Calcium [place] (4.5-5.3) mg/dL Magnesium (1.6-2.3) mg/dL Total Protein (6.3-8.2) g/dL Albumin (3.5-5.0) g/dL Arterial Blood Potassium (3.4-4.5) mmol/L Arterial Blood Glucose (75-99) mg/dL Crossmatch Comments: Operative report reviewed Chest x-ray: report reviewed Thrombosis Risk Factor Assmnt - Choose All That Apply Each Factor Represents 1 point: Obesity (BMI >25) Each Risk Factor Represents 2 Points: Age 61-74 years, Central venous access Each Risk Factor Represents 5 Points: Major surgery lasting over 3 hours Thrombosis Risk Factor Assessment Total Risk Factor Score: 10 Thrombosis Risk Factor Assessment Level: High Risk Assessment and Plan Assessment: Status post aortic valve replacementfor history of severe aortic stenosis with bicuspid aortic valve continue to follow treatment plan from cardiothoracic, cardiology, and pulmonology for recommendations and treatment plan History of severe left ventricular dysfunction Hypertension Hyperlipidemia History of syncope History of tooth extraction Full code Continue medical management Time with Patient: Greater than 30
[2020-06-19] MEDS: ATORVASTATIN 40 MG TAB PO SCH (20:10)
[2020-06-19] MEDS: HEPARIN SODIUM,PORCINE 5,000 UNIT/ML 1 ML VIAL SQ SCH (20:10)
[2020-06-19] MEDS ORDERED: METOPROLOL TARTRATE 12.5 MG TAB PO STA (20:25)
[2020-06-19 21:19] LABS: Glucose,Whole Blood 127 mg/dL (75-99)
[2020-06-19 22:47] LABS: Glucose,Whole Blood 109 mg/dL (75-99)
[2020-06-20 00:19] LABS: Glucose,Whole Blood 108 mg/dL (75-99)
[2020-06-20] MEDS ORDERED: HYDROcodone/APAP 5-325MG 1 EACH TAB PO PRN ×2 (00:31)
[2020-06-20] MEDS: ALBUMIN HUMAN 5% 250 ML in EMPTY BAG 1 BAG IVPB PRN ×2 (00:45→05:14)
[2020-06-20 02:01] LABS: Glucose,Whole Blood 144 mg/dL (75-99)
[2020-06-20 03:12] LABS: Glucose,Whole Blood 144 mg/dL (75-99)
[2020-06-20 03:33] LABS: Ionized Calcium 5.1 mg/dL (4.5-5.3)
[2020-06-20 03:40] LABS: ALT 14 U/L (4-34); AST 33 U/L (14-36); African American GFR (CKD) >90 (>60 ml/min/1.73 sqM); Albumin 3.3 g/dL (3.5-5.0); Alkaline Phosphatase 40 U/L (38-126); Anion Gap 6 mmol/L; Blood Urea Nitrogen 13 mg/dL (7-17); Calcium 8.3 mg/dL (8.4-10.2); Carbon Dioxide 23 mmol/L (22-30); Chloride 108 mmol/L (98-107); Glucose 127 mg/dL (74-99); Magnesium 2.4 mg/dL (1.6-2.3); Non-African American GFR(CKD) >90 (>60 ml/min/1.73 sqM); Potassium 4.3 mmol/L (3.5-5.1); Sodium 137 mmol/L (137-145); Total Bilirubin 1.3 mg/dL (0.2-1.3)
[2020-06-20 03:45] LABS: Basophils % (A) 0 %; Eosinophils % (A) 0 %; Lymphocytes # (A) 0.5 k/uL (1.0-4.8); Lymphocytes % (A) 9 %; MCH 31.4 pg (25.0-35.0); MCHC 32.9 g/dL (31.0-37.0); MCV 95.5 fL (80.0-100.0); Mean Platelet Volume 7.2; Monocytes # (A) 0.3 k/uL (0-1.0); Monocytes % (A) 5 %; Neutrophils # (A) 4.9 k/uL (1.3-7.7); Neutrophils % (A) 84 %; RBC 2.08 m/uL (3.80-5.40); RDW 13.6 % (11.5-15.5); WBC 5.8 k/uL (3.8-10.6)
[2020-06-20 04:10] LABS: HCT 19.9 % (34.0-46.0); HGB 6.5 gm/dL (11.4-16.0)
[2020-06-20 04:31] LABS: Platelet Count 85 k/uL (150-450)
[2020-06-20 05:24] LABS: Glucose,Whole Blood 113 mg/dL (75-99)
[2020-06-20] MEDS: KETOROLAC 15 MG/ML 1 ML VIAL IVP SCH ×4 (05:35→23:32)
[2020-06-20] MEDS: IPRATROPIUM-ALBUTEROL 3 ML NEB INHALATION SCH ×4 (07:08→19:08)
[2020-06-20 07:14] LABS: Glucose,Whole Blood 130 mg/dL (75-99)
[2020-06-20] MEDS ORDERED: ACETAMINOPHEN TAB 500 MG TAB PO PRN (08:20)
--- NOTE | 2020-06-20 08:23 | XR ---
EXAMINATION TYPE: XR chest 1V portable DATE OF EXAM: 06/20/2020 COMPARISON: 06/19/2020 HISTORY: Post cardiac surgery TECHNIQUE: Single frontal view of the chest is obtained. FINDINGS: ET and NG tube have been removed. Postsurgical change, mediastinal drain and [place]-Kendy cat heter are stable. No sizable pneumothorax. Interstitial pattern with basilar consolidation and small effusion noted. Heart size stable. IMPRESSION: 1. Postsurgical changes. 2. Basilar consolidation and small effusion with residual mild central venous congestion.
[2020-06-20] MEDS: METOPROLOL TARTRATE 12.5 MG TAB PO SCH ×2 (08:52→20:01)
[2020-06-20] MEDS: ASPIRIN 325 MG TAB PO SCH (08:52)
[2020-06-20] MEDS: HEPARIN SODIUM,PORCINE 5,000 UNIT/ML 1 ML VIAL SQ SCH ×3 (08:52→23:32)
[2020-06-20] MEDS: CLOPIDOGREL 75 MG TAB PO SCH (08:52)
[2020-06-20] MEDS ORDERED: FUROSEMIDE 10 MG/ML 2 ML VIAL IV ONE (08:52)
--- NOTE | 2020-06-20 08:52 | P.PN ---
Subjective Progress Note Date: 06/20/20 Principal diagnosis: Symptomatic severe bicuspid aortic valve stenosis. Past medical history significant for hypertension, hyperlipidemia, preoperative syncopal event with traumatic facial trauma and chronic systolic congestive heart failure with severe left ventricular dysfunction and an ejection fraction of 20-25%. POD #1 aortic valve replacement using a 21 mm Inspiris pericardial bioprosthesis, exclusion of the left atrial appendage using a 35 mm Atriclip, intraoperative transesophageal echocardiogram and epi-aortic scanning. Postoperative acute blood loss anemia, expected due to cardiopulmonary bypass and hemodilution. The patient was seen in follow-up today 06/20/2020 at her bedside in the intensive care unit. Currently she is sitting up to the bedside chair, is awake, alert and oriented 3. Denies any complaints of shortness of breath although is complaining of some surgical type pain to her chest tube insertion sites. She rates her pain 4 out of 10 on the pain scale at this time. Oxygen saturations are 95% on 1 L nasal cannula and she is achieving 500 mL on her incentive spirometry. She remained hemodynamically stable and is currently on no inotropic or pressor support. Right IJ Cordis with Cleveland-Kendy catheter in place with current hemodynamics showing a cardiac output of 4.4, cardiac index 2.8, PA pressures 41/14 and CVP 15 mmHg. Bedside telemetry showing normal sinus rhythm heart rate 68 BPM. Atrial and ventricular epicardial wires in place and connected to a backup bedside pacemaker generator rhythm VVI 50 BPM. Mediastinal chest tubes in place to low continuous wall suction -20 cm H2O. No air leak is present. Draining thin serosanguineous drainage with 25 mL output in the last 8 hours and 180 mL output since surgery. Objective - Vital Signs Vital signs: Vital Signs Temp 99.3 F 06/20/20 04:00 Pulse 68 06/20/20 07:18 Resp 18 06/20/20 07:18 BP 83/42 06/20/20 00:00 Pulse Ox 95 06/20/20 07:07 Intake & Output 06/19/20 06/20/20 06/20/20 18:59 06:59 18:59 Intake Total 2668.177 8830.790 79 Output Total 1975 518 42 Balance -029.987 2505.790 37 Weight 65.3 kg Intake: IV 1002 1628 79 ACETAMINOPHEN IV (For NPO 100 ) 1,000 mg In Empty Bag 1 bag @ 400 mls/hr IVPB Q6HR MARAL Rx#:[id number] Albumin Human 5% 250 ml 500 500 In Empty Bag 1 bag @ 250 mls/hr IVPB Q1HR PRN Rx#: [id number] Cardiac Output 80 220 20 Pressure Bag 45 108 9 Sodium Chloride 0.9% 1, 275 600 50 000 ml @ 50 mls/hr IV . Q20H MARAL Rx#:[id number] ceFAZolin 2 gm In Sodium 50 100 Chloride 0.9% 50 ml @ 100 mls/hr IVPB Q8H MARAL Rx#: [id number] Intake, IV Titration 16.133 15.790 0 Amount Insulin Regular 100 unit 5.227 15.790 0 In Sodium Chloride 0.9% 100 ml @ Per Protocol IV .Q0M MARAL Rx#:[id number] propofoL 1,000 mg In 10.906 Empty Bag 1 bag @ Titrate IV .Q0M MARAL Rx#: [id number] Output: Chest Tube Drainage 140 34 12 Bilateral Mediastinal 140 34 12 Urine 835 484 30 Estimated Blood Loss 1000 Other: Voiding Method Indwelling Catheter Indwelling Catheter ABP, PAP, CO, CI - Last Documented Arterial Blood Pressure 100/43 Pulmonary Artery Pressure 43/18 Cardiac Output 4.4 Cardiac Index 2.8 - Constitutional General appearance: Present: cooperative, no acute distress, obese - EENT Eyes: Present: poor dentition, normal appearance. Absent: scleral icterus ENT: Present: hearing grossly normal - Neck Details: Neck is supple, no JVD. - Respiratory Details: Lung sounds are essentially clear throughout, diminished bilateral bases left greater than right. No wheezes, rhonchi or crackles. Respirations are symmetrical and nonlabored. Oxygen saturation are 95% on 1 L nasal cannula. Achieving 500 mL on her incentive spirometry. Mediastinal chest tubes in place to low continuous wall suction -20 cm H2O. No air leak is present. Draining thin serosanguineous drainage with 25 mL output in the last 8 hours and 180 mL output since surgery. - Cardiovascular Details: Regular rhythm and rate. S1 and S2 present, negative for S3, gallop or murmur. Sternum is stable. Bedside telemetry showing normal sinus rhythm heart rate 68 BPM. Atrial and ventricular epicardial pacemaker wires in place and connected to bedside pacemaker generator with a VVI of 50 BPM. Right IJ Cordis with Cleveland- Kendy catheter in place with current hemodynamic showing a cardiac output of 4.4, cardiac index 2.8, PA pressures 41/14 CVP 15 mmHg. Knee-high NADEEN hose and sequential compression devices in place to her bilateral lower extremities. - Gastrointestinal Gastrointestinal Comment(s): Abdomen is soft, nontender and nondistended. Hypoactive bowel sounds present all 4 abdominal quadrants. No guarding or rigidity. Tolerating oral intake. - Genitourinary Genitourinary Comment(s): León catheter for accurate I&O. Draining clear yellow urine. 300 mL of urine output in the last 8 hours. - Integumentary Integumentary Comment(s): Skin is warm and dry. No clubbing or cyanosis is present. Midline sternal incision is clean, dry and approximated. No drainage or redness is present. - Neurologic Neurologic: Present: CNII-XII intact. Absent: focal deficits - Musculoskeletal Musculoskeletal: Present: gait normal, generalized weakness, strength equal bilaterally - Psychiatric Psychiatric: Present: A&O x's 3, appropriate affect, intact judgment & insight - Allied health notes Allied health notes reviewed: nursing - Labs CBC & Chem 7: 06/20/20 03:10 06/20/20 03:10 Labs: Abnormal Lab Results - Last 24 Hours (Table) 06/15/20 06/19/20 06/19/20 Range/Units 11:43 08:40 09:35 WBC (3.8-10.6) k/uL RBC (3.80-5.40) m/uL Hgb (11.4-16.0) gm/dL Hct (34.0-46.0) % Plt Count (150-450) k/uL Neutrophils # (1.3-7.7) k/uL Lymphocytes # (1.0-4.8) k/uL PT (9.0-12.0) sec INR (<1.2) ABG pO2 >420 H 215 H (83-108) mmHg ABG HCO3 27 H 26 H (21-25) mmol/L ABG Total CO2 28 H 27 H (19-24) mmol/L ABG O2 Saturation 100.0 H 100.0 H (94-97) % ABG Hematocrit 33 L 32 L (34.0-46.0) % ABG Potassium (3.4-4.5) mmol/L ABG Ionized Calcium (4.5-5.3) mg/dL ABG Glucose 122 H 126 H (75-99) mg/dL ABG Lactic Acid (0.5-1.6) mmol/L Hemoglobin 10.7 L 10.4 L (11.4-16.0) gm/dL Chloride (98-107) mmol/L Glucose (74-99) mg/dL POC Glucose (mg/dL) (75-99) mg/dL Calcium (8.4-10.2) mg/dL Ionized Calcium Leilani (4.5-5.3) mg/dL Magnesium (1.6-2.3) mg/dL Total Protein (6.3-8.2) g/dL Albumin (3.5-5.0) g/dL Arterial Blood Potassium (3.4-4.5) mmol/L Arterial Blood Glucose 122 H 126 H (75-99) mg/dL Crossmatch See Detail 06/19/20 06/19/20 06/19/20 Range/Units 10:13 10:38 11:06 WBC (3.8-10.6) k/uL RBC (3.80-5.40) m/uL Hgb (11.4-16.0) gm/dL Hct (34.0-46.0) % Plt Count (150-450) k/uL Neutrophils # (1.3-7.7) k/uL Lymphocytes # (1.0-4.8) k/uL PT (9.0-12.0) sec INR (<1.2) ABG pO2 360 H 393 H >420 H (83-108) mmHg ABG HCO3 26 H (21-25) mmol/L ABG Total CO2 27 H 27 H 26 H (19-24) mmol/L ABG O2 Saturation 100.0 H 100.0 H 100.0 H (94-97) % ABG Hematocrit 23 L 22 L 22 L (34.0-46.0) % ABG Potassium 5.8 H 4.7 H (3.4-4.5) mmol/L ABG Ionized Calcium 4.1 L 4.3 L 4.3 L (4.5-5.3) mg/dL ABG Glucose 229 H 183 H 184 H (75-99) mg/dL ABG Lactic Acid 1.8 H 2.7 H* (0.5-1.6) mmol/L Hemoglobin 7.6 L 7.1 L 7.1 L (11.4-16.0) gm/dL Chloride (98-107) mmol/L Glucose (74-99) mg/dL POC Glucose (mg/dL) (75-99) mg/dL Calcium (8.4-10.2) mg/dL Ionized Calcium [place]ani (4.5-5.3) mg/dL Magnesium (1.6-2.3) mg/dL Total Protein (6.3-8.2) g/dL Albumin (3.5-5.0) g/dL Arterial Blood Potassium 5.8 H 4.7 H (3.4-4.5) mmol/L Arterial Blood Glucose 229 H 183 H 184 H (75-99) mg/dL Crossmatch 06/19/20 06/19/20 06/19/20 Range/Units 12:20 13:13 13:13 WBC 10.7 H (3.8-10.6) k/uL RBC 2.63 L (3.80-5.40) m/uL Hgb 8.3 L D (11.4-16.0) gm/dL Hct 24.7 L (34.0-46.0) % Plt Count 117 L (150-450) k/uL Neutrophils # 9.1 H (1.3-7.7) k/uL Lymphocytes # 0.9 L (1.0-4.8) k/uL PT 12.1 H (9.0-12.0) sec INR 1.2 H (<1.2) ABG pO2 >420 H (83-108) mmHg ABG HCO3 (21-25) mmol/L ABG Total CO2 26 H (19-24) mmol/L ABG O2 Saturation 100.0 H (94-97) % ABG Hematocrit 22 L (34.0-46.0) % ABG Potassium (3.4-4.5) mmol/L ABG Ionized Calcium (4.5-5.3) mg/dL ABG Glucose 113 H (75-99) mg/dL ABG Lactic Acid 2.6 H* (0.5-1.6) mmol/L Hemoglobin 7.3 L (11.4-16.0) gm/dL Chloride (98-107) mmol/L Glucose (74-99) mg/dL POC Glucose (mg/dL) (75-99) mg/dL Calcium (8.4-10.2) mg/dL Ionized Calcium Leilani (4.5-5.3) mg/dL Magnesium (1.6-2.3) mg/dL Total Protein (6.3-8.2) g/dL Albumin (3.5-5.0) g/dL Arterial Blood Potassium (3.4-4.5) mmol/L Arterial Blood Glucose 113 H (75-99) mg/dL Crossmatch 06/19/20 06/19/20 06/19/20 Range/Units 13:13 13:13 14:24 WBC (3.8-10.6) k/uL RBC (3.80-5.40) m/uL Hgb (11.4-16.0) gm/dL Hct (34.0-46.0) % Plt Count (150-450) k/uL Neutrophils # (1.3-7.7) k/uL Lymphocytes # (1.0-4.8) k/uL PT (9.0-12.0) sec INR (<1.2) ABG pO2 (83-108) mmHg ABG HCO3 (21-25) mmol/L ABG Total CO2 (19-24) mmol/L ABG O2 Saturation (94-97) % ABG Hematocrit (34.0-46.0) % ABG Potassium (3.4-4.5) mmol/L ABG Ionized Calcium (4.5-5.3) mg/dL ABG Glucose (75-99) mg/dL ABG Lactic Acid (0.5-1.6) mmol/L Hemoglobin (11.4-16.0) gm/dL Chloride (98-107) mmol/L Glucose (74-99) mg/dL POC Glucose (mg/dL) 100 H 122 H (75-99) mg/dL Calcium (8.4-10.2) mg/dL Ionized Calcium Leilani 5.5 H (4.5-5.3) mg/dL Magnesium 2.9 H (1.6-2.3) mg/dL Total Protein 4.5 L (6.3-8.2) g/dL Albumin 2.8 L (3.5-5.0) g/dL Arterial Blood Potassium (3.4-4.5) mmol/L Arterial Blood Glucose (75-99) mg/dL Crossmatch 06/19/20 06/19/20 06/19/20 Range/Units 15:17 16:00 16:08 WBC (3.8-10.6) k/uL RBC 2.49 L (3.80-5.40) m/uL Hgb 8.1 L (11.4-16.0) gm/dL Hct 23.5 L (34.0-46.0) % Plt Count 117 L (150-450) k/uL Neutrophils # 8.3 H (1.3-7.7) k/uL Lymphocytes # 0.7 L (1.0-4.8) k/uL PT (9.0-12.0) sec INR (<1.2) ABG pO2 (83-108) mmHg ABG HCO3 (21-25) mmol/L ABG Total CO2 (19-24) mmol/L ABG O2 Saturation (94-97) % ABG Hematocrit (34.0-46.0) % ABG Potassium (3.4-4.5) mmol/L ABG Ionized Calcium (4.5-5.3) mg/dL ABG Glucose (75-99) mg/dL ABG Lactic Acid (0.5-1.6) mmol/L Hemoglobin (11.4-16.0) gm/dL Chloride (98-107) mmol/L Glucose (74-99) mg/dL POC Glucose (mg/dL) 140 H 145 H (75-99) mg/dL Calcium (8.4-10.2) mg/dL Ionized Calcium [place] (4.5-5.3) mg/dL Magnesium (1.6-2.3) mg/dL Total Protein (6.3-8.2) g/dL Albumin (3.5-5.0) g/dL Arterial Blood Potassium (3.4-4.5) mmol/L Arterial Blood Glucose (75-99) mg/dL Crossmatch 06/19/20 06/19/20 06/19/20 Range/Units 17:10 17:54 17:59 WBC (3.8-10.6) k/uL RBC (3.80-5.40) m/uL Hgb (11.4-16.0) gm/dL Hct (34.0-46.0) % Plt Count (150-450) k/uL Neutrophils # (1.3-7.7) k/uL Lymphocytes # (1.0-4.8) k/uL PT (9.0-12.0) sec INR (<1.2) ABG pO2 166 H (83-108) mmHg ABG HCO3 (21-25) mmol/L ABG Total CO2 26 H (19-24) mmol/L ABG O2 Saturation 99.9 H (94-97) % ABG Hematocrit (34.0-46.0) % ABG Potassium (3.4-4.5) mmol/L ABG Ionized Calcium (4.5-5.3) mg/dL ABG Glucose (75-99) mg/dL ABG Lactic Acid (0.5-1.6) mmol/L Hemoglobin (11.4-16.0) gm/dL Chloride (98-107) mmol/L Glucose (74-99) mg/dL POC Glucose (mg/dL) 141 H 141 H (75-99) mg/dL Calcium (8.4-10.2) mg/dL Ionized Calcium [place]ilani (4.5-5.3) mg/dL Magnesium (1.6-2.3) mg/dL Total Protein (6.3-8.2) g/dL Albumin (3.5-5.0) g/dL Arterial Blood Potassium (3.4-4.5) mmol/L Arterial Blood Glucose (75-99) mg/dL Crossmatch 06/19/20 06/19/20 06/19/20 Range/Units 19:00 19:00 19:57 WBC (3.8-10.6) k/uL RBC 2.42 L (3.80-5.40) m/uL Hgb 7.6 L (11.4-16.0) gm/dL Hct 22.8 L (34.0-46.0) % Plt Count 109 L (150-450) k/uL Neutrophils # 8.2 H (1.3-7.7) k/uL Lymphocytes # 0.4 L (1.0-4.8) k/uL PT (9.0-12.0) sec INR (<1.2) ABG pO2 (83-108) mmHg ABG HCO3 (21-25) mmol/L ABG Total CO2 (19-24) mmol/L ABG O2 Saturation (94-97) % ABG Hematocrit (34.0-46.0) % ABG Potassium (3.4-4.5) mmol/L ABG Ionized Calcium (4.5-5.3) mg/dL ABG Glucose (75-99) mg/dL ABG Lactic Acid (0.5-1.6) mmol/L Hemoglobin (11.4-16.0) gm/dL Chloride (98-107) mmol/L Glucose (74-99) mg/dL POC Glucose (mg/dL) 121 H 119 H (75-99) mg/dL Calcium (8.4-10.2) mg/dL Ionized Calcium [place]ilani (4.5-5.3) mg/dL Magnesium (1.6-2.3) mg/dL Total Protein (6.3-8.2) g/dL Albumin (3.5-5.0) g/dL Arterial Blood Potassium (3.4-4.5) mmol/L Arterial Blood Glucose (75-99) mg/dL Crossmatch 06/19/20 06/19/20 06/20/20 Range/Units 21:18 22:46 00:18 WBC (3.8-10.6) k/uL RBC (3.80-5.40) m/uL Hgb (11.4-16.0) gm/dL Hct (34.0-46.0) % Plt Count (150-450) k/uL Neutrophils # (1.3-7.7) k/uL Lymphocytes # (1.0-4.8) k/uL PT (9.0-12.0) sec INR (<1.2) ABG pO2 (83-108) mmHg ABG HCO3 (21-25) mmol/L ABG Total CO2 (19-24) mmol/L ABG O2 Saturation (94-97) % ABG Hematocrit (34.0-46.0) % ABG Potassium (3.4-4.5) mmol/L ABG Ionized Calcium (4.5-5.3) mg/dL ABG Glucose (75-99) mg/dL ABG Lactic Acid (0.5-1.6) mmol/L Hemoglobin (11.4-16.0) gm/dL Chloride (98-107) mmol/L Glucose (74-99) mg/dL POC Glucose (mg/dL) 127 H 109 H 108 H (75-99) mg/dL Calcium (8.4-10.2) mg/dL Ionized Calcium Leilani (4.5-5.3) mg/dL Magnesium (1.6-2.3) mg/dL Total Protein (6.3-8.2) g/dL Albumin (3.5-5.0) g/dL Arterial Blood Potassium (3.4-4.5) mmol/L Arterial Blood Glucose (75-99) mg/dL Crossmatch 06/20/20 06/20/20 06/20/20 Range/Units 02:00 03:10 03:10 WBC (3.8-10.6) k/uL RBC 2.08 L (3.80-5.40) m/uL Hgb 6.5 L* (11.4-16.0) gm/dL Hct 19.9 L* (34.0-46.0) % Plt Count 85 L (150-450) k/uL Neutrophils # (1.3-7.7) k/uL Lymphocytes # 0.5 L (1.0-4.8) k/uL PT (9.0-12.0) sec INR (<1.2) ABG pO2 (83-108) mmHg ABG HCO3 (21-25) mmol/L ABG Total CO2 (19-24) mmol/L ABG O2 Saturation (94-97) % ABG Hematocrit (34.0-46.0) % ABG Potassium (3.4-4.5) mmol/L ABG Ionized Calcium (4.5-5.3) mg/dL ABG Glucose (75-99) mg/dL ABG Lactic Acid (0.5-1.6) mmol/L Hemoglobin (11.4-16.0) gm/dL Chloride 108 H (98-107) mmol/L Glucose 127 H (74-99) mg/dL POC Glucose (mg/dL) 144 H (75-99) mg/dL Calcium 8.3 L (8.4-10.2) mg/dL Ionized Calcium Leilani (4.5-5.3) mg/dL Magnesium 2.4 H (1.6-2.3) mg/dL Total Protein 5.0 L (6.3-8.2) g/dL Albumin 3.3 L (3.5-5.0) g/dL Arterial Blood Potassium (3.4-4.5) mmol/L Arterial Blood Glucose (75-99) mg/dL Crossmatch 06/20/20 06/20/20 06/20/20 Range/Units 03:10 05:23 07:13 WBC (3.8-10.6) k/uL RBC (3.80-5.40) m/uL Hgb (11.4-16.0) gm/dL Hct (34.0-46.0) % Plt Count (150-450) k/uL Neutrophils # (1.3-7.7) k/uL Lymphocytes # (1.0-4.8) k/uL PT (9.0-12.0) sec INR (<1.2) ABG pO2 (83-108) mmHg ABG HCO3 (21-25) mmol/L ABG Total CO2 (19-24) mmol/L ABG O2 Saturation (94-97) % ABG Hematocrit (34.0-46.0) % ABG Potassium (3.4-4.5) mmol/L ABG Ionized Calcium (4.5-5.3) mg/dL ABG Glucose (75-99) mg/dL ABG Lactic Acid (0.5-1.6) mmol/L Hemoglobin (11.4-16.0) gm/dL Chloride (98-107) mmol/L Glucose (74-99) mg/dL POC Glucose (mg/dL) 144 H 113 H 130 H (75-99) mg/dL Calcium (8.4-10.2) mg/dL Ionized Calcium Leilani (4.5-5.3) mg/dL Magnesium (1.6-2.3) mg/dL Total Protein (6.3-8.2) g/dL Albumin (3.5-5.0) g/dL Arterial Blood Potassium (3.4-4.5) mmol/L Arterial Blood Glucose (75-99) mg/dL Crossmatch - Imaging and Cardiology Chest x-ray: report reviewed, image reviewed Assessment and Plan Assessment: 1. Symptomatic severe bicuspid aortic valve stenosis, status post aortic valve replacement using a 21 mm Inspiris bioprosthesis 2. Chronic systolic congestive heart failure with severe left ventricular dysfunction and an ejection fraction 20-25% 3. Preoperative syncopal event with traumatic facial trauma 4. Hypertension 5. Hyperlipidemia 6. Postoperative acute blood loss anemia, expected Plan: 1. Continue aspirin, statin, Plavix, beta jose therapy. Will increase beta jose therapy as tolerated. 2. Transfuse 1 unit of PRBCs for hemoglobin of 6.5 this morning. Lasix 20 mg IV 1 post transfusion. 3. Wean O2 as tolerated. Encourage incentive spirometry is 10 times every hour while awake. Bronchodilators per pulmonology. 4. Increase activity, ambulate as tolerated. PT/OT/cardiac rehab following. 5. Will monitor daily labs and chest x-rays. Electrolyte replacement per protocol. 6. GI/DVT prophylaxis. 7. Insulin management per primary care service. Patient's preoperative hemoglobin A1c was 6.2%. 8. Discontinue Cleveland. Connect Cordis to continuous CVP monitoring. 9. Will continue mediastinal chest tubes for another 24 hours. 10. Will continue León catheter for another 24 hours for strict accurate intake and output. Daily weights. 11. More recommendations to follow based on patient's clinical course. Time with Patient: Greater than 30
[2020-06-20] MEDS ORDERED: PANTOPRAZOLE 40 MG/10 ML VIAL IVP SCH (09:00)
[2020-06-20] MEDS ORDERED: MAGNESIUM HYDROXIDE 2,400 MG/10 ML CUP PO PRN (09:00)
[2020-06-20] MEDS ORDERED: bisacodyL 10 MG SUPP RECTAL PRN (09:00)
[2020-06-20] MEDS: SODIUM CHLORIDE 0.9% 1,000 ML IV SCH (09:03)
[2020-06-20 09:24] LABS: Glucose,Whole Blood 153 mg/dL (75-99)
--- NOTE | 2020-06-20 10:12 | P.CNPUL ---
History of Present Illness Consult date: 06/20/20 Reason for consult: dyspnea, COPD, hypoxemia Chief complaint: Postop aortic valve replacement History of present illness: Patient is a 69-year-old well-known to me initially admitted with syncope found to have a significant aortic stenosis of severe category and bicuspid aortic well, patient has LV dysfunction with reduced ejection fraction 20%, she has receptive dyslipidemia hypertension hypertensive cardiovascular disease patient admitted electively for aortic valve replacement tolerated well successfully weaned and extubated, currently patient is on 2 L sitting upright postop day #1 blood pressure slightly low hemoglobin drop down to 6 undergoing unit of packed RBC, off of pressors, on insulin drip per protocol, awake and alert denies any chest pain or shortness of breath mild discomfort is present at the operative site, breathing comfortably on 2 L sats are 92-94%, but pressure systolic runs slightly low 90, sinus rhythm, doing well off incentive spirometry 500 ML's, range, chest x-ray performed today shows bilateral basal atelectasis/consolidation, stable mediastinal drain and [place]-Kendy catheter, and small effusions seen interstitial edema, along with postoperative changes Review of Systems All systems: negative Past Medical History Past Medical History: Heart Failure, Hyperlipidemia, Hypertension Additional Past Medical History / Comment(s): Aortic stenosis, recent admission for fall, syncope & facial trauma, no fx's. per pt., wearing heart monitor @home History of Any Multi-Drug Resistant Organisms: None Reported Past Surgical History: Heart Catheterization Additional Past Surgical History / Comment(s): recent CAYDEN & cardiac cath Past Anesthesia/Blood Transfusion Reactions: No Reported Reaction Additional Past Anesthesia/Blood Transfusion Reaction / Comment(s): never had blood transfusion Smoking Status: Never smoker Past Alcohol Use History: None Reported Past Drug Use History: None Reported - Past Family History Father Family Medical History: Diabetes Mellitus Mother Family Medical History: Cancer Additional Family Medical History / Comment(s): cervical Medications and Allergies Home Medications Medication Instructions Recorded Confirmed Type Aspirin 81 mg PO DAILY #30 chew 04/21/20 06/19/20 Rx Atorvastatin [Lipitor] 40 mg PO HS #30 tab 04/21/20 06/19/20 Rx Furosemide [Lasix] 20 mg PO DAILY@1600 #30 tab 04/21/20 06/19/20 Rx Metoprolol Tartrate [Lopressor] 12.5 mg PO DAILY #60 tab 04/21/20 06/19/20 Rx Nitroglycerin Sl Tabs [Nitrostat] 0.4 mg SUBLINGUAL Q5M PRN #20 tab 04/21/20 06/19/20 Rx Famotidine [Pepcid] 20 mg PO DAILY 06/12/20 06/19/20 History Mupirocin 2% Oint [Bactroban 2% 1 applic NASAL BID 06/18/20 06/19/20 History Oint] Allergies Allergy/AdvReac Type Severity Reaction Status Date / Time No Known Allergies Allergy Verified 06/19/20 05:59 Physical Exam Vitals: Vital Signs Temp Pulse Pulse Resp BP Pulse Ox 06/20/20 08:46 100.0 F H 75 20 99/38 92 L 06/20/20 07:18 68 18 06/20/20 07:08 66 21 06/20/20 07:07 95 06/20/20 07:00 68 29 H 97 06/20/20 06:30 78 20 95 06/20/20 06:00 68 16 95 06/20/20 05:30 70 22 96 06/20/20 05:00 71 29 H 100 06/20/20 04:30 72 22 94 L 06/20/20 04:00 99.3 F 69 22 95 06/20/20 03:46 76 18 06/20/20 03:30 66 18 96 06/20/20 03:00 69 20 95 06/20/20 02:30 70 15 96 06/20/20 02:00 70 19 96 06/20/20 01:30 70 25 H 95 06/20/20 01:00 69 13 98 06/20/20 00:30 69 20 97 06/20/20 00:25 70 17 97 06/20/20 00:00 99.5 F 69 70 18 83/42 98 06/19/20 23:30 65 16 87/42 99 06/19/20 23:00 65 21 100 06/19/20 22:30 65 21 98 06/19/20 22:00 68 23 98 06/19/20 21:30 61 16 99 06/19/20 21:20 74 06/19/20 21:00 67 16 93/46 100 06/19/20 20:30 67 14 99 06/19/20 20:00 99.5 F 70 20 99/60 100 06/19/20 19:41 70 14 06/19/20 19:30 74 22 100 06/19/20 19:00 73 20 91/48 100 06/19/20 18:30 70 16 94/46 100 06/19/20 18:20 89 25 H 94/46 100 06/19/20 18:10 70 19 101/46 100 06/19/20 18:00 70 16 101/42 100 06/19/20 17:30 70 22 99/45 100 06/19/20 17:00 69 16 99/46 100 06/19/20 16:30 71 12 103/46 96 06/19/20 16:00 37.2 F L 69 14 103/46 100 06/19/20 15:56 78 06/19/20 15:43 70 06/19/20 15:30 37.1 F L 70 26 H 108/82 100 06/19/20 15:15 70 16 108/82 06/19/20 15:00 69 15 99/53 100 06/19/20 14:45 69 16 98/48 100 06/19/20 14:30 70 16 100 06/19/20 14:15 69 15 100 06/19/20 14:00 69 14 100 06/19/20 13:45 69 12 100 06/19/20 13:30 70 12 100 06/19/20 13:15 36.1 F L 69 12 100 Intake and Output 06/19/20 06/20/20 06/20/20 22:59 06:59 14:59 Intake Total 0338.369 5802.801 80.936 Output Total 542 346 42 Balance 834.216 772.801 38.936 Intake: IV 1362 1112 79 ACETAMINOPHEN IV (For NPO 100 ) 1,000 mg In Empty Bag 1 bag @ 400 mls/hr IVPB Q6HR [facility] Rx#:[id number] Albumin Human 5% 250 ml 500 500 In Empty Bag 1 bag @ 250 mls/hr IVPB Q1HR PRN Rx#: [id number] Cardiac Output 140 140 20 Pressure Bag 72 72 9 Sodium Chloride 0.9% 1, 400 400 50 000 ml @ 50 mls/hr IV . Q20H [facility] Rx#:[id number] ceFAZolin 2 gm In Sodium 150 Chloride 0.9% 50 ml @ 100 mls/hr IVPB Q8H [facility] Rx#: [id number] Intake, IV Titration 14.216 6.801 1.936 Amount Insulin Regular 100 unit 14.216 6.801 1.936 In Sodium Chloride 0.9% 100 ml @ Per Protocol IV .Q0M [facility] Rx#:[id number] Blood Product 0 Rc As-1 Unit 0 [id number] Output: Chest Tube Drainage 60 24 12 Bilateral Mediastinal 60 24 12 Urine 482 322 30 Other: Voiding Method Indwelling Catheter Indwelling Catheter Weight 65.3 kg ABP, PAP, CO, CI - Last 8 Hours Arterial Blood Pressure 100/43 Arterial Blood Pressure 93/40 Arterial Blood Pressure 90/41 Arterial Blood Pressure 86/40 Arterial Blood Pressure 96/44 Arterial Blood Pressure 110/48 Arterial Blood Pressure 101/44 Arterial Blood Pressure 95/41 Arterial Blood Pressure 96/42 Arterial Blood Pressure 95/42 Pulmonary Artery Pressure 43/18 Pulmonary Artery Pressure 35/12 Pulmonary Artery Pressure 34/14 Pulmonary Artery Pressure 38/16 Pulmonary Artery Pressure 40/19 Pulmonary Artery Pressure 40/19 Pulmonary Artery Pressure 42/18 Pulmonary Artery Pressure 38/16 Pulmonary Artery Pressure 41/17 Pulmonary Artery Pressure 44/18 Cardiac Output 4.4 Cardiac Output 4.2 Cardiac Index 2.8 Cardiac Index 2.6 - Constitutional General appearance: average body habitus, disheveled, mild distress - EENT Eyes: PERRLA Ears: bilateral: normal - Neck Neck: normal ROM Carotids: bilateral: upstroke normal Thyroid: bilateral: normal size - Respiratory Respiratory: bilateral: diminished (Predominantly at the bases) - Cardiovascular Rhythm: regular Heart sounds: normal: S1, S2 - Gastrointestinal General gastrointestinal: normal bowel sounds - Integumentary Integumentary: normal turgor - Neurologic Neurologic: CNII-XII intact - Musculoskeletal Musculoskeletal: gait normal, generalized weakness, strength equal bilaterally - Psychiatric Psychiatric: A&O x's 3, appropriate affect, intact judgment & insight Results - Laboratory Findings CBC and BMP: 06/20/20 03:10 06/20/20 03:10 ABG ABG pH 7.35 (7.35-7.45) 06/19/20 17:54 ABG pCO2 45 mmHg (35-45) 06/19/20 17:54 ABG pO2 166 mmHg (83-108) H 06/19/20 17:54 ABG O2 Saturation 99.9 % (94-97) H 06/19/20 17:54 PT/INR, D-dimer PT 12.1 sec (9.0-12.0) H 06/19/20 13:13 INR 1.2 (<1.2) H 06/19/20 13:13 Abnormal lab findings: Abnormal Labs 06/15/20 06/19/20 06/19/20 11:43 08:40 09:35 WBC RBC Hgb Hct Plt Count Neutrophils # Lymphocytes # PT INR ABG pO2 >420 H 215 H ABG HCO3 27 H 26 H ABG Total CO2 28 H 27 H ABG O2 Saturation 100.0 H 100.0 H ABG Hematocrit 33 L 32 L ABG Potassium ABG Ionized Calcium ABG Glucose 122 H 126 H ABG Lactic Acid Hemoglobin 10.7 L 10.4 L Chloride Glucose POC Glucose (mg/dL) Calcium Ionized Calcium [place] Magnesium Total Protein Albumin Arterial Blood Potassium Arterial Blood Glucose 122 H 126 H Crossmatch See Detail 06/19/20 06/19/20 06/19/20 10:13 10:38 11:06 WBC RBC Hgb Hct Plt Count Neutrophils # Lymphocytes # PT INR ABG pO2 360 H 393 H >420 H ABG HCO3 26 H ABG Total CO2 27 H 27 H 26 H ABG O2 Saturation 100.0 H 100.0 H 100.0 H ABG Hematocrit 23 L 22 L 22 L ABG Potassium 5.8 H 4.7 H ABG Ionized Calcium 4.1 L 4.3 L 4.3 L ABG Glucose 229 H 183 H 184 H ABG Lactic Acid 1.8 H 2.7 H* Hemoglobin 7.6 L 7.1 L 7.1 L Chloride Glucose POC Glucose (mg/dL) Calcium Ionized Calcium [place] Magnesium Total Protein Albumin Arterial Blood Potassium 5.8 H 4.7 H Arterial Blood Glucose 229 H 183 H 184 H Crossmatch 06/19/20 06/19/20 06/19/20 12:20 13:13 13:13 WBC 10.7 H RBC 2.63 L Hgb 8.3 L D Hct 24.7 L Plt Count 117 L Neutrophils # 9.1 H Lymphocytes # 0.9 L PT 12.1 H INR 1.2 H ABG pO2 >420 H ABG HCO3 ABG Total CO2 26 H ABG O2 Saturation 100.0 H ABG Hematocrit 22 L ABG Potassium ABG Ionized Calcium ABG Glucose 113 H ABG Lactic Acid 2.6 H* Hemoglobin 7.3 L Chloride Glucose POC Glucose (mg/dL) Calcium Ionized Calcium [place] Magnesium Total Protein Albumin Arterial Blood Potassium Arterial Blood Glucose 113 H Crossmatch 06/19/20 06/19/20 06/19/20 13:13 13:13 14:24 WBC RBC Hgb Hct Plt Count Neutrophils # Lymphocytes # PT INR ABG pO2 ABG HCO3 ABG Total CO2 ABG O2 Saturation ABG Hematocrit ABG Potassium ABG Ionized Calcium ABG Glucose ABG Lactic Acid Hemoglobin Chloride Glucose POC Glucose (mg/dL) 100 H 122 H Calcium Ionized Calcium [place] 5.5 H Magnesium 2.9 H Total Protein 4.5 L Albumin 2.8 L Arterial Blood Potassium Arterial Blood Glucose Crossmatch 06/19/20 06/19/20 06/19/20 15:17 16:00 16:08 WBC RBC 2.49 L Hgb 8.1 L Hct 23.5 L Plt Count 117 L Neutrophils # 8.3 H Lymphocytes # 0.7 L PT INR ABG pO2 ABG HCO3 ABG Total CO2 ABG O2 Saturation ABG Hematocrit ABG Potassium ABG Ionized Calcium ABG Glucose ABG Lactic Acid Hemoglobin Chloride Glucose POC Glucose (mg/dL) 140 H 145 H Calcium Ionized Calcium [place] Magnesium Total Protein Albumin Arterial Blood Potassium Arterial Blood Glucose Crossmatch 06/19/20 06/19/20 06/19/20 17:10 17:54 17:59 WBC RBC Hgb Hct Plt Count Neutrophils # Lymphocytes # PT INR ABG pO2 166 H ABG HCO3 ABG Total CO2 26 H ABG O2 Saturation 99.9 H ABG Hematocrit ABG Potassium ABG Ionized Calcium ABG Glucose ABG Lactic Acid Hemoglobin Chloride Glucose POC Glucose (mg/dL) 141 H 141 H Calcium Ionized Calcium [place] Magnesium Total Protein Albumin Arterial Blood Potassium Arterial Blood Glucose Crossmatch 06/19/20 06/19/20 06/19/20 19:00 19:00 19:57 WBC RBC 2.42 L Hgb 7.6 L Hct 22.8 L Plt Count 109 L Neutrophils # 8.2 H Lymphocytes # 0.4 L PT INR ABG pO2 ABG HCO3 ABG Total CO2 ABG O2 Saturation ABG Hematocrit ABG Potassium ABG Ionized Calcium ABG Glucose ABG Lactic Acid Hemoglobin Chloride Glucose POC Glucose (mg/dL) 121 H 119 H Calcium Ionized Calcium [place] Magnesium Total Protein Albumin Arterial Blood Potassium Arterial Blood Glucose Crossmatch 06/19/20 06/19/20 06/20/20 21:18 22:46 00:18 WBC RBC Hgb Hct Plt Count Neutrophils # Lymphocytes # PT INR ABG pO2 ABG HCO3 ABG Total CO2 ABG O2 Saturation ABG Hematocrit ABG Potassium ABG Ionized Calcium ABG Glucose ABG Lactic Acid Hemoglobin Chloride Glucose POC Glucose (mg/dL) 127 H 109 H 108 H Calcium Ionized Calcium [place] Magnesium Total Protein Albumin Arterial Blood Potassium Arterial Blood Glucose Crossmatch 06/20/20 06/20/20 06/20/20 02:00 03:10 03:10 WBC RBC 2.08 L Hgb 6.5 L* Hct 19.9 L* Plt Count 85 L Neutrophils # Lymphocytes # 0.5 L PT INR ABG pO2 ABG HCO3 ABG Total CO2 ABG O2 Saturation ABG Hematocrit ABG Potassium ABG Ionized Calcium ABG Glucose ABG Lactic Acid Hemoglobin Chloride 108 H Glucose 127 H POC Glucose (mg/dL) 144 H Calcium 8.3 L Ionized Calcium [place] Magnesium 2.4 H Total Protein 5.0 L Albumin 3.3 L Arterial Blood Potassium Arterial Blood Glucose Crossmatch 06/20/20 06/20/20 06/20/20 03:10 05:23 07:13 WBC RBC Hgb Hct Plt Count Neutrophils # Lymphocytes # PT INR ABG pO2 ABG HCO3 ABG Total CO2 ABG O2 Saturation ABG Hematocrit ABG Potassium ABG Ionized Calcium ABG Glucose ABG Lactic Acid Hemoglobin Chloride Glucose POC Glucose (mg/dL) 144 H 113 H 130 H Calcium Ionized Calcium [place] Magnesium Total Protein Albumin Arterial Blood Potassium Arterial Blood Glucose Crossmatch 06/20/20 09:09 WBC RBC Hgb Hct Plt Count Neutrophils # Lymphocytes # PT INR ABG pO2 ABG HCO3 ABG Total CO2 ABG O2 Saturation ABG Hematocrit ABG Potassium ABG Ionized Calcium ABG Glucose ABG Lactic Acid Hemoglobin Chloride Glucose POC Glucose (mg/dL) 153 H Calcium Ionized Calcium [place] Magnesium Total Protein Albumin Arterial Blood Potassium Arterial Blood Glucose Crossmatch - Diagnostic Findings Chest x-ray: report reviewed, image reviewed Assessment and Plan Assessment: Severe aortic stenosis with bicuspid aortic valve status post to the aortic valve replacement Successfully weaned and extubated on 2 L oxygen Severe acute anemia Hypotension likely due to anemia Hypertension hypertensive cardiovascular disease Dyslipidemia Chronic systolic heart failure baseline ejection fraction of 15-20% Obstructive sleep apnea Plan: Agree with blood transfusion keep hemoglobin over 7-8 Deep breathing sense incentive spirometry early ambulation Supplemental oxygen Increase activity as tolerated Follow clinical course closely further recommendations pending Time with Patient: Greater than 30
[2020-06-20 10:13] LABS: Glucose,Whole Blood 127 mg/dL (75-99)
[2020-06-20 10:39] VITALS: BMI 29.0
[2020-06-20 11:21] LABS: Glucose,Whole Blood 136 mg/dL (75-99)
[2020-06-20 12:19] LABS: Glucose,Whole Blood 148 mg/dL (75-99)
--- NOTE | 2020-06-20 14:06 | CONS ---
CONSULTATION CHIEF COMPLAINT: Status post aortic valve replacement. Najma is a 69-year-old lady, developed severe aortic stenosis and cardiomyopathy with severe LV dysfunction, who underwent aortic valve replacement. She has a bicuspid aortic valve. Today is postop day #1. She is doing well. Weaned and extubated yesterday. She is stable hemodynamically. Remains in sinus rhythm. Blood pressure is normal. She lost quite a bit of blood and her hemoglobin is around 6 and is requiring blood transfusion. PAST MEDICAL HISTORY: Significant for hypertension, dyslipidemia, and congestive heart failure related to cardiomyopathy. Past medical history is significant for cardiomyopathy, congestive heart failure, aortic stenosis, dyslipidemia. MEDICATIONS: Medications at home include aspirin, Lipitor, Lasix, Lopressor. ALLERGIES: No known drug allergies. FAMILY HISTORY: Negative for premature coronary artery disease. SOCIAL HISTORY: Negative for current smoking, EtOH abuse, or drug abuse. REVIEW OF SYSTEMS: HEENT is unremarkable. CARDIAC: As described above. RESPIRATORY: As described above. GI: Negative. GENITOURINARY: Negative. ALLERGY/IMMUNOLOGY: Negative. SKIN: Negative. MUSCULOSKELETAL: Negative. ENDOCRINE: Negative. DERM: Negative. CONSTITUTIONAL: Negative. ONCOLOGICAL: Negative. Rest of the system review is not relevant. PHYSICAL EXAMINATION: On exam, she is comfortable at rest. Vital signs are stable. Chest exam reveals diminished air entry at the bases. Heart exam reveals first and second heart sounds. No gallop. No murmur. Abdomen is soft. Examination of extremities reveals mild edema. Peripheral pulses are felt. LABS: Labs show a hemoglobin of 6.5, platelet count is 85. Potassium is 4.3. Creatinine is 0.6. ASSESSMENT: 1. Bicuspid aortic valve with severe aortic stenosis. 2. Cardiomyopathy with congestive heart failure. PLAN: The patient is status post aortic valve replacement. Continue with the supportive care. MMODL / IJN: [id number] /
[2020-06-20 15:00] LABS: Glucose,Whole Blood 104 mg/dL (75-99)
[2020-06-20 15:55] LABS: Glucose,Whole Blood 115 mg/dL (75-99)
[2020-06-20 17:07] LABS: Glucose,Whole Blood 126 mg/dL (75-99)
[2020-06-20] MEDS: PANTOPRAZOLE 40 MG TABLET PO SCH (17:50)
[2020-06-20 17:52] LABS: Basophils % (A) 0 %; Eosinophils % (A) 0 %; HCT 23.8 % (34.0-46.0); Lymphocytes % (A) 11 %; MCH 31.6 pg (25.0-35.0); MCHC 34.2 g/dL (31.0-37.0); MCV 92.3 fL (80.0-100.0); Mean Platelet Volume 7.2; Monocytes # (A) 0.6 k/uL (0-1.0); Monocytes % (A) 7 %; Neutrophils # (A) 7.2 k/uL (1.3-7.7); Neutrophils % (A) 81 %; RBC 2.58 m/uL (3.80-5.40); RDW 13.6 % (11.5-15.5); WBC 8.9 k/uL (3.8-10.6)
[2020-06-20 17:54] LABS: HGB 8.1 gm/dL (11.4-16.0); Platelet Count 93 k/uL (150-450)
[2020-06-20 17:55] LABS: Glucose,Whole Blood 160 mg/dL (75-99)
--- NOTE | 2020-06-20 19:05 | P.PN ---
Subjective Progress Note Date: 06/20/20 Principal diagnosis: Symptomatic severe bicuspid aortic valve stenosis Postoperative aortic valve replacement Evaluated patient this a.m., resting comfortably in chair, postop day 1 from open heart surgery with aortic valve replacement. She denies any complaints of shortness of breath patient endorsing surgical pain to chest tube insertion sites. Patient alert, awake and oriented 3.patient receiving 1 packed red blood cells for drop in hemoglobin. Patient denies fever, chills, palpitations, abdominal pain, nausea, vomiting, or diarrhea . Patient noted to in be normal s inus rhythm on the monitorpacer wires still present. Objective - Vital Signs Vital signs: Vital Signs Temp 99.1 F 06/20/20 16:00 Pulse 77 06/20/20 18:00 Resp 15 06/20/20 18:00 BP 105/49 06/20/20 17:00 Pulse Ox 92 L 06/20/20 18:00 Intake & Output 06/19/20 06/20/20 06/20/20 18:59 06:59 18:59 Intake Total 0898.720 5068.790 1199.628 Output Total 1975 518 656 Balance -388.104 5136.790 543.628 Weight 65.3 kg 65.3 kg Intake: IV 1002 1628 520 ACETAMINOPHEN IV (For NPO 100 ) 1,000 mg In Empty Bag 1 bag @ 400 mls/hr IVPB Q6HR [facility] Rx#:[id number] Albumin Human 5% 250 ml 500 500 In Empty Bag 1 bag @ 250 mls/hr IVPB Q1HR [facility] Rx#: [id number] Cardiac Output 80 220 30 Pressure Bag 45 108 90 Sodium Chloride 0.9% 1, 275 600 300 000 ml @ 20 mls/hr IV . Q24H [facility] Rx#:[id number] ceFAZolin 2 gm In Sodium 50 100 100 Chloride 0.9% 50 ml @ 100 mls/hr IVPB Q8H [facility] Rx#: [id number] Intake, IV Titration 16.133 15.790 9.628 Amount Insulin Regular 100 unit 5.227 15.790 9.628 In Sodium Chloride 0.9% 100 ml @ Per Protocol IV .Q0M [facility] Rx#:[id number] propofoL 1,000 mg In 10.906 Empty Bag 1 bag @ Titrate IV .Q0M [facility] Rx#: [id number] Oral 360 Blood Product 310 Rc As-1 Unit 310 [id number] Output: Chest Tube Drainage 140 34 106 Bilateral Mediastinal 140 34 106 Urine 835 484 550 Estimated Blood Loss 1000 Other: Voiding Method Indwelling Catheter Indwelling Catheter Indwelling Catheter ABP, PAP, CO, CI - Last Documented Arterial Blood Pressure 116/52 Pulmonary Artery Pressure 60/36 Cardiac Output 4.2 Cardiac Index 2.3 - Constitutional General appearance: Present: cooperative, mild distress - EENT Eyes: Present: EOMI, PERRLA Ears: bilateral: normal - Neck Carotids: bilateral: upstroke normal Thyroid: bilateral: normal size - Respiratory Respiratory: bilateral: CTA - Cardiovascular Details: Sinus rhythm Heart rate: 74 Rhythm: regular Heart sounds: normal: S1, S2 - Peripheral edema foot Peripheral Edema: bilateral: Trace - Peripheral pulses dorsalis pedis Peripheral Pulses: bilateral: Normal radial pulse Peripheral Pulses: bilateral: Normal - Gastrointestinal General gastrointestinal: Present: decreased bowel sounds - Integumentary Integumentary: Present: pale - Neurologic Neurologic: Present: CNII-XII intact - Musculoskeletal Musculoskeletal: Present: generalized weakness - Psychiatric Psychiatric: Present: A&O x's 3, appropriate affect, intact judgment & insight - Allied health notes Allied health notes reviewed: nursing - Labs CBC & Chem 7: 06/20/20 17:11 06/20/20 03:10 Labs: Abnormal Lab Results - Last 24 Hours (Table) 06/15/20 06/19/20 06/19/20 Range/Units 11:43 19:00 19:00 RBC 2.42 L (3.80-5.40) m/uL Hgb 7.6 L (11.4-16.0) gm/dL Hct 22.8 L (34.0-46.0) % Plt Count 109 L (150-450) k/uL Neutrophils # 8.2 H (1.3-7.7) k/uL Lymphocytes # 0.4 L (1.0-4.8) k/uL Chloride (98-107) mmol/L Glucose (74-99) mg/dL POC Glucose (mg/dL) 121 H (75-99) mg/dL Calcium (8.4-10.2) mg/dL Magnesium (1.6-2.3) mg/dL Total Protein (6.3-8.2) g/dL Albumin (3.5-5.0) g/dL Crossmatch See Detail 06/19/20 06/19/20 06/19/20 Range/Units 19:57 21:18 22:46 RBC (3.80-5.40) m/uL Hgb (11.4-16.0) gm/dL Hct (34.0-46.0) % Plt Count (150-450) k/uL Neutrophils # (1.3-7.7) k/uL Lymphocytes # (1.0-4.8) k/uL Chloride (98-107) mmol/L Glucose (74-99) mg/dL POC Glucose (mg/dL) 119 H 127 H 109 H (75-99) mg/dL Calcium (8.4-10.2) mg/dL Magnesium (1.6-2.3) mg/dL Total Protein (6.3-8.2) g/dL Albumin (3.5-5.0) g/dL Crossmatch 06/20/20 06/20/20 06/20/20 Range/Units 00:18 02:00 03:10 RBC 2.08 L (3.80-5.40) m/uL Hgb 6.5 L* (11.4-16.0) gm/dL Hct 19.9 L* (34.0-46.0) % Plt Count 85 L (150-450) k/uL Neutrophils # (1.3-7.7) k/uL Lymphocytes # 0.5 L (1.0-4.8) k/uL Chloride (98-107) mmol/L Glucose (74-99) mg/dL POC Glucose (mg/dL) 108 H 144 H (75-99) mg/dL Calcium (8.4-10.2) mg/dL Magnesium (1.6-2.3) mg/dL Total Protein (6.3-8.2) g/dL Albumin (3.5-5.0) g/dL Crossmatch 06/20/20 06/20/20 06/20/20 Range/Units 03:10 03:10 05:23 RBC (3.80-5.40) m/uL Hgb (11.4-16.0) gm/dL Hct (34.0-46.0) % Plt Count (150-450) k/uL Neutrophils # (1.3-7.7) k/uL Lymphocytes # (1.0-4.8) k/uL Chloride 108 H (98-107) mmol/L Glucose 127 H (74-99) mg/dL POC Glucose (mg/dL) 144 H 113 H (75-99) mg/dL Calcium 8.3 L (8.4-10.2) mg/dL Magnesium 2.4 H (1.6-2.3) mg/dL Total Protein 5.0 L (6.3-8.2) g/dL Albumin 3.3 L (3.5-5.0) g/dL Crossmatch 06/20/20 06/20/20 06/20/20 Range/Units 07:13 09:09 10:11 RBC (3.80-5.40) m/uL Hgb (11.4-16.0) gm/dL Hct (34.0-46.0) % Plt Count (150-450) k/uL Neutrophils # (1.3-7.7) k/uL Lymphocytes # (1.0-4.8) k/uL Chloride (98-107) mmol/L Glucose (74-99) mg/dL POC Glucose (mg/dL) 130 H 153 H 127 H (75-99) mg/dL Calcium (8.4-10.2) mg/dL Magnesium (1.6-2.3) mg/dL Total Protein (6.3-8.2) g/dL Albumin (3.5-5.0) g/dL Crossmatch 06/20/20 06/20/20 06/20/20 Range/Units 11:18 12:18 14:56 RBC (3.80-5.40) m/uL Hgb (11.4-16.0) gm/dL Hct (34.0-46.0) % Plt Count (150-450) k/uL Neutrophils # (1.3-7.7) k/uL Lymphocytes # (1.0-4.8) k/uL Chloride (98-107) mmol/L Glucose (74-99) mg/dL POC Glucose (mg/dL) 136 H 148 H 104 H (75-99) mg/dL Calcium (8.4-10.2) mg/dL Magnesium (1.6-2.3) mg/dL Total Protein (6.3-8.2) g/dL Albumin (3.5-5.0) g/dL Crossmatch 06/20/20 06/20/20 06/20/20 Range/Units 15:52 17:06 17:11 RBC 2.58 L (3.80-5.40) m/uL Hgb 8.1 L D (11.4-16.0) gm/dL Hct 23.8 L (34.0-46.0) % Plt Count 93 L (150-450) k/uL Neutrophils # (1.3-7.7) k/uL Lymphocytes # (1.0-4.8) k/uL Chloride (98-107) mmol/L Glucose (74-99) mg/dL POC Glucose (mg/dL) 115 H 126 H (75-99) mg/dL Calcium (8.4-10.2) mg/dL Magnesium (1.6-2.3) mg/dL Total Protein (6.3-8.2) g/dL Albumin (3.5-5.0) g/dL Crossmatch 06/20/20 Range/Units 17:53 RBC (3.80-5.40) m/uL Hgb (11.4-16.0) gm/dL Hct (34.0-46.0) % Plt Count (150-450) k/uL Neutrophils # (1.3-7.7) k/uL Lymphocytes # (1.0-4.8) k/uL Chloride (98-107) mmol/L Glucose (74-99) mg/dL POC Glucose (mg/dL) 160 H (75-99) mg/dL Calcium (8.4-10.2) mg/dL Magnesium (1.6-2.3) mg/dL Total Protein (6.3-8.2) g/dL Albumin (3.5-5.0) g/dL Crossmatch - Imaging and Cardiology Chest x-ray: report reviewed Assessment and Plan Assessment: Status post aortic valve replacementfor history of severe aortic stenosis with bicuspid aortic valve continue to follow treatment plan from cardiothoracic, cardiology, and pulmonology for recommendations and treatment plan History of severe left ventricular dysfunction Hypertension Hyperlipidemia History of syncope History of tooth extraction Full code Continue medical management Time with Patient: Greater than 30
[2020-06-20 19:06] LABS: Glucose,Whole Blood 131 mg/dL (75-99)
[2020-06-20] MEDS: SENNOSIDES-DOCUSATE SODIUM 1 EACH TAB PO SCH (20:01)
[2020-06-20] MEDS: ATORVASTATIN 40 MG TAB PO SCH (20:01)
[2020-06-20 21:11] LABS: Glucose,Whole Blood 143 mg/dL (75-99)
[2020-06-20 22:05] LABS: Glucose,Whole Blood 131 mg/dL (75-99)
[2020-06-20 23:26] LABS: Glucose,Whole Blood 123 mg/dL (75-99)
[2020-06-21 01:18] LABS: Glucose,Whole Blood 133 mg/dL (75-99)
[2020-06-21 03:10] LABS: Glucose,Whole Blood 126 mg/dL (75-99)
[2020-06-21 03:32] LABS: Basophils % (A) 0 %; Eosinophils % (A) 0 %; HCT 23.2 % (34.0-46.0); HGB 7.6 gm/dL (11.4-16.0); Lymphocytes # (A) 0.9 k/uL (1.0-4.8); Lymphocytes % (A) 11 %; MCH 30.7 pg (25.0-35.0); MCHC 32.9 g/dL (31.0-37.0); MCV 93.3 fL (80.0-100.0); Monocytes # (A) 0.6 k/uL (0-1.0); Monocytes % (A) 7 %; Neutrophils # (A) 6.8 k/uL (1.3-7.7); Neutrophils % (A) 80 %; RBC 2.48 m/uL (3.80-5.40); RDW 14.4 % (11.5-15.5); WBC 8.4 k/uL (3.8-10.6)
[2020-06-21 03:36] LABS: Platelet Count 91 k/uL (150-450)
[2020-06-21 03:39] LABS: Ionized Calcium 5.4 mg/dL (4.5-5.3)
[2020-06-21 03:47] LABS: ALT 109 U/L (4-34); AST 126 U/L (14-36); African American GFR (CKD) >90 (>60 ml/min/1.73 sqM); Albumin 3.1 g/dL (3.5-5.0); Alkaline Phosphatase 53 U/L (38-126); Anion Gap 5 mmol/L; Blood Urea Nitrogen 18 mg/dL (7-17); Calcium 8.6 mg/dL (8.4-10.2); Carbon Dioxide 23 mmol/L (22-30); Chloride 109 mmol/L (98-107); Glucose 119 mg/dL (74-99); Non-African American GFR(CKD) >90 (>60 ml/min/1.73 sqM); Potassium 4.3 mmol/L (3.5-5.1); Sodium 137 mmol/L (137-145); Total Bilirubin 1.6 mg/dL (0.2-1.3)
[2020-06-21 05:00] LABS: Glucose,Whole Blood 128 mg/dL (75-99)
[2020-06-21] MEDS: KETOROLAC 15 MG/ML 1 ML VIAL IVP SCH ×4 (06:47→23:54)
[2020-06-21 06:55] LABS: Glucose,Whole Blood 147 mg/dL (75-99)
[2020-06-21] MEDS ORDERED: FUROSEMIDE 10 MG/ML 4 ML VIAL IV STA (07:52)
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
--- NOTE | 2020-06-21 08:54 | XR ---
EXAMINATION TYPE: XR chest 1V portable DATE OF EXAM: 06/21/2020 COMPARISON: 06/20/2020 chest x-ray HISTORY: Postop cardiac surgery, abnormal chest x-ray TECHNIQUE: Single frontal view of the chest is obtained. FINDINGS: The central venous catheter has been removed, right jugular sheath remains in place. There is no evident pneumothorax. Patient is post median sternotomy and atrial appendage placement. Median sternal drain is in place. Bibasilar increased attenuation is present, there is interval obscured ap pearance to the hemidiaphragms. There are overlying leads. Patient is rotated. Interstitium is mildly increased. IMPRESSION: Basilar atelectasis and possible associated effusions, correlate to exclude pneumonia. T here may be a component of volume overload, interstitial edema, findings may be due to expiratory rot ated exam.
[2020-06-21] MEDS: PANTOPRAZOLE 40 MG TABLET PO SCH (08:57)
[2020-06-21] MEDS: ASPIRIN 325 MG TAB PO SCH (08:57)
[2020-06-21] MEDS: CLOPIDOGREL 75 MG TAB PO SCH (08:57)
[2020-06-21] MEDS: HEPARIN SODIUM,PORCINE 5,000 UNIT/ML 1 ML VIAL SQ SCH ×3 (08:57→23:55)
[2020-06-21] MEDS: METOPROLOL TARTRATE 25 MG TAB PO SCH ×2 (08:57→20:50)
[2020-06-21 09:22] LABS: Glucose,Whole Blood 118 mg/dL (75-99)
[2020-06-21] MEDS: IPRATROPIUM-ALBUTEROL 3 ML NEB INHALATION SCH ×4 (09:31→19:22)
--- NOTE | 2020-06-21 10:24 | P.PN ---
Subjective Progress Note Date: 06/21/20 Principal diagnosis: Severe aortic stenosis with bicuspid aortic valve status post to the aortic valve replacement Successfully weaned and extubated on 2 L oxygen Severe acute anemia Hypotension likely due to anemia Hypertension hypertensive cardiovascular disease Dyslipidemia Chronic systolic heart failure baseline ejection fraction of 15-20% Obstructive sleep apnea 06/21/2020, patient seen and evaluated examined during the rounds labs reviewed medications reviewed care plan discussed with the staff at length, patient is laying comfortably on bed breathing on 2 L oxygen, [place]endy catheter has been removed, mediastinal tube has been removed, hemoglobin have been stable after transfusion 1 unit of packed RBC, chest x-ray performed today revealed continuation of bilateral basal atelectasis along with small trivial pleural effusion, some interstitial edema noted as well, as reviewed white cell count remained stable 8400, no clubbing is 7.6, platelet count is 91 is doing deep breathing sense incentive spirometry up to 500 Patient is a 69-year-old well-known to me initially admitted with syncope found to have a significant aortic stenosis of severe category and bicuspid aortic well, patient has LV dysfunction with reduced ejection fraction 20%, she has receptive dyslipidemia hypertension hypertensive cardiovascular disease patient admitted electively for aortic valve replacement tolerated well successfully weaned and extubated, currently patient is on 2 L sitting upright postop day #1 blood pressure slightly low hemoglobin drop down to 6 undergoing unit of packed RBC, off of pressors, on insulin drip per protocol, awake and alert denies any chest pain or shortness of breath mild discomfort is present at the operative site, breathing comfortably on 2 L sats are 92-94%, but pressure systolic runs slightly low 90, sinus rhythm, doing well off incentive spirometry 500 ML's, range, chest x-ray performed today shows bilateral basal atelecta sis/consolidation, stable mediastinal drain and [place]endy catheter, and small effusions seen interstitial edema, along with postoperative changes Objective - Vital Signs Vital signs: Vital Signs Temp 97.7 F 06/21/20 08:00 Pulse 61 06/21/20 10:00 Resp 19 06/21/20 10:00 BP 144/67 06/21/20 10:00 Pulse Ox 96 06/21/20 10:00 Intake & Output 06/20/20 06/21/20 06/21/20 18:59 06:59 18:59 Intake Total 1199.628 292.304 104 Output Total 656 329 472 Balance 543.628 -36.696 -368 Weight 65.3 kg 69.6 kg Intake: IV 520 286 104 Cardiac Output 30 Pressure Bag 90 66 24 Sodium Chloride 0.9% 1, 300 220 80 000 ml @ 20 mls/hr IV . Q24H [facility] Rx#:[id number] ceFAZolin 2 gm In Sodium 100 Chloride 0.9% 50 ml @ 100 mls/hr IVPB Q8H [facility]AL Rx#: [id number] Intake, IV Titration 9.628 6.304 Amount Insulin Regular 100 unit 9.628 6.304 In Sodium Chloride 0.9% 100 ml @ Per Protocol IV .Q0M [facility]AL Rx#:[id number] Oral 360 Blood Product 310 Rc As-1 Unit 310 [id number] Output: Chest Tube Drainage 106 50 0 Bilateral Mediastinal 106 50 0 Urine 550 279 472 Other: Voiding Method Indwelling Catheter Indwelling Catheter Indwelling Catheter ABP, PAP, CO, CI - Last Documented Arterial Blood Pressure 100/43 Pulmonary Artery Pressure 60/36 Cardiac Output 4.4 Cardiac Index 2.8 - Exam - Constitutional General appearance: average body habitus, disheveled, mild distress - EENT Eyes: PERRLA Ears: bilateral: normal - Neck Neck: normal ROM Carotids: bilateral: upstroke normal Thyroid: bilateral: normal size - Respiratory Respiratory: bilateral: diminished (Predominantly at the bases) - Cardiovascular Rhythm: regular Heart sounds: normal: S1, S2 - Gastrointestinal General gastrointestinal: normal bowel sounds - Integumentary Integumentary: normal turgor - Neurologic Neurologic: CNII-XII intact - Musculoskeletal Musculoskeletal: gait normal, generalized weakness, strength equal bilaterally - Psychiatric Psychiatric: A&O x's 3, appropriate affect, intact judgment & insight - Labs CBC & Chem 7: 06/21/20 03:15 06/21/20 03:15 Labs: Abnormal Lab Results - Last 24 Hours (Table) 06/15/20 06/20/20 06/20/20 Range/Units 11:43 11:18 12:18 RBC (3.80-5.40) m/uL Hgb (11.4-16.0) gm/dL Hct (34.0-46.0) % Plt Count (150-450) k/uL Lymphocytes # (1.0-4.8) k/uL Chloride (98-107) mmol/L BUN (7-17) mg/dL Glucose (74-99) mg/dL POC Glucose (mg/dL) 136 H 148 H (75-99) mg/dL Ionized Calcium Leilani (4.5-5.3) mg/dL Total Bilirubin (0.2-1.3) mg/dL AST (14-36) U/L ALT (4-34) U/L Total Protein (6.3-8.2) g/dL Albumin (3.5-5.0) g/dL Crossmatch See Detail 06/20/20 06/20/20 06/20/20 Range/Units 14:56 15:52 17:06 RBC (3.80-5.40) m/uL Hgb (11.4-16.0) gm/dL Hct (34.0-46.0) % Plt Count (150-450) k/uL Lymphocytes # (1.0-4.8) k/uL Chloride (98-107) mmol/L BUN (7-17) mg/dL Glucose (74-99) mg/dL POC Glucose (mg/dL) 104 H 115 H 126 H (75-99) mg/dL Ionized Calcium Leilani (4.5-5.3) mg/dL Total Bilirubin (0.2-1.3) mg/dL AST (14-36) U/L ALT (4-34) U/L Total Protein (6.3-8.2) g/dL Albumin (3.5-5.0) g/dL Crossmatch 06/20/20 06/20/20 06/20/20 Range/Units 17:11 17:53 19:05 RBC 2.58 L (3.80-5.40) m/uL Hgb 8.1 L D (11.4-16.0) gm/dL Hct 23.8 L (34.0-46.0) % Plt Count 93 L (150-450) k/uL Lymphocytes # (1.0-4.8) k/uL Chloride (98-107) mmol/L BUN (7-17) mg/dL Glucose (74-99) mg/dL POC Glucose (mg/dL) 160 H 131 H (75-99) mg/dL Ionized Calcium Leilani (4.5-5.3) mg/dL Total Bilirubin (0.2-1.3) mg/dL AST (14-36) U/L ALT (4-34) U/L Total Protein (6.3-8.2) g/dL Albumin (3.5-5.0) g/dL Crossmatch 06/20/20 06/20/20 06/20/20 Range/Units 21:09 22:04 23:25 RBC (3.80-5.40) m/uL Hgb (11.4-16.0) gm/dL Hct (34.0-46.0) % Plt Count (150-450) k/uL Lymphocytes # (1.0-4.8) k/uL Chloride (98-107) mmol/L BUN (7-17) mg/dL Glucose (74-99) mg/dL POC Glucose (mg/dL) 143 H 131 H 123 H (75-99) mg/dL Ionized Calcium [place]ilani (4.5-5.3) mg/dL Total Bilirubin (0.2-1.3) mg/dL AST (14-36) U/L ALT (4-34) U/L Total Protein (6.3-8.2) g/dL Albumin (3.5-5.0) g/dL Crossmatch 06/21/20 06/21/20 06/21/20 Range/Units 01:17 03:08 03:15 RBC 2.48 L (3.80-5.40) m/uL Hgb 7.6 L (11.4-16.0) gm/dL Hct 23.2 L (34.0-46.0) % Plt Count 91 L (150-450) k/uL Lymphocytes # 0.9 L (1.0-4.8) k/uL Chloride (98-107) mmol/L BUN (7-17) mg/dL Glucose (74-99) mg/dL POC Glucose (mg/dL) 133 H 126 H (75-99) mg/dL Ionized Calcium Leilani (4.5-5.3) mg/dL Total Bilirubin (0.2-1.3) mg/dL AST (14-36) U/L ALT (4-34) U/L Total Protein (6.3-8.2) g/dL Albumin (3.5-5.0) g/dL Crossmatch 06/21/20 06/21/20 06/21/20 Range/Units 03:15 04:58 06:53 RBC (3.80-5.40) m/uL Hgb (11.4-16.0) gm/dL Hct (34.0-46.0) % Plt Count (150-450) k/uL Lymphocytes # (1.0-4.8) k/uL Chloride 109 H (98-107) mmol/L BUN 18 H (7-17) mg/dL Glucose 119 H (74-99) mg/dL POC Glucose (mg/dL) 128 H 147 H (75-99) mg/dL Ionized Calcium [place]ilani 5.4 H (4.5-5.3) mg/dL Total Bilirubin 1.6 H (0.2-1.3) mg/dL AST 126 H (14-36) U/L ALT 109 H (4-34) U/L Total Protein 5.0 L (6.3-8.2) g/dL Albumin 3.1 L (3.5-5.0) g/dL Crossmatch 06/21/20 Range/Units 09:11 RBC (3.80-5.40) m/uL Hgb (11.4-16.0) gm/dL Hct (34.0-46.0) % Plt Count (150-450) k/uL Lymphocytes # (1.0-4.8) k/uL Chloride (98-107) mmol/L BUN (7-17) mg/dL Glucose (74-99) mg/dL POC Glucose (mg/dL) 118 H (75-99) mg/dL Ionized Calcium [place] (4.5-5.3) mg/dL Total Bilirubin (0.2-1.3) mg/dL AST (14-36) U/L ALT (4-34) U/L Total Protein (6.3-8.2) g/dL Albumin (3.5-5.0) g/dL Crossmatch Assessment and Plan Assessment: Thrombocytopenia stable Severe aortic stenosis with bicuspid aortic valve status post to the aortic valve replacement Successfully weaned and extubated on 2 L oxygen Severe acute anemia Hypotension likely due to anemia Hypertension hypertensive cardiovascular disease Dyslipidemia Chronic systolic heart failure baseline ejection fraction of 15-20% Obstructive sleep apnea Plan: Monitor observe hemoglobin as well as platelet count closely Agree with blood transfusion keep hemoglobin over 7 Deep breathing sense incentive spirometry early ambulation Supplemental oxygen Increase activity as tolerated Patient can be moved to selective care Follow clinical course closely further recommendations pending Time with Patient: Greater than 30
--- NOTE | 2020-06-21 11:11 | P.CONS ---
History of Present Illness - Chief Complaint Cardiac debility - History of Present Illness I had the opportunity to see patient for inpatient rehab consultation with regard to cardiac debility. She was admitted to [facility] June 19 with aortic stenosis for aVR which was performed by Dr. Arias. Seen by Dr. Melchor for ICU care. Chest x-ray demonstrates atelectasis and effusions. OT reports moderate assistance for upper dressing and bathing and maximal assistance for lower dressing and toileting and 2 person minimal assist for transfer. PT prescribed. Previous functional history as elicited from patient: 69-year-old right-handed white female single lives and 2 floor home alone. She is currently on medical leave since April 18. Previously independent with cooking, laundry, driving, standing shower and gait without device. PMD Dr. Flory Suarez. Denies tobacco or alcohol. Review of Systems Review of systems: ENT: Denies sneezes or discharge. Eyes: Denies discharge or photophobia. Cardiac: Mild sternal discomfort. Pulmonary: Mild shortness of breath. Breast: Denies discharge or lumps. Gastrointestinal: Denies nausea, emesis, constipation, diarrhea. Genitourinary: Denies discharge or frequency. Musculoskeletal: Denies muscle or bone aches. Neurologic: Denies motor or sensory change. Endocrine: Denies shakes or sweats. Oncology: Denies cancers. Dermatologic: Denies rash, itching, pruritus. ALLERGY/immunology: Denies sneezes, rashes. Past Medical History Past Medical History: Heart Failure, Hyperlipidemia, Hypertension Additional Past Medical History / Comment(s): Aortic stenosis, recent admission for fall, syncope & facial trauma, no fx's. per pt., wearing heart monitor @home History of Any Multi-Drug Resistant Organisms: None Reported Past Surgical History: Heart Catheterization Additional Past Surgical History / Comment(s): recent CAYDEN & cardiac cath Past Anesthesia/Blood Transfusion Reactions: No Reported Reaction Additional Past Anesthesia/Blood Transfusion Reaction / Comm: never had blood transfusion Smoking Status: Never smoker Past Alcohol Use History: None Reported Past Drug Use History: None Reported - Past Family History Father Family Medical History: Diabetes Mellitus Mother Family Medical History: Cancer Additional Family Medical History / Comment(s): cervical Medications and Allergies Home Medications Medication Instructions Recorded Confirmed Type Aspirin 81 mg PO DAILY #30 chew 04/21/20 06/19/20 Rx Atorvastatin [Lipitor] 40 mg PO HS #30 tab 04/21/20 06/19/20 Rx Furosemide [Lasix] 20 mg PO DAILY@1600 #30 tab 04/21/20 06/19/20 Rx Metoprolol Tartrate [Lopressor] 12.5 mg PO DAILY #60 tab 04/21/20 06/19/20 Rx Nitroglycerin Sl Tabs [Nitrostat] 0.4 mg SUBLINGUAL Q5M PRN #20 tab 04/21/20 06/19/20 Rx Famotidine [Pepcid] 20 mg PO DAILY 06/12/20 06/19/20 History Mupirocin 2% Oint [Bactroban 2% 1 applic NASAL BID 06/18/20 06/19/20 History Oint] Allergies Allergy/AdvReac Type Severity Reaction Status Date / Time No Known Allergies Allergy Verified 06/19/20 05:59 Physical Exam Vitals: Vital Signs Temp Pulse Pulse Resp BP Pulse Ox 06/21/20 10:00 61 19 144/67 96 06/21/20 09:00 83 29 H 144/67 95 06/21/20 08:00 97.7 F 81 22 137/66 97 06/21/20 07:00 85 20 137/66 93 L 06/21/20 06:00 80 25 H 93 L 06/21/20 05:00 98.6 F 85 22 133/69 94 L 06/21/20 04:00 83 86 22 94 L 06/21/20 03:00 81 26 H 117/58 93 L 06/21/20 02:00 75 16 94 L 06/21/20 01:00 74 20 95 06/21/20 00:28 77 23 94 L 06/21/20 00:00 98.9 F 74 27 H 95 06/20/20 23:38 78 26 H 06/20/20 23:00 79 28 H 105/50 94 L 06/20/20 22:00 67 25 H 97 06/20/20 21:00 93 24 113/44 100 06/20/20 20:00 100.2 F H 80 18 94 L 06/20/20 19:34 88 20 06/20/20 19:08 77 16 06/20/20 19:00 74 19 106/57 94 L 06/20/20 18:00 77 15 92 L 06/20/20 17:00 75 20 105/49 92 L 06/20/20 16:00 99.1 F 78 14 93 L 06/20/20 15:14 70 16 06/20/20 15:05 95 06/20/20 15:04 68 16 06/20/20 15:00 70 18 103/50 93 L 06/20/20 14:00 71 21 93 L 06/20/20 13:00 68 19 108/50 93 L 06/20/20 12:00 99.1 F 73 20 92 L 06/20/20 11:19 70 16 06/20/20 11:10 99.1 F 72 18 92/44 95 06/20/20 11:09 66 18 Intake and Output 06/20/20 06/21/20 06/21/20 22:59 06:59 14:59 Intake Total 305.981 210.323 104 Output Total 494 259 472 Balance -188.019 -48.677 -368 Intake: IV 182 208 104 Pressure Bag 42 48 24 Sodium Chloride 0.9% 1, 140 160 80 000 ml @ 20 mls/hr IV . Q24H [facility] Rx#:[id number] Intake, IV Titration 3.981 2.323 Amount Insulin Regular 100 unit 3.981 2.323 In Sodium Chloride 0.9% 100 ml @ Per Protocol IV .Q0M [facility] Rx#:[id number] Oral 120 Output: Chest Tube Drainage 24 50 0 Bilateral Mediastinal 24 50 0 Urine 470 209 472 Other: Voiding Method Indwelling Catheter Indwelling Catheter Indwelling Catheter Weight 69.6 kg ABP, PAP, CO, CI - Last 8 Hours Arterial Blood Pressure 100/43 Arterial Blood Pressure 151/60 Arterial Blood Pressure 136/56 Arterial Blood Pressure 137/55 Arterial Blood Pressure 157/66 Arterial Blood Pressure 144/59 Cardiac Output 4.4 Cardiac Index 2.8 Skin: Atrophic, intact. General: Overweight build and comfortable appearance. Head: Normocephalic, atraumatic. Eyes: Symmetric. Pupils equal round. Ears: Symmetric. Hearing within normal limits. Mouth: Clear. Neck: Supple. Carotid without bruit. Cardiac: Regular rate and rhythm. Wearing harness. Cardiac wound clean and dressed. Lungs: Clear anteriorly and posteriorly. Abdomen: Soft active nontender. Extremities: Normal tone. Neurological: Mental status: Alert, cooperative, pleasant. Cranial nerves: Symmetric facial tone and trapezius. Motor: Normal strength and isolation all 4 limbs. Sensation: Intact throughout. DTRs: Symmetric and equal throughout. Mobility: Did not attempt to sit or stand is currently in ICU. Results CBC & Chem 7: 06/21/20 03:15 06/21/20 03:15 Labs: Abnormal Lab Results - Last 24 Hours (Table) 06/15/20 06/20/20 06/20/20 Range/Units 11:43 11:18 12:18 RBC (3.80-5.40) m/uL Hgb (11.4-16.0) gm/dL Hct (34.0-46.0) % Plt Count (150-450) k/uL Lymphocytes # (1.0-4.8) k/uL Chloride (98-107) mmol/L BUN (7-17) mg/dL Glucose (74-99) mg/dL POC Glucose (mg/dL) 136 H 148 H (75-99) mg/dL Ionized Calcium Leilani (4.5-5.3) mg/dL Total Bilirubin (0.2-1.3) mg/dL AST (14-36) U/L ALT (4-34) U/L Total Protein (6.3-8.2) g/dL Albumin (3.5-5.0) g/dL Crossmatch See Detail 06/20/20 06/20/20 06/20/20 Range/Units 14:56 15:52 17:06 RBC (3.80-5.40) m/uL Hgb (11.4-16.0) gm/dL Hct (34.0-46.0) % Plt Count (150-450) k/uL Lymphocytes # (1.0-4.8) k/uL Chloride (98-107) mmol/L BUN (7-17) mg/dL Glucose (74-99) mg/dL POC Glucose (mg/dL) 104 H 115 H 126 H (75-99) mg/dL Ionized Calcium Leilani (4.5-5.3) mg/dL Total Bilirubin (0.2-1.3) mg/dL AST (14-36) U/L ALT (4-34) U/L Total Protein (6.3-8.2) g/dL Albumin (3.5-5.0) g/dL Crossmatch 02/10/21 02/10/21 02/10/21 Range/Units 17:11 17:53 19:05 RBC 2.58 L (3.80-5.40) m/uL Hgb 8.1 L D (11.4-16.0) gm/dL Hct 23.8 L (34.0-46.0) % Plt Count 93 L (150-450) k/uL Lymphocytes # (1.0-4.8) k/uL Chloride (98-107) mmol/L BUN (7-17) mg/dL Glucose (74-99) mg/dL POC Glucose (mg/dL) 160 H 131 H (75-99) mg/dL Ionized Calcium Leilani (4.5-5.3) mg/dL Total Bilirubin (0.2-1.3) mg/dL AST (14-36) U/L ALT (4-34) U/L Total Protein (6.3-8.2) g/dL Albumin (3.5-5.0) g/dL Crossmatch 06/20/20 06/20/20 06/20/20 Range/Units 21:09 22:04 23:25 RBC (3.80-5.40) m/uL Hgb (11.4-16.0) gm/dL Hct (34.0-46.0) % Plt Count (150-450) k/uL Lymphocytes # (1.0-4.8) k/uL Chloride (98-107) mmol/L BUN (7-17) mg/dL Glucose (74-99) mg/dL POC Glucose (mg/dL) 143 H 131 H 123 H (75-99) mg/dL Ionized Calcium Leilani (4.5-5.3) mg/dL Total Bilirubin (0.2-1.3) mg/dL AST (14-36) U/L ALT (4-34) U/L Total Protein (6.3-8.2) g/dL Albumin (3.5-5.0) g/dL Crossmatch 06/21/20 06/21/20 06/21/20 Range/Units 01:17 03:08 03:15 RBC 2.48 L (3.80-5.40) m/uL Hgb 7.6 L (11.4-16.0) gm/dL Hct 23.2 L (34.0-46.0) % Plt Count 91 L (150-450) k/uL Lymphocytes # 0.9 L (1.0-4.8) k/uL Chloride (98-107) mmol/L BUN (7-17) mg/dL Glucose (74-99) mg/dL POC Glucose (mg/dL) 133 H 126 H (75-99) mg/dL Ionized Calcium Leilani (4.5-5.3) mg/dL Total Bilirubin (0.2-1.3) mg/dL AST (14-36) U/L ALT (4-34) U/L Total Protein (6.3-8.2) g/dL Albumin (3.5-5.0) g/dL Crossmatch 06/21/20 06/21/20 06/21/20 Range/Units 03:15 04:58 06:53 RBC (3.80-5.40) m/uL Hgb (11.4-16.0) gm/dL Hct (34.0-46.0) % Plt Count (150-450) k/uL Lymphocytes # (1.0-4.8) k/uL Chloride 109 H (98-107) mmol/L BUN 18 H (7-17) mg/dL Glucose 119 H (74-99) mg/dL POC Glucose (mg/dL) 128 H 147 H (75-99) mg/dL Ionized Calcium Leilani 5.4 H (4.5-5.3) mg/dL Total Bilirubin 1.6 H (0.2-1.3) mg/dL AST 126 H (14-36) U/L ALT 109 H (4-34) U/L Total Protein 5.0 L (6.3-8.2) g/dL Albumin 3.1 L (3.5-5.0) g/dL Crossmatch 06/21/20 Range/Units 09:11 RBC (3.80-5.40) m/uL Hgb (11.4-16.0) gm/dL Hct (34.0-46.0) % Plt Count (150-450) k/uL Lymphocytes # (1.0-4.8) k/uL Chloride (98-107) mmol/L BUN (7-17) mg/dL Glucose (74-99) mg/dL POC Glucose (mg/dL) 118 H (75-99) mg/dL Ionized Calcium Leilani (4.5-5.3) mg/dL Total Bilirubin (0.2-1.3) mg/dL AST (14-36) U/L ALT (4-34) U/L Total Protein (6.3-8.2) g/dL Albumin (3.5-5.0) g/dL Crossmatch Assessment and Plan (1) Aortic stenosis Current Visit: No Status: Acute Code(s): I35.0 - NONRHEUMATIC AORTIC (VALVE) STENOSIS SNOMED Code(s): 11298545 Plan: Impression: 1. Cardiac debility. 2. Aortic stenosis status post AVR. 3. Hypertension. 4. Dyslipidemia. 5. CHF. Comments and plan: At this time OT are ongoing and PT prescribed. We'll follow therapies with yourself. Note patient lives alone and has no real supports that she can depend on. For this reason discussed possible inpatient rehab with patient and she is agreeable and in fact is anticipating this knee.
[2020-06-21] MEDS: INSULIN ASPART (NovoLOG) 100 UNIT/ML VIAL SQ SCH ×3 (11:50→20:50)
[2020-06-21 12:02] LABS: Glucose,Whole Blood 126 mg/dL (75-99)
[2020-06-21] MEDS: ASCORBIC ACID 500 MG TAB PO SCH (12:03)
[2020-06-21] MEDS: FERROUS SULFATE 325 MG TAB PO SCH (12:03)
[2020-06-21] MEDS ORDERED: lisinopriL 5 MG TAB PO SCH (12:30)
[2020-06-21] MEDS: DEXTROSE 5% IN WATER 100 ML with AMIODARONE 150 MG IV PRN ×3 (14:17→17:37)
--- NOTE | 2020-06-21 15:28 | PN ---
PROGRESS NOTE FOLLOW-UP NOTE: Najma is a 69-year-old lady who is admitted to hospital for aortic valve replacement. Today is postoperative day number 2. She is doing well and is free of symptoms. On exam, heart rate is 70 beats per minute. Blood pressure is 112/50, respiratory rate is 18. Chest exam reveals good air entry bilaterally. Heart exam reveals first and second heart sounds. No gallop. No murmur. ABDOMEN: Soft. Examination of extremities did not reveal edema. Peripheral pulses are felt. Labs show a hemoglobin of 7.6, platelet count is 91, potassium is 4.3, creatinine is 0.6. ASSESSMENT: Bicuspid aortic valve with cardiomyopathy and congestive heart failure, status post aortic valve replacement. PLAN: Patient is doing well. She will continue current medications that include aspirin, Lipitor and Lopressor. I will add lisinopril, given the cardiomyopathy that was noted. MMODL / IJN: [id number] /
[2020-06-21 15:46] LABS: Magnesium 2.3 mg/dL (1.6-2.3); Potassium 3.9 mmol/L (3.5-5.1)
[2020-06-21 17:06] LABS: Glucose,Whole Blood 205 mg/dL (75-99)
--- NOTE | 2020-06-21 19:09 | P.PN ---
Subjective Progress Note Date: 06/21/20 (829) Principal diagnosis: Symptomatic severe bicuspid aortic valve stenosis Postoperative aortic valve replacement Evaluated patient this a.m., resting comfortably in chair, postop day 2 from open heart surgery with aortic valve replacement. Patient alert, awake and oriented 3. Patient denies fever, chills, palpitations, abdominal pain, nausea, vomiting, or diarrhea . Patient noted to in be normal sinus rhythm on the monitorpacer wires still present. Objective - Vital Signs Vital signs: Vital Signs Temp 98.4 F 06/21/20 16:00 Pulse 156 H 06/21/20 18:00 Resp 22 06/21/20 18:00 BP 107/70 06/21/20 18:00 Pulse Ox 95 06/21/20 18:00 Intake & Output 06/21/20 06/21/20 06/22/20 06:59 18:59 06:59 Intake Total 292.304 164 Output Total 329 1447 Balance -36.696 -1283 Weight 69.6 kg Intake: IV 286 164 KVO 60 Pressure Bag 66 24 Sodium Chloride 0.9% 1, 220 80 000 ml @ 20 mls/hr IV . Q24H [facility] Rx#:[id number] Intake, IV Titration 6.304 Amount Insulin Regular 100 unit 6.304 In Sodium Chloride 0.9% 100 ml @ Per Protocol IV .Q0M [facility] Rx#:[id number] Output: Chest Tube Drainage 50 0 Bilateral Mediastinal 50 0 Urine 279 1447 Other: Voiding Method Indwelling Catheter Bedside Commode # Bowel Movements 1 ABP, PAP, CO, CI - Last Documented Arterial Blood Pressure 100/43 Pulmonary Artery Pressure 60/36 Cardiac Output 4.4 Cardiac Index 2.8 - Constitutional General appearance: Present: mild distress - EENT Eyes: Present: EOMI, PERRLA Ears: bilateral: normal - Neck Neck: Present: normal ROM Carotids: bilateral: upstroke normal Thyroid: bilateral: normal size - Respiratory Respiratory: bilateral: CTA (Anterior lung reyes), diminished (Posterior lung reyes) - Cardiovascular Details: Normal sinus mechanism Heart rate: 68 Rhythm: regular Heart sounds: normal: S1, S2 - Peripheral edema ankle Peripheral Edema: bilateral: 1+ - Peripheral pulses dorsalis pedis Peripheral Pulses: bilateral: Normal radial pulse Peripheral Pulses: bilateral: Normal - Gastrointestinal General gastrointestinal: Present: decreased bowel sounds - Integumentary Integumentary: Present: pale - Neurologic Neurologic: Present: CNII-XII intact - Musculoskeletal Musculoskeletal: Present: generalized weakness - Psychiatric Psychiatric: Present: A&O x's 3 - Allied health notes Allied health notes reviewed: nursing - Labs CBC & Chem 7: 06/21/20 03:15 06/21/20 14:36 Labs: Abnormal Lab Results - Last 24 Hours (Table) 06/20/20 06/20/20 06/20/20 Range/Units 19:05 21:09 22:04 RBC (3.80-5.40) m/uL Hgb (11.4-16.0) gm/dL Hct (34.0-46.0) % Plt Count (150-450) k/uL Lymphocytes # (1.0-4.8) k/uL Chloride (98-107) mmol/L BUN (7-17) mg/dL Glucose (74-99) mg/dL POC Glucose (mg/dL) 131 H 143 H 131 H (75-99) mg/dL Ionized Calcium Leilani (4.5-5.3) mg/dL Total Bilirubin (0.2-1.3) mg/dL AST (14-36) U/L ALT (4-34) U/L Total Protein (6.3-8.2) g/dL Albumin (3.5-5.0) g/dL 06/20/20 06/21/20 06/21/20 Range/Units 23:25 01:17 03:08 RBC (3.80-5.40) m/uL Hgb (11.4-16.0) gm/dL Hct (34.0-46.0) % Plt Count (150-450) k/uL Lymphocytes # (1.0-4.8) k/uL Chloride (98-107) mmol/L BUN (7-17) mg/dL Glucose (74-99) mg/dL POC Glucose (mg/dL) 123 H 133 H 126 H (75-99) mg/dL Ionized Calcium Leilani (4.5-5.3) mg/dL Total Bilirubin (0.2-1.3) mg/dL AST (14-36) U/L ALT (4-34) U/L Total Protein (6.3-8.2) g/dL Albumin (3.5-5.0) g/dL 06/21/20 06/21/20 06/21/20 Range/Units 03:15 03:15 04:58 RBC 2.48 L (3.80-5.40) m/uL Hgb 7.6 L (11.4-16.0) gm/dL Hct 23.2 L (34.0-46.0) % Plt Count 91 L (150-450) k/uL Lymphocytes # 0.9 L (1.0-4.8) k/uL Chloride 109 H (98-107) mmol/L BUN 18 H (7-17) mg/dL Glucose 119 H (74-99) mg/dL POC Glucose (mg/dL) 128 H (75-99) mg/dL Ionized Calcium Leilani 5.4 H (4.5-5.3) mg/dL Total Bilirubin 1.6 H (0.2-1.3) mg/dL AST 126 H (14-36) U/L ALT 109 H (4-34) U/L Total Protein 5.0 L (6.3-8.2) g/dL Albumin 3.1 L (3.5-5.0) g/dL 06/21/20 06/21/20 06/21/20 Range/Units 06:53 09:11 11:50 RBC (3.80-5.40) m/uL Hgb (11.4-16.0) gm/dL Hct (34.0-46.0) % Plt Count (150-450) k/uL Lymphocytes # (1.0-4.8) k/uL Chloride (98-107) mmol/L BUN (7-17) mg/dL Glucose (74-99) mg/dL POC Glucose (mg/dL) 147 H 118 H 126 H (75-99) mg/dL Ionized Calcium Leilani (4.5-5.3) mg/dL Total Bilirubin (0.2-1.3) mg/dL AST (14-36) U/L ALT (4-34) U/L Total Protein (6.3-8.2) g/dL Albumin (3.5-5.0) g/dL 06/21/20 Range/Units 17:01 RBC (3.80-5.40) m/uL Hgb (11.4-16.0) gm/dL Hct (34.0-46.0) % Plt Count (150-450) k/uL Lymphocytes # (1.0-4.8) k/uL Chloride (98-107) mmol/L BUN (7-17) mg/dL Glucose (74-99) mg/dL POC Glucose (mg/dL) 205 H (75-99) mg/dL Ionized Calcium Leilani (4.5-5.3) mg/dL Total Bilirubin (0.2-1.3) mg/dL AST (14-36) U/L ALT (4-34) U/L Total Protein (6.3-8.2) g/dL Albumin (3.5-5.0) g/dL - Imaging and Cardiology Chest x-ray: report reviewed Assessment and Plan Assessment: Status post aortic valve replacement day twofor history of severe aortic stenosis with bicuspid aortic valve continue to follow treatment plan from cardiothoracic, cardiology, and pulmonology for recommendations and treatment plan History of severe left ventricular dysfunction Hypertension Hyperlipidemia History of syncope History of tooth extraction Full code Continue medical management Time with Patient: Greater than 30
[2020-06-21 19:56] LABS: Glucose,Whole Blood 335 mg/dL (75-99)
[2020-06-21 20:12] LABS: Glucose,Whole Blood 161 mg/dL (75-99)
[2020-06-21] MEDS: ATORVASTATIN 40 MG TAB PO SCH (20:49)
[2020-06-21] MEDS: SENNOSIDES-DOCUSATE SODIUM 1 EACH TAB PO SCH (20:49)
[2020-06-22] MEDS: HEPARIN SODIUM,PORCINE 5,000 UNIT/ML 1 ML VIAL SQ SCH ×4 (00:06→23:10)
[2020-06-22] MEDS: DEXTROSE 5% IN WATER 100 ML with AMIODARONE 150 MG IV PRN (00:08)
[2020-06-22 04:05] LABS: Basophils % (A) 0 %; Eosinophils % (A) 0 %; HCT 22.5 % (34.0-46.0); HGB 7.6 gm/dL (11.4-16.0); Lymphocytes # (A) 0.8 k/uL (1.0-4.8); Lymphocytes % (A) 9 %; MCH 31.4 pg (25.0-35.0); MCHC 33.6 g/dL (31.0-37.0); MCV 93.4 fL (80.0-100.0); Mean Platelet Volume 7.4; Monocytes # (A) 0.6 k/uL (0-1.0); Monocytes % (A) 7 %; Neutrophils # (A) 7.3 k/uL (1.3-7.7); Neutrophils % (A) 82 %; Platelet Count 106 k/uL (150-450); RBC 2.41 m/uL (3.80-5.40); RDW 13.8 % (11.5-15.5); WBC 8.9 k/uL (3.8-10.6)
[2020-06-22 04:15] LABS: ALT 130 U/L (4-34); AST 101 U/L (14-36); African American GFR (CKD) >90 (>60 ml/min/1.73 sqM); Alkaline Phosphatase 67 U/L (38-126); Anion Gap 5 mmol/L; Blood Urea Nitrogen 21 mg/dL (7-17); Calcium 8.5 mg/dL (8.4-10.2); Carbon Dioxide 26 mmol/L (22-30); Chloride 106 mmol/L (98-107); Glucose 146 mg/dL (74-99); Non-African American GFR(CKD) 81 (>60 ml/min/1.73 sqM); Potassium 3.9 mmol/L (3.5-5.1); Sodium 137 mmol/L (137-145); Total Bilirubin 1.7 mg/dL (0.2-1.3); Total Protein 5.1 g/dL (6.3-8.2)
[2020-06-22 06:27] LABS: Glucose,Whole Blood 170 mg/dL (75-99)
[2020-06-22] MEDS: INSULIN ASPART (NovoLOG) 100 UNIT/ML VIAL SQ SCH ×4 (06:28→21:43)
[2020-06-22] MEDS: PANTOPRAZOLE 40 MG TABLET PO SCH (06:28)
[2020-06-22] MEDS: KETOROLAC 15 MG/ML 1 ML VIAL IVP SCH ×4 (06:28→23:09)
--- NOTE | 2020-06-22 08:03 | P.PN ---
Subjective Progress Note Date: 06/22/20 Principal diagnosis: Symptomatic severe bicuspid aortic valve stenosis. Previous medical history of hypertension, hyperlipidemia, preoperative syncopal event with traumatic facial trauma, chronic systolic heart failure with left ventricular dysfunction and EF 35% on most recent echocardiogram, never smoker. POD #3 aortic valve replacement using a 21 mm Inspiris pericardial bi oprosthesis, exclusion of the left atrial appendage using a 35 mm Atriclip, intraoperative transesophageal echocardiogram and epi-aortic scanning. Postoperative acute blood loss anemia, expected due to cardiopulmonary bypass and hemodilution Paroxysmal atrial fibrillation, known potential complication of open heart surgery The patient's currently sitting up in a recliner in the intensive care unit in no acute distress. She states she had a bad night and she did not feel well, however she states she's feeling much better this morning. Denies pain or shortness of breath. She did go into atrial fibrillation with rapid ventricular response yesterday and did convert to normal sinus rhythm with initiation of amiodarone, currently in sinus rhythm and hemodynamically stable. Transfer orders were placed yesterday for 3 S. cardiac stepdown unit, however there are no beds available. All unnecessary lines and tubes have been discontinued, epicardial pacemaker wires remain but grounded. No new concerns. Objective - Vital Signs Vital signs: Vital Signs Temp 98.2 F 06/22/20 04:00 Pulse 77 06/22/20 04:00 Resp 22 06/22/20 04:00 BP 114/57 06/22/20 04:00 Pulse Ox 94 L 06/22/20 06:50 Intake & Output 06/21/20 06/22/20 06/22/20 18:59 06:59 18:59 Intake Total 164 100 Output Total 1447 525 Balance -1283 -425 Weight 68.6 kg Intake: IV 164 100 KVO 60 100 Pressure Bag 24 Sodium Chloride 0.9% 1, 80 000 ml @ 20 mls/hr IV . Q24H [facility] Rx#:[id number] Output: Chest Tube Drainage 0 Bilateral Mediastinal 0 Urine 1447 525 Other: Voiding Method Bedside Commode Bedside Commode # Voids 1 # Bowel Movements 1 1 ABP, PAP, CO, CI - Last Documented Arterial Blood Pressure 100/43 Pulmonary Artery Pressure 60/36 Cardiac Output 4.4 Cardiac Index 2.8 - Constitutional General appearance: Present: cooperative, no acute distress - Respiratory Details: Lungs sounds very diminished bases. Respirations even, nonlabored. Continues to need 1-2 L nasal cannula with oxygen saturation in the low to mid 90s, was 83% on room air when getting back from chest x-ray. Only able to achieve 500 mL on incentive spirometry with weak effort. Strong nonproductive cough. - Cardiovascular Details: S1, S2 present. Regular rate and rhythm, sinus rhythm on telemetry with heart rate in the 70s. Sternum stable. A/V epicardial pacemaker wires present, grounded. Palpable peripheral pulses bilaterally. No edema present. No calf pain or tenderness noted. Heart hugger in place with patient demonstrating appropriate use. Antiembolism stockings, SCDs present. - Gastrointestinal Gastrointestinal Comment(s): Abdomen soft, nontender, nondistended. Active bowel sounds present 4 quadrants. Tolerating diet. Positive bowel movement yesterday. - Genitourinary Genitourinary Comment(s): León discontinued, patient continues to void clear, yellow urine, output 1670 mL in the last 24 hours - Integumentary Integumentary Comment(s): Skin is warm and dry with evidence of good perfusion. Anterior chest incision well approximated and covered with dry intact dressing. - Neurologic Neurologic: Present: CNII-XII intact - Musculoskeletal Musculoskeletal: Present: gait normal, strength equal bilaterally - Psychiatric Psychiatric: Present: A&O x's 3, appropriate affect - Allied health notes Allied health notes reviewed: nursing - Labs CBC & Chem 7: 06/22/20 03:21 06/22/20 03:21 Labs: Abnormal Lab Results - Last 24 Hours (Table) 06/21/20 06/21/20 06/21/20 Range/Units 09:11 11:50 17:01 RBC (3.80-5.40) m/uL Hgb (11.4-16.0) gm/dL Hct (34.0-46.0) % Plt Count (150-450) k/uL Lymphocytes # (1.0-4.8) k/uL BUN (7-17) mg/dL Glucose (74-99) mg/dL POC Glucose (mg/dL) 118 H 126 H 205 H (75-99) mg/dL Total Bilirubin (0.2-1.3) mg/dL AST (14-36) U/L ALT (4-34) U/L Total Protein (6.3-8.2) g/dL Albumin (3.5-5.0) g/dL 06/21/20 06/21/20 06/22/20 Range/Units 19:54 20:11 03:21 RBC 2.41 L (3.80-5.40) m/uL Hgb 7.6 L (11.4-16.0) gm/dL Hct 22.5 L (34.0-46.0) % Plt Count 106 L (150-450) k/uL Lymphocytes # 0.8 L (1.0-4.8) k/uL BUN (7-17) mg/dL Glucose (74-99) mg/dL POC Glucose (mg/dL) 335 H 161 H (75-99) mg/dL Total Bilirubin (0.2-1.3) mg/dL AST (14-36) U/L ALT (4-34) U/L Total Protein (6.3-8.2) g/dL Albumin (3.5-5.0) g/dL 06/22/20 06/22/20 Range/Units 03:21 06:25 RBC (3.80-5.40) m/uL Hgb (11.4-16.0) gm/dL Hct (34.0-46.0) % Plt Count (150-450) k/uL Lymphocytes # (1.0-4.8) k/uL BUN 21 H (7-17) mg/dL Glucose 146 H (74-99) mg/dL POC Glucose (mg/dL) 170 H (75-99) mg/dL Total Bilirubin 1.7 H (0.2-1.3) mg/dL AST 101 H (14-36) U/L ALT 130 H (4-34) U/L Total Protein 5.1 L (6.3-8.2) g/dL Albumin 3.0 L (3.5-5.0) g/dL - Imaging and Cardiology Chest x-ray: image reviewed Assessment and Plan Assessment: 1. Symptomatic severe bicuspid aortic valve stenosis, status post bioprosthetic aortic valve replacement 2. History of hypertension 3. Hyperlipidemia, treated, cholesterol 160, LDL 91 4. Preoperative syncopal event with traumatic facial trauma 5. Chronic systolic heart failure with left ventricular dysfunction and EF 35% on most recent echocardiogram 6. Never smoker with preoperative FEV1 80% of predicted 7. Postoperative acute blood loss anemia, expected due to cardiopulmonary bypass and hemodilution 8. Paroxysmal atrial fibrillation, known potential complication of open heart surgery, status post left atrial appendage ligation Plan: 1. Continue aspirin, statin, Plavix, low-dose Julian, beta jose therapy. Will increase beta jose therapy as tolerated 2. Continue amiodarone, will transition to oral. No anticoagulation necessary at this time 3. Wean O2 as tolerated. Encourage incentive spirometry is 10 times every hour while awake. Bronchodilators per pulmonology. 4. Increase activity, ambulate as tolerated. PT/OT/cardiac rehab following. 5. Will monitor daily labs and chest x-rays. Electrolyte replacement per protocol. No further transfusions at this time. We'll give 20 mg IV Lasix today 6. GI/DVT prophylaxis. 7. Insulin management per primary care service. Patient is not diabetic, preoperative hemoglobin A1c 6.2% 8. Strict intake and output 9. Daily weights 10. Pain controlled current medication regimen, no narcotics 11. Transfer orders placed for 3 S. cardiac stepdown unit yesterday, may transfer when bed available 12. Discharge planning in progress. Anticipate discharge soon. Patient will likely need inpatient rehab at discharge as she has no continuous support available 13. More recommendations to follow based on patient's clinical course. Time with Patient: Greater than 30
[2020-06-22] MEDS: IPRATROPIUM-ALBUTEROL 3 ML NEB INHALATION SCH ×4 (08:33→19:54)
[2020-06-22] MEDS ORDERED: FUROSEMIDE 10 MG/ML 2 ML VIAL IV ONE (08:54)
[2020-06-22] MEDS: CLOPIDOGREL 75 MG TAB PO SCH (08:54)
[2020-06-22] MEDS: ASPIRIN 325 MG TAB PO SCH (08:54)
[2020-06-22] MEDS: FERROUS SULFATE 325 MG TAB PO SCH (08:54)
[2020-06-22] MEDS: ASCORBIC ACID 500 MG TAB PO SCH (08:54)
[2020-06-22] MEDS: AMIODARONE 200 MG TAB PO SCH ×2 (08:55→21:43)
--- NOTE | 2020-06-22 09:30 | XR ---
EXAMINATION TYPE: XR chest 2V DATE OF EXAM: 06/22/2020 COMPARISON: 06/21/2010 TECHNIQUE: PA and lateral views submitted. HISTORY: Postop FINDINGS: Bilateral consolidation and pleural effusion. Heart enlarged. Postsurgical changes noted. No pneumoth orax. Interstitial pattern suspected. IMPRESSION: 1. Diffuse bilateral pleural-parenchymal changes may been the basis of a pneumonia. Underlying CHF no t excluded.
--- NOTE | 2020-06-22 09:45 | PN ---
PROGRESS NOTE Najma is a 69-year-old lady with history of bicuspid aortic valve, cardiomyopathy, congestive heart failure, who underwent aortic valve replacement, postop day #3. She also had exclusion of the left atrial appendage during surgery. Yesterday, she has had paroxysmal episodes of atrial fibrillation and converted back to sinus rhythm following amiodarone. At the moment, patient is on amiodarone 400 b.i.d., aspirin, Plavix, Zestril, and Lopressor. She is otherwise doing well. Denies any episodes of chest pain. Denies difficulty in breathing. PHYSICAL EXAMINATION: On exam, heart rate is 77 beats per minute. Blood pressure is 114/57. Respiratory rate is 18. O2 saturation is 94% on 1 L. There is no jugular venous distention. Chest exam reveals good air entry bilaterally. Heart exam reveals first and second heart sounds. No gallop. No murmur. Abdomen is soft. Examination of extremities did not reveal any edema. Peripheral pulses re felt. LABS: Labs show a hemoglobin of 7.6, platelet count is 106. Potassium is 3.9. Creatinine is 0.76. AST, ALT are elevated. ASSESSMENT: 1. Bicuspid aortic valve, status post aortic valve replacement. 2. Dilated cardiomyopathy with congestive heart failure. 3. Paroxysmal atrial fibrillation. PLAN: Patient will continue current medications including the amiodarone. MMODL / IJN: [id number] /
--- NOTE | 2020-06-22 10:52 | P.PN ---
Subjective Progress Note Date: 06/22/20 Principal diagnosis: Severe aortic stenosis with bicuspid aortic valve status post to the aortic valve replacement Successfully weaned and extubated on 2 L oxygen Severe acute anemia Hypotension likely due to anemia Hypertension hypertensive cardiovascular disease Dyslipidemia Chronic systolic heart failure baseline ejection fraction of 15-20% Obstructive sleep apnea 06/22/2020, patient seen eval examined during rounds sitting upright on the chair breathing comfortably on 2 L oxygen, patient went into A. fib RVR required amiodarone currently on by mouth, labs reviewed white cell count is 8900 with hemoglobin of 7.6, noted AST and ALT mildly up along with total bilirubin 1.7 AST/ALT of 101/130, Will follow closely 06/21/2020, patient seen and evaluated examined during the rounds labs reviewed medications reviewed care plan discussed with the staff at length, patient is laying comfortably on bed breathing on 2 L oxygen, Good[place]-Kendy catheter has been removed, mediastinal tube has been removed, hemoglobin have been stable after transfusion 1 unit of packed RBC, chest x-ray performed today revealed continuation of bilateral basal atelectasis along with small trivial pleural effusion, some interstitial edema noted as well, as reviewed white cell count remained stable 8400, no clubbing is 7.6, platelet count is 91 is doing deep breathing sense incentive spirometry up to 500 Patient is a 69-year-old well-known to me initially admitted with syncope found to have a significant aortic stenosis of severe category and bicuspid aortic well, patient has LV dysfunction with reduced ejection fraction 20%, she has receptive dyslipidemia hypertension hypertensive cardiovascular disease patient admitted electively for aortic valve replacement tolerated well successfully weaned and extubated, currently patient is on 2 L sitting upright postop day #1 blood pressure slightly low hemoglobin drop down to 6 undergoing unit of packed RBC, off of pressors, on insulin drip per protocol, awake and alert denies any chest pain or shortness of breath mild discomfort is present at the operative site, breathing comfortably on 2 L sats are 92-94%, but pressure systolic runs slightly low 90, sinus rhythm, doing well off incentive spirometry 500 ML's, range, chest x-ray performed today shows bilateral basal atelectasis/consolidation, stable mediastinal drain and [place]-Kendy catheter, and small effusions seen interstitial edema, along with postoperative changes Objective - Vital Signs Vital signs: Vital Signs Temp 98 F 06/22/20 08:00 Pulse 68 02/12/21 08:43 Resp 14 06/22/20 08:00 BP 117/55 06/22/20 08:00 Pulse Ox 95 06/22/20 08:00 Intake & Output 06/21/20 06/22/20 06/22/20 18:59 06:59 18:59 Intake Total 164 100 40 Output Total 1447 525 Balance -1283 -425 40 Weight 68.6 kg Intake: IV 164 100 40 KVO 60 100 40 Pressure Bag 24 Sodium Chloride 0.9% 1, 80 000 ml @ 20 mls/hr IV . Q24H [facility] Rx#:[id number] Output: Chest Tube Drainage 0 Bilateral Mediastinal 0 Urine 1447 525 Other: Voiding Method Bedside Commode Bedside Commode Bedside Commode # Voids 1 # Bowel Movements 1 1 ABP, PAP, CO, CI - Last Documented Arterial Blood Pressure 100/43 Pulmonary Artery Pressure 60/36 Cardiac Output 4.4 Cardiac Index 2.8 - Exam - Constitutional General appearance: average body habitus, disheveled, mild distress - EENT Eyes: PERRLA Ears: bilateral: normal - Neck Neck: normal ROM Carotids: bilateral: upstroke normal Thyroid: bilateral: normal size - Respiratory Respiratory: bilateral: diminished (Predominantly at the bases) - Cardiovascular Rhythm: regular Heart sounds: normal: S1, S2 - Gastrointestinal General gastrointestinal: normal bowel sounds - Integumentary Integumentary: normal turgor - Neurologic Neurologic: CNII-XII intact - Musculoskeletal Musculoskeletal: gait normal, generalized weakness, strength equal bilaterally - Psychiatric Psychiatric: A&O x's 3, appropriate affect, intact judgment & insight - Labs CBC & Chem 7: 06/22/20 03:21 06/22/20 03:21 Labs: Abnormal Lab Results - Last 24 Hours (Table) 06/21/20 06/21/20 06/21/20 Range/Units 11:50 17:01 19:54 RBC (3.80-5.40) m/uL Hgb (11.4-16.0) gm/dL Hct (34.0-46.0) % Plt Count (150-450) k/uL Lymphocytes # (1.0-4.8) k/uL BUN (7-17) mg/dL Glucose (74-99) mg/dL POC Glucose (mg/dL) 126 H 205 H 335 H (75-99) mg/dL Total Bilirubin (0.2-1.3) mg/dL AST (14-36) U/L ALT (4-34) U/L Total Protein (6.3-8.2) g/dL Albumin (3.5-5.0) g/dL 06/21/20 06/22/20 06/22/20 Range/Units 20:11 03:21 03:21 RBC 2.41 L (3.80-5.40) m/uL Hgb 7.6 L (11.4-16.0) gm/dL Hct 22.5 L (34.0-46.0) % Plt Count 106 L (150-450) k/uL Lymphocytes # 0.8 L (1.0-4.8) k/uL BUN 21 H (7-17) mg/dL Glucose 146 H (74-99) mg/dL POC Glucose (mg/dL) 161 H (75-99) mg/dL Total Bilirubin 1.7 H (0.2-1.3) mg/dL AST 101 H (14-36) U/L ALT 130 H (4-34) U/L Total Protein 5.1 L (6.3-8.2) g/dL Albumin 3.0 L (3.5-5.0) g/dL 06/22/20 Range/Units 06:25 RBC (3.80-5.40) m/uL Hgb (11.4-16.0) gm/dL Hct (34.0-46.0) % Plt Count (150-450) k/uL Lymphocytes # (1.0-4.8) k/uL BUN (7-17) mg/dL Glucose (74-99) mg/dL POC Glucose (mg/dL) 170 H (75-99) mg/dL Total Bilirubin (0.2-1.3) mg/dL AST (14-36) U/L ALT (4-34) U/L Total Protein (6.3-8.2) g/dL Albumin (3.5-5.0) g/dL Assessment and Plan Assessment: A. fib with RVR on amiodarone well controlled, Mildly elevated liver enzymes Thrombocytopenia stable Severe aortic stenosis with bicuspid aortic valve status post to the aortic valve replacement Successfully weaned and extubated on 2 L oxygen Severe acute anemia Hypotension likely due to anemia Hypertension hypertensive cardiovascular disease Dyslipidemia Chronic systolic heart failure baseline ejection fraction of 15-20% Obstructive sleep apnea Plan: Monitor observe hemoglobin as well as platelet count closely monitor observe liver functions closely keep hemoglobin over 7 Deep breathing sense incentive spirometry early ambulation Supplemental oxygen Increase activity as tolerated Patient can be moved to selective care Follow clinical course closely further recommendations pending Time with Patient: Greater than 30
[2020-06-22 11:06] LABS: Glucose,Whole Blood 168 mg/dL (75-99)
[2020-06-22 11:57] LABS: Glucose,Whole Blood 132 mg/dL (75-99)
[2020-06-22] MEDS: MIDODRINE 5 MG TAB PO SCH ×2 (13:43→17:23)
[2020-06-22] MEDS: METOPROLOL TARTRATE 25 MG TAB PO SCH ×2 (13:44→21:43)
[2020-06-22] MEDS ORDERED: CALCIUM GLUCONATE 1 GM in SODIUM CHLORIDE 0.9% 100 ML IVPB ONE (15:22)
[2020-06-22 17:09] LABS: Glucose,Whole Blood 111 mg/dL (75-99)
--- NOTE | 2020-06-22 18:02 | P.PN ---
Subjective Progress Note Date: 06/22/20 (829) Principal diagnosis: Symptomatic severe bicuspid aortic valve stenosis Postoperative aortic valve replacement Evaluated patient this a.m., resting comfortably in chair, postop day 3 from open heart surgery with aortic valve replacement. Patient alert, awake and oriented 3. Patient denies fever, chills, palpitations, abdominal pain, nausea, vomiting, or diarrhea . Patient noted to in be normal sinus rhythm on the monitorpacer wires still present. Objective - Vital Signs Vital signs: Vital Signs Temp 98.2 F 06/22/20 16:00 Pulse 67 06/22/20 16:35 Resp 18 06/22/20 16:00 BP 90/43 06/22/20 16:00 Pulse Ox 96 06/22/20 16:00 Intake & Output 06/21/20 06/22/20 06/22/20 18:59 06:59 18:59 Intake Total 164 100 290 Output Total 1447 525 Balance -1283 -425 290 Weight 68.6 kg Intake: IV 164 100 90 KVO 60 100 90 Pressure Bag 24 Sodium Chloride 0.9% 1, 80 000 ml @ 20 mls/hr IV . Q24H [facility] Rx#:[id number] Oral 200 Output: Chest Tube Drainage 0 Bilateral Mediastinal 0 Urine 1447 525 Other: Voiding Method Bedside Commode Bedside Commode Bedside Commode # Voids 1 1 # Bowel Movements 1 1 ABP, PAP, CO, CI - Last Documented Arterial Blood Pressure 100/43 Pulmonary Artery Pressure 60/36 Cardiac Output 4.4 Cardiac Index 2.8 - Constitutional General appearance: Present: cooperative - EENT Eyes: Present: EOMI, PERRLA Ears: bilateral: normal - Neck Neck: Present: normal ROM Carotids: bilateral: upstroke normal Thyroid: bilateral: normal size - Respiratory Respiratory: bilateral: diminished (Anterior lung reyes), rales (Posterior bases) - Cardiovascular Details: Normal sinus rhythm mechanism Heart rate: 67 Rhythm: regular Heart sounds: normal: S1, S2 - Peripheral pulses radial pulse Peripheral Pulses: bilateral: Normal dorsalis pedis Peripheral Pulses: bilateral: Normal - Gastrointestinal General gastrointestinal: Present: normal bowel sounds - Integumentary Integumentary: Present: pale - Neurologic Neurologic: Present: CNII-XII intact - Musculoskeletal Musculoskeletal: Present: generalized weakness - Psychiatric Psychiatric: Present: A&O x's 3, appropriate affect, intact judgment & insight - Allied health notes Allied health notes reviewed: nursing - Labs CBC & Chem 7: 06/22/20 03:21 06/22/20 03:21 Labs: Abnormal Lab Results - Last 24 Hours (Table) 06/21/20 06/21/20 06/22/20 Range/Units 19:54 20:11 03:21 RBC 2.41 L (3.80-5.40) m/uL Hgb 7.6 L (11.4-16.0) gm/dL Hct 22.5 L (34.0-46.0) % Plt Count 106 L (150-450) k/uL Lymphocytes # 0.8 L (1.0-4.8) k/uL BUN (7-17) mg/dL Glucose (74-99) mg/dL POC Glucose (mg/dL) 335 H 161 H (75-99) mg/dL Total Bilirubin (0.2-1.3) mg/dL AST (14-36) U/L ALT (4-34) U/L Total Protein (6.3-8.2) g/dL Albumin (3.5-5.0) g/dL 06/22/20 06/22/20 06/22/20 Range/Units 03:21 06:25 11:04 RBC (3.80-5.40) m/uL Hgb (11.4-16.0) gm/dL Hct (34.0-46.0) % Plt Count (150-450) k/uL Lymphocytes # (1.0-4.8) k/uL BUN 21 H (7-17) mg/dL Glucose 146 H (74-99) mg/dL POC Glucose (mg/dL) 170 H 168 H (75-99) mg/dL Total Bilirubin 1.7 H (0.2-1.3) mg/dL AST 101 H (14-36) U/L ALT 130 H (4-34) U/L Total Protein 5.1 L (6.3-8.2) g/dL Albumin 3.0 L (3.5-5.0) g/dL 06/22/20 06/22/20 Range/Units 11:56 17:06 RBC (3.80-5.40) m/uL Hgb (11.4-16.0) gm/dL Hct (34.0-46.0) % Plt Count (150-450) k/uL Lymphocytes # (1.0-4.8) k/uL BUN (7-17) mg/dL Glucose (74-99) mg/dL POC Glucose (mg/dL) 132 H 111 H (75-99) mg/dL Total Bilirubin (0.2-1.3) mg/dL AST (14-36) U/L ALT (4-34) U/L Total Protein (6.3-8.2) g/dL Albumin (3.5-5.0) g/dL - Imaging and Cardiology Chest x-ray: report reviewed Assessment and Plan Assessment: Status post aortic valve replacement day threefor history of severe aortic stenosis with bicuspid aortic valve continue to follow treatment plan from cardiothoracic, cardiology, and pulmonology for recommendations and treatment plan History of severe left ventricular dysfunction Hypertension Hyperlipidemia History of syncope History of tooth extraction Full code Continue medical management Time with Patient: Greater than 30
[2020-06-22 20:06] LABS: Glucose,Whole Blood 185 mg/dL (75-99)
[2020-06-22] MEDS: SENNOSIDES-DOCUSATE SODIUM 1 EACH TAB PO SCH (21:43)
[2020-06-22] MEDS: ATORVASTATIN 40 MG TAB PO SCH (21:43)
[2020-06-22] MEDS ORDERED: MIDODRINE 5 MG TAB PO ONE (22:12)
[2020-06-23 02:02] LABS: Glucose,Whole Blood 130 mg/dL (75-99)
[2020-06-23 06:18] LABS: Glucose,Whole Blood 129 mg/dL (75-99)
[2020-06-23] MEDS: INSULIN ASPART (NovoLOG) 100 UNIT/ML VIAL SQ SCH ×4 (06:49→21:37)
[2020-06-23] MEDS: KETOROLAC 15 MG/ML 1 ML VIAL IVP SCH ×4 (06:51→23:16)
[2020-06-23] MEDS: MIDODRINE 5 MG TAB PO SCH ×5 (06:52→17:00)
[2020-06-23] MEDS: PANTOPRAZOLE 40 MG TABLET PO SCH (06:52)
[2020-06-23 07:32] LABS: HCT 22.7 % (34.0-46.0); HGB 7.7 gm/dL (11.4-16.0); MCH 32.3 pg (25.0-35.0); MCHC 33.7 g/dL (31.0-37.0); MCV 95.9 fL (80.0-100.0); Mean Platelet Volume 7.5; Platelet Count 139 k/uL (150-450); RBC 2.37 m/uL (3.80-5.40); RDW 14.1 % (11.5-15.5); WBC 8.3 k/uL (3.8-10.6)
[2020-06-23] MEDS: IPRATROPIUM-ALBUTEROL 3 ML NEB INHALATION SCH ×4 (07:36→20:21)
[2020-06-23 07:45] LABS: Albumin 3.1 g/dL (3.5-5.0); Calcium 8.8 mg/dL (8.4-10.2); Magnesium 2.7 mg/dL (1.6-2.3); Potassium 4.2 mmol/L (3.5-5.1); Total Bilirubin 1.3 mg/dL (0.2-1.3); Total Protein 5.4 g/dL (6.3-8.2)
--- NOTE | 2020-06-23 07:58 | P.PN ---
Subjective Progress Note Date: 06/23/20 Principal diagnosis: Symptomatic severe bicuspid aortic valve stenosis. Previous medical history of hypertension, hyperlipidemia, preoperative syncopal event with traumatic facial trauma, chronic systolic heart failure with left ventricular dysfunction and EF 35% on most recent echocardiogram, never smoker. POD #4 aortic valve replacement using a 21 mm Inspiris pericardial bi oprosthesis, exclusion of the left atrial appendage using a 35 mm Atriclip, intraoperative transesophageal echocardiogram and epi-aortic scanning. Postoperative acute blood loss anemia, expected due to cardiopulmonary bypass and hemodilution Paroxysmal atrial fibrillation, known potential complication of open heart surgery The patient's currently sitting up in a recliner on the cardiac stepdown unit in no acute distress. States she's feeling this morning, she got decent sleep last night. Denies pain or shortness of breath. Remains in sinus rhythm. Blood pressure was marginal yesterday, medications adjusted. All unnecessary lines and tubes have been discontinued, epicardial pacemaker wires remain but grounded. Ambulated in hallway yesterday without difficulty, received first postop shower yesterday. No new concerns. Objective - Vital Signs Vital signs: Vital Signs Temp 98.2 F 06/23/20 04:00 Pulse 63 06/23/20 07:48 Resp 18 06/23/20 04:00 BP 101/60 06/23/20 04:00 Pulse Ox 93 L 06/23/20 07:36 Intake & Output 06/22/20 06/23/20 06/23/20 18:59 06:59 18:59 Intake Total 650 10 Balance 650 10 Weight 67.4 kg Intake: IV 90 10 Invasive Line 5 10 KVO 90 Oral 560 Other: Voiding Method Bedside Commode Toilet # Voids 1 2 ABP, PAP, CO, CI - Last Documented Arterial Blood Pressure 100/43 Pulmonary Artery Pressure 60/36 Cardiac Output 4.4 Cardiac Index 2.8 - Constitutional General appearance: Present: cooperative, no acute distress - Respiratory Details: Lungs sounds very diminished bases. Respirations even, nonlabored. Currently on 2 L nasal cannula with oxygen saturation 96%. Only able to achieve 500 mL on incentive spirometry with weak effort. Strong nonproductive cough. - Cardiovascular Details: S1, S2 present. Regular rate and rhythm, sinus rhythm on telemetry with heart rate in the 60s. Sternum stable. A/V epicardial pacemaker wires present, grounded. Palpable peripheral pulses bilaterally. No edema present. No calf pain or tenderness noted. Heart hugger in place with patient demonstrating appropriate use. Antiembolism stockings, SCDs present. - Gastrointestinal Gastrointestinal Comment(s): Abdomen soft, nontender, nondistended. Active bowel sounds present 4 quadrants. Tolerating diet. Positive bowel movement 06/22. - Genitourinary Genitourinary Comment(s): Continues to void - Integumentary Integumentary Comment(s): Skin is warm and dry with evidence of good perfusion. Anterior chest incision well approximated without redness or drainage - Neurologic Neurologic: Present: CNII-XII intact - Musculoskeletal Musculoskeletal: Present: gait normal, strength equal bilaterally - Psychiatric Psychiatric: Present: A&O x's 3, appropriate affect - Allied health notes Allied health notes reviewed: nursing - Labs CBC & Chem 7: 06/23/20 06:43 06/23/20 06:43 Labs: Abnormal Lab Results - Last 24 Hours (Table) 06/22/20 06/22/20 06/22/20 Range/Units 11:04 11:56 17:06 RBC (3.80-5.40) m/uL Hgb (11.4-16.0) gm/dL Hct (34.0-46.0) % Plt Count (150-450) k/uL BUN (7-17) mg/dL Glucose (74-99) mg/dL POC Glucose (mg/dL) 168 H 132 H 111 H (75-99) mg/dL Magnesium (1.6-2.3) mg/dL AST (14-36) U/L ALT (4-34) U/L Total Protein (6.3-8.2) g/dL Albumin (3.5-5.0) g/dL 06/22/20 06/23/20 06/23/20 Range/Units 20:05 02:01 06:16 RBC (3.80-5.40) m/uL Hgb (11.4-16.0) gm/dL Hct (34.0-46.0) % Plt Count (150-450) k/uL BUN (7-17) mg/dL Glucose (74-99) mg/dL POC Glucose (mg/dL) 185 H 130 H 129 H (75-99) mg/dL Magnesium (1.6-2.3) mg/dL AST (14-36) U/L ALT (4-34) U/L Total Protein (6.3-8.2) g/dL Albumin (3.5-5.0) g/dL 06/23/20 06/23/20 Range/Units 06:43 06:43 RBC 2.37 L (3.80-5.40) m/uL Hgb 7.7 L (11.4-16.0) gm/dL Hct 22.7 L (34.0-46.0) % Plt Count 139 L (150-450) k/uL BUN 28 H (7-17) mg/dL Glucose 122 H (74-99) mg/dL POC Glucose (mg/dL) (75-99) mg/dL Magnesium 2.7 H (1.6-2.3) mg/dL AST 75 H (14-36) U/L ALT 119 H (4-34) U/L Total Protein 5.4 L (6.3-8.2) g/dL Albumin 3.1 L (3.5-5.0) g/dL - Imaging and Cardiology Chest x-ray: image reviewed Assessment and Plan Assessment: 1. Symptomatic severe bicuspid aortic valve stenosis, status post bioprosthetic aortic valve replacement 2. History of hypertension 3. Hyperlipidemia, treated, cholesterol 160, LDL 91 4. Preoperative syncopal event with traumatic facial trauma 5. Chronic systolic heart failure with left ventricular dysfunction and EF 35% on most recent echocardiogram 6. Never smoker with preoperative FEV1 80% of predicted 7. Postoperative acute blood loss anemia, expected due to cardiopulmonary bypass and hemodilution 8. Paroxysmal atrial fibrillation, known potential complication of open heart surgery, status post left atrial appendage ligation Plan: 1. Continue aspirin, statin, Plavix, low-dose Julian, beta jose therapy. Will increase beta jose therapy as tolerated 2. Continue amiodarone. No anticoagulation necessary at this time 3. Wean O2 as tolerated. Encourage incentive spirometry is 10 times every hour while awake. Bronchodilators per pulmonology. 4. Increase activity, ambulate as tolerated. PT/OT/cardiac rehab following. 5. Will monitor daily labs and chest x-rays. Electrolyte replacement per protocol. No further transfusions at this time. 6. GI/DVT prophylaxis. 7. Insulin management per primary care service. Patient is not diabetic, preoperative hemoglobin A1c 6.2% 8. Strict intake and output, daily weights 9. Will obtain ultrasound of the chest for possible thoracentesis 10. Pain controlled current medication regimen, no narcotics 11. Discharge planning in progress. Anticipate discharge Thursday to inpatient rehab 12. More recommendations to follow based on patient's clinical course. Time with Patient: Greater than 30
[2020-06-23] MEDS: HEPARIN SODIUM,PORCINE 5,000 UNIT/ML 1 ML VIAL SQ SCH ×3 (08:23→23:16)
[2020-06-23] MEDS: METOPROLOL TARTRATE 25 MG TAB PO SCH ×2 (08:23→21:33)
[2020-06-23] MEDS: CLOPIDOGREL 75 MG TAB PO SCH (08:23)
[2020-06-23] MEDS: ASPIRIN 325 MG TAB PO SCH (08:23)
--- NOTE | 2020-06-23 08:45 | XR ---
EXAMINATION TYPE: XR chest 2V DATE OF EXAM: 06/23/2020 COMPARISON: 06/22/2020 HISTORY: 69 year-old female post cardiac surgery TECHNIQUE: AP and lateral views FINDINGS: Median sternotomy wires are present. Epicardial pacer leads. Prosthetic aortic valve. Continued moder ate right and small left effusions with associated opacities. No appreciable pneumothorax. IMPRESSION: Continued moderate right and small left pleural effusions with adjacent atelectasis and/or consolidat ion.
--- NOTE | 2020-06-23 08:54 | US ---
EXAMINATION TYPE: US chest DATE OF EXAM: 06/23/2020 COMPARISON: Correlation radiograph same day CLINICAL HISTORY: 69-year-old female possible thoracentesis. Pleural effusion TECHNIQUE: Targeted ultrasound of the posterior lower bilateral hemithoraces FINDINGS: EXAM MEASUREMENTS: Right Pleural Effusion pocket size: 9.1 cm Right skin surface to fluid distance: 2.8 cm Lung seen within mid portion of fluid pocket at a depth of 5.3cm Left Pleural Effusion pocket size: 5.8 cm Left skin surface to fluid distance: 2.6 cm Lung seen within mid portion of fluid pocket at a depth of 4.0cm Right side marked for possible thoracentesis outside the dept. Left side marked for possible thoracentesis outside the dept. Pulmonologists are able to review the images in the patient?s EMR. IMPRESSIONS: Moderate right and [id number] left pleural effusions. Underlying atelectatic lung as indicated above.
[2020-06-23] MEDS: AMIODARONE 200 MG TAB PO SCH ×2 (09:35→22:41)
[2020-06-23 11:57] LABS: Glucose,Whole Blood 132 mg/dL (75-99)
[2020-06-23] MEDS: ASCORBIC ACID 500 MG TAB PO SCH (12:12)
[2020-06-23] MEDS: FERROUS SULFATE 325 MG TAB PO SCH (12:13)
--- NOTE | 2020-06-23 13:08 | P.PN ---
Subjective Progress Note Date: 06/23/20 This is a pleasant 69-year-old female patient with a history of bicuspid aortic valve, cardiomyopathy, congestive heart failure. She underwent aortic valve replacement and is postop day #4. The left atrial appendage during surgery. She did have some episodes of paroxysmal atrial fibrillation postoperatively but has since converted back to sinus rhythm following amiodarone bolus. She is currently on amiodarone 400 mg by mouth twice a day, aspirin, Plavix, Zestril and Lopressor. Overall she's doing fairly well. She is currently maintaining sinus mechanism. He is using her incentive spirometer and is getting it up to about 750-1000 mL's. These labs show stable hemoglobin of 7.7, ST and 4.2, BUN 28, creatinine 0.9 to, magnesium 2.7, AST 75 and ALT 119 which are improved from previous. Objective - Vital Signs Vital signs: Vital Signs Temp 98.7 F 06/23/20 08:00 Pulse 53 L 06/23/20 11:25 Resp 18 06/23/20 11:25 BP 104/60 06/23/20 11:25 Pulse Ox 92 L 06/23/20 11:25 Intake & Output 06/22/20 06/23/20 06/23/20 18:59 06:59 18:59 Intake Total 650 10 240 Balance 650 10 240 Weight 67.4 kg Intake: IV 90 10 Invasive Line 5 10 KVO 90 Oral 560 240 Other: Voiding Method Bedside Commode Toilet Toilet # Voids 1 2 2 ABP, PAP, CO, CI - Last Documented Arterial Blood Pressure 100/43 Pulmonary Artery Pressure 60/36 Cardiac Output 4.4 Cardiac Index 2.8 - Exam PHYSICAL EXAMINATION: HEENT: [Head is atraumatic, normocephalic. Pupils equal, round. Neck is supple. There is no elevated jugular venous pressure.] HEART EXAMINATION: [Heart sounds regular, S1 and S2 normal. ] CHEST EXAMINATION:[ Lungs are clear to auscultation. No chest wall tenderness is noted on palpation or with deep breathing. Epicardial pacemaker leads in place midsternal dressing dry and intact. Her are in place] ABDOMEN: [ Soft, nontender. Bowel sounds are heard. No organomegaly noted]. EXTREMITIES:[ 2+ peripheral pulses with no evidence of peripheral edema and no calf tenderness noted]. NEUROLOGIC [patient is awake, alert and oriented x3.] . - Labs CBC & Chem 7: 06/23/20 06:43 06/23/20 06:43 Labs: Abnormal Lab Results - Last 24 Hours (Table) 06/22/20 06/22/20 06/23/20 Range/Units 17:06 20:05 02:01 RBC (3.80-5.40) m/uL Hgb (11.4-16.0) gm/dL Hct (34.0-46.0) % Plt Count (150-450) k/uL BUN (7-17) mg/dL Glucose (74-99) mg/dL POC Glucose (mg/dL) 111 H 185 H 130 H (75-99) mg/dL Magnesium (1.6-2.3) mg/dL AST (14-36) U/L ALT (4-34) U/L Total Protein (6.3-8.2) g/dL Albumin (3.5-5.0) g/dL 06/23/20 06/23/20 06/23/20 Range/Units 06:16 06:43 06:43 RBC 2.37 L (3.80-5.40) m/uL Hgb 7.7 L (11.4-16.0) gm/dL Hct 22.7 L (34.0-46.0) % Plt Count 139 L (150-450) k/uL BUN 28 H (7-17) mg/dL Glucose 122 H (74-99) mg/dL POC Glucose (mg/dL) 129 H (75-99) mg/dL Magnesium 2.7 H (1.6-2.3) mg/dL AST 75 H (14-36) U/L ALT 119 H (4-34) U/L Total Protein 5.4 L (6.3-8.2) g/dL Albumin 3.1 L (3.5-5.0) g/dL 06/23/20 Range/Units 11:56 RBC (3.80-5.40) m/uL Hgb (11.4-16.0) gm/dL Hct (34.0-46.0) % Plt Count (150-450) k/uL BUN (7-17) mg/dL Glucose (74-99) mg/dL POC Glucose (mg/dL) 132 H (75-99) mg/dL Magnesium (1.6-2.3) mg/dL AST (14-36) U/L ALT (4-34) U/L Total Protein (6.3-8.2) g/dL Albumin (3.5-5.0) g/dL Assessment and Plan Assessment: 1 bicuspid aortic valve, status post aortic valve replacement 2 dilated cardiomyopathy with congestive heart failure 3 paroxysmal atrial fibrillation Plan: From cardiology's perspective medications were reviewed and will continue the same. Continue amiodarone for now. We will continue to follow the patient right further recommendations accordingly. The above dictated assessment and findings were discussed with signing physician. The impression and plan of care have been directed as dictated. Hanh Carrera, Nurse Practitioner, acting as scribe for signing physician.
[2020-06-23 16:45] LABS: Glucose,Whole Blood 114 mg/dL (75-99)
[2020-06-23 20:16] LABS: Glucose,Whole Blood 139 mg/dL (75-99)
[2020-06-23] MEDS: SENNOSIDES-DOCUSATE SODIUM 1 EACH TAB PO SCH (21:33)
[2020-06-23] MEDS: ATORVASTATIN 40 MG TAB PO SCH (21:33)
[2020-06-24 01:53] LABS: Glucose,Whole Blood 143 mg/dL (75-99)
[2020-06-24] MEDS ORDERED: METOPROLOL TARTRATE 25 MG TAB PO STA (05:51)
[2020-06-24] MEDS: KETOROLAC 15 MG/ML 1 ML VIAL IVP SCH ×3 (06:00→17:11)
[2020-06-24 06:15] LABS: Glucose,Whole Blood 166 mg/dL (75-99)
[2020-06-24] MEDS ORDERED: AMIODARONE 200 MG TAB PO ONE (06:50)
[2020-06-24] MEDS: PANTOPRAZOLE 40 MG TABLET PO SCH (07:00)
[2020-06-24] MEDS: MIDODRINE 5 MG TAB PO SCH ×3 (07:00→16:28)
[2020-06-24] MEDS: INSULIN ASPART (NovoLOG) 100 UNIT/ML VIAL SQ SCH ×4 (07:01→20:47)
[2020-06-24 08:18] LABS: HCT 22.8 % (34.0-46.0); HGB 7.2 gm/dL (11.4-16.0); MCHC 31.8 g/dL (31.0-37.0); MCV 97.2 fL (80.0-100.0); Mean Platelet Volume 8.6; Platelet Count 111 k/uL (150-450); RBC 2.34 m/uL (3.80-5.40); RDW 14.2 % (11.5-15.5); WBC 5.4 k/uL (3.8-10.6)
[2020-06-24] MEDS: METOPROLOL TARTRATE 25 MG TAB PO SCH ×2 (08:25→13:04)
[2020-06-24] MEDS: AMIODARONE 200 MG TAB PO SCH ×2 (08:25→20:47)
--- NOTE | 2020-06-24 08:27 | XR ---
EXAMINATION TYPE: XR chest 1V portable DATE OF EXAM: 06/24/2020 COMPARISON: 06/23/2020 HISTORY: Evidence of breath TECHNIQUE: Single frontal view of the chest is obtained. FINDINGS: Postoperative changes with bilateral consolidation and pleural effusion stable appearance. No pneumothorax. Arthropathy of the shoulders. IMPRESSION: Bilateral lower lobe infiltrate and pleural effusion stable.
[2020-06-24] MEDS: IPRATROPIUM-ALBUTEROL 3 ML NEB INHALATION SCH ×4 (08:29→20:22)
[2020-06-24] MEDS: HEPARIN SODIUM,PORCINE 5,000 UNIT/ML 1 ML VIAL SQ SCH ×3 (08:38→23:46)
[2020-06-24 08:39] LABS: African American GFR (CKD) >90 (>60 ml/min/1.73 sqM); Anion Gap 8 mmol/L; Blood Urea Nitrogen 26 mg/dL (7-17); Calcium 8.6 mg/dL (8.4-10.2); Carbon Dioxide 25 mmol/L (22-30); Chloride 108 mmol/L (98-107); Glucose 128 mg/dL (74-99); Non-African American GFR(CKD) 85 (>60 ml/min/1.73 sqM); Potassium 4.5 mmol/L (3.5-5.1); Sodium 141 mmol/L (137-145)
[2020-06-24] MEDS: CLOPIDOGREL 75 MG TAB PO SCH (08:39)
[2020-06-24] MEDS: ASPIRIN 325 MG TAB PO SCH (08:39)
[2020-06-24] MEDS ORDERED: FUROSEMIDE 10 MG/ML 2 ML VIAL IV ONE ×2 (08:53→16:00)
--- NOTE | 2020-06-24 09:10 | P.PN ---
Subjective Progress Note Date: 06/24/20 Principal diagnosis: Symptomatic severe bicuspid aortic valve stenosis. Previous medical history of hypertension, hyperlipidemia, preoperative syncopal event with traumatic facial trauma, chronic systolic heart failure with left ventricular dysfunction and EF 35% on most recent echocardiogram, never smoker. POD #5 aortic valve replacement using a 21 mm Inspiris pericardial bi oprosthesis, exclusion of the left atrial appendage using a 35 mm Atriclip, intraoperative transesophageal echocardiogram and epi-aortic scanning. Postoperative acute blood loss anemia, expected due to cardiopulmonary bypass and hemodilution Paroxysmal atrial fibrillation, known potential complication of open heart surgery The patient's currently sitting up in a recliner on the cardiac stepdown unit in no acute distress. Denies pain or shortness of breath. Did have a brief episode of A. fib with RVR again this morning after amiodarone and Lopressor decreased yesterday due to episodes of hypotension, converted this morning back to sinus rhythm after higher dose amiodarone and Lopressor given, currently in sinus rhythm with rate in the 70s. Epicardial pacemaker wires remain but ground ed. Ultrasound of the chest completed yesterday reviewed with Dr. Casillas, moderate right pleural effusion and small to moderate left pleural effusion present, however both fluid pockets contain lung, no thoracentesis at this time. Ambulated in hallway yesterday without difficulty. No new concerns. Objective - Vital Signs Vital signs: Vital Signs Temp 97.1 F L 06/24/20 08:00 Pulse 68 06/24/20 08:38 Resp 18 06/24/20 08:00 BP 107/57 06/24/20 08:00 Pulse Ox 99 06/23/20 23:59 Intake & Output 06/23/20 06/24/20 06/24/20 18:59 06:59 18:59 Intake Total 816 20 10 Output Total 0 Balance 816 20 10 Weight 66.9 kg Intake: IV 20 10 Invasive Line 5 20 10 Oral 816 Output: Urine 0 Other: Voiding Method Toilet Toilet # Voids 1 1 ABP, PAP, CO, CI - Last Documented Arterial Blood Pressure 100/43 Pulmonary Artery Pressure 60/36 Cardiac Output 4.4 Cardiac Index 2.8 - Constitutional General appearance: Present: cooperative, no acute distress - Respiratory Details: Lungs sounds very diminished bases. Respirations even, nonlabored. Currently on 2 L nasal cannula with oxygen saturation 98%. Only able to achieve 500 mL on incentive spirometry with weak effort. Strong nonproductive cough. - Cardiovascular Details: S1, S2 present. Regular rate and rhythm, sinus rhythm on telemetry with heart rate in the 70s. Sternum stable. A/V epicardial pacemaker wires present, grounded. Palpable peripheral pulses bilaterally. No edema present. No calf pain or tenderness noted. Heart hugger in place with patient demonstrating appropriate use. Antiembolism stockings, SCDs present. - Gastrointestinal Gastrointestinal Comment(s): Abdomen soft, nontender, nondistended. Active bowel sounds present 4 quadrants. Tolerating diet. Positive bowel movement 06/22. - Genitourinary Genitourinary Comment(s): Continues to void - Integumentary Integumentary Comment(s): Skin is warm and dry with evidence of good perfusion. Anterior chest incision well approximated without redness or drainage - Neurologic Neurologic: Present: CNII-XII intact - Musculoskeletal Musculoskeletal: Present: gait normal, strength equal bilaterally - Psychiatric Psychiatric: Present: A&O x's 3, appropriate affect, intact judgment & insight - Allied health notes Allied health notes reviewed: nursing - Labs CBC & Chem 7: 06/24/20 07:12 06/24/20 07:12 Labs: Abnormal Lab Results - Last 24 Hours (Table) 06/23/20 06/23/20 06/23/20 Range/Units 11:56 16:44 20:14 RBC (3.80-5.40) m/uL Hgb (11.4-16.0) gm/dL Hct (34.0-46.0) % Plt Count (150-450) k/uL Chloride (98-107) mmol/L BUN (7-17) mg/dL Glucose (74-99) mg/dL POC Glucose (mg/dL) 132 H 114 H 139 H (75-99) mg/dL 06/24/20 06/24/20 06/24/20 Range/Units 01:51 06:13 07:12 RBC 2.34 L (3.80-5.40) m/uL Hgb 7.2 L (11.4-16.0) gm/dL Hct 22.8 L (34.0-46.0) % Plt Count 111 L (150-450) k/uL Chloride (98-107) mmol/L BUN (7-17) mg/dL Glucose (74-99) mg/dL POC Glucose (mg/dL) 143 H 166 H (75-99) mg/dL 06/24/20 Range/Units 07:12 RBC (3.80-5.40) m/uL Hgb (11.4-16.0) gm/dL Hct (34.0-46.0) % Plt Count (150-450) k/uL Chloride 108 H (98-107) mmol/L BUN 26 H (7-17) mg/dL Glucose 128 H (74-99) mg/dL POC Glucose (mg/dL) (75-99) mg/dL - Imaging and Cardiology Chest x-ray: report reviewed, image reviewed Assessment and Plan Assessment: 1. Symptomatic severe bicuspid aortic valve stenosis, status post bioprosthetic aortic valve replacement 2. History of hypertension 3. Hyperlipidemia, treated, cholesterol 160, LDL 91 4. Preoperative syncopal event with traumatic facial trauma 5. Chronic systolic heart failure with left ventricular dysfunction and EF 35% on most recent echocardiogram 6. Never smoker with preoperative FEV1 80% of predicted 7. Postoperative acute blood loss anemia, expected due to cardiopulmonary bypass and hemodilution 8. Paroxysmal atrial fibrillation, known potential complication of open heart surgery, status post left atrial appendage ligation Plan: 1. Continue aspirin, statin, Plavix, low-dose Julian, beta jose therapy. Will increase beta jose therapy as tolerated 2. Continue amiodarone. No anticoagulation necessary at this time 3. Wean O2 as tolerated. Encourage incentive spirometry is 10 times every hour while awake. Bronchodilators per pulmonology. 4. Increase activity, ambulate as tolerated. PT/OT/cardiac rehab following. 5. Will monitor daily labs and chest x-rays. Electrolyte replacement per protocol. No further transfusions at this time. We'll give IV Lasix today 6. GI/DVT prophylaxis. 7. Insulin management per primary care service. Patient is not diabetic, preop erative hemoglobin A1c 6.2% 8. Strict intake and output, daily weights 9. Pain controlled current medication regimen, no narcotics 10. Discharge planning in progress. Anticipate discharge Thursday to inpatient rehab 11. More recommendations to follow based on patient's clinical course. Time with Patient: Greater than 30
--- NOTE | 2020-06-24 10:07 | P.PN ---
Subjective Progress Note Date: 06/24/20 Principal diagnosis: Severe aortic stenosis with bicuspid aortic valve status post to the aortic valve replacement Successfully weaned and extubated on 2 L oxygen Severe acute anemia Hypotension likely due to anemia Hypertension hypertensive cardiovascular disease Dyslipidemia Chronic systolic heart failure baseline ejection fraction of 15-20% Obstructive sleep apnea 06/24/2020, patient seen eval examined during the rounds, denies any chest pain, breathing is stable, hemodynamic status stable oxygen saturation is 99%, status post bilateral ultrasound small to moderate pleural effusion is present due to presence of intervening portion of the lung high risk for intervention like thoracentesis was plan to monitor observe closely, chest x-ray performed today showed no significant worsening 06/22/2020, patient seen eval examined during rounds sitting upright on the chair breathing comfortably on 2 L oxygen, patient went into A. fib RVR required amiodarone currently on by mouth, labs reviewed white cell count is 8900 with hemoglobin of 7.6, noted AST and ALT mildly up along with total bilirubin 1.7 AST/ALT of 101/130, Will follow closely 06/21/2020, patient seen and evaluated examined during the rounds labs reviewed medications reviewed care plan discussed with the staff at length, patient is laying comfortably on bed breathing on 2 L oxygen, Pride-Kendy catheter has been removed, mediastinal tube has been removed, hemoglobin have been stable after transfusion 1 unit of packed RBC, chest x-ray performed today revealed continuation of bilateral basal atelectasis along with small trivial pleural effusion, some interstitial edema noted as well, as reviewed white cell count remained stable 8400, no clubbing is 7.6, platelet count is 91 is doing d eep breathing sense incentive spirometry up to 500 Patient is a 69-year-old well-known to me initially admitted with syncope found to have a significant aortic stenosis of severe category and bicuspid aortic well, patient has LV dysfunction with reduced ejection fraction 20%, she has receptive dyslipidemia hypertension hypertensive cardiovascular disease patient admitted electively for aortic valve replacement tolerated well successfully weaned and extubated, currently patient is on 2 L sitting upright postop day #1 blood pressure slightly low hemoglobin drop down to 6 undergoing unit of packed RBC, off of pressors, on insulin drip per protocol, awake and alert denies any chest pain or shortness of breath mild discomfort is present at the operative site, breathing comfortably on 2 L sats are 92-94%, but pressure systolic runs slightly low 90, sinus rhythm, doing well off incentive spirometry 500 ML's, range, chest x-ray performed today shows bilateral basal atelectasis/consolidation, stable mediastinal drain and Pride-Kendy catheter, and small effusions seen interstitial edema, along with postoperative changes Objective - Vital Signs Vital signs: Vital Signs Temp 97.1 F L 06/24/20 08:00 Pulse 68 06/24/20 08:38 Resp 18 06/24/20 08:00 BP 107/57 06/24/20 08:00 Pulse Ox 99 06/23/20 23:59 Intake & Output 06/23/20 06/24/20 06/24/20 18:59 06:59 18:59 Intake Total 816 20 10 Output Total 0 Balance 816 20 10 Weight 66.9 kg Intake: IV 20 10 Invasive Line 5 20 10 Oral 816 Output: Urine 0 Other: Voiding Method Toilet Toilet # Voids 1 1 ABP, PAP, CO, CI - Last Documented Arterial Blood Pressure 100/43 Pulmonary Artery Pressure 60/36 Cardiac Output 4.4 Cardiac Index 2.8 - Exam - Constitutional General appearance: average body habitus, disheveled, mild distress - EENT Eyes: PERRLA Ears: bilateral: normal - Neck Neck: normal ROM Carotids: bilateral: upstroke normal Thyroid: bilateral: normal size - Respiratory Respiratory: bilateral: diminished (Predominantly at the bases) - Cardiovascular Rhythm: regular Heart sounds: normal: S1, S2 - Gastrointestinal General gastrointestinal: normal bowel sounds - Integumentary Integumentary: normal turgor - Neurologic Neurologic: CNII-XII intact - Musculoskeletal Musculoskeletal: gait normal, generalized weakness, strength equal bilaterally - Psychiatric Psychiatric: A&O x's 3, appropriate affect, intact judgment & insight - Labs CBC & Chem 7: 06/24/20 07:12 06/24/20 07:12 Labs: Abnormal Lab Results - Last 24 Hours (Table) 06/23/20 06/23/20 06/23/20 Range/Units 11:56 16:44 20:14 RBC (3.80-5.40) m/uL Hgb (11.4-16.0) gm/dL Hct (34.0-46.0) % Plt Count (150-450) k/uL Chloride (98-107) mmol/L BUN (7-17) mg/dL Glucose (74-99) mg/dL POC Glucose (mg/dL) 132 H 114 H 139 H (75-99) mg/dL 06/24/20 06/24/20 06/24/20 Range/Units 01:51 06:13 07:12 RBC 2.34 L (3.80-5.40) m/uL Hgb 7.2 L (11.4-16.0) gm/dL Hct 22.8 L (34.0-46.0) % Plt Count 111 L (150-450) k/uL Chloride (98-107) mmol/L BUN (7-17) mg/dL Glucose (74-99) mg/dL POC Glucose (mg/dL) 143 H 166 H (75-99) mg/dL 06/24/20 Range/Units 07:12 RBC (3.80-5.40) m/uL Hgb (11.4-16.0) gm/dL Hct (34.0-46.0) % Plt Count (150-450) k/uL Chloride 108 H (98-107) mmol/L BUN 26 H (7-17) mg/dL Glucose 128 H (74-99) mg/dL POC Glucose (mg/dL) (75-99) mg/dL Assessment and Plan Assessment: Bilateral pleural effusion A. fib with RVR on amiodarone well controlled, Mildly elevated liver enzymes Thrombocytopenia stable Severe aortic stenosis with bicuspid aortic valve status post to the aortic valve replacement Successfully weaned and extubated on 2 L oxygen Severe acute anemia Hypotension likely due to anemia Hypertension hypertensive cardiovascular disease Dyslipidemia Chronic systolic heart failure baseline ejection fraction of 15-20% Obstructive sleep apnea Plan: Monitor observe effusion closely no plans for thoracentesis at this point Monitor observe hemoglobin as well as platelet count closely monitor observe liver functions closely keep hemoglobin over 7 Deep breathing sense incentive spirometry early ambulation Supplemental oxygen Increase activity as tolerated Patient can be moved to selective care Follow clinical course closely further recommendations pending
[2020-06-24 11:38] LABS: Glucose,Whole Blood 123 mg/dL (75-99)
[2020-06-24] MEDS: ASCORBIC ACID 500 MG TAB PO SCH (12:12)
[2020-06-24] MEDS: FERROUS SULFATE 325 MG TAB PO SCH (12:12)
--- NOTE | 2020-06-24 14:35 | P.PN ---
Subjective Progress Note Date: 06/24/20 This is a pleasant 69-year-old female patient with a history of bicuspid aortic valve, cardiomyopathy, congestive heart failure. She underwent aortic valve replacement and is postop day #4. The left atrial appendage during surgery. She did have some episodes of paroxysmal atrial fibrillation postoperatively but has since converted back to sinus rhythm following amiodarone bolus. She is currently on amiodarone 400 mg by mouth twice a day, aspirin, Plavix, Zestril and Lopressor. Overall she's doing fairly well. She is currently maintaining sinus mechanism. He is using her incentive spirometer and is getting it up to about 750-1000 mL's. These labs show stable hemoglobin of 7.7, ST and 4.2, BUN 28, creatinine 0.9 to, magnesium 2.7, AST 75 and ALT 119 which are improved from previous. 06/24/20 Patient went into atrial fibrillation this morning with rapid ventricular response. She was given extra dose of metoprolol and amiodarone. She continues to be in atrial fibrillation however heart rate is controlled. On examination she is resting comfortably in bed. She feels better than she did this morning. Easy use her IS. Objective - Vital Signs Vital signs: Vital Signs Temp 97.1 F L 06/24/20 08:00 Pulse 93 06/24/20 14:00 Resp 16 06/24/20 11:07 BP 107/52 06/24/20 11:07 Pulse Ox 94 L 06/24/20 11:07 Intake & Output 06/23/20 06/24/20 06/24/20 18:59 06:59 18:59 Intake Total 816 20 138 Output Total 0 500 Balance 816 20 -362 Weight 66.9 kg Intake: IV 20 20 Invasive Line 5 20 20 Oral 816 118 Output: Urine 0 500 Other: Voiding Method Toilet Toilet # Voids 1 1 1 ABP, PAP, CO, CI - Last Documented Arterial Blood Pressure 100/43 Pulmonary Artery Pressure 60/36 Cardiac Output 4.4 Cardiac Index 2.8 - Exam PHYSICAL EXAMINATION: HEENT: Head is atraumatic, normocephalic. Pupils equal, round. Neck is supple. There is no elevated jugular venous pressure. HEART EXAMINATION: Heart sounds irregularly irregular, S1 and S2 normal. CHEST EXAMINATION: Lungs are clear to auscultation. No chest wall tenderness is noted on palpation or with deep breathing. Epicardial pacemaker leads in place midsternal dressing dry and intact. Her are in place ABDOMEN: Soft, nontender. Bowel sounds are heard. No organomegaly noted. EXTREMITIES: 2+ peripheral pulses with no evidence of peripheral edema and no calf tenderness noted. NEUROLOGIC patient is awake, alert and oriented x3. . - Labs CBC & Chem 7: 06/24/20 07:12 06/24/20 07:12 Labs: Abnormal Lab Results - Last 24 Hours (Table) 06/23/20 06/23/20 06/24/20 Range/Units 16:44 20:14 01:51 RBC (3.80-5.40) m/uL Hgb (11.4-16.0) gm/dL Hct (34.0-46.0) % Plt Count (150-450) k/uL Chloride (98-107) mmol/L BUN (7-17) mg/dL Glucose (74-99) mg/dL POC Glucose (mg/dL) 114 H 139 H 143 H (75-99) mg/dL 06/24/20 06/24/20 06/24/20 Range/Units 06:13 07:12 07:12 RBC 2.34 L (3.80-5.40) m/uL Hgb 7.2 L (11.4-16.0) gm/dL Hct 22.8 L (34.0-46.0) % Plt Count 111 L (150-450) k/uL Chloride 108 H (98-107) mmol/L BUN 26 H (7-17) mg/dL Glucose 128 H (74-99) mg/dL POC Glucose (mg/dL) 166 H (75-99) mg/dL 06/24/20 Range/Units 11:37 RBC (3.80-5.40) m/uL Hgb (11.4-16.0) gm/dL Hct (34.0-46.0) % Plt Count (150-450) k/uL Chloride (98-107) mmol/L BUN (7-17) mg/dL Glucose (74-99) mg/dL POC Glucose (mg/dL) 123 H (75-99) mg/dL Assessment and Plan Assessment: 1 bicuspid aortic valve, status post aortic valve replacement 2 dilated cardiomyopathy with congestive heart failure 3 paroxysmal atrial fibrillation Plan: From cardiology's perspective medications were reviewed and will continue the same. Continue amiodarone for now. We will continue to follow the patient right further recommendations accordingly. The above dictated assessment and findings were discussed with signing physician. The impression and plan of care have been directed as dictated. Hanh Carrera, Nurse Practitioner, acting as scribe for signing physician.
[2020-06-24 16:54] LABS: Glucose,Whole Blood 198 mg/dL (75-99)
[2020-06-24] MEDS ORDERED: METOPROLOL TARTRATE 25 MG TAB PO SCH ×2 (18:00→21:00)
[2020-06-24 20:29] LABS: Glucose,Whole Blood 190 mg/dL (75-99)
[2020-06-24] MEDS: SENNOSIDES-DOCUSATE SODIUM 1 EACH TAB PO SCH (20:47)
[2020-06-24] MEDS: ATORVASTATIN 40 MG TAB PO SCH (20:47)
[2020-06-25] MEDS: METOPROLOL TARTRATE 25 MG TAB PO SCH ×4 (00:01→22:08)
--- NOTE | 2020-06-25 01:27 | P.PN ---
Subjective Progress Note Date: 06/24/20 Principal diagnosis: Symptomatic severe bicuspid aortic valve stenosis Postoperative aortic valve replacement 06/22/20 Evaluated patient this a.m., resting comfortably in chair, postop day 3 from open heart surgery with aortic valve replacement. Patient alert, awake and oriented 3. Patient denies fever, chills, palpitations, abdominal pain, nausea, vomiting, or diarrhea . Patient noted to in be normal sinus rhythm on the monitorpacer wires still present. 06/23/2020 Patient is status post aortic valve replacement. Postoperative day 4. Currently patient is resting in the bed comfortably. Denies any complaints of chest pain. Heart rate is controlled. Patient had paroxysmal atrial fibrillation postoperatively currently in sinus rhythm. Continued on amiodarone. Laboratory data showed hemoglobin 7.7, BUN 28 and creatinine 0.9 liver enzymes are improving. Cardiology and CT surgery is on board. 06/24/2020 Patient is currently lying in the bed feeling anxious. Patient went into A. fib with RVR again this morning. Was given extra dose of metoprolol and amiodarone and cardiology is following. Currently heart rate is improving. No complaints of chest pain. No nausea vomiting abdominal pain or diarrhea. No fever no chills. No dysuria or hematuria. Current medications reviewed. Objective - Vital Signs Vital signs: Vital Signs Temp 97 F L 06/24/20 16:00 Pulse 76 06/24/20 16:00 Resp 16 06/24/20 16:00 BP 93/54 06/24/20 16:00 Pulse Ox 95 06/24/20 16:00 Intake & Output 06/23/20 06/24/20 06/24/20 18:59 06:59 18:59 Intake Total 816 20 378 Output Total 0 1200 Balance 816 20 -822 Weight 66.9 kg Intake: IV 20 20 Invasive Line 5 20 20 Oral 816 358 Output: Urine 0 1200 Other: Voiding Method Toilet Toilet # Voids 1 1 1 ABP, PAP, CO, CI - Last Documented Arterial Blood Pressure 100/43 Pulmonary Artery Pressure 60/36 Cardiac Output 4.4 Cardiac Index 2.8 - Exam - Constitutional General appearance: Present: cooperative - EENT Eyes: Present: EOMI, PERRLA Ears: bilateral: normal - Neck Neck: Present: normal ROM Carotids: bilateral: upstroke normal Thyroid: bilateral: normal size - Respiratory Respiratory: bilateral: diminished (Anterior lung reyes), rales (Posterior bases) - Cardiovascular Details: Normal sinus rhythm mechanism Heart rate: 67 Rhythm: regular Heart sounds: normal: S1, S2 - Peripheral pulses radial pulse Peripheral Pulses: bilateral: Normal dorsalis pedis Peripheral Pulses: bilateral: Normal - Gastrointestinal General gastrointestinal: Present: normal bowel sounds - Integumentary Integumentary: Present: pale - Neurologic Neurologic: Present: CNII-XII intact - Musculoskeletal Musculoskeletal: Present: generalized weakness - Psychiatric Psychiatric: Present: A&O x's 3, appropriate affect, intact judgment & insight - Allied health notes Allied health notes reviewed: nursing - Labs CBC & Chem 7: 06/24/20 07:12 06/24/20 07:12 Labs: Abnormal Lab Results - Last 24 Hours (Table) 06/23/20 06/24/20 06/24/20 Range/Units 20:14 01:51 06:13 RBC (3.80-5.40) m/uL Hgb (11.4-16.0) gm/dL Hct (34.0-46.0) % Plt Count (150-450) k/uL Chloride (98-107) mmol/L BUN (7-17) mg/dL Glucose (74-99) mg/dL POC Glucose (mg/dL) 139 H 143 H 166 H (75-99) mg/dL 06/24/20 06/24/20 06/24/20 Range/Units 07:12 07:12 11:37 RBC 2.34 L (3.80-5.40) m/uL Hgb 7.2 L (11.4-16.0) gm/dL Hct 22.8 L (34.0-46.0) % Plt Count 111 L (150-450) k/uL Chloride 108 H (98-107) mmol/L BUN 26 H (7-17) mg/dL Glucose 128 H (74-99) mg/dL POC Glucose (mg/dL) 123 H (75-99) mg/dL 06/24/20 Range/Units 16:52 RBC (3.80-5.40) m/uL Hgb (11.4-16.0) gm/dL Hct (34.0-46.0) % Plt Count (150-450) k/uL Chloride (98-107) mmol/L BUN (7-17) mg/dL Glucose (74-99) mg/dL POC Glucose (mg/dL) 198 H (75-99) mg/dL Assessment and Plan Assessment: Status post aortic valve replacement day threefor history of severe aortic s tenosis with bicuspid aortic valve continue to follow treatment plan from cardiothoracic, cardiology, and pulmonology for recommendations and treatment plan Paroxysmal atrial fibrillation with RVR History of severe left ventricular dysfunction Hypertension Hyperlipidemia History of syncope History of tooth extraction Full code Continue medical management Time with Patient: Greater than 30
--- NOTE | 2020-06-25 01:27 | P.PN ---
Subjective Progress Note Date: 06/23/20 Principal diagnosis: Symptomatic severe bicuspid aortic valve stenosis Postoperative aortic valve replacement 06/22/20 Evaluated patient this a.m., resting comfortably in chair, postop day 3 from open heart surgery with aortic valve replacement. Patient alert, awake and oriented 3. Patient denies fever, chills, palpitations, abdominal pain, nausea, vomiting, or diarrhea . Patient noted to in be normal sinus rhythm on the monitorpacer wires still present. 06/23/2020 Patient is status post aortic valve replacement. Postoperative day 4. Currently patient is resting in the bed comfortably. Denies any complaints of chest pain. Heart rate is controlled. Patient had paroxysmal atrial fibrillation postoperatively currently in sinus rhythm. Continued on amiodarone. Laboratory data showed hemoglobin 7.7, BUN 28 and creatinine 0.9 liver enzymes are improving. Cardiology and CT surgery is on board. Current medications reviewed. Objective - Vital Signs Vital signs: Vital Signs Temp 98.7 F 06/23/20 08:00 Pulse 68 06/23/20 11:09 Resp 18 06/23/20 08:00 BP 106/51 06/23/20 08:00 Pulse Ox 90 L 06/23/20 08:00 Intake & Output 06/22/20 06/23/20 06/23/20 18:59 06:59 18:59 Intake Total 650 10 240 Balance 650 10 240 Weight 67.4 kg Intake: IV 90 10 Invasive Line 5 10 KVO 90 Oral 560 240 Other: Voiding Method Bedside Commode Toilet Toilet # Voids 1 2 ABP, PAP, CO, CI - Last Documented Arterial Blood Pressure 100/43 Pulmonary Artery Pressure 60/36 Cardiac Output 4.4 Cardiac Index 2.8 - Exam - Constitutional General appearance: Present: cooperative - EENT Eyes: Present: EOMI, PERRLA Ears: bilateral: normal - Neck Neck: Present: normal ROM Carotids: bilateral: upstroke normal Thyroid: bilateral: normal size - Respiratory Respiratory: bilateral: diminished (Anterior lung reyes), rales (Posterior bases) - Cardiovascular Details: Normal sinus rhythm mechanism Heart rate: 67 Rhythm: regular Heart sounds: normal: S1, S2 - Peripheral pulses radial pulse Peripheral Pulses: bilateral: Normal dorsalis pedis Peripheral Pulses: bilateral: Normal - Gastrointestinal General gastrointestinal: Present: normal bowel sounds - Integumentary Integumentary: Present: pale - Neurologic Neurologic: Present: CNII-XII intact - Musculoskeletal Musculoskeletal: Present: generalized weakness - Psychiatric Psychiatric: Present: A&O x's 3, appropriate affect, intact judgment & insight - Allied health notes Allied health notes reviewed: nursing - Labs CBC & Chem 7: 06/24/20 07:12 06/24/20 07:12 Labs: Abnormal Lab Results - Last 24 Hours (Table) 06/22/20 06/22/20 06/22/20 Range/Units 11:56 17:06 20:05 RBC (3.80-5.40) m/uL Hgb (11.4-16.0) gm/dL Hct (34.0-46.0) % Plt Count (150-450) k/uL BUN (7-17) mg/dL Glucose (74-99) mg/dL POC Glucose (mg/dL) 132 H 111 H 185 H (75-99) mg/dL Magnesium (1.6-2.3) mg/dL AST (14-36) U/L ALT (4-34) U/L Total Protein (6.3-8.2) g/dL Albumin (3.5-5.0) g/dL 06/23/20 06/23/20 06/23/20 Range/Units 02:01 06:16 06:43 RBC 2.37 L (3.80-5.40) m/uL Hgb 7.7 L (11.4-16.0) gm/dL Hct 22.7 L (34.0-46.0) % Plt Count 139 L (150-450) k/uL BUN (7-17) mg/dL Glucose (74-99) mg/dL POC Glucose (mg/dL) 130 H 129 H (75-99) mg/dL Magnesium (1.6-2.3) mg/dL AST (14-36) U/L ALT (4-34) U/L Total Protein (6.3-8.2) g/dL Albumin (3.5-5.0) g/dL 06/23/20 Range/Units 06:43 RBC (3.80-5.40) m/uL Hgb (11.4-16.0) gm/dL Hct (34.0-46.0) % Plt Count (150-450) k/uL BUN 28 H (7-17) mg/dL Glucose 122 H (74-99) mg/dL POC Glucose (mg/dL) (75-99) mg/dL Magnesium 2.7 H (1.6-2.3) mg/dL AST 75 H (14-36) U/L ALT 119 H (4-34) U/L Total Protein 5.4 L (6.3-8.2) g/dL Albumin 3.1 L (3.5-5.0) g/dL Assessment and Plan Assessment: Status post aortic valve replacement day threefor history of severe aortic stenosis with bicuspid aortic valve continue to follow treatment plan from cardiothoracic, cardiology, and pulmonology for recommendations and treatment plan Paroxysmal atrial fibrillation History of severe left ventricular dysfunction Hypertension Hyperlipidemia History of syncope History of tooth extraction Full code Continue medical management Time with Patient: Greater than 30
[2020-06-25 01:59] LABS: Glucose,Whole Blood 172 mg/dL (75-99)
[2020-06-25] MEDS: MIDODRINE 5 MG TAB PO SCH ×3 (06:29→18:21)
[2020-06-25] MEDS: PANTOPRAZOLE 40 MG TABLET PO SCH (06:29)
[2020-06-25 06:35] LABS: Glucose,Whole Blood 157 mg/dL (75-99)
[2020-06-25] MEDS: IPRATROPIUM-ALBUTEROL 3 ML NEB INHALATION SCH ×4 (08:15→19:49)
[2020-06-25 08:16] LABS: HCT 26.1 % (34.0-46.0); HGB 8.2 gm/dL (11.4-16.0); Hypochromasia Slight; MCH 30.7 pg (25.0-35.0); MCHC 31.4 g/dL (31.0-37.0); MCV 97.7 fL (80.0-100.0); Mean Platelet Volume 7.2; RBC 2.67 m/uL (3.80-5.40); RDW 14.9 % (11.5-15.5); WBC 9.8 k/uL (3.8-10.6)
[2020-06-25 08:32] LABS: Calcium 8.8 mg/dL (8.4-10.2); Magnesium 2.8 mg/dL (1.6-2.3); Platelet Count 242 k/uL (150-450); Potassium 3.9 mmol/L (3.5-5.1)
--- NOTE | 2020-06-25 09:05 | XR ---
EXAMINATION TYPE: XR chest 2V DATE OF EXAM: 06/25/2020 COMPARISON: 06/24/2020 TECHNIQUE: PA and lateral views submitted. HISTORY: Post cardiac surgery FINDINGS: Postoperative changes bilateral consolidation and small effusion. Heart enlarged. No pneumothorax. Ar thropathy of the shoulders. Diffuse interstitial pattern. Suggestion of epicardial lead. IMPRESSION: 1. Bilateral lower lobe infiltrate and pleural effusion correlate for pneumonia otherwise consider CH F.
[2020-06-25] MEDS: AMIODARONE 200 MG TAB PO SCH ×2 (09:35→20:08)
[2020-06-25] MEDS: HEPARIN SODIUM,PORCINE 5,000 UNIT/ML 1 ML VIAL SQ SCH ×3 (09:35→23:00)
[2020-06-25] MEDS: CLOPIDOGREL 75 MG TAB PO SCH (09:35)
[2020-06-25] MEDS: ASPIRIN 325 MG TAB PO SCH (09:35)
[2020-06-25] MEDS: FUROSEMIDE 10 MG/ML 2 ML VIAL IV SCH ×2 (09:39→18:22)
--- NOTE | 2020-06-25 11:16 | P.PN ---
Subjective Progress Note Date: 06/25/20 Principal diagnosis: Severe aortic stenosis with bicuspid aortic valve status post to the aortic valve replacement Successfully weaned and extubated on 2 L oxygen Severe acute anemia Hypotension likely due to anemia Hypertension hypertensive cardiovascular disease Dyslipidemia Chronic systolic heart failure baseline ejection fraction of 15-20% Obstructive sleep apnea 06/25/2020, patient seen eval examined sitting upright on the chair breathing comfortably, patient had another episode of A. fib with RVR during the shower yesterday, currently she is on room air breathing comfortably denies any chest pain has been concerned about episodes, she remains on amiodarone, she is afebrile heart rate is 94, regular denies any cough or sputum production, hemoglobin stable at 8.2 platelet count is up now, chest x-ray continue show bilateral atelectasis along with bilateral pleural effusion more so on the right side compared to left side 06/24/2020, patient seen eval examined during the rounds, denies any chest pain, breathing is stable, hemodynamic status stable oxygen saturation is 99%, status post bilateral ultrasound small to moderate pleural effusion is present due to presence of intervening portion of the lung high risk for intervention like thoracentesis was plan to monitor observe closely, chest x-ray performed today showed no significant worsening 06/22/2020, patient seen eval examined during rounds sitting upright on the chair breathing comfortably on 2 L oxygen, patient went into A. fib RVR required amiodarone currently on by mouth, labs reviewed white cell count is 8900 with hemoglobin of 7.6, noted AST and ALT mildly up along with total bilirubin 1.7 AST/ALT of 101/130, Will follow closely 06/21/2020, patient seen and evaluated examined during the rounds labs reviewed medications reviewed care plan discussed with the staff at length, patient is laying comfortably on bed breathing on 2 L oxygen, [place]-Kendy catheter has been removed, mediastinal tube has been removed, hemoglobin have been stable after transfusion 1 unit of packed RBC, chest x-ray performed today revealed continuation of bilateral basal atelectasis along with small trivial pleural effusion, some interstitial edema noted as well, as reviewed white cell count remained stable 8400, no clubbing is 7.6, platelet count is 91 is doing deep breathing sense incentive spirometry up to 500 Patient is a 69-year-old well-known to me initially admitted with syncope found to have a significant aortic stenosis of severe category and bicuspid aortic well, patient has LV dysfunction with reduced ejection fraction 20%, she has receptive dyslipidemia hypertension hypertensive cardiovascular disease patient admitted electively for aortic valve replacement tolerated well successfully weaned and extubated, currently patient is on 2 L sitting upright postop day #1 blood pressure slightly low hemoglobin drop down to 6 undergoing unit of packed RBC, off of pressors, on insulin drip per protocol, awake and alert denies any chest pain or shortness of breath mild discomfort is present at the operative site, breathing comfortably on 2 L sats are 92-94%, but pressure systolic runs slightly low 90, sinus rhythm, doing well off incentive spirometry 500 ML's, range, chest x-ray performed today shows bilateral basal atelectasis/consolidation, stable mediastinal drain and [place]-Kendy catheter, and small effusions seen interstitial edema, along with postoperative changes Objective - Vital Signs Vital signs: Vital Signs Temp 98.6 F 06/25/20 04:00 Pulse 74 06/25/20 08:28 Resp 16 06/25/20 04:00 BP 112/55 06/25/20 04:00 Pulse Ox 94 L 06/25/20 04:00 Intake & Output 06/24/20 06/25/20 06/25/20 18:59 06:59 18:59 Intake Total 498 20 Output Total 1200 300 300 Balance -702 -280 -300 Weight 70.1 kg Intake: IV 20 20 Invasive Line 5 20 20 Oral 478 Output: Urine 1200 300 300 Other: Voiding Method Toilet # Voids 1 0 # Bowel Movements 1 ABP, PAP, CO, CI - Last Documented Arterial Blood Pressure 100/43 Pulmonary Artery Pressure 60/36 Cardiac Output 4.4 Cardiac Index 2.8 - Exam - Constitutional General appearance: average body habitus, disheveled, mild distress - EENT Eyes: PERRLA Ears: bilateral: normal - Neck Neck: normal ROM Carotids: bilateral: upstroke normal Thyroid: bilateral: normal size - Respiratory Respiratory: bilateral: diminished (Predominantly at the bases) - Cardiovascular Rhythm: regular Heart sounds: normal: S1, S2 - Gastrointestinal General gastrointestinal: normal bowel sounds - Integumentary Integumentary: normal turgor - Neurologic Neurologic: CNII-XII intact - Musculoskeletal Musculoskeletal: gait normal, generalized weakness, strength equal bilaterally - Psychiatric Psychiatric: A&O x's 3, appropriate affect, intact judgment & insight - Labs CBC & Chem 7: 06/25/20 07:44 06/25/20 07:44 Labs: Abnormal Lab Results - Last 24 Hours (Table) 06/24/20 06/24/20 06/24/20 Range/Units 11:37 16:52 20:28 RBC (3.80-5.40) m/uL Hgb (11.4-16.0) gm/dL Hct (34.0-46.0) % BUN (7-17) mg/dL Glucose (74-99) mg/dL POC Glucose (mg/dL) 123 H 198 H 190 H (75-99) mg/dL Magnesium (1.6-2.3) mg/dL 06/25/20 06/25/20 06/25/20 Range/Units 01:58 06:34 07:44 RBC 2.67 L (3.80-5.40) m/uL Hgb 8.2 L (11.4-16.0) gm/dL Hct 26.1 L (34.0-46.0) % BUN (7-17) mg/dL Glucose (74-99) mg/dL POC Glucose (mg/dL) 172 H 157 H (75-99) mg/dL Magnesium (1.6-2.3) mg/dL 06/25/20 Range/Units 07:44 RBC (3.80-5.40) m/uL Hgb (11.4-16.0) gm/dL Hct (34.0-46.0) % BUN 25 H (7-17) mg/dL Glucose 161 H (74-99) mg/dL POC Glucose (mg/dL) (75-99) mg/dL Magnesium 2.8 H (1.6-2.3) mg/dL Assessment and Plan Assessment: Bilateral pleural effusion A. fib with RVR on amiodarone well controlled, Mildly elevated liver enzymes Thrombocytopenia stable Severe aortic stenosis with bicuspid aortic valve status post to the aortic valve replacement Successfully weaned and extubated on 2 L oxygen Severe acute anemia Hypotension likely due to anemia Hypertension hypertensive cardiovascular disease Dyslipidemia Chronic systolic heart failure baseline ejection fraction of 15-20% Obstructive sleep apnea Plan: Monitor observe effusion closely no plans for thoracentesis at this point, we'll repeat ultrasound tomorrow again Monitor observe hemoglobin as well as platelet count closely monitor observe liver functions closely keep hemoglobin over 7 Deep breathing sense incentive spirometry early ambulation Supplemental oxygen Increase activity as tolerated Patient can be moved to selective care Follow clinical course closely further recommendations pending Time with Patient: Greater than 30
[2020-06-25 11:51] LABS: Glucose,Whole Blood 190 mg/dL (75-99)
--- NOTE | 2020-06-25 11:58 | P.PN ---
Subjective Progress Note Date: 06/25/20 Principal diagnosis: Symptomatic severe bicuspid aortic valve stenosis. Previous medical history of hypertension, hyperlipidemia, preoperative syncopal event with traumatic facial trauma, chronic systolic heart failure with left ventricular dysfunction and EF 35% on most recent echocardiogram, never smoker. POD #6 aortic valve replacement using a 21 mm Inspiris pericardial bi oprosthesis, exclusion of the left atrial appendage using a 35 mm Atriclip, intraoperative transesophageal echocardiogram and epi-aortic scanning. Postoperative acute blood loss anemia, expected due to cardiopulmonary bypass and hemodilution Paroxysmal atrial fibrillation, known potential complication of open heart surgery The patient's currently sitting up in a recliner on the cardiac stepdown unit in no acute distress. Denies pain or shortness of breath. She was then sinus rhythm for most of the day yesterday including last night and early this morning, appears to currently be back in atrial fibrillation. Epicardial pacemaker wires remain but grounded. Ambulated in hallway yesterday without difficulty. No other new concerns. Objective - Vital Signs Vital signs: Vital Signs Temp 98.1 F 06/25/20 08:00 Pulse 86 06/25/20 11:50 Resp 16 06/25/20 04:00 BP 122/66 06/25/20 08:00 Pulse Ox 98 06/25/20 08:00 Intake & Output 06/24/20 06/25/20 06/25/20 18:59 06:59 18:59 Intake Total 498 20 Output Total 1200 300 300 Balance -702 -280 -300 Weight 70.1 kg Intake: IV 20 20 Invasive Line 5 20 20 Oral 478 Output: Urine 1200 300 300 Other: Voiding Method Toilet # Voids 1 0 # Bowel Movements 1 ABP, PAP, CO, CI - Last Documented Arterial Blood Pressure 100/43 Pulmonary Artery Pressure 60/36 Cardiac Output 4.4 Cardiac Index 2.8 - Constitutional General appearance: Present: cooperative, no acute distress - Respiratory Details: Lungs sounds very diminished bases. Respirations even, nonlabored. Currently on room air with oxygen saturation 94%. Only able to achieve 500 mL on incentive spirometry with weak effort. Strong nonproductive cough. - Cardiovascular Details: S1, S2 present. Irregular rate and rhythm, atrial fibrillation on telemetry. Sternum stable. A/V epicardial pacemaker wires present, grounded. Palpable peripheral pulses bilaterally. No edema present. No calf pain or tenderness noted. Heart hugger in place with patient demonstrating appropriate use. Antiembolism stockings, SCDs present. - Gastrointestinal Gastrointestinal Comment(s): Abdomen soft, nontender, nondistended. Active bowel sounds present 4 quadrants. Tolerating minimal diet. Positive bowel movement 06/25. - Genitourinary Genitourinary Comment(s): Continues to void - Integumentary Integumentary Comment(s): Skin is warm and dry with evidence of good perfusion. Anterior chest incision well approximated without redness or drainage - Neurologic Neurologic: Present: CNII-XII intact - Musculoskeletal Musculoskeletal: Present: gait normal, strength equal bilaterally - Psychiatric Psychiatric: Present: A&O x's 3, appropriate affect - Allied health notes Allied health notes reviewed: nursing - Labs CBC & Chem 7: 06/25/20 07:44 06/25/20 07:44 Labs: Abnormal Lab Results - Last 24 Hours (Table) 06/24/20 06/24/20 06/25/20 Range/Units 16:52 20:28 01:58 RBC (3.80-5.40) m/uL Hgb (11.4-16.0) gm/dL Hct (34.0-46.0) % BUN (7-17) mg/dL Glucose (74-99) mg/dL POC Glucose (mg/dL) 198 H 190 H 172 H (75-99) mg/dL Magnesium (1.6-2.3) mg/dL 06/25/20 06/25/20 06/25/20 Range/Units 06:34 07:44 07:44 RBC 2.67 L (3.80-5.40) m/uL Hgb 8.2 L (11.4-16.0) gm/dL Hct 26.1 L (34.0-46.0) % BUN 25 H (7-17) mg/dL Glucose 161 H (74-99) mg/dL POC Glucose (mg/dL) 157 H (75-99) mg/dL Magnesium 2.8 H (1.6-2.3) mg/dL - Imaging and Cardiology Chest x-ray: report reviewed, image reviewed Assessment and Plan Assessment: 1. Symptomatic severe bicuspid aortic valve stenosis, status post bioprosthetic aortic valve replacement 2. History of hypertension 3. Hyperlipidemia, treated, cholesterol 160, LDL 91 4. Preoperative syncopal event with traumatic facial trauma 5. Chronic systolic heart failure with left ventricular dysfunction and EF 35% on most recent echocardiogram 6. Never smoker with preoperative FEV1 80% of predicted 7. Postoperative acute blood loss anemia, expected due to cardiopulmonary bypass and hemodilution 8. Paroxysmal atrial fibrillation, known potential complication of open heart surgery, status post left atrial appendage ligation Plan: 1. Continue aspirin, statin, Plavix, low-dose Julian, beta jose therapy. Will increase beta jose therapy as tolerated 2. Continue amiodarone. No anticoagulation necessary at this time 3. Encourage incentive spirometry is 10 times every hour while awake. Bronchodilators per pulmonology. 4. Increase activity, ambulate as tolerated. PT/OT/cardiac rehab following. 5. Will monitor daily labs and chest x-rays. Electrolyte replacement per p rotocol. No further transfusions at this time. We'll give IV Lasix today 6. GI/DVT prophylaxis. 7. Insulin management per primary care service. Patient is not diabetic, preoperative hemoglobin A1c 6.2% 8. Strict intake and output, daily weights 9. Pain controlled current medication regimen, no narcotics 10. Discharge planning in progress. Anticipate discharge soon to inpatient rehab 11. More recommendations to follow based on patient's clinical course. Time with Patient: Greater than 30
--- NOTE | 2020-06-25 12:04 | P.PN ---
Subjective Progress Note Date: 06/25/20 Principal diagnosis: Status post aortic valve replacement This is a 61-year-old female patient was underwent elective aortic valve replacement for bicuspid aortic valve. Her hospital course was uneventful. Hemodynamically she is stable. She has been experiencing intermittent episodes of tachycardia. I would suggest increasing the dose of beta jose on her. Otherwise she denies any symptoms of chest pain or chest discomfort or any dizziness or lightheadedness and she's not feeling any heart racing or fluttering symptoms. Objective - Vital Signs Vital signs: Vital Signs Temp 98.1 F 06/25/20 08:00 Pulse 86 06/25/20 11:50 Resp 16 06/25/20 04:00 BP 122/66 06/25/20 08:00 Pulse Ox 98 06/25/20 08:00 Intake & Output 06/24/20 06/25/20 06/25/20 18:59 06:59 18:59 Intake Total 498 20 Output Total 1200 300 300 Balance -702 -280 -300 Weight 70.1 kg Intake: IV 20 20 Invasive Line 5 20 20 Oral 478 Output: Urine 1200 300 300 Other: Voiding Method Toilet # Voids 1 0 # Bowel Movements 1 ABP, PAP, CO, CI - Last Documented Arterial Blood Pressure 100/43 Pulmonary Artery Pressure 60/36 Cardiac Output 4.4 Cardiac Index 2.8 - Constitutional General appearance: Present: no acute distress - Respiratory Respiratory: bilateral: diminished - Cardiovascular Rhythm: regular Heart sounds: normal: S1, S2 Abnormal Heart Sounds: Present: systolic murmur - Labs CBC & Chem 7: 06/25/20 07:44 06/25/20 07:44 Labs: Abnormal Lab Results - Last 24 Hours (Table) 06/24/20 06/24/20 06/25/20 Range/Units 16:52 20:28 01:58 RBC (3.80-5.40) m/uL Hgb (11.4-16.0) gm/dL Hct (34.0-46.0) % BUN (7-17) mg/dL Glucose (74-99) mg/dL POC Glucose (mg/dL) 198 H 190 H 172 H (75-99) mg/dL Magnesium (1.6-2.3) mg/dL 06/25/20 06/25/20 06/25/20 Range/Units 06:34 07:44 07:44 RBC 2.67 L (3.80-5.40) m/uL Hgb 8.2 L (11.4-16.0) gm/dL Hct 26.1 L (34.0-46.0) % BUN 25 H (7-17) mg/dL Glucose 161 H (74-99) mg/dL POC Glucose (mg/dL) 157 H (75-99) mg/dL Magnesium 2.8 H (1.6-2.3) mg/dL 06/25/20 Range/Units 11:39 RBC (3.80-5.40) m/uL Hgb (11.4-16.0) gm/dL Hct (34.0-46.0) % BUN (7-17) mg/dL Glucose (74-99) mg/dL POC Glucose (mg/dL) 190 H (75-99) mg/dL Magnesium (1.6-2.3) mg/dL Assessment and Plan Assessment: Assessment #1 status post aortic valve replacement for severe symptomatic bicuspid aortic valve stenosis #2 cardiomyopathy nonischemic #3 paroxysmal atrial fibrillation Plan #1 continue the current medical regimen #2 I would suggest increasing the dose of beta jose #3 follow-up with the patient
--- NOTE | 2020-06-25 12:12 | P.PN ---
Subjective Symptomatic severe bicuspid aortic valve stenosis Postoperative aortic valve replacement 06/22/20 Evaluated patient this a.m., resting comfortably in chair, postop day 3 from open heart surgery with aortic valve replacement. Patient alert, awake and oriented 3. Patient denies fever, chills, palpitations, abdominal pain, nausea, vomiting, or diarrhea . Patient noted to in be normal sinus rhythm on the monitorpacer wires still present. 06/23/2020 Patient is status post aortic valve replacement. Postoperative day 4. Currently patient is resting in the bed comfortably. Denies any complaints of chest pain. Heart rate is controlled. Patient had paroxysmal atrial fibrillation postoperatively currently in sinus rhythm. Continued on ami odarone. Laboratory data showed hemoglobin 7.7, BUN 28 and creatinine 0.9 liver enzymes are improving. Cardiology and CT surgery is on board. 06/24/2020 Patient is currently lying in the bed feeling anxious. Patient went into A. fib with RVR again this morning. Was given extra dose of metoprolol and amiodarone and cardiology is following. Currently heart rate is improving. No complaints of chest pain. No nausea vomiting abdominal pain or diarrhea. No fever no chills. No dysuria or hematuria. 06/25/2020 Patient is greater than will ablate well except for patient can use to be in atrial fibrillation with rapid and regular rate. Cardiology is managing this. Constitutional: Denied any fatigue denied any fever. Cardio vascular: denied any chest pain, palpitations Gastrointestinal denied any nausea vomiting Pulmonary: Denied any shortness of breath cough Neurologic denied any new focal deficits All inpatient medications were reviewed and appropriate changes in these medications as dictated in the interval history and assessment and plan. Objective - Vital Signs Vital signs: Vital Signs Temp 98.1 F 06/25/20 08:00 Pulse 86 06/25/20 11:50 Resp 16 06/25/20 04:00 BP 122/66 06/25/20 08:00 Pulse Ox 98 06/25/20 08:00 Intake & Output 06/24/20 06/25/20 06/25/20 18:59 06:59 18:59 Intake Total 498 20 Output Total 1200 300 300 Balance -702 -280 -300 Weight 70.1 kg Intake: IV 20 20 Invasive Line 5 20 20 Oral 478 Output: Urine 1200 300 300 Other: Voiding Method Toilet # Voids 1 0 # Bowel Movements 1 ABP, PAP, CO, CI - Last Documented Arterial Blood Pressure 100/43 Pulmonary Artery Pressure 60/36 Cardiac Output 4.4 Cardiac Index 2.8 - Exam PHYSICAL EXAMINATION: GENERAL: The patient is alert and oriented x3, not in any acute distress. Well developed, well nourished. HEENT: Pupils are round and equally reacting to light. EOMI. No scleral icterus. No conjunctival pallor. Normocephalic, atraumatic. No pharyngeal erythema. No thyromegaly. CARDIOVASCULAR: S1 and S2 present. No murmurs, rubs, or gallops. Tachycardic irregularly irregular. Preoperative PULMONARY: Chest is clear to auscultation, no wheezing or crackles. ABDOMEN: Soft, nontender, nondistended, normoactive bowel sounds. No palpable organomegaly. MUSCULOSKELETAL: No joint swelling or deformity. EXTREMITIES: No cyanosis, clubbing, or pedal edema. NEUROLOGICAL: Gross neurological examination did not reveal any focal deficits. SKIN: No rashes. - Labs CBC & Chem 7: 06/25/20 07:44 06/25/20 07:44 Labs: Abnormal Lab Results - Last 24 Hours (Table) 06/24/20 06/24/20 06/25/20 Range/Units 16:52 20:28 01:58 RBC (3.80-5.40) m/uL Hgb (11.4-16.0) gm/dL Hct (34.0-46.0) % BUN (7-17) mg/dL Glucose (74-99) mg/dL POC Glucose (mg/dL) 198 H 190 H 172 H (75-99) mg/dL Magnesium (1.6-2.3) mg/dL 06/25/20 06/25/20 06/25/20 Range/Units 06:34 07:44 07:44 RBC 2.67 L (3.80-5.40) m/uL Hgb 8.2 L (11.4-16.0) gm/dL Hct 26.1 L (34.0-46.0) % BUN 25 H (7-17) mg/dL Glucose 161 H (74-99) mg/dL POC Glucose (mg/dL) 157 H (75-99) mg/dL Magnesium 2.8 H (1.6-2.3) mg/dL 06/25/20 Range/Units 11:39 RBC (3.80-5.40) m/uL Hgb (11.4-16.0) gm/dL Hct (34.0-46.0) % BUN (7-17) mg/dL Glucose (74-99) mg/dL POC Glucose (mg/dL) 190 H (75-99) mg/dL Magnesium (1.6-2.3) mg/dL Assessment and Plan Plan: Status post aortic valve replacement day threefor history of severe aortic stenosis with bicuspid aortic valve continue to follow treatment plan from cardiothoracic, cardiology, and pulmonology for recommendations and treatment plan Paroxysmal atrial fibrillation with RVR: Management of this as per cardiology History of severe left ventricular dysfunction Hypertension Hyperlipidemia History of syncope History of tooth extraction Full code Continue medical management
[2020-06-25] MEDS: ASCORBIC ACID 500 MG TAB PO SCH (13:17)
[2020-06-25] MEDS: FERROUS SULFATE 325 MG TAB PO SCH (13:17)
--- NOTE | 2020-06-25 14:51 | US ---
EXAMINATION TYPE: US chest DATE OF EXAM: 06/25/2020 COMPARISON: US 2019 CLINICAL HISTORY: pleural effusion, bilateral. TECHNIQUE: Targeted ultrasound of the posterior lower bilateral hemithoraces EXAM MEASUREMENTS: Right Pleural Effusion pocket size: 11.0 cm Right skin surface to fluid distance: 2.9 cm Lung seen within mid portion of fluid pocket at a depth of 5.6cm Left Pleural Effusion pocket size: 5.4 cm Left skin surface to fluid distance: 2.4 cm Lung seen within mid portion of fluid pocket at a depth of 3.7cm Right side marked for possible thoracentesis outside the dept. Left side marked for possible thoracentesis outside the dept. Pulmonologists are able to review the images in the patient?s EMR. IMPRESSIONS: Bilateral pleural effusion.
[2020-06-25 17:08] LABS: Glucose,Whole Blood 170 mg/dL (75-99)
[2020-06-25 19:58] LABS: Glucose,Whole Blood 220 mg/dL (75-99)
[2020-06-25] MEDS: SENNOSIDES-DOCUSATE SODIUM 1 EACH TAB PO SCH (20:08)
[2020-06-25] MEDS: ATORVASTATIN 40 MG TAB PO SCH (20:08)
[2020-06-26 06:07] LABS: Glucose,Whole Blood 161 mg/dL (75-99)
[2020-06-26] MEDS: PANTOPRAZOLE 40 MG TABLET PO SCH (06:29)
[2020-06-26] MEDS: METOPROLOL TARTRATE 25 MG TAB PO SCH ×3 (06:29→23:12)
[2020-06-26] MEDS: MIDODRINE 5 MG TAB PO SCH ×3 (06:29→17:34)
[2020-06-26] MEDS: IPRATROPIUM-ALBUTEROL 3 ML NEB INHALATION SCH ×4 (07:22→19:37)
[2020-06-26 07:59] LABS: HCT 24.8 % (34.0-46.0); HGB 7.8 gm/dL (11.4-16.0); Hypochromasia Slight; MCH 30.9 pg (25.0-35.0); MCHC 31.4 g/dL (31.0-37.0); MCV 98.3 fL (80.0-100.0); Mean Platelet Volume 7.1; Platelet Count 227 k/uL (150-450); RBC 2.52 m/uL (3.80-5.40); RDW 14.4 % (11.5-15.5); WBC 9.2 k/uL (3.8-10.6)
[2020-06-26 08:19] LABS: African American GFR (CKD) >90 (>60 ml/min/1.73 sqM); Anion Gap 7 mmol/L; Blood Urea Nitrogen 21 mg/dL (7-17); Calcium 8.5 mg/dL (8.4-10.2); Carbon Dioxide 29 mmol/L (22-30); Chloride 105 mmol/L (98-107); Glucose 173 mg/dL (74-99); Magnesium 2.5 mg/dL (1.6-2.3); Non-African American GFR(CKD) 87 (>60 ml/min/1.73 sqM); Potassium 3.5 mmol/L (3.5-5.1); Sodium 141 mmol/L (137-145)
[2020-06-26] MEDS: ASPIRIN 325 MG TAB PO SCH (08:48)
[2020-06-26] MEDS: HEPARIN SODIUM,PORCINE 5,000 UNIT/ML 1 ML VIAL SQ SCH ×3 (08:48→23:12)
[2020-06-26] MEDS: FUROSEMIDE 10 MG/ML 2 ML VIAL IV SCH ×2 (08:48→17:34)
[2020-06-26] MEDS: CLOPIDOGREL 75 MG TAB PO SCH (08:48)
--- NOTE | 2020-06-26 09:17 | P.PN ---
Subjective Progress Note Date: 06/26/20 Principal diagnosis: Symptomatic severe bicuspid aortic valve stenosis Postoperative aortic valve replacement Evaluated patient this a.m., resting comfortably in chair, postop from open heart surgery with aortic valve replacement. Patient alert, awake and oriented 3. Patient denies fever, chills, palpitations, abdominal pain, nausea, vomiting, or diarrhea . Patient noted to in be normal sinus rhythm on the monitor. Patient's continues to have intermittent A. fib with RVR throughout the hospital staycardiology following with recommendations and treatment plan. Patient noted to be in sinus rhythm at this time .she denies any complaints at this time Objective - Vital Signs Vital signs: Vital Signs Temp 97.9 F 06/26/20 04:00 Pulse 66 06/26/20 06:10 Resp 17 06/26/20 04:00 BP 105/62 06/26/20 04:00 Pulse Ox 94 L 06/26/20 04:00 Intake & Output 06/25/20 06/26/20 06/26/20 18:59 06:59 18:59 Intake Total 365 125 Output Total 1050 800 250 Balance -685 -800 -125 Weight 64.2 kg Intake: Oral 365 125 Output: Urine 1050 800 250 Other: Voiding Method Toilet # Voids 2 1 # Bowel Movements 2 ABP, PAP, CO, CI - Last Documented Arterial Blood Pressure 100/43 Pulmonary Artery Pressure 60/36 Cardiac Output 4.4 Cardiac Index 2.8 - Constitutional General appearance: Present: cooperative - EENT Eyes: Present: EOMI, PERRLA ENT: Present: hard of hearing Ears: bilateral: normal - Respiratory Respiratory: bilateral: CTA (Anterior lung reyes), diminished (Posterior lung reyes) - Cardiovascular Details: Normal sinus rhythm Heart rate: 64 Rhythm: regular Heart sounds: normal: S1, S2 - Peripheral pulses radial pulse Peripheral Pulses: bilateral: Normal dorsalis pedis Peripheral Pulses: bilateral: Normal - Gastrointestinal General gastrointestinal: Present: normal bowel sounds - Integumentary Integumentary: Present: pale - Neurologic Neurologic: Present: CNII-XII intact - Musculoskeletal Musculoskeletal: Present: generalized weakness - Psychiatric Psychiatric: Present: A&O x's 3, appropriate affect, intact judgment & insight - Allied health notes Allied health notes reviewed: nursing - Labs CBC & Chem 7: 06/26/20 07:35 06/26/20 07:35 Labs: Abnormal Lab Results - Last 24 Hours (Table) 06/25/20 06/25/20 06/25/20 Range/Units 11:39 17:01 19:57 RBC (3.80-5.40) m/uL Hgb (11.4-16.0) gm/dL Hct (34.0-46.0) % BUN (7-17) mg/dL Glucose (74-99) mg/dL POC Glucose (mg/dL) 190 H 170 H 220 H (75-99) mg/dL Magnesium (1.6-2.3) mg/dL 06/26/20 06/26/20 06/26/20 Range/Units 06:06 07:35 07:35 RBC 2.52 L (3.80-5.40) m/uL Hgb 7.8 L (11.4-16.0) gm/dL Hct 24.8 L (34.0-46.0) % BUN 21 H (7-17) mg/dL Glucose 173 H (74-99) mg/dL POC Glucose (mg/dL) 161 H (75-99) mg/dL Magnesium 2.5 H (1.6-2.3) mg/dL - Imaging and Cardiology Chest x-ray: pending Assessment and Plan Assessment: Status post aortic valve replacement day threefor history of severe aortic stenosis with bicuspid aortic valve continue to follow treatment plan from cardiothoracic, cardiology, and pulmonology for recommendations and treatment plan History of severe left ventricular dysfunction Paroxysmal atrial fibrillation with RVR Hypertension Hyperlipidemia History of syncope History of tooth extraction Full code Continue medical management Time with Patient: Greater than 30
--- NOTE | 2020-06-26 10:06 | XR ---
EXAMINATION TYPE: XR chest 2V DATE OF EXAM: 06/26/2020 COMPARISON: 06/25/2020 TECHNIQUE: PA and lateral views submitted. HISTORY: Postop FINDINGS: Postsurgical change with bilateral infiltrate and pleural effusion. There is cardiomegaly. Prosthetic heart valve noted. Degenerative changes of the spine. IMPRESSION: 1. Stable bilateral lower lobe infiltrate and small effusion.
--- NOTE | 2020-06-26 10:52 | P.PN ---
Subjective Progress Note Date: 06/26/20 Principal diagnosis: Symptomatic severe bicuspid aortic valve stenosis. Previous medical history of hypertension, hyperlipidemia, preoperative syncopal event with traumatic facial trauma, chronic systolic heart failure with left ventricular dysfunction and EF 35% on most recent echocardiogram, never smoker. POD #7 aortic valve replacement using a 21 mm Inspiris pericardial bi oprosthesis, exclusion of the left atrial appendage using a 35 mm Atriclip, intraoperative transesophageal echocardiogram and epi-aortic scanning. Postoperative acute blood loss anemia, expected due to cardiopulmonary bypass and hemodilution Paroxysmal atrial fibrillation, known potential complication of open heart surgery The patient's currently sitting up in a recliner on the cardiac stepdown unit in no acute distress. Denies pain or shortness of breath. She continues to be in normal sinus rhythm to sinus bradycardia, last afib was yesterday morning. Patient has not been getting her 2200 dose of lopressor due to bradycardia, and subsequently has episodes of tachycardia in the morning. Ambulated in hallway yesterday without difficulty. No other new concerns. Objective - Vital Signs Vital signs: Vital Signs Temp 97.9 F 06/26/20 04:00 Pulse 66 06/26/20 06:10 Resp 17 06/26/20 04:00 BP 105/62 06/26/20 04:00 Pulse Ox 94 L 06/26/20 04:00 Intake & Output 06/25/20 06/26/20 06/26/20 18:59 06:59 18:59 Intake Total 365 125 Output Total 1050 800 250 Balance -685 -800 -125 Weight 64.2 kg Intake: Oral 365 125 Output: Urine 1050 800 250 Other: Voiding Method Toilet # Voids 2 1 # Bowel Movements 2 ABP, PAP, CO, CI - Last Documented Arterial Blood Pressure 100/43 Pulmonary Artery Pressure 60/36 Cardiac Output 4.4 Cardiac Index 2.8 - Constitutional General appearance: Present: cooperative, no acute distress - Respiratory Details: Lungs sounds diminished bases. Respirations even, nonlabored. Currently on room air with oxygen saturation 94%. Only able to achieve 500 mL on incentive spirometry with weak effort. Strong nonproductive cough. - Cardiovascular Details: S1, S2 present. Regular rate and rhythm, sinus rhythm to sinus arya on telemetry. Sternum stable. Palpable peripheral pulses bilaterally. No edema present. No calf pain or tenderness noted. Heart hugger in place with patient demonstrating appropriate use. Antiembolism stockings, SCDs present. - Gastrointestinal Gastrointestinal Comment(s): Abdomen soft, nontender, nondistended. Active bowel sounds present 4 quadrants. Tolerating minimal diet. Positive bowel movement 06/25. - Genitourinary Genitourinary Comment(s): Continues to void, output 1850 ml in last 24 hours - Integumentary Integumentary Comment(s): Skin is warm and dry with evidence of good perfusion. Anterior chest incision well approximated without redness or drainage - Neurologic Neurologic: Present: CNII-XII intact - Musculoskeletal Musculoskeletal: Present: gait normal, strength equal bilaterally - Psychiatric Psychiatric: Present: A&O x's 3, appropriate affect - Allied health notes Allied health notes reviewed: nursing - Labs CBC & Chem 7: 06/26/20 07:35 06/26/20 07:35 Labs: Abnormal Lab Results - Last 24 Hours (Table) 06/25/20 06/25/20 06/25/20 Range/Units 11:39 17:01 19:57 RBC (3.80-5.40) m/uL Hgb (11.4-16.0) gm/dL Hct (34.0-46.0) % BUN (7-17) mg/dL Glucose (74-99) mg/dL POC Glucose (mg/dL) 190 H 170 H 220 H (75-99) mg/dL Magnesium (1.6-2.3) mg/dL 06/26/20 06/26/20 06/26/20 Range/Units 06:06 07:35 07:35 RBC 2.52 L (3.80-5.40) m/uL Hgb 7.8 L (11.4-16.0) gm/dL Hct 24.8 L (34.0-46.0) % BUN 21 H (7-17) mg/dL Glucose 173 H (74-99) mg/dL POC Glucose (mg/dL) 161 H (75-99) mg/dL Magnesium 2.5 H (1.6-2.3) mg/dL - Imaging and Cardiology Chest x-ray: report reviewed, image reviewed Assessment and Plan Assessment: 1. Symptomatic severe bicuspid aortic valve stenosis, status post bioprosthetic aortic valve replacement 2. History of hypertension 3. Hyperlipidemia, treated, cholesterol 160, LDL 91 4. Preoperative syncopal event with traumatic facial trauma 5. Chronic systolic heart failure with left ventricular dysfunction and EF 35% on most recent echocardiogram 6. Never smoker with preoperative FEV1 80% of predicted 7. Postoperative acute blood loss anemia, expected due to cardiopulmonary bypass and hemodilution 8. Paroxysmal atrial fibrillation, known potential complication of open heart surgery, status post left atrial appendage ligation Plan: 1. Continue aspirin, statin, Plavix, low-dose Julian, beta jose therapy. Will increase beta jose therapy as tolerated, however won't increase as long as med still being held at 2200 2. Continue amiodarone. No anticoagulation necessary 3. Encourage incentive spirometry is 10 times every hour while awake. Bronchodilators per pulmonology. Decision regarding thoracentesis per pulmonology 4. Increase activity, ambulate as tolerated. PT/OT/cardiac rehab following. 5. Will monitor daily labs and chest x-rays. Electrolyte replacement per protocol. No further transfusions at this time. Continue IV Lasix 6. GI/DVT prophylaxis. 7. Insulin management per primary care service. Patient is not diabetic, preoperative hemoglobin A1c 6.2% 8. Strict intake and output, daily weights 9. Pain controlled current medication regimen, no narcotics 10. Discharge planning in progress. Anticipate discharge soon to inpatient rehab, waiting for patient to be free from afib for 24 hours without having any meds held 11. More recommendations to follow based on patient's clinical course. Time with Patient: Greater than 30
[2020-06-26 11:39] LABS: Glucose,Whole Blood 125 mg/dL (75-99)
[2020-06-26] MEDS: AMIODARONE 200 MG TAB PO SCH ×2 (12:28→20:29)
[2020-06-26] MEDS: ASCORBIC ACID 500 MG TAB PO SCH (12:28)
[2020-06-26] MEDS: FERROUS SULFATE 325 MG TAB PO SCH (12:28)
--- NOTE | 2020-06-26 14:00 | P.PN ---
Subjective Progress Note Date: 06/26/20 HISTORY OF PRESENT ILLNESS: Patient examined this morning. She is sitting in the chair. She denies chest pain or pressure. Denies shortness of breath. She has been ambulating in her room. Patient has not been receiving 2200 dose of metoprolol secondary to bradycardia. Parameters have been adjusted per cardiothoracic surgery. PHYSICAL EXAM: VITAL SIGNS: Reviewed. GENERAL: Well-developed in no acute distress. NECK: Supple. No JVD or thyromegaly LUNGS: Respirations even and unlabored. Lungs essentially clear to auscultation bilaterally, diminished bilaterally. HEART: Regular rate and rhythm. S1 and S2 heard. Systolic murmur noted. EXTREMITIES: Normal range of motion. No clubbing or cyanosis. Peripheral pulses intact. No lower extremity edema ASSESSMENT: Status post aortic valve replacement for severe symptomatic bicuspid aortic valve stenosis Paroxysmal atrial fibrillation Nonischemic cardiomyopathy, EF 35% Hypertension Hyperlipidemia PLAN: Continue post operative management per CTS Continue current cardiac medications Continue telemetry monitoring Increase activity as tolerated Further recommendations pending patient course Nurse practitioner note has been reviewed by physician. Signing provider agrees with the documented findings, assessment, and plan of care. Objective - Vital Signs Vital signs: Vital Signs Temp 96.7 F L 06/26/20 08:00 Pulse 60 06/26/20 12:00 Resp 17 06/26/20 04:00 BP 118/64 06/26/20 12:00 Pulse Ox 95 06/26/20 12:00 Intake & Output 06/25/20 06/26/20 06/26/20 18:59 06:59 18:59 Intake Total 365 225 Output Total 1050 800 250 Balance -685 -800 -25 Weight 64.2 kg Intake: Oral 365 225 Output: Urine 1050 800 250 Other: Voiding Method Toilet # Voids 2 1 # Bowel Movements 2 ABP, PAP, CO, CI - Last Documented Arterial Blood Pressure 100/43 Pulmonary Artery Pressure 60/36 Cardiac Output 4.4 Cardiac Index 2.8 - Labs CBC & Chem 7: 06/26/20 07:35 06/26/20 07:35 Labs: Abnormal Lab Results - Last 24 Hours (Table) 06/25/20 06/25/20 06/26/20 Range/Units 17:01 19:57 06:06 RBC (3.80-5.40) m/uL Hgb (11.4-16.0) gm/dL Hct (34.0-46.0) % BUN (7-17) mg/dL Glucose (74-99) mg/dL POC Glucose (mg/dL) 170 H 220 H 161 H (75-99) mg/dL Magnesium (1.6-2.3) mg/dL 06/26/20 06/26/20 06/26/20 Range/Units 07:35 07:35 11:33 RBC 2.52 L (3.80-5.40) m/uL Hgb 7.8 L (11.4-16.0) gm/dL Hct 24.8 L (34.0-46.0) % BUN 21 H (7-17) mg/dL Glucose 173 H (74-99) mg/dL POC Glucose (mg/dL) 125 H (75-99) mg/dL Magnesium 2.5 H (1.6-2.3) mg/dL
--- NOTE | 2020-06-26 14:48 | P.PN ---
Subjective Progress Note Date: 06/26/20 Principal diagnosis: Severe aortic stenosis with bicuspid aortic valve status post to the aortic valve replacement Successfully weaned and extubated on 2 L oxygen Severe acute anemia Hypotension likely due to anemia Hypertension hypertensive cardiovascular disease Dyslipidemia Chronic systolic heart failure baseline ejection fraction of 15-20% Obstructive sleep apnea 06/26/2020, patient seen eval examined during the rounds labs reviewed medications reviewed care plan discussed patient sitting upright on the chair breathing comfortably no other acute episode of A. fib with RVR has been noted but patient felt a small episode however, she is on room air breathing com fortably, chest x-ray revealed slight progression of fluid ultrasound also shows slightly more pleural effusion, we'll discuss with cardiothoracic surgery about draining the right pleural cavity 06/25/2020, patient seen eval examined sitting upright on the chair breathing comfortably, patient had another episode of A. fib with RVR during the shower yesterday, currently she is on room air breathing comfortably denies any chest pain has been concerned about episodes, she remains on amiodarone, she is afebrile heart rate is 94, regular denies any cough or sputum production, hemoglobin stable at 8.2 platelet count is up now, chest x-ray continue show bilateral atelectasis along with bilateral pleural effusion more so on the right side compared to left side 06/24/2020, patient seen eval examined during the rounds, denies any chest pain, breathing is stable, hemodynamic status stable oxygen saturation is 99%, status post bilateral ultrasound small to moderate pleural effusion is present due to presence of intervening portion of the lung high risk for intervention like thoracentesis was plan to monitor observe closely, chest x-ray performed today showed no significant worsening 06/22/2020, patient seen eval examined during rounds sitting upright on the chair breathing comfortably on 2 L oxygen, patient went into A. fib RVR required amiodarone currently on by mouth, labs reviewed white cell count is 8900 with hemoglobin of 7.6, noted AST and ALT mildly up along with total bilirubin 1.7 AST/ALT of 101/130, Will follow closely 06/21/2020, patient seen and evaluated examined during the rounds labs reviewed medications reviewed care plan discussed with the staff at length, patient is laying comfortably on bed breathing on 2 L oxygen, [place]end[place] catheter has been removed, mediastinal tube has been removed, hemoglobin have been stable after transfusion 1 unit of packed RBC, chest x-ray performed today revealed continuation of bilateral basal atelectasis along with small trivial pleural effusion, some interstitial edema noted as well, as reviewed white cell count remained stable 8400, no clubbing is 7.6, platelet count is 91 is doing deep breathing sense incentive spirometry up to 500 Patient is a 69-year-old well-known to me initially admitted with syncope found to have a significant aortic stenosis of severe category and bicuspid aortic well, patient has LV dysfunction with reduced ejection fraction 20%, she has receptive dyslipidemia hypertension hypertensive cardiovascular disease patient admitted electively for aortic valve replacement tolerated well successfully weaned and extubated, currently patient is on 2 L sitting upright postop day #1 blood pressure slightly low hemoglobin drop down to 6 undergoing unit of packed RBC, off of pressors, on insulin drip per protocol, awake and alert denies any chest pain or shortness of breath mild discomfort is present at the operative site, breathing comfortably on 2 L sats are 92-94%, but pressure systolic runs slightly low 90, sinus rhythm, doing well off incentive spirometry 500 ML's, range, chest x-ray performed today shows bilateral basal atelectasis/consolidation, stable mediastinal drain and [place]end[place] catheter, and small effusions seen interstitial edema, along with postoperative changes Objective - Vital Signs Vital signs: Vital Signs Temp 96.7 F L 06/26/20 08:00 Pulse 60 06/26/20 12:00 Resp 17 06/26/20 04:00 BP 118/64 06/26/20 12:00 Pulse Ox 95 06/26/20 12:00 Intake & Output 06/25/20 06/26/20 06/26/20 18:59 06:59 18:59 Intake Total 365 225 Output Total 1050 800 250 Balance -685 -800 -25 Weight 64.2 kg Intake: Oral 365 225 Output: Urine 1050 800 250 Other: Voiding Method Toilet # Voids 2 1 # Bowel Movements 2 ABP, PAP, CO, CI - Last Documented Arterial Blood Pressure 100/43 Pulmonary Artery Pressure 60/36 Cardiac Output 4.4 Cardiac Index 2.8 - Exam - Constitutional General appearance: average body habitus, disheveled, mild distress - EENT Eyes: PERRLA Ears: bilateral: normal - Neck Neck: normal ROM Carotids: bilateral: upstroke normal Thyroid: bilateral: normal size - Respiratory Respiratory: bilateral: diminished (Predominantly at the bases) - Cardiovascular Rhythm: regular Heart sounds: normal: S1, S2 - Gastrointestinal General gastrointestinal: normal bowel sounds - Integumentary Integumentary: normal turgor - Neurologic Neurologic: CNII-XII intact - Musculoskeletal Musculoskeletal: gait normal, generalized weakness, strength equal bilaterally - Psychiatric Psychiatric: A&O x's 3, appropriate affect, intact judgment & insight - Labs CBC & Chem 7: 06/26/20 07:35 06/26/20 07:35 Labs: Abnormal Lab Results - Last 24 Hours (Table) 06/25/20 06/25/20 06/26/20 Range/Units 17:01 19:57 06:06 RBC (3.80-5.40) m/uL Hgb (11.4-16.0) gm/dL Hct (34.0-46.0) % BUN (7-17) mg/dL Glucose (74-99) mg/dL POC Glucose (mg/dL) 170 H 220 H 161 H (75-99) mg/dL Magnesium (1.6-2.3) mg/dL 06/26/20 06/26/20 06/26/20 Range/Units 07:35 07:35 11:33 RBC 2.52 L (3.80-5.40) m/uL Hgb 7.8 L (11.4-16.0) gm/dL Hct 24.8 L (34.0-46.0) % BUN 21 H (7-17) mg/dL Glucose 173 H (74-99) mg/dL POC Glucose (mg/dL) 125 H (75-99) mg/dL Magnesium 2.5 H (1.6-2.3) mg/dL Assessment and Plan Assessment: Bilateral pleural effusion right more than the left A. fib with RVR on amiodarone well controlled, Mildly elevated liver enzymes Thrombocytopenia stable Severe aortic stenosis with bicuspid aortic valve status post to the aortic valve replacement Successfully weaned and extubated on 2 L oxygen Severe acute anemia Hypotension likely due to anemia Hypertension hypertensive cardiovascular disease Dyslipidemia Chronic systolic heart failure baseline ejection fraction of 15-20% Obstructive sleep apnea Plan: Reviewed repeat ultrasound , will discuss with cardio thoracic surgery Monitor observe hemoglobin as well as platelet count closely monitor observe liver functions closely keep hemoglobin over 7 Deep breathing sense incentive spirometry early ambulation Supplemental oxygen Increase activity as tolerated Patient can be moved to selective care Follow clinical course closely further recommendations pending Time with Patient: Greater than 30
[2020-06-26 17:08] LABS: Glucose,Whole Blood 128 mg/dL (75-99)
[2020-06-26 20:19] LABS: Glucose,Whole Blood 128 mg/dL (75-99)
[2020-06-26] MEDS: ATORVASTATIN 40 MG TAB PO SCH (20:29)
[2020-06-26] MEDS: SENNOSIDES-DOCUSATE SODIUM 1 EACH TAB PO SCH (20:29)
[2020-06-27 06:00] LABS: Glucose,Whole Blood 148 mg/dL (75-99)
[2020-06-27] MEDS: MIDODRINE 5 MG TAB PO SCH ×3 (06:25→15:36)
[2020-06-27] MEDS: PANTOPRAZOLE 40 MG TABLET PO SCH (06:25)
[2020-06-27] MEDS: METOPROLOL TARTRATE 25 MG TAB PO SCH ×3 (06:25→22:36)
[2020-06-27 08:16] LABS: HCT 26.9 % (34.0-46.0); HGB 8.6 gm/dL (11.4-16.0); Hypochromasia Slight; MCH 30.9 pg (25.0-35.0); MCHC 31.8 g/dL (31.0-37.0); MCV 97.2 fL (80.0-100.0); Mean Platelet Volume 7.3; Platelet Count 271 k/uL (150-450); RBC 2.77 m/uL (3.80-5.40); RDW 14.4 % (11.5-15.5); WBC 10.6 k/uL (3.8-10.6)
[2020-06-27 08:22] LABS: African American GFR (CKD) >90 (>60 ml/min/1.73 sqM); Anion Gap 9 mmol/L; Blood Urea Nitrogen 20 mg/dL (7-17); Calcium 8.5 mg/dL (8.4-10.2); Carbon Dioxide 32 mmol/L (22-30); Chloride 101 mmol/L (98-107); Glucose 148 mg/dL (74-99); Magnesium 2.4 mg/dL (1.6-2.3); Non-African American GFR(CKD) 84 (>60 ml/min/1.73 sqM); Potassium 3.2 mmol/L (3.5-5.1); Sodium 142 mmol/L (137-145)
[2020-06-27] MEDS ORDERED: POTASSIUM CHLORIDE ER 20 MEQ TAB.ER PO STA (08:45)
[2020-06-27] MEDS: IPRATROPIUM-ALBUTEROL 3 ML NEB INHALATION SCH ×3 (08:51→19:51)
--- NOTE | 2020-06-27 08:55 | P.PN ---
Subjective Progress Note Date: 06/27/20 Principal diagnosis: Symptomatic severe bicuspid aortic valve stenosis. Previous medical history of hypertension, hyperlipidemia, preoperative syncopal event with traumatic facial trauma, chronic systolic heart failure with left ventricular dysfunction and EF 35% on most recent echocardiogram, never smoker. POD #8 aortic valve replacement using a 21 mm Inspiris pericardial bi oprosthesis, exclusion of the left atrial appendage using a 35 mm Atriclip, intraoperative transesophageal echocardiogram and epi-aortic scanning. Postoperative acute blood loss anemia, expected due to cardiopulmonary bypass and hemodilution Paroxysmal atrial fibrillation, known potential complication of open heart surgery The patient's currently sitting up in a recliner on the cardiac stepdown unit in no acute distress. Denies pain or shortness of breath. She continues to be in normal sinus rhythm to sinus bradycardia, last noted A. fib was 06/25/2020, bradycardic this morning with heart rate in the 50s dressing down into the high 40s when she is sleeping. Ambulated in hallway yesterday without difficulty. No other new concerns. Objective - Vital Signs Vital signs: Vital Signs Temp 97.7 F 06/27/20 08:00 Pulse 52 L 06/27/20 08:00 Resp 16 06/27/20 08:00 BP 117/50 06/27/20 08:00 Pulse Ox 94 L 06/27/20 08:00 Intake & Output 06/26/20 06/27/20 06/27/20 18:59 06:59 18:59 Intake Total 681 Output Total 250 650 Balance 431 -650 Weight 60.5 kg Intake: IV 12 KVO 12 Oral 669 Output: Urine 250 650 Other: Voiding Method Toilet # Voids 3 # Bowel Movements 1 ABP, PAP, CO, CI - Last Documented Arterial Blood Pressure 100/43 Pulmonary Artery Pressure 60/36 Cardiac Output 4.4 Cardiac Index 2.8 - Constitutional General appearance: Present: cooperative, no acute distress - Respiratory Details: Lungs sounds diminished bases. Respirations even, nonlabored. Currently on room air with oxygen saturation 94%. Only able to achieve 500 mL on incentive spirometry with weak effort. Strong nonproductive cough. - Cardiovascular Details: S1, S2 present. Regular rate and rhythm, sinus arya on telemetry with heart rate in the 50s. Sternum stable. Palpable peripheral pulses bilaterally. No edema present. No calf pain or tenderness noted. Heart hugger in place with patient demonstrating appropriate use. Antiembolism stockings, SCDs present. - Gastrointestinal Gastrointestinal Comment(s): Abdomen soft, nontender, nondistended. Active bowel sounds present 4 quadrants. Tolerating minimal diet. Positive bowel movement 06/27. - Genitourinary Genitourinary Comment(s): Continues to void - Integumentary Integumentary Comment(s): Skin is warm and dry with evidence of good perfusion. Anterior chest incision well approximated without redness or drainage - Neurologic Neurologic: Present: CNII-XII intact - Musculoskeletal Musculoskeletal: Present: gait normal, strength equal bilaterally - Psychiatric Psychiatric Comment(s): Mentally slow Psychiatric: Present: A&O x's 3, appropriate affect - Allied health notes Allied health notes reviewed: nursing - Labs CBC & Chem 7: 06/27/20 07:33 06/27/20 07:33 Labs: Abnormal Lab Results - Last 24 Hours (Table) 06/26/20 06/26/20 06/26/20 Range/Units 11:33 17:00 20:17 RBC (3.80-5.40) m/uL Hgb (11.4-16.0) gm/dL Hct (34.0-46.0) % Potassium (3.5-5.1) mmol/L Carbon Dioxide (22-30) mmol/L BUN (7-17) mg/dL Glucose (74-99) mg/dL POC Glucose (mg/dL) 125 H 128 H 128 H (75-99) mg/dL Magnesium (1.6-2.3) mg/dL 06/27/20 06/27/20 06/27/20 Range/Units 05:57 07:33 07:33 RBC 2.77 L (3.80-5.40) m/uL Hgb 8.6 L (11.4-16.0) gm/dL Hct 26.9 L (34.0-46.0) % Potassium 3.2 L (3.5-5.1) mmol/L Carbon Dioxide 32 H (22-30) mmol/L BUN 20 H (7-17) mg/dL Glucose 148 H (74-99) mg/dL POC Glucose (mg/dL) 148 H (75-99) mg/dL Magnesium 2.4 H (1.6-2.3) mg/dL - Imaging and Cardiology Chest x-ray: image reviewed Assessment and Plan Assessment: 1. Symptomatic severe bicuspid aortic valve stenosis, status post bioprosthetic aortic valve replacement 2. History of hypertension 3. Hyperlipidemia, treated, cholesterol 160, LDL 91 4. Preoperative syncopal event with traumatic facial trauma 5. Chronic systolic heart failure with left ventricular dysfunction and EF 35% on most recent echocardiogram 6. Never smoker with preoperative FEV1 80% of predicted 7. Postoperative acute blood loss anemia, expected due to cardiopulmonary byp ass and hemodilution 8. Paroxysmal atrial fibrillation, known potential complication of open heart surgery, status post left atrial appendage ligation Plan: 1. Continue aspirin, statin, Plavix, low-dose Julian, beta jose therapy. Will increase beta jose therapy as tolerated 2. Continue amiodarone, decreased today. No anticoagulation necessary 3. Encourage incentive spirometry is 10 times every hour while awake. Bronchodilators per pulmonology. Decision regarding thoracentesis per pulmonology 4. Increase activity, ambulate as tolerated. PT/OT/cardiac rehab following. 5. Will monitor daily labs and chest x-rays. Electrolyte replacement per protocol. No further transfusions at this time. Continue Lasix 6. GI/DVT prophylaxis. 7. Insulin management per primary care service. Patient is not diabetic, preoperative hemoglobin A1c 6.2% 8. Strict intake and output, daily weights 9. Pain controlled current medication regimen, no narcotics 10. Discharge planning in progress. Anticipate discharge soon to inpatient rehab, will perform [id number] for insurance authorization for inpatient rehab. Patient does need closer monitoring than she would receive at SNF, needs daily evaluation by cardiology for heart rate and rhythm and medication changes, needs daily assessment by pulmonology for possible thoracentesis. Needs daily lab work to assess electrolytes. She is not safe to return home as she is mildly mentally challenged and has no family available. 11. More recommendations to follow based on patient's clinical course. Time with Patient: Greater than 30
--- NOTE | 2020-06-27 09:11 | XR ---
EXAMINATION TYPE: XR chest 2V DATE OF EXAM: 06/27/2020 COMPARISON: 06/26/2020 TECHNIQUE: PA and lateral views submitted. HISTORY: Post cardiac surgery FINDINGS: Postoperative changes seen in the heart is enlarged with bilateral consolidation and pleural effusion . No pneumothorax. IMPRESSION: 1. Bilateral infiltrate and pleural effusion.
[2020-06-27] MEDS: ASCORBIC ACID 500 MG TAB PO SCH (09:32)
[2020-06-27] MEDS: HEPARIN SODIUM,PORCINE 5,000 UNIT/ML 1 ML VIAL SQ SCH ×3 (09:32→22:41)
[2020-06-27] MEDS: CLOPIDOGREL 75 MG TAB PO SCH (09:32)
[2020-06-27] MEDS: ASPIRIN 325 MG TAB PO SCH (09:32)
--- NOTE | 2020-06-27 09:36 | P.PN ---
Subjective Progress Note Date: 06/27/20 Principal diagnosis: Symptomatic severe bicuspid aortic valve stenosis Postoperative aortic valve replacement Evaluated patient this a.m., resting comfortably in chair, postop from open heart surgery with aortic valve replacement. Patient alert, awake and oriented 3. Patient denies fever, chills, palpitations, abdominal pain, nausea, vomiting, or diarrhea . Patient noted to in be normal sinus rhythm on the monitor. Objective - Vital Signs Vital signs: Vital Signs Temp 97.7 F 06/27/20 08:00 Pulse 52 L 06/27/20 08:00 Resp 16 06/27/20 08:00 BP 117/50 06/27/20 08:00 Pulse Ox 94 L 06/27/20 08:00 Intake & Output 06/26/20 06/27/20 06/27/20 18:59 06:59 18:59 Intake Total 681 180 Output Total 250 650 300 Balance 431 -650 -120 Weight 60.5 kg Intake: IV 12 KVO 12 Oral 669 180 Output: Urine 250 650 300 Other: Voiding Method Toilet # Voids 3 # Bowel Movements 1 ABP, PAP, CO, CI - Last Documented Arterial Blood Pressure 100/43 Pulmonary Artery Pressure 60/36 Cardiac Output 4.4 Cardiac Index 2.8 - Constitutional General appearance: Present: cooperative - EENT Eyes: Present: edentulous, PERRLA Ears: bilateral: normal - Neck Neck: Present: normal ROM Carotids: bilateral: upstroke normal Thyroid: bilateral: normal size - Respiratory Respiratory: bilateral: diminished (Throughout lung reyes) - Cardiovascular Details: Normal sinus rhythm Heart rate: 62 Rhythm: regular Heart sounds: normal: S1, S2 - Peripheral pulses dorsalis pedis Peripheral Pulses: bilateral: Normal radial pulse Peripheral Pulses: bilateral: Normal - Gastrointestinal General gastrointestinal: Present: normal bowel sounds - Integumentary Integumentary: Present: pale - Neurologic Neurologic: Present: CNII-XII intact - Musculoskeletal Musculoskeletal: Present: generalized weakness - Psychiatric Psychiatric: Present: A&O x's 3, appropriate affect, intact judgment & insight - Allied health notes Allied health notes reviewed: nursing - Labs CBC & Chem 7: 06/27/20 07:33 06/27/20 07:33 Labs: Abnormal Lab Results - Last 24 Hours (Table) 06/26/20 06/26/20 06/26/20 Range/Units 11:33 17:00 20:17 RBC (3.80-5.40) m/uL Hgb (11.4-16.0) gm/dL Hct (34.0-46.0) % Potassium (3.5-5.1) mmol/L Carbon Dioxide (22-30) mmol/L BUN (7-17) mg/dL Glucose (74-99) mg/dL POC Glucose (mg/dL) 125 H 128 H 128 H (75-99) mg/dL Magnesium (1.6-2.3) mg/dL 06/27/20 06/27/20 06/27/20 Range/Units 05:57 07:33 07:33 RBC 2.77 L (3.80-5.40) m/uL Hgb 8.6 L (11.4-16.0) gm/dL Hct 26.9 L (34.0-46.0) % Potassium 3.2 L (3.5-5.1) mmol/L Carbon Dioxide 32 H (22-30) mmol/L BUN 20 H (7-17) mg/dL Glucose 148 H (74-99) mg/dL POC Glucose (mg/dL) 148 H (75-99) mg/dL Magnesium 2.4 H (1.6-2.3) mg/dL - Imaging and Cardiology Chest x-ray: report reviewed Assessment and Plan Assessment: Status post aortic valve replacement - history of severe aortic stenosis with bicuspid aortic valve continue to follow treatment plan from cardiothoracic, cardiology, and pulmonology for recommendations and treatment plan History of severe left ventricular dysfunction Paroxysmal atrial fibrillation with RVR Hypertension Hyperlipidemia History of syncope History of tooth extraction Full code Continue medical management Time with Patient: Greater than 30
[2020-06-27] MEDS: FUROSEMIDE 10 MG/ML 2 ML VIAL IV SCH (09:40)
[2020-06-27] MEDS: AMIODARONE 200 MG TAB PO SCH ×2 (09:40→20:22)
--- NOTE | 2020-06-27 10:50 | P.PN ---
Subjective Progress Note Date: 06/27/20 Principal diagnosis: Severe aortic stenosis with bicuspid aortic valve status post to the aortic valve replacement Successfully weaned and extubated on 2 L oxygen Severe acute anemia Hypotension likely due to anemia Hypertension hypertensive cardiovascular disease Dyslipidemia Chronic systolic heart failure baseline ejection fraction of 15-20% Obstructive sleep apnea 06/27/2020, patient seen eval examined during the rounds labs reviewed medications reviewed care plan discussed, chest x-ray remains stable with bilateral atelectasis and effusion, cardiothoracic surgery would like to watch observe the pleural effusion no plans for active intervention like thoracentesis 06/26/2020, patient seen eval examined during the rounds labs reviewed medications reviewed care plan discussed patient sitting upright on the chair breathing comfortably no other acute episode of A. fib with RVR has been noted but patient felt a small episode however, she is on room air breathing comfortably, chest x-ray revealed slight progression of fluid ultrasound also shows slightly more pleural effusion, we'll discuss with cardiothoracic surgery about draining the right pleural cavity 06/25/2020, patient seen eval examined sitting upright on the chair breathing comfortably, patient had another episode of A. fib with RVR during the shower yesterday, currently she is on room air breathing comfortably denies any chest pain has been concerned about episodes, she remains on amiodarone, she is afebrile heart rate is 94, regular denies any cough or sputum production, hemoglobin stable at 8.2 platelet count is up now, chest x-ray continue show bilateral atelectasis along with bilateral pleural effusion more so on the right side compared to left side 06/24/2020, patient seen eval examined during the rounds, denies any chest pain, breathing is stable, hemodynamic status stable oxygen saturation is 99%, status post bilateral ultrasound small to moderate pleural effusion is present due to presence of intervening portion of the lung high risk for intervention like thoracentesis was plan to monitor observe closely, chest x-ray performed today showed no significant worsening 06/22/2020, patient seen eval examined during rounds sitting upright on the chair breathing comfortably on 2 L oxygen, patient went into A. fib RVR required amiodarone currently on by mouth, labs reviewed white cell count is 8900 with hemoglobin of 7.6, noted AST and ALT mildly up along with total bilirubin 1.7 AST/ALT of 101/130, Will follow closely 06/21/2020, patient seen and evaluated examined during the rounds labs reviewed medications reviewed care plan discussed with the staff at length, patient is laying comfortably on bed breathing on 2 L oxygen, [place]end[place] catheter has been removed, mediastinal tube has been removed, hemoglobin have been stable after transfusion 1 unit of packed RBC, chest x-ray performed today revealed continuation of bilateral basal atelectasis along with small trivial pleural effusion, some interstitial edema noted as well, as reviewed white cell count remained stable 8400, no clubbing is 7.6, platelet count is 91 is doing deep breathing sense incentive spirometry up to 500 Patient is a 69-year-old well-known to me initially admitted with syncope found to have a significant aortic stenosis of severe category and bicuspid aortic well, patient has LV dysfunction with reduced ejection fraction 20%, she has receptive dyslipidemia hypertension hypertensive cardiovascular disease patient admitted electively for aortic valve replacement tolerated well successfully weaned and extubated, currently patient is on 2 L sitting upright postop day #1 blood pressure slightly low hemoglobin drop down to 6 undergoing unit of packed RBC, off of pressors, on insulin drip per protocol, awake and alert denies any chest pain or shortness of breath mild discomfort is present at the operative site, breathing comfortably on 2 L sats are 92-94%, but pressure systolic runs slightly low 90, sinus rhythm, doing well off incentive spirometry 500 ML's, range, chest x-ray performed today shows bilateral basal atelectasis/consolidation, stable mediastinal drain and [place]endy catheter, and small effusions seen interstitial edema, along with postoperative changes Objective - Vital Signs Vital signs: Vital Signs Temp 97.7 F 06/27/20 08:00 Pulse 52 L 06/27/20 08:00 Resp 16 06/27/20 08:00 BP 117/50 06/27/20 08:00 Pulse Ox 94 L 06/27/20 08:00 Intake & Output 06/26/20 06/27/20 06/27/20 18:59 06:59 18:59 Intake Total 681 180 Output Total 250 650 300 Balance 431 -650 -120 Weight 60.5 kg Intake: IV 12 KVO 12 Oral 669 180 Output: Urine 250 650 300 Other: Voiding Method Toilet # Voids 3 # Bowel Movements 1 ABP, PAP, CO, CI - Last Documented Arterial Blood Pressure 100/43 Pulmonary Artery Pressure 60/36 Cardiac Output 4.4 Cardiac Index 2.8 - Exam - Constitutional General appearance: average body habitus, disheveled, mild distress - EENT Eyes: PERRLA Ears: bilateral: normal - Neck Neck: normal ROM Carotids: bilateral: upstroke normal Thyroid: bilateral: normal size - Respiratory Respiratory: bilateral: diminished (Predominantly at the bases) - Cardiovascular Rhythm: regular Heart sounds: normal: S1, S2 - Gastrointestinal General gastrointestinal: normal bowel sounds - Integumentary Integumentary: normal turgor - Neurologic Neurologic: CNII-XII intact - Musculoskeletal Musculoskeletal: gait normal, generalized weakness, strength equal bilaterally - Psychiatric Psychiatric: A&O x's 3, appropriate affect, intact judgment & insight - Labs CBC & Chem 7: 06/27/20 07:33 06/27/20 07:33 Labs: Abnormal Lab Results - Last 24 Hours (Table) 06/26/20 06/26/20 06/26/20 Range/Units 11:33 17:00 20:17 RBC (3.80-5.40) m/uL Hgb (11.4-16.0) gm/dL Hct (34.0-46.0) % Potassium (3.5-5.1) mmol/L Carbon Dioxide (22-30) mmol/L BUN (7-17) mg/dL Glucose (74-99) mg/dL POC Glucose (mg/dL) 125 H 128 H 128 H (75-99) mg/dL Magnesium (1.6-2.3) mg/dL 06/27/20 06/27/20 06/27/20 Range/Units 05:57 07:33 07:33 RBC 2.77 L (3.80-5.40) m/uL Hgb 8.6 L (11.4-16.0) gm/dL Hct 26.9 L (34.0-46.0) % Potassium 3.2 L (3.5-5.1) mmol/L Carbon Dioxide 32 H (22-30) mmol/L BUN 20 H (7-17) mg/dL Glucose 148 H (74-99) mg/dL POC Glucose (mg/dL) 148 H (75-99) mg/dL Magnesium 2.4 H (1.6-2.3) mg/dL Assessment and Plan Assessment: Bilateral pleural effusion right more than the left A. fib with RVR on amiodarone well controlled, Mildly elevated liver enzymes Thrombocytopenia stable Severe aortic stenosis with bicuspid aortic valve status post to the aortic valve replacement Successfully weaned and extubated on 2 L oxygen Severe acute anemia Hypotension likely due to anemia Hypertension hypertensive cardiovascular disease Dyslipidemia Chronic systolic heart failure baseline ejection fraction of 15-20% Obstructive sleep apnea Plan: Reviewed repeat ultrasound , per cardiothoracic surgery will monitor observe closely Monitor observe hemoglobin as well as platelet count closely monitor observe liver functions closely keep hemoglobin over 7 Deep breathing sense incentive spirometry early ambulation Supplemental oxygen Increase activity as tolerated Patient can be moved to selective care Follow clinical course closely further recommendations pending Time with Patient: Greater than 30
--- NOTE | 2020-06-27 11:05 | P.DS ---
Providers Date of admission: 06/19/20 05:46 Expected date of discharge: 06/27/20 Attending physician: Thomas Arias Consults: 06/19/20 12:47 Consult Physician Routine Consulting Provider: Martin Melchor Consult Reason/Comments: Vascular Sonographer Consult: post cardiac surgery Do you want consulting provider notified?: Yes Consult Physician Routine Consulting Provider: Ponce Suarez Consult Reason/Comments: medical managment Do you want consulting provider notified?: Yes Consult Physician Routine Consulting Provider: Isaiah Thomason Consult Reason/Comments: Director Of Strategic Programs Consult: post cardiac surgery;Zayas patient Do you want consulting provider notified?: Yes 06/21/20 08:22 Consult Physician Routine Consulting Provider: Jensen Pang Consult Reason/Comments: Evaluation for inpatient rehab Do you want consulting provider notified?: Yes Primary care physician: Ponce Suarez Hospital Course: FINAL DIAGNOSIS: 1. Symptomatic severe bicuspid aortic valve stenosis 2. History of hypertension 3. Hyperlipidemia, treated, cholesterol 160, LDL 91 4. Preoperative syncopal event with traumatic facial trauma 5. Chronic systolic heart failure with left ventricular dysfunction and EF 35% on most recent echocardiogram 6. Never smoker with preoperative FEV1 80% of predicted 7. Postoperative acute blood loss anemia, expected 8. Paroxysmal atrial fibrillation, known potential complication 9. Bilateral pleural effusion, right greater than left, expected and known potential condition after open heart surgery PRINCIPAL PROCEDURE: 1. Aortic valve replacement using a 21 mm Inspiris pericardial bioprosthesis 2. Exclusion of the left atrial appendage using a 35 mm AtriClip 3. Intraoperative transesophageal echocardiogram and epi-aortic scanning HISTORY OF PRESENT ILLNESS: This is a 69-year-old mentally slow but physically active female patient who follows on an outpatient basis with Dr. Ponce Suarez for primary care and Dr. SANYA Zayas for cardiology. She was admitted to [facility] in April 2020 with signs and symptoms of acute congestive heart failure. Workup at that time included heart catheterization revealing nonsignificant coronary artery disease, transthoracic echocardiogram followed by transesophageal echocardiogram demonstrated severely impaired LV dysfunction with ejection fraction 15-20% and global hypokinesia, bicuspid aortic valve with evidence of fusion of the right and non-coronary cusp and severe aortic stenosis with peak/mean gradient 68/40 mmHg, moderate mitral regurgitation, and moderate tricuspid regurgitation. She was treated for her heart failure symptoms, diuresed appropriately, improved clinically and was discharged. She had an outpatient follow-up transthoracic echocardiogram at [facility] which demonstrated ejection fraction 35%, severe/critical bicuspid aortic stenosis with valve area 0.37 cm and mean gradient 55 mmHg, mild mitral regurgitation, and mild to moderate tricuspid regurgitation. She was referred to the [facility] at [facility] for potential TAVR. At that time she denied chest pain, lightheadedness, or syncope. CT scan demonstrated no ascendi ng aortic dilatation and calcification at the level of the aortic valve. Carotid Dopplers demonstrated no significant disease. Pulmonary function test demonstrated FEV1 80% of predicted. EKG demonstrated sinus rhythm with left bundle branch block. Her STS risk was calculated at 2.6%. The patient was doing better clinically and was generating enough mean gradient across the aortic valve demonstrating substantial reserve in her ventricular function, she was considered to be low surgical risk. Discussion took place between Dr. Zayas and Dr. Arias from cardiothoracic surgery who felt that the patient should undergo surgical aortic valve replacement after appropriate dental clearance which she did obtain after extraction of 4 teeth. She did end up having an episode of syncope at home, and presented to [facility] emergency room for evaluation and treatment with admittance for observation for a couple of days. She was treated and released to follow up with Dr. Arias from car diothoracic surgery, surgery date was scheduled. The usual perioperative course was discussed in detail with the patient, all risks and benefits were explained, all questions were answered, and consent was obtained to proceed with surgery. HOSPITAL COURSE: The patient was brought to the hospital on 06/19/2020, taken to the preoperative area, prepared in the usual fashion, and subsequently taken to the operating room where Dr. Arias performed bioprosthetic aortic valve replacement with exclusion of the left atrial appendage. Upon completion of surgery the patient was transferred to the cardiovascular intensive care unit where she was recovered and monitored hemodynamically. She was extubated, all lines, tubes, and drips were discontinued when appropriate, and she was transferred to 3 S cardiac stepdown unit for further monitoring and rehabilitation. She did have postoperative acute blood loss anemia requiring 1 unit packed red blood cell transfusion. In addition she experienced paroxysmal atrial fibrillation requiring initiation of amiodarone and titration of her beta jose therapy. Her oxygen was titrated down, she continued to work with physical and occupational therapy, she was tolerating oral diet, her pain was controlled, and she was ready to be discharged to [facility] inpatient rehab on postoperative day #8, with consultation placed to cardiology for close monitoring of her heart rate and rhythm, as well as pulmonology for monitoring her pleural effusions. She received written and verbal instruction regarding her medications, activity restrictions, signs and symptoms requiring physician notification, and follow-up appointments to be made upon discharge from inpatient rehab. COMPLICATIONS: The patient experienced postoperative acute blood loss anemia, paroxysmal atrial fibrillation, and bilateral pleural effusions, all treated accordingly. Patient Condition at Discharge: Stable Plan - Discharge Summary Discharge Rx Participant: Yes New Discharge Prescriptions: New Aspirin 325 mg PO DAILY tab Amiodarone [Cordarone] 200 mg PO BID tab Ipratropium-Albuterol Nebulize [Duoneb 0.5 mg-3 mg/3 ml Soln] 3 ml INHALATION RT-QID ml Ipratropium-Albuterol Nebulize [Duoneb 0.5 mg-3 mg/3 ml Soln] 3 ml INHALATION RT-Q2H PRN ml PRN Reason: Shortness Of Breath Or Wheezing Heparin Sodium,Porcine [Heparin Sodium] 5,000 unit SQ Q8HR vial Ferrous Sulfate [Iron (65 MG Elemental)] 325 mg PO W/LUNCH tab Potassium Chloride ER [K-Dur 10] 10 meq PO DAILY #30 tab Metoprolol Tartrate [Lopressor] 25 mg PO Q8HR@0600,1400,2200 tab Magnesium Hydroxide [Milk of Magnesia Concentrate] 2,400 mg PO BID PRN ml PRN Reason: Constipation Clopidogrel [Plavix] 75 mg PO DAILY tab Midodrine [ProAmatine] 10 mg PO AC-TID tab Pantoprazole [Protonix] 40 mg PO AC-BRKFST tablet.dr Henderson-Docusate Sodium [Senokot-S] 1 each PO HS tab Acetaminophen Tab [Tylenol] 1,000 mg PO Q6HR PRN tab PRN Reason: Fever And/ Or Pain Ascorbic Acid [Vitamin C] 500 mg PO DAILY@1200 tab lisinopriL [Zestril] 2.5 mg PO DAILY@1200 tab Continue Atorvastatin [Lipitor] 40 mg PO HS #30 tab Changed Furosemide [Lasix] 20 mg PO DAILY #30 tab Discontinued Aspirin 81 mg PO DAILY #30 chew Metoprolol Tartrate [Lopressor] 12.5 mg PO DAILY #60 tab Nitroglycerin Sl Tabs [Nitrostat] 0.4 mg SUBLINGUAL Q5M PRN #20 tab PRN Reason: Chest Pain Famotidine [Pepcid] 20 mg PO DAILY Mupirocin 2% Oint [Bactroban 2% Oint] 1 applic NASAL BID Discharge Medication List Atorvastatin [Lipitor] 40 mg PO HS #30 tab 04/21/20 [Rx] Acetaminophen Tab [Tylenol] 1,000 mg PO Q6HR PRN tab 06/27/20 [Rx] Amiodarone [Cordarone] 200 mg PO BID tab 06/27/20 [Rx] Ascorbic Acid [Vitamin C] 500 mg PO DAILY@1200 tab 06/27/20 [Rx] Aspirin 325 mg PO DAILY tab 06/27/20 [Rx] Clopidogrel [Plavix] 75 mg PO DAILY tab 06/27/20 [Rx] Ferrous Sulfate [Iron (65 MG Elemental)] 325 mg PO W/LUNCH tab 06/27/20 [Rx] Furosemide [Lasix] 20 mg PO DAILY #30 tab 06/27/20 [Rx] Heparin Sodium,Porcine [Heparin Sodium] 5,000 unit SQ Q8HR vial 06/27/20 [Rx] Ipratropium-Albuterol Nebulize [Duoneb 0.5 mg-3 mg/3 ml Soln] 3 ml INHALATION RT-Q2H PRN ml 06/27/20 [Rx] Ipratropium-Albuterol Nebulize [Duoneb 0.5 mg-3 mg/3 ml Soln] 3 ml INHALATION RT-QID ml 06/27/20 [Rx] Magnesium Hydroxide [Milk of Magnesia Concentrate] 2,400 mg PO BID PRN ml 06/27/20 [Rx] Metoprolol Tartrate [Lopressor] 25 mg PO Q8HR@0600,1400,2200 tab 06/27/20 [Rx] Midodrine [ProAmatine] 10 mg PO AC-TID tab 06/27/20 [Rx] Pantoprazole [Protonix] 40 mg PO AC-BRKFST tablet. 06/27/20 [Rx] Potassium Chloride ER [K-Dur 10] 10 meq PO DAILY #30 tab 06/27/20 [Rx] Sennosides-Docusate Sodium [Senokot-S] 1 each PO HS tab 06/27/20 [Rx] lisinopriL [Zestril] 2.5 mg PO DAILY@1200 tab 06/27/20 [Rx] Follow up Appointment(s)/Referral(s): Ponce Suarez MD [Primary Care Provider] - 1 Week (Please call for follow up appointment upon discharge from [facility]patient [facility]) Odilia Zayas MD [STAFF PHYSICIAN] - 1 Week (Please call for follow up appointment upon discharge from [facility]) Rehab Deisy BETANCOURT,Cardiac [NON-STAFF] - 1 Week (You will receive a phone call in approximately 4 weeks for evaluation for cardiac rehab) Thomas Arias MD [STAFF PHYSICIAN] - 07/20/20 10:00 am Martin Melchor MD [STAFF PHYSICIAN] - 1 Week (Please call for follow up appointment upon discharge from [facility]) Activity/Diet/Wound Care/Special Instructions: CONSULTATIONS AT [facility]: Dr. SANYA Zayas for cardiology Dr. Melchor for pulmonology Dr. Suarez for primary care CBC, BMP to be drawn daily DISCHARGE INSTRUCTIONS: 1. No driving for 4 weeks, or until physician gives their ok. 2. The patient should sleep in their own bed, no medical bed needed. 3. Stairs are not an issue. If the bedroom is upstairs, it is advised that the patient go up at night and down in the morning for the first week. Go slowly, using handrail and take 1 step at a time. 4. NADEEN hose are to be worn for 30 days or until physician discontinues. 5. Heart hugger is to be worn 100% of the time until physician discontinues.(except when showering) 6. No lifting, pushing, or pulling more than 10 pounds for 12 weeks. The physician will advise of any restriction changes. 7. The patient is expected to continue the prescribed walking program. 8. Continue pain control per as needed orders. 9. Continue with incentive spirometry and splinting/heart hugger until otherwise directed by the physician. 10. Must shower daily using liquid antibacterial soap and a separate white washcloth for each individual incision. 11. Routine sternal incision care. No powders, lotions, ointments on incisions. No dressings are necessary on incisions unless they are draining. Dermabond tape is to remain on sternal incision until surgeon follow-up. 12. Please call surgeon/[employer] for temp greater than 101 F or purulent drainage from incisions. 13. All prescriptions given by surgeon for 30 days. Refills need to be filled through stepdown nurse/primary care physician. 14. A Red armband has been placed on the patient. It should be worn for 30 days post surgery and will be removed by the cardiac surgeons. If an ER visit is n ecessary, please make sure the number on the Red armband is called. 15. You have been referred to and are expected to begin Cardiac Rehab in approximately 4-6 weeks. 16. ABSOLUTELY NO NARCOTICS AT [facility] 17. NOTIFY CARDIOTHORACIC SURGERY IF PATIENT NEEDS TO BE ADMITTED TO ICU/STEP- DOWN UNIT FROM [facility]/HOME HEALTH SERVICES TO PROVIDE: RN SKILLED HOME CARE SERVICES FOR POST-OP SURGICAL PATIENTS WITH THE FOLLOWING: Aortic Valve Replacement/Repair (AVR) RN TO CONTINUE EDUCATION FROM ``ROAD TO A HEALTH HEART PATIENT EDUCATION MANUAL (GIVEN TO PATIENT IN THE HOSPITAL) MEDICATION RECONCILIATION WITH EDUCATION NEEDED ON FIRST HOME VISIT EMPHASIZE IMPORTANCE OF WEARING BREAST SUPPORT/HEART HUGGER ENCOURAGE USE OF INCENTIVE SPIROMETER 10 X EVERY HOUR WHILE AWAKE ENCOURAGE UTILIZATION OF LOWER EXTREMITY COMPRESSION STOCKINGS/NADEEN HOSE and ELEVATE LEGS ABOVE LEVEL OF HEART WHILE AT REST. ENCOURAGE AMBULATION 3-5x/day INCREASING TOLERATES, WHILE AVOIDING EXTREMES IN TEMPERATURE HOME HEALTH CARE UPON DISCHARGE FROM [facility]: RN TO OPEN THE PATIENT WITHIN 24 HOURS OF DISCHARGE FROM [facility] WITH TELEHEALTH INSTALLED AT [facility], RN TO VISIT 2-3 X A WEEK FOR 4 WEEKS ESTABLISHED BY PATIENT NEEDS. LABORATORY: CBC, CMP TO BE DRAWN ON THE THIRD DAY HOME, (RAN STAT) FAX RESULTS TO [phone]. TELEHEALTH PARAMETERS: WEIGHT: NOTIFY MD OF WEIGHT GAIN OF 2 LBS IN 24 HOURS OR 5 LBS IN ONE WEEK HR: NOTIFY MD OF HR <55 BPM OR HR>100 BPM BP: NOTIFY MD IF BP <90/55 OR BP>140/100 O2 SAT: NOTIFY MD IF PO2<93% ON ROOM AIR SEND TELEHEALTH REPORT TO COMMUNICATION SKILLS INSTRUCTOR AND CARDIOVASCULAR SURGEON THE FIRST WEEK OF CARE AND THEN BI-WEEKLY. PLEASE ADDITIONALLY COMMUNICATE ANY ABNORMALS AND NEW FINDINGS TO THE SURGEONS OFFICE. For any questions or concerns please call tentering machine off bearer Maryam @ or Issa @ Discharge Disposition: DC/TRNS INTERMEDIATE CARE FAC
[2020-06-27 11:46] LABS: Glucose,Whole Blood 154 mg/dL (75-99)
[2020-06-27] MEDS: FERROUS SULFATE 325 MG TAB PO SCH (12:01)
--- NOTE | 2020-06-27 13:33 | P.PN ---
Subjective Progress Note Date: 06/27/20 Principal diagnosis: Status post aortic valve replacement This is a very pleasant 69-year-old female patient was admitted to the hospital electively and underwent an aortic valve replacement for severe symptomatic stenotic bicuspid aortic valve. The post operation course was complicated by multiple brief episodes of atrial fibrillation. Currently she is on amiodarone. The patient was seen today. She is definitely looking better clinically. She was walking in the hallway. Hemodynamically she continues to be stable. She is on dual antiplatelet therapy along with aspirin and Plavix as well as high intensity statin was Lipitor at 40 mg by mouth daily at bedtime as well as she is on metoprolol and lisinopril. She is on maximize medical treatment. The patient possibly can be discharged into an extended-care facility next 24-48 hours. The hemoglobin is above 7. Any function and electrolytes are within normal limits. Objective - Vital Signs Vital signs: Vital Signs Temp 97.2 F L 06/27/20 12:00 Pulse 53 L 06/27/20 12:00 Resp 16 06/27/20 12:00 BP 112/60 06/27/20 12:00 Pulse Ox 95 06/27/20 12:00 Intake & Output 06/26/20 06/27/20 06/27/20 18:59 06:59 18:59 Intake Total 681 402 Output Total 250 650 300 Balance 431 -650 102 Weight 60.5 kg Intake: IV 12 KVO 12 Oral 669 402 Output: Urine 250 650 300 Other: Voiding Method Toilet # Voids 3 1 # Bowel Movements 1 ABP, PAP, CO, CI - Last Documented Arterial Blood Pressure 100/43 Pulmonary Artery Pressure 60/36 Cardiac Output 4.4 Cardiac Index 2.8 - Constitutional General appearance: Present: no acute distress - Respiratory Respiratory: bilateral: diminished - Cardiovascular Rhythm: regular Heart sounds: normal: S1, S2 - Labs CBC & Chem 7: 06/27/20 07:33 06/27/20 07:33 Labs: Abnormal Lab Results - Last 24 Hours (Table) 06/26/20 06/26/20 06/27/20 Range/Units 17:00 20:17 05:57 RBC (3.80-5.40) m/uL Hgb (11.4-16.0) gm/dL Hct (34.0-46.0) % Potassium (3.5-5.1) mmol/L Carbon Dioxide (22-30) mmol/L BUN (7-17) mg/dL Glucose (74-99) mg/dL POC Glucose (mg/dL) 128 H 128 H 148 H (75-99) mg/dL Magnesium (1.6-2.3) mg/dL 06/27/20 06/27/20 06/27/20 Range/Units 07:33 07:33 11:44 RBC 2.77 L (3.80-5.40) m/uL Hgb 8.6 L (11.4-16.0) gm/dL Hct 26.9 L (34.0-46.0) % Potassium 3.2 L (3.5-5.1) mmol/L Carbon Dioxide 32 H (22-30) mmol/L BUN 20 H (7-17) mg/dL Glucose 148 H (74-99) mg/dL POC Glucose (mg/dL) 154 H (75-99) mg/dL Magnesium 2.4 H (1.6-2.3) mg/dL Assessment and Plan Assessment: Assessment #1 status post aortic valve replacement for severe symptomatic bicuspid aortic valve stenosis #2 cardiomyopathy nonischemic #3 paroxysmal atrial fibrillation Plan #1 continue the current medical regimen #2 continue monitor for atrial fibrillation episodes #3 monitor the kidney function and electrolytes #4 follow-up with the patient
[2020-06-27 16:38] LABS: Glucose,Whole Blood 157 mg/dL (75-99)
[2020-06-27] MEDS ORDERED: Potassium Replacement Protocol 1 EACH MISC MISCELLANE PRN (16:38)
[2020-06-27] MEDS: POTASSIUM CHLORIDE ER 20 MEQ TAB.ER PO SCH (17:18)
[2020-06-27] MEDS: SENNOSIDES-DOCUSATE SODIUM 1 EACH TAB PO SCH (20:22)
[2020-06-27] MEDS: ATORVASTATIN 40 MG TAB PO SCH (20:22)
[2020-06-27 20:36] LABS: Glucose,Whole Blood 138 mg/dL (75-99)
[2020-06-27 21:31] VITALS: RESP 18
[2020-06-28] MEDS: METOPROLOL TARTRATE 25 MG TAB PO SCH ×3 (06:19→22:32)
[2020-06-28] MEDS: MIDODRINE 5 MG TAB PO SCH ×3 (06:19→16:50)
[2020-06-28] MEDS: PANTOPRAZOLE 40 MG TABLET PO SCH (06:19)
[2020-06-28 06:37] LABS: Glucose,Whole Blood 170 mg/dL (75-99)
[2020-06-28] MEDS: IPRATROPIUM-ALBUTEROL 3 ML NEB INHALATION SCH ×4 (07:43→19:37)
--- NOTE | 2020-06-28 08:04 | P.PN ---
Subjective Progress Note Date: 06/28/20 Principal diagnosis: Symptomatic severe bicuspid aortic valve stenosis. Previous medical history of hypertension, hyperlipidemia, preoperative syncopal event with traumatic facial trauma, chronic systolic heart failure with left ventricular dysfunction and EF 35% on most recent echocardiogram, never smoker. POD #9 aortic valve replacement using a 21 mm Inspiris pericardial bi oprosthesis, exclusion of the left atrial appendage using a 35 mm Atriclip, intraoperative transesophageal echocardiogram and epi-aortic scanning. Postoperative acute blood loss anemia, expected due to cardiopulmonary bypass and hemodilution Paroxysmal atrial fibrillation, known potential complication of open heart surgery The patient's currently sitting up in a recliner on the cardiac stepdown unit in no acute distress. Denies pain or shortness of breath. She continues to be in normal sinus rhythm to sinus bradycardia. Ambulated in hallway yesterday several times without difficulty. After [facility]ual-es-bj[facility] received insurance authorization for patient go to inpatient rehab, however there was no bed availability yesterday. Objective - Vital Signs Vital signs: Vital Signs Temp 98.5 F 06/28/20 03:43 Pulse 56 L 06/28/20 03:43 Resp 18 06/28/20 03:43 BP 127/62 06/28/20 03:43 Pulse Ox 94 L 06/28/20 03:43 Intake & Output 06/27/20 06/28/20 06/28/20 18:59 06:59 18:59 Intake Total 1424 10 Output Total 975 400 Balance 449 -390 Weight 62.3 kg Intake: IV 10 0.9 10 Oral 1424 Output: Urine 975 400 Other: Voiding Method Toilet # Voids 1 1 # Bowel Movements 1 ABP, PAP, CO, CI - Last Documented Arterial Blood Pressure 100/43 Pulmonary Artery Pressure 60/36 Cardiac Output 4.4 Cardiac Index 2.8 - Constitutional General appearance: Present: cooperative, no acute distress - Respiratory Details: Lungs sounds diminished bases. Respirations even, nonlabored. Currently on room air with oxygen saturation 94%. Continues to achieve only 500 mL on incentive spirometry. Strong nonproductive cough. - Cardiovascular Details: S1, S2 present. Regular rate and rhythm, sinus arya on telemetry with heart rate in the 50s. Sternum stable. Palpable peripheral pulses bilaterally. No edema present. No calf pain or tenderness noted. Heart hugger in place with patient demonstrating appropriate use. Antiembolism stockings, SCDs present. - Gastrointestinal Gastrointestinal Comment(s): Abdomen soft, nontender, nondistended. Active bowel sounds present 4 quadrants. Tolerating minimal diet. Positive bowel movement 06/28. - Genitourinary Genitourinary Comment(s): Continues to void - Integumentary Integumentary Comment(s): Skin is warm and dry with evidence of good perfusion. Anterior chest incision well approximated without redness or drainage - Neurologic Neurologic: Present: CNII-XII intact - Musculoskeletal Musculoskeletal: Present: gait normal, strength equal bilaterally - Psychiatric Psychiatric Comment(s): Mentally slow Psychiatric: Present: A&O x's 3, appropriate affect - Allied health notes Allied health notes reviewed: nursing - Labs CBC & Chem 7: 06/27/20 07:33 06/27/20 07:33 Labs: Abnormal Lab Results - Last 24 Hours (Table) 06/27/20 06/27/20 06/27/20 Range/Units 07:33 07:33 07:33 RBC 2.77 L (3.80-5.40) m/uL Hgb 8.6 L (11.4-16.0) gm/dL Hct 26.9 L (34.0-46.0) % Potassium 3.2 L (3.5-5.1) mmol/L Carbon Dioxide 32 H (22-30) mmol/L BUN 20 H (7-17) mg/dL Glucose 148 H (74-99) mg/dL POC Glucose (mg/dL) (75-99) mg/dL Magnesium 2.4 H (1.6-2.3) mg/dL Procalcitonin 0.13 H (0.02-0.09) ng/mL 06/27/20 06/27/20 06/27/20 Range/Units 11:44 16:38 20:14 RBC (3.80-5.40) m/uL Hgb (11.4-16.0) gm/dL Hct (34.0-46.0) % Potassium (3.5-5.1) mmol/L Carbon Dioxide (22-30) mmol/L BUN (7-17) mg/dL Glucose (74-99) mg/dL POC Glucose (mg/dL) 154 H 157 H 138 H (75-99) mg/dL Magnesium (1.6-2.3) mg/dL Procalcitonin (0.02-0.09) ng/mL 06/28/20 Range/Units 06:13 RBC (3.80-5.40) m/uL Hgb (11.4-16.0) gm/dL Hct (34.0-46.0) % Potassium (3.5-5.1) mmol/L Carbon Dioxide (22-30) mmol/L BUN (7-17) mg/dL Glucose (74-99) mg/dL POC Glucose (mg/dL) 170 H (75-99) mg/dL Magnesium (1.6-2.3) mg/dL Procalcitonin (0.02-0.09) ng/mL - Imaging and Cardiology Chest x-ray: image reviewed Assessment and Plan Assessment: 1. Symptomatic severe bicuspid aortic valve stenosis, status post bioprosthetic aortic valve replacement 2. History of hypertension 3. Hyperlipidemia, treated, cholesterol 160, LDL 91 4. Preoperative syncopal event with traumatic facial trauma 5. Chronic systolic heart failure with left ventricular dysfunction and EF 35% on most recent echocardiogram 6. Never smoker with preoperative FEV1 80% of predicted 7. Postoperative acute blood loss anemia, expected due to cardiopulmonary bypa ss and hemodilution 8. Paroxysmal atrial fibrillation, known potential complication of open heart s urgery, status post left atrial appendage ligation Plan: 1. Continue aspirin, statin, Plavix, low-dose Julian, beta jose therapy. 2. Continue amiodarone with tapered dose. No anticoagulation necessary 3. Encourage incentive spirometry is 10 times every hour while awake. Bronchodilators per pulmonology. Decision regarding thoracentesis per pulmonology 4. Increase activity, ambulate as tolerated. PT/OT/cardiac rehab following. 5. Will monitor daily labs and chest x-rays. Electrolyte replacement per protocol. No further transfusions at this time. Continue Lasix, decreased to daily, will transition to oral when discharged to [facility] 6. GI/DVT prophylaxis. 7. Insulin management per primary care service. Patient is not diabetic, preoperative hemoglobin A1c 6.2% 8. Strict intake and output, daily weights 9. Pain control with current medication regimen, no narcotics 10. Discharge planning in progress. Anticipate discharge to inpatient rehab when bed available, hopefully today. Patient does need closer monitoring than she would receive at SNF, needs daily evaluation by cardiology for heart rate and rhythm and medication changes, needs daily assessment by pulmonology for possible thoracentesis. Needs daily lab work to assess electrolytes. She is not safe to return home as she is mildly mentally challenged and has no family available. 11. More recommendations to follow based on patient's clinical course. Time with Patient: Greater than 30
[2020-06-28 08:20] LABS: Basophils % (A) 0 %; Eosinophils % (A) 1 %; HCT 27.9 % (34.0-46.0); HGB 8.8 gm/dL (11.4-16.0); Hypochromasia Slight; Lymphocytes % (A) 11 %; MCH 30.9 pg (25.0-35.0); MCHC 31.4 g/dL (31.0-37.0); MCV 98.2 fL (80.0-100.0); Mean Platelet Volume 7.4; Monocytes % (A) 5 %; Neutrophils # (A) 7.5 k/uL (1.3-7.7); Neutrophils % (A) 82 %; Platelet Count 287 k/uL (150-450); RBC 2.84 m/uL (3.80-5.40); RDW 14.4 % (11.5-15.5); WBC 9.2 k/uL (3.8-10.6)
[2020-06-28 08:21] LABS: Eosinophils # (A) 0.1 k/uL (0-0.7); Monocytes # (A) 0.5 k/uL (0-1.0)
[2020-06-28] MEDS: FUROSEMIDE 10 MG/ML 2 ML VIAL IV SCH (08:38)
[2020-06-28] MEDS: ASPIRIN 325 MG TAB PO SCH (08:38)
[2020-06-28] MEDS: CLOPIDOGREL 75 MG TAB PO SCH (08:38)
[2020-06-28] MEDS: AMIODARONE 200 MG TAB PO SCH ×2 (08:38→20:10)
[2020-06-28] MEDS: HEPARIN SODIUM,PORCINE 5,000 UNIT/ML 1 ML VIAL SQ SCH ×3 (08:38→23:14)
[2020-06-28 08:53] LABS: ALT 119 U/L (4-34); AST 52 U/L (14-36); African American GFR (CKD) >90 (>60 ml/min/1.73 sqM); Albumin 3.4 g/dL (3.5-5.0); Alkaline Phosphatase 105 U/L (38-126); Anion Gap 10 mmol/L; Blood Urea Nitrogen 18 mg/dL (7-17); Calcium 8.7 mg/dL (8.4-10.2); Carbon Dioxide 27 mmol/L (22-30); Chloride 107 mmol/L (98-107); Glucose 151 mg/dL (74-99); Magnesium 2.5 mg/dL (1.6-2.3); Non-African American GFR(CKD) 85 (>60 ml/min/1.73 sqM); Potassium 3.8 mmol/L (3.5-5.1); Sodium 144 mmol/L (137-145); Total Bilirubin 1.3 mg/dL (0.2-1.3); Total Protein 6.2 g/dL (6.3-8.2)
--- NOTE | 2020-06-28 09:05 | P.PN ---
Subjective Progress Note Date: 06/28/20 Principal diagnosis: Symptomatic severe bicuspid aortic valve stenosis Postoperative aortic valve replacement Evaluated patient this a.m., resting comfortably in chair, postop from open heart surgery with aortic valve replacement. Patient alert, awake and oriented 3. Patient denies fever, chills, palpitations, abdominal pain, nausea, vomiting, or diarrhea . Patient noted to in be normal sinus rhythm on the monitor. Patient ambulated four times to the hallway yesterday as directed. Objective - Vital Signs Vital signs: Vital Signs Temp 98.5 F 06/28/20 03:43 Pulse 56 L 06/28/20 03:43 Resp 18 06/28/20 03:43 BP 127/62 06/28/20 03:43 Pulse Ox 94 L 06/28/20 03:43 Intake & Output 06/27/20 06/28/20 06/28/20 18:59 06:59 18:59 Intake Total 1424 10 222 Output Total 975 400 Balance 449 -390 222 Weight 62.3 kg Intake: IV 10 0.9 10 Oral 1424 222 Output: Urine 975 400 Other: Voiding Method Toilet # Voids 1 1 # Bowel Movements 1 ABP, PAP, CO, CI - Last Documented Arterial Blood Pressure 100/43 Pulmonary Artery Pressure 60/36 Cardiac Output 4.4 Cardiac Index 2.8 - Constitutional General appearance: Present: cooperative - EENT Eyes: Present: EOMI, PERRLA ENT: Present: hard of hearing Ears: bilateral: normal - Neck Neck: Present: normal ROM Thyroid: bilateral: normal size - Respiratory Respiratory: bilateral: diminished (Anterior and posterior) - Cardiovascular Details: Normal sinus rhythm Heart rate: 62 Rhythm: regular Heart sounds: normal: S1, S2 - Peripheral pulses radial pulse Peripheral Pulses: bilateral: Normal dorsalis pedis Peripheral Pulses: bilateral: Normal - Gastrointestinal General gastrointestinal: Present: normal bowel sounds - Integumentary Integumentary: Present: pale - Neurologic Neurologic: Present: CNII-XII intact - Musculoskeletal Musculoskeletal: Present: generalized weakness - Psychiatric Psychiatric: Present: A&O x's 3, appropriate affect, intact judgment & insight - Allied health notes Allied health notes reviewed: nursing - Labs CBC & Chem 7: 06/28/20 07:25 06/28/20 07:25 Labs: Abnormal Lab Results - Last 24 Hours (Table) 06/27/20 06/27/20 06/27/20 Range/Units 07:33 11:44 16:38 RBC (3.80-5.40) m/uL Hgb (11.4-16.0) gm/dL Hct (34.0-46.0) % BUN (7-17) mg/dL Glucose (74-99) mg/dL POC Glucose (mg/dL) 154 H 157 H (75-99) mg/dL Magnesium (1.6-2.3) mg/dL AST (14-36) U/L ALT (4-34) U/L Total Protein (6.3-8.2) g/dL Albumin (3.5-5.0) g/dL Procalcitonin 0.13 H (0.02-0.09) ng/mL 06/27/20 06/28/20 06/28/20 Range/Units 20:14 06:13 07:25 RBC 2.84 L (3.80-5.40) m/uL Hgb 8.8 L (11.4-16.0) gm/dL Hct 27.9 L (34.0-46.0) % BUN (7-17) mg/dL Glucose (74-99) mg/dL POC Glucose (mg/dL) 138 H 170 H (75-99) mg/dL Magnesium (1.6-2.3) mg/dL AST (14-36) U/L ALT (4-34) U/L Total Protein (6.3-8.2) g/dL Albumin (3.5-5.0) g/dL Procalcitonin (0.02-0.09) ng/mL 06/28/20 Range/Units 07:25 RBC (3.80-5.40) m/uL Hgb (11.4-16.0) gm/dL Hct (34.0-46.0) % BUN 18 H (7-17) mg/dL Glucose 151 H (74-99) mg/dL POC Glucose (mg/dL) (75-99) mg/dL Magnesium 2.5 H (1.6-2.3) mg/dL AST 52 H (14-36) U/L ALT 119 H (4-34) U/L Total Protein 6.2 L (6.3-8.2) g/dL Albumin 3.4 L (3.5-5.0) g/dL Procalcitonin (0.02-0.09) ng/mL - Imaging and Cardiology Chest x-ray: report reviewed Assessment and Plan Assessment: Status post aortic valve replacement - history of severe aortic stenosis with bicuspid aortic valve continue to follow treatment plan from cardiothoracic, cardiology, and pulmonology for recommendations and treatment plan History of severe left ventricular dysfunction Paroxysmal atrial fibrillation with RVR Hypertension Hyperlipidemia History of syncope History of tooth extraction Full code Continue medical management Awaiting transfer to [facility] rehab Time with Patient: Greater than 30
--- NOTE | 2020-06-28 09:17 | XR ---
EXAMINATION TYPE: XR chest 2V DATE OF EXAM: 06/28/2020 COMPARISON: 06/27/2020 HISTORY: Shortness of breath TECHNIQUE: Frontal and lateral views of the chest are obtained. FINDINGS: Persistent pulmonary venous engorgement with basilar atelectasis and small effusions. Cardiomegaly pe rsists. Status post median sternotomy. Mediastinal structures are stable and grossly unremarkable. No evidence for hilar prominence. Degenerative changes dorsal spine. IMPRESSION: 1. Stable postoperative changes.
--- NOTE | 2020-06-28 09:27 | P.PN ---
Subjective Progress Note Date: 06/28/20 Principal diagnosis: Severe aortic stenosis with bicuspid aortic valve status post to the aortic valve replacement Successfully weaned and extubated on 2 L oxygen Severe acute anemia Hypotension likely due to anemia Hypertension hypertensive cardiovascular disease Dyslipidemia Chronic systolic heart failure baseline ejection fraction of 15-20% Obstructive sleep apnea 06/28/2020, patient seen eval examined during the rounds labs reviewed medications reviewed care plan discussed, denies any chest pain able to walk around without any difficulty does have some shortness of breath on activity and exertion, patient has bilateral pleural effusion she has been updated about the effusion plan is to closely monitor observe for now repeat ultrasound next week to reassess the fluid continue antiplatelet agents for now 06/27/2020, patient seen eval examined during the rounds labs reviewed medications reviewed care plan discussed, chest x-ray remains stable with bilateral atelectasis and effusion, cardiothoracic surgery would like to watch observe the pleural effusion no plans for active intervention like thoracentesis 06/26/2020, patient seen eval examined during the rounds labs reviewed medications reviewed care plan discussed patient sitting upright on the chair breathing comfortably no other acute episode of A. fib with RVR has been noted but patient felt a small episode however, she is on room air breathing comfortably, chest x-ray revealed slight progression of fluid ultrasound also shows slightly more pleural effusion, we'll discuss with cardiothoracic surgery about draining the right pleural cavity 06/25/2020, patient seen eval examined sitting upright on the chair breathing comfortably, patient had another episode of A. fib with RVR during the shower yesterday, currently she is on room air breathing comfortably denies any chest pain has been concerned about episodes, she remains on amiodarone, she is afebrile heart rate is 94, regular denies any cough or sputum production, hemoglobin stable at 8.2 platelet count is up now, chest x-ray continue show bilateral atelectasis along with bilateral pleural effusion more so on the right side compared to left side 06/24/2020, patient seen eval examined during the rounds, denies any chest pain, breathing is stable, hemodynamic status stable oxygen saturation is 99%, status post bilateral ultrasound small to moderate pleural effusion is present due to presence of intervening portion of the lung high risk for intervention like thoracentesis was plan to monitor observe closely, chest x-ray performed today showed no significant worsening 06/22/2020, patient seen eval examined during rounds sitting upright on the chair breathing comfortably on 2 L oxygen, patient went into A. fib RVR required amiodarone currently on by mouth, labs reviewed white cell count is 8900 with hemoglobin of 7.6, noted AST and ALT mildly up along with total bilirubin 1.7 AST/ALT of 101/130, Will follow closely 06/21/2020, patient seen and evaluated examined during the rounds labs reviewed medications reviewed care plan discussed with the staff at length, patient is laying comfortably on bed breathing on 2 L oxygen, [place]-Kendy catheter has been removed, mediastinal tube has been removed, hemoglobin have been stable after transfusion 1 unit of packed RBC, chest x-ray performed today revealed continuation of bilateral basal atelectasis along with small trivial pleural effusion, some interstitial edema noted as well, as reviewed white cell count remained stable 8400, no clubbing is 7.6, platelet count is 91 is doing deep breathing sense incentive spirometry up to 500 Patient is a 69-year-old well-known to me initially admitted with syncope found to have a significant aortic stenosis of severe category and bicuspid aortic well, patient has LV dysfunction with reduced ejection fraction 20%, she has receptive dyslipidemia hypertension hypertensive cardiovascular disease patient admitted electively for aortic valve replacement tolerated well successfully weaned and extubated, currently patient is on 2 L sitting upright postop day #1 blood pressure slightly low hemoglobin drop down to 6 undergoing unit of packed RBC, off of pressors, on insulin drip per protocol, awake and alert denies any chest pain or shortness of breath mild discomfort is present at the operative site, breathing comfortably on 2 L sats are 92-94%, but pressure systolic runs slightly low 90, sinus rhythm, doing well off incentive spirometry 500 ML's, range, chest x-ray performed today shows bilateral basal atele ctasis/consolidation, stable mediastinal drain and [place]-Kendy catheter, and small effusions seen interstitial edema, along with postoperative changes Objective - Vital Signs Vital signs: Vital Signs Temp 98.5 F 06/28/20 03:43 Pulse 56 L 06/28/20 03:43 Resp 18 06/28/20 03:43 BP 127/62 06/28/20 03:43 Pulse Ox 94 L 06/28/20 03:43 Intake & Output 06/27/20 06/28/2006/28/21 18:59 06:59 18:59 Intake Total 1424 10 222 Output Total 975 400 Balance 449 -390 222 Weight 62.3 kg Intake: IV 10 0.9 10 Oral 1424 222 Output: Urine 975 400 Other: Voiding Method Toilet # Voids 1 1 # Bowel Movements 1 ABP, PAP, CO, CI - Last Documented Arterial Blood Pressure 100/43 Pulmonary Artery Pressure 60/36 Cardiac Output 4.4 Cardiac Index 2.8 - Exam - Constitutional General appearance: average body habitus, disheveled, mild distress - EENT Eyes: PERRLA Ears: bilateral: normal - Neck Neck: normal ROM Carotids: bilateral: upstroke normal Thyroid: bilateral: normal size - Respiratory Respiratory: bilateral: diminished (Predominantly at the bases) - Cardiovascular Rhythm: regular Heart sounds: normal: S1, S2 - Gastrointestinal General gastrointestinal: normal bowel sounds - Integumentary Integumentary: normal turgor - Neurologic Neurologic: CNII-XII intact - Musculoskeletal Musculoskeletal: gait normal, generalized weakness, strength equal bilaterally - Psychiatric Psychiatric: A&O x's 3, appropriate affect, intact judgment & insight - Labs CBC & Chem 7: 06/28/20 07:25 06/28/20 07:25 Labs: Abnormal Lab Results - Last 24 Hours (Table) 06/27/20 06/27/20 06/27/20 Range/Units 07:33 11:44 16:38 RBC (3.80-5.40) m/uL Hgb (11.4-16.0) gm/dL Hct (34.0-46.0) % BUN (7-17) mg/dL Glucose (74-99) mg/dL POC Glucose (mg/dL) 154 H 157 H (75-99) mg/dL Magnesium (1.6-2.3) mg/dL AST (14-36) U/L ALT (4-34) U/L Total Protein (6.3-8.2) g/dL Albumin (3.5-5.0) g/dL Procalcitonin 0.13 H (0.02-0.09) ng/mL 06/27/20 06/28/20 06/28/20 Range/Units 20:14 06:13 07:25 RBC 2.84 L (3.80-5.40) m/uL Hgb 8.8 L (11.4-16.0) gm/dL Hct 27.9 L (34.0-46.0) % BUN (7-17) mg/dL Glucose (74-99) mg/dL POC Glucose (mg/dL) 138 H 170 H (75-99) mg/dL Magnesium (1.6-2.3) mg/dL AST (14-36) U/L ALT (4-34) U/L Total Protein (6.3-8.2) g/dL Albumin (3.5-5.0) g/dL Procalcitonin (0.02-0.09) ng/mL 06/28/20 Range/Units 07:25 RBC (3.80-5.40) m/uL Hgb (11.4-16.0) gm/dL Hct (34.0-46.0) % BUN 18 H (7-17) mg/dL Glucose 151 H (74-99) mg/dL POC Glucose (mg/dL) (75-99) mg/dL Magnesium 2.5 H (1.6-2.3) mg/dL AST 52 H (14-36) U/L ALT 119 H (4-34) U/L Total Protein 6.2 L (6.3-8.2) g/dL Albumin 3.4 L (3.5-5.0) g/dL Procalcitonin (0.02-0.09) ng/mL Assessment and Plan Assessment: Bilateral pleural effusion right more than the left A. fib with RVR on amiodarone well controlled, Mildly elevated liver enzymes Thrombocytopenia stable Severe aortic stenosis with bicuspid aortic valve status post to the aortic valve replacement Successfully weaned and extubated on 2 L oxygen Severe acute anemia Hypotension likely due to anemia Hypertension hypertensive cardiovascular disease Dyslipidemia Chronic systolic heart failure baseline ejection fraction of 15-20% Obstructive sleep apnea Plan: Reviewed repeat ultrasound , per cardiothoracic surgery will monitor observe closely Monitor observe hemoglobin as well as platelet count closely monitor observe liver functions closely keep hemoglobin over 7 Deep breathing sense incentive spirometry early ambulation Supplemental oxygen Increase activity as tolerated Patient can be moved to selective care Follow clinical course closely further recommendations pending Time with Patient: Greater than 30
--- NOTE | 2020-06-28 10:15 | P.PN ---
Subjective Progress Note Date: 06/28/20 Principal diagnosis: Status post aortic valve replacement This is a very pleasant 69-year-old female patient was admitted to the hospital electively and underwent an aortic valve replacement for severe symptomatic stenotic bicuspid aortic valve. The post operation course was complicated by multiple brief episodes of atrial fibrillation. The patient was seen today 06/28/2020. She is doing definitely better clinically. Hemodynamically she is stable. She is on maximize medical treatment. From a cardiovascular standpoint of view, the patient can be discharged home. On examination she has mild bilateral expiratory wheezing Objective - Vital Signs Vital signs: Vital Signs Temp 98.5 F 06/28/20 03:43 Pulse 56 L 06/28/20 03:43 Resp 18 06/28/20 03:43 BP 127/62 06/28/20 03:43 Pulse Ox 94 L 06/28/20 03:43 Intake & Output 06/27/20 06/28/20 06/28/20 18:59 06:59 18:59 Intake Total 1424 10 222 Output Total 975 400 Balance 449 -390 222 Weight 62.3 kg Intake: IV 10 0.9 10 Oral 1424 222 Output: Urine 975 400 Other: Voiding Method Toilet # Voids 1 1 # Bowel Movements 1 ABP, PAP, CO, CI - Last Documented Arterial Blood Pressure 100/43 Pulmonary Artery Pressure 60/36 Cardiac Output 4.4 Cardiac Index 2.8 - Constitutional General appearance: Present: no acute distress - Respiratory Respiratory: bilateral: wheezing - Cardiovascular Rhythm: regular Heart sounds: normal: S1, S2 Abnormal Heart Sounds: Present: systolic murmur - Labs CBC & Chem 7: 06/28/20 07:25 06/28/20 07:25 Labs: Abnormal Lab Results - Last 24 Hours (Table) 06/27/20 06/27/20 06/27/20 Range/Units 07:33 11:44 16:38 RBC (3.80-5.40) m/uL Hgb (11.4-16.0) gm/dL Hct (34.0-46.0) % BUN (7-17) mg/dL Glucose (74-99) mg/dL POC Glucose (mg/dL) 154 H 157 H (75-99) mg/dL Magnesium (1.6-2.3) mg/dL AST (14-36) U/L ALT (4-34) U/L Total Protein (6.3-8.2) g/dL Albumin (3.5-5.0) g/dL Procalcitonin 0.13 H (0.02-0.09) ng/mL 06/27/20 06/28/20 06/28/20 Range/Units 20:14 06:13 07:25 RBC 2.84 L (3.80-5.40) m/uL Hgb 8.8 L (11.4-16.0) gm/dL Hct 27.9 L (34.0-46.0) % BUN (7-17) mg/dL Glucose (74-99) mg/dL POC Glucose (mg/dL) 138 H 170 H (75-99) mg/dL Magnesium (1.6-2.3) mg/dL AST (14-36) U/L ALT (4-34) U/L Total Protein (6.3-8.2) g/dL Albumin (3.5-5.0) g/dL Procalcitonin (0.02-0.09) ng/mL 06/28/20 Range/Units 07:25 RBC (3.80-5.40) m/uL Hgb (11.4-16.0) gm/dL Hct (34.0-46.0) % BUN 18 H (7-17) mg/dL Glucose 151 H (74-99) mg/dL POC Glucose (mg/dL) (75-99) mg/dL Magnesium 2.5 H (1.6-2.3) mg/dL AST 52 H (14-36) U/L ALT 119 H (4-34) U/L Total Protein 6.2 L (6.3-8.2) g/dL Albumin 3.4 L (3.5-5.0) g/dL Procalcitonin (0.02-0.09) ng/mL
[2020-06-28] MEDS: ASCORBIC ACID 500 MG TAB PO SCH (11:42)
[2020-06-28] MEDS: FERROUS SULFATE 325 MG TAB PO SCH (11:42)
[2020-06-28 12:07] LABS: Glucose,Whole Blood 135 mg/dL (75-99)
[2020-06-28] MEDS: SENNOSIDES-DOCUSATE SODIUM 1 EACH TAB PO SCH (16:50)
[2020-06-28 16:53] LABS: Glucose,Whole Blood 115 mg/dL (75-99)
[2020-06-28] MEDS: ATORVASTATIN 40 MG TAB PO SCH (20:10)
[2020-06-28 20:54] LABS: Glucose,Whole Blood 161 mg/dL (75-99)
[2020-06-29] MEDS: PANTOPRAZOLE 40 MG TABLET PO SCH (06:33)
[2020-06-29] MEDS: METOPROLOL TARTRATE 25 MG TAB PO SCH ×2 (06:33→12:31)
[2020-06-29] MEDS: MIDODRINE 5 MG TAB PO SCH ×2 (06:33→12:31)
[2020-06-29 06:47] LABS: Glucose,Whole Blood 124 mg/dL (75-99)
[2020-06-29] MEDS: IPRATROPIUM-ALBUTEROL 3 ML NEB INHALATION SCH ×2 (08:08→11:15)
[2020-06-29 08:18] LABS: HCT 28.2 % (34.0-46.0); HGB 8.9 gm/dL (11.4-16.0); Hypochromasia Slight; MCH 30.6 pg (25.0-35.0); MCHC 31.7 g/dL (31.0-37.0); MCV 96.4 fL (80.0-100.0); Mean Platelet Volume 7.1; Platelet Count 324 k/uL (150-450); RBC 2.93 m/uL (3.80-5.40); RDW 14.5 % (11.5-15.5); WBC 9.4 k/uL (3.8-10.6)
[2020-06-29 08:30] LABS: African American GFR (CKD) >90 (>60 ml/min/1.73 sqM); Anion Gap 10 mmol/L; Blood Urea Nitrogen 16 mg/dL (7-17); Calcium 8.4 mg/dL (8.4-10.2); Carbon Dioxide 27 mmol/L (22-30); Chloride 103 mmol/L (98-107); Glucose 161 mg/dL (74-99); Non-African American GFR(CKD) 88 (>60 ml/min/1.73 sqM); Potassium 3.5 mmol/L (3.5-5.1); Sodium 140 mmol/L (137-145)
[2020-06-29] MEDS: FERROUS SULFATE 325 MG TAB PO SCH (08:34)
[2020-06-29] MEDS: ASCORBIC ACID 500 MG TAB PO SCH (08:34)
[2020-06-29] MEDS: ASPIRIN 325 MG TAB PO SCH (08:34)
[2020-06-29] MEDS: CLOPIDOGREL 75 MG TAB PO SCH (08:34)
[2020-06-29] MEDS: AMIODARONE 200 MG TAB PO SCH (08:34)
--- NOTE | 2020-06-29 08:35 | XR ---
EXAMINATION TYPE: XR chest 2V DATE OF EXAM: 06/29/2020 COMPARISON: 06/28/2020 HISTORY: Shortness of breath TECHNIQUE: Frontal and lateral views of the chest are obtained. FINDINGS: Scattered senescent parenchymal changes noted. Hyperinflation compatible with COPD. Basilar atelectasis or infiltrates persist with slight interval improvement suggested. Heart size is stable. Mediastinal structures are stable and grossly unremarkable. No evidence for hilar prominence. Degenerative changes dorsal spine. IMPRESSION: 1. Basilar atelectasis or infiltrates persist with slight interval improvement suggested.
[2020-06-29] MEDS: HEPARIN SODIUM,PORCINE 5,000 UNIT/ML 1 ML VIAL SQ SCH ×2 (08:40→08:48)
[2020-06-29] MEDS: FUROSEMIDE 10 MG/ML 2 ML VIAL IV SCH (08:40)
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
[2020-06-29] MEDS ORDERED: POTASSIUM CHLORIDE ER 20 MEQ TAB.ER PO STA (09:00)
[2020-06-29] MEDS ORDERED: APIXABAN 5 MG TAB PO SCH (09:00)
--- NOTE | 2020-06-29 09:15 | P.PN ---
Subjective Progress Note Date: 06/29/20 Principal diagnosis: Symptomatic severe bicuspid aortic valve stenosis Postoperative aortic valve replacement Evaluated patient this a.m., resting comfortably in chair, postop from open heart surgery with aortic valve replacement. Patient alert, awake and oriented 3. Patient denies fever, chills, palpitations, abdominal pain, nausea, vomiting, or diarrhea .Patient complains of midsternal surgical pain with coughing. Patient noted to in be normal sinus rhythm on the monitor. Patient strong likelihood of transfer to [facility] rehab will follow-up with pulmonology, cardiology, and [facility] continue rehab. Objective - Vital Signs Vital signs: Vital Signs Temp 99.3 F 06/29/20 04:00 Pulse 61 06/29/20 04:00 Resp 18 06/29/20 04:00 BP 109/66 06/29/20 04:00 Pulse Ox 94 L 06/29/20 04:00 Intake & Output 06/28/20 06/29/20 06/29/20 18:59 06:59 18:59 Intake Total 2017 10 240 Output Total 1000 Balance 1018 10 240 Weight 63.7 kg Intake: IV 10 0.9 10 Oral 2017 240 Output: Urine 1000 Other: Voiding Method Toilet # Voids 3 1 ABP, PAP, CO, CI - Last Documented Arterial Blood Pressure 100/43 Pulmonary Artery Pressure 60/36 Cardiac Output 4.4 Cardiac Index 2.8 - Constitutional General appearance: Present: cooperative - EENT Eyes: Present: EOMI, PERRLA ENT: Present: normal oropharynx Ears: bilateral: normal - Neck Neck: Present: normal ROM Carotids: bilateral: upstroke normal Thyroid: bilateral: normal size - Respiratory Respiratory: bilateral: CTA (Anterior lung reyes), diminished (Posterior lung reyes) - Cardiovascular Details: Normal sinus rhythm Heart rate: 64 Rhythm: regular Heart sounds: normal: S1, S2 - Peripheral pulses radial pulse Peripheral Pulses: bilateral: Normal dorsalis pedis Peripheral Pulses: bilateral: Normal - Gastrointestinal General gastrointestinal: Present: normal bowel sounds - Integumentary Integumentary: Present: pale - Neurologic Neurologic: Present: CNII-XII intact - Musculoskeletal Musculoskeletal: Present: generalized weakness - Psychiatric Psychiatric: Present: A&O x's 3, appropriate affect, intact judgment & insight - Allied health notes Allied health notes reviewed: nursing - Labs CBC & Chem 7: 06/29/20 07:47 06/29/20 07:47 Labs: Abnormal Lab Results - Last 24 Hours (Table) 06/28/20 06/28/20 06/28/20 Range/Units 12:04 16:46 20:37 RBC (3.80-5.40) m/uL Hgb (11.4-16.0) gm/dL Hct (34.0-46.0) % Glucose (74-99) mg/dL POC Glucose (mg/dL) 135 H 115 H 161 H (75-99) mg/dL 06/29/20 06/29/20 06/29/20 Range/Units 06:14 07:47 07:47 RBC 2.93 L (3.80-5.40) m/uL Hgb 8.9 L (11.4-16.0) gm/dL Hct 28.2 L (34.0-46.0) % Glucose 161 H (74-99) mg/dL POC Glucose (mg/dL) 124 H (75-99) mg/dL - Imaging and Cardiology Chest x-ray: report reviewed Assessment and Plan Assessment: Status post aortic valve replacement - history of severe aortic stenosis with bicuspid aortic valve continue to follow treatment plan from cardiothoracic, cardiology, and pulmonology for recommendations and treatment plan History of severe left ventricular dysfunction Paroxysmal atrial fibrillation with RVR Hypertension Hyperlipidemia History of syncope History of tooth extraction Full code Continue medical management Awaiting transfer to [facility] rehab Time with Patient: Greater than 30
--- NOTE | 2020-06-29 09:21 | P.DS ---
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 Symptomatic severe bicuspid aortic valve stenosis 2. History of hypertension 3. Hyperlipidemia, treated, cholesterol 160, LDL 91 4. Preoperative syncopal event with traumatic facial trauma 5. Chronic systolic heart failure with left ventricular dysfunction and EF 35% on most recent echocardiogram 6. Never smoker with preoperative FEV1 80% of predicted 7. Postoperative acute blood loss anemia, expected 8. Paroxysmal atrial fibrillation, known potential complication 9. Bilateral pleural effusion, right greater than left, expected and known potential condition after open heart surgery PRINCIPAL PROCEDURE: 1. Aortic valve replacement using a 21 mm Inspiris pericardial bioprosthesis 2. Exclusion of the left atrial appendage using a 35 mm AtriClip 3. Intraoperative transesophageal echocardiogram and epi-aortic scanning HISTORY OF PRESENT ILLNESS: This is a 69-year-old mentally slow but physically active female patient who follows on an outpatient basis with Dr. Ponce Suarez for primary care and Dr. SANAY Zayas for cardiology. She was admitted to [facility] in April 2020 with signs and symptoms of acute congestive heart failure. Workup at that time included heart catheterization revealing nonsignificant coronary artery disease, transthoracic echocardiogram followed by transesophageal echocardiogram demonstrated severely impaired LV dysfunction with ejection fraction 15-20% and global hypokinesia, bicuspid aortic valve with evidence of fusion of the right and non-coronary cusp and severe aortic stenosis with peak/mean gradient 68/40 mmHg, moderate mitral regurgitation, and moderate tricuspid regurgitation. She was treated for her heart failure symptoms, diuresed appropriately, improved clinically and was discharged. She had an outpatient follow-up transthoracic echocardiogram at [facility] which demonstrated ejection fraction 35%, severe/critical bicuspid aortic stenosis with valve area 0.37 cm and mean gradient 55 mmHg, mild mitral regurgitation, and mild to moderate tricuspid regurgitation. She was referred to the [facility] at [facility] for potential TAVR. At that time she denied chest pain, lightheadedness, or syncope. CT scan demonstrated no ascendi ng aortic dilatation and calcification at the level of the aortic valve. Carotid Dopplers demonstrated no significant disease. Pulmonary function test demonstrated FEV1 80% of predicted. EKG demonstrated sinus rhythm with left bundle branch block. Her STS risk was calculated at 2.6%. The patient was doing better clinically and was generating enough mean gradient across the aortic valve demonstrating substantial reserve in her ventricular function, she was considered to be low surgical risk. Discussion took place between Dr. Zayas and Dr. Arias from cardiothoracic surgery who felt that the patient should undergo surgical aortic valve replacement after appropriate dental clearance which she did obtain after extraction of 4 teeth. She did end up having an episode of syncope at home, and presented to [facility] emergency room for evaluation and treatment with admittance for observation for a couple of days. She was treated and released to follow up with Dr. Arias from car diothoracic surgery, surgery date was scheduled. The usual perioperative course was discussed in detail with the patient, all risks and benefits were explained, all questions were answered, and consent was obtained to proceed with surgery. HOSPITAL COURSE: The patient was brought to the hospital on 06/19/2020, taken to the preoperative area, prepared in the usual fashion, and subsequently taken to the operating room where Dr. Arias performed bioprosthetic aortic valve replacement with exclusion of the left atrial appendage. Upon completion of surgery the patient was transferred to the cardiovascular intensive care unit where she was recovered and monitored hemodynamically. She was extubated, all lines, tubes, and drips were discontinued when appropriate, and she was transferred to 3 S cardiac stepdown unit for further monitoring and rehabilitation. She did have postoperative acute blood loss anemia requiring 1 unit packed red blood cell transfusion. In addition she experienced paroxysmal atrial fibrillation requiring initiation of amiodarone and titration of her beta jose therapy. Her oxygen was titrated down, she continued to work with physical and occupational therapy, she was tolerating oral diet, her pain was controlled, and she was ready to be discharged to [facility] inpatient rehab on postoperative day #8, with consultation placed to cardiology for close monitoring of her heart rate and rhythm, as well as pulmonology for monitoring her pleural effusions, however there was no bed availability, so she was discharged on POD #10. She received written and verbal instruction regarding her medications, activity restrictions, signs and symptoms requiring physician notification, and follow-up appointments to be made upon discharge from inpatient rehab. COMPLICATIONS: The patient experienced postoperative acute blood loss anemia, paroxysmal atrial fibrillation, and bilateral pleural effusions, all treated accordingly. Patient Condition at Discharge: Stable Plan - Discharge Summary Discharge Rx Participant: Yes New Discharge Prescriptions: New Aspirin 325 mg PO DAILY tab Amiodarone [Cordarone] 200 mg PO BID tab Ipratropium-Albuterol Nebulize [Duoneb 0.5 mg-3 mg/3 ml Soln] 3 ml INHALATION RT-QID ml Ipratropium-Albuterol Nebulize [Duoneb 0.5 mg-3 mg/3 ml Soln] 3 ml INHALATION RT-Q2H PRN ml PRN Reason: Shortness Of Breath Or Wheezing Ferrous Sulfate [Iron (65 MG Elemental)] 325 mg PO W/LUNCH tab Potassium Chloride ER [K-Dur 10] 10 meq PO DAILY #30 tab Metoprolol Tartrate [Lopressor] 25 mg PO Q8HR@0600,1400,2200 tab Magnesium Hydroxide [Milk of Magnesia Concentrate] 2,400 mg PO BID PRN ml PRN Reason: Constipation Midodrine [ProAmatine] 10 mg PO AC-TID tab Pantoprazole [Protonix] 40 mg PO AC-BRKFST tablet.dr Henderson-Docusate Sodium [Senokot-S] 1 each PO HS tab Acetaminophen Tab [Tylenol] 1,000 mg PO Q6HR PRN tab PRN Reason: Fever And/ Or Pain Ascorbic Acid [Vitamin C] 500 mg PO DAILY@1200 tab lisinopriL [Zestril] 2.5 mg PO DAILY@1200 tab Apixaban [Eliquis] 5 mg PO BID tab Continue Atorvastatin [Lipitor] 40 mg PO HS #30 tab Changed Furosemide [Lasix] 20 mg PO DAILY #30 tab Discontinued Aspirin 81 mg PO DAILY #30 chew Metoprolol Tartrate [Lopressor] 12.5 mg PO DAILY #60 tab Nitroglycerin Sl Tabs [Nitrostat] 0.4 mg SUBLINGUAL Q5M PRN #20 tab PRN Reason: Chest Pain Famotidine [Pepcid] 20 mg PO DAILY Mupirocin 2% Oint [Bactroban 2% Oint] 1 applic NASAL BID Discharge Medication List Atorvastatin [Lipitor] 40 mg PO HS #30 tab 04/21/20 [Rx] Acetaminophen Tab [Tylenol] 1,000 mg PO Q6HR PRN tab 06/27/20 [Rx] Amiodarone [Cordarone] 200 mg PO BID tab 06/27/20 [Rx] Ascorbic Acid [Vitamin C] 500 mg PO DAILY@1200 tab 06/27/20 [Rx] Aspirin 325 mg PO DAILY tab 06/27/20 [Rx] Ferrous Sulfate [Iron (65 MG Elemental)] 325 mg PO W/LUNCH tab 06/27/20 [Rx] Furosemide [Lasix] 20 mg PO DAILY #30 tab 06/27/20 [Rx] Ipratropium-Albuterol Nebulize [Duoneb 0.5 mg-3 mg/3 ml Soln] 3 ml INHALATION RT-Q2H PRN ml 06/27/20 [Rx] Ipratropium-Albuterol Nebulize [Duoneb 0.5 mg-3 mg/3 ml Soln] 3 ml INHALATION RT-QID ml 06/27/20 [Rx] Magnesium Hydroxide [Milk of Magnesia Concentrate] 2,400 mg PO BID PRN ml 06/27/20 [Rx] Metoprolol Tartrate [Lopressor] 25 mg PO Q8HR@0600,1400,2200 tab 06/27/20 [Rx] Midodrine [ProAmatine] 10 mg PO AC-TID tab 06/27/20 [Rx] Pantoprazole [Protonix] 40 mg PO AC-BRKFST tablet. 06/27/20 [Rx] Potassium Chloride ER [K-Dur 10] 10 meq PO DAILY #30 tab 06/27/20 [Rx] Sennosides-Docusate Sodium [Senokot-S] 1 each PO HS tab 06/27/20 [Rx] lisinopriL [Zestril] 2.5 mg PO DAILY@1200 tab 06/27/20 [Rx] Apixaban [Eliquis] 5 mg PO BID tab 06/29/20 [Rx] Follow up Appointment(s)/Referral(s): Ponce Suarez MD [Primary Care Provider] - 1 Week (Please call for follow up appointment upon discharge from [facility]) Odilia Zayas MD [STAFF PHYSICIAN] - 1 Week (Please call for follow up appointment upon discharge from [facility]) Rehab Deisy ,Cardiac [NON-STAFF] - 1 Week (You will receive a phone call in approximately 4 weeks for evaluation for cardiac rehab) Thomas Arias MD [STAFF PHYSICIAN] - 07/20/20 10:00 am Martin Melchor MD [STAFF PHYSICIAN] - 1 Week (Please call for follow up appointment upon discharge from [facility]) Activity/Diet/Wound Care/Special Instructions: CONSULTATIONS AT [facility]IENT RE[facility]: Dr. SANYA Zayas for cardiology Dr. Melchor for pulmonology Dr. Suarez for primary care CBC, BMP to be drawn daily DISCHARGE INSTRUCTIONS: 1. No driving for 4 weeks, or until physician gives their ok. 2. The patient should sleep in their own bed, no medical bed needed. 3. Stairs are not an issue. If the bedroom is upstairs, it is advised that the patient go up at night and down in the morning for the first week. Go slowly, using handrail and take 1 step at a time. 4. NADEEN hose are to be worn for 30 days or until physician discontinues. 5. Heart hugger is to be worn 100% of the time until physician dis continues.(except when showering) 6. No lifting, pushing, or pulling more than 10 pounds for 12 weeks. The physician will advise of any restriction changes. 7. The patient is expected to continue the prescribed walking program. 8. Continue pain control per as needed orders. 9. Continue with incentive spirometry and splinting/heart hugger until otherwise directed by the physician. 10. Must shower daily using liquid antibacterial soap and a separate white washcloth for each individual incision. 11. Routine sternal incision care. No powders, lotions, ointments on incisions. No dressings are necessary on incisions unless they are draining. Dermabond tape is to remain on sternal incision until surgeon follow-up. 12. Please call surgeon/ANIMAL CARE ASSISTANT for temp greater than 101 F or purulent drainage from incisions. 13. All prescriptions given by surgeon for 30 days. Refills need to be filled through fruit checker/primary care physician. 14. A Red armband has been placed on the patient. It should be worn for 30 days post surgery and will be removed by the cardiac surgeons. If an ER visit is necessary, please make sure the number on the Red armband is called. 15. You have been referred to and are expected to begin Cardiac Rehab in approximately 4-6 weeks. 16. ABSOLUTELY NO NARCOTICS AT [facility] 17. NOTIFY CARDIOTHORACIC SURGERY IF PATIENT NEEDS TO BE ADMITTED TO ICU/STEP-DOWN UNIT FROM IPR [facility]/HOME HEALTH SERVICES TO PROVIDE: RN SKILLED HOME CARE SERVICES FOR POST-OP SURGICAL PATIENTS WITH THE FOLLOWING: Aortic Valve Replacement/Repair (AVR) RN TO CONTINUE EDUCATION FROM ``ROAD TO A HEALTH HEART PATIENT EDUCATION MANUAL (GIVEN TO PATIENT IN THE HOSPITAL) MEDICATION RECONCILIATION WITH EDUCATION NEEDED ON FIRST HOME VISIT EMPHASIZE IMPORTANCE OF WEARING BREAST SUPPORT/HEART HUGGER ENCOURAGE USE OF INCENTIVE SPIROMETER 10 X EVERY HOUR WHILE AWAKE ENCOURAGE UTILIZATION OF LOWER EXTREMITY COMPRESSION STOCKINGS/NADEEN HOSE and ELEVATE LEGS ABOVE LEVEL OF HEART WHILE AT REST. ENCOURAGE AMBULATION 3-5x/day INCREASING TOLERATES, WHILE AVOIDING EXTREMES IN TEMPERATURE HOME HEALTH CARE UPON DISCHARGE FROM [facility]: RN TO OPEN THE PATIENT WITHIN 24 HOURS OF DISCHARGE FROM [facility] WITH [place] [facility] [place] VISIT 2-3 X A WEEK FOR 4 WEEKS ESTABLISHED BY PATIENT NEEDS. LABORATORY: CBC, CMP TO BE DRAWN ON THE THIRD DAY HOME, (RAN STAT) FAX RESULTS TO [phone]. TELEHEALTH PARAMETERS: WEIGHT: NOTIFY MD OF WEIGHT GAIN OF 2 LBS IN 24 HOURS OR 5 LBS IN ONE WEEK HR: NOTIFY MD OF HR <55 BPM OR HR>100 BPM BP: NOTIFY MD IF BP <90/55 OR BP>140/100 O2 SAT: NOTIFY MD IF PO2<93% ON ROOM AIR SEND TELEHEALTH REPORT TO CLOTHING SUPERVISOR AND CARDIOVASCULAR SURGEON THE FIRST WEEK OF CARE AND THEN BI-WEEKLY. PLEASE ADDITIONALLY COMMUNICATE ANY ABNORMALS AND NEW FINDINGS TO THE SURGEONS OFFICE. For any questions or concerns please call podiatry assistant Maryam @ or Issa @ Discharge Disposition: DC/[facility]NS INTERMEDIATE CARE FAC
[2020-06-29 10:03] VITALS: TEMP 98.2
[2020-06-29 11:57] LABS: Glucose,Whole Blood 123 mg/dL (75-99)
[2020-06-29 13:23] VITALS: BP 123/58; PULSE 64
--- NOTE | 2020-06-29 13:54 | P.PN ---
Subjective Progress Note Date: 06/29/20 HISTORY OF PRESENT ILLNESS: Patient examined this morning. She is sitting in the chair. She denies chest pain or pressure. Denies shortness of breath. She has been ambulating in her room. Vital signs are stable. PHYSICAL EXAM: VITAL SIGNS: Reviewed. GENERAL: Well-developed in no acute distress. NECK: Supple. No JVD or thyromegaly LUNGS: Respirations even and unlabored. Lungs essentially clear to auscultation bilaterally, diminished bilaterally. HEART: Regular rate and rhythm. S1 and S2 heard. Systolic murmur noted. EXTREMITIES: Normal range of motion. No clubbing or cyanosis. Peripheral pulses intact. No lower extremity edema ASSESSMENT: Status post aortic valve replacement for severe symptomatic bicuspid aortic valve stenosis Paroxysmal atrial fibrillation Nonischemic cardiomyopathy, EF 35% Hypertension Hyperlipidemia PLAN: Patient is being discharged to [facility] today Agreeable to discharge today from a cardiac standpoint. Patient to follow-up outpatient. Nurse practitioner note has been reviewed by physician. Signing provider agrees with the documented findings, assessment, and plan of care. Objective - Vital Signs Vital signs: Vital Signs Temp 98.2 F 06/29/20 08:00 Pulse 64 06/29/20 12:00 Resp 18 06/29/20 12:00 BP 123/58 06/29/20 12:00 Pulse Ox 95 06/29/20 12:00 Intake & Output 06/28/20 06/29/20 06/29/20 18:59 06:59 18:59 Intake Total 2018 10 240 Output Total 1000 Balance 1018 10 240 Weight 63.7 kg Intake: IV 10 0.9 10 Oral 2017 240 Output: Urine 1000 Other: Voiding Method Toilet Toilet # Voids 3 1 1 ABP, PAP, CO, CI - Last Documented Arterial Blood Pressure 100/43 Pulmonary Artery Pressure 60/36 Cardiac Output 4.4 Cardiac Index 2.8 - Labs CBC & Chem 7: 06/29/20 07:47 06/29/20 07:47 Labs: Abnormal Lab Results - Last 24 Hours (Table) 06/28/20 06/28/20 06/29/20 Range/Units 16:46 20:37 06:14 RBC (3.80-5.40) m/uL Hgb (11.4-16.0) gm/dL Hct (34.0-46.0) % Glucose (74-99) mg/dL POC Glucose (mg/dL) 115 H 161 H 124 H (75-99) mg/dL 06/29/20 06/29/20 06/29/20 Range/Units 07:47 07:47 11:54 RBC 2.93 L (3.80-5.40) m/uL Hgb 8.9 L (11.4-16.0) gm/dL Hct 28.2 L (34.0-46.0) % Glucose 161 H (74-99) mg/dL POC Glucose (mg/dL) 123 H (75-99) mg/dL
== END 2020-06-29 14:28 | DRG 220 ==
LOC: 2ORMAIN 05:46 → 2SICU 12:58 → 3SCARD 06-22 17:39
PROVIDERS: ADMIT Surgery; ATTEND Surgery
PROC: B246ZZ4 Ultrasonography of Right and Left Heart, Transesophageal (ICD-10-PCS; principal; 2020-06-19 08:00)
PROC: 02L70CK Occlusion of Left Atrial Appendage with Extraluminal Device, Open Approach (ICD-10-PCS; principal; 2020-06-19 08:00)
PROC: 5A1221Z Performance of Cardiac Output, Continuous (ICD-10-PCS; principal; 2020-06-19 08:00)
PROC: 02RF08Z Replacement of Aortic Valve with Zooplastic Tissue, Open Approach (ICD-10-PCS; principal; 2020-06-19 08:00)
PROC: 0D9670Z Drainage of Stomach with Drainage Device, Via Natural or Artificial Opening (ICD-10-PCS; principal; 2020-06-19 08:00)
PROC: 30233N1 Transfusion of Nonautologous Red Blood Cells into Peripheral Vein, Percutaneous Approach (ICD-10-PCS; 2020-06-20)
DX: I08.3 Combined rheumatic disorders of mitral, aortic and tricuspid valves (principal); D62 Acute posthemorrhagic anemia; I42.0 Dilated cardiomyopathy; I50.22 Chronic systolic (congestive) heart failure; J98.11 Atelectasis; D69.6 Thrombocytopenia, unspecified; E78.5 Hyperlipidemia, unspecified; G47.33 Obstructive sleep apnea (adult) (pediatric); I11.0 Hypertensive heart disease with heart failure; I25.10 Atherosclerotic heart disease of native coronary artery without angina pectoris; I44.7 Left bundle-branch block, unspecified; I48.0 Paroxysmal atrial fibrillation; J44.9 Chronic obstructive pulmonary disease, unspecified; R09.02 Hypoxemia; Z79.82 Long term (current) use of aspirin; Z79.899 Other long term (current) drug therapy; Z83.3 Family history of diabetes mellitus; Z20.822 Contact with and (suspected) exposure to COVID-19; Z60.2 Problems related to living alone; R55 Syncope and collapse; S09.93XA Unspecified injury of face, initial encounter; I95.9 Hypotension, unspecified; K08.409 Partial loss of teeth, unspecified cause, unspecified class; Z80.49 Family history of malignant neoplasm of other genital organs; R74.8 Abnormal levels of other serum enzymes; R00.1 Bradycardia, unspecified
CPT/HCPCS: 71045; 71046; 76604; 80048; 80053; 82330; 82805; 83735; 84132; 84145; 85025; 85027; 85520; 85610; 85730; 86850; 86891; 86900; 86901; 86920; 87635; 88305; 88311; 94640; 94760

== ENCOUNTER → 2020-07-16 | Outpatient (CLI) | payer MEDICARE ==
--- NOTE | 2020-07-16 15:58 | XR ---
EXAMINATION TYPE: XR chest 2V DATE OF EXAM: 07/16/2020 COMPARISON: 06/29/2020 TECHNIQUE: PA and lateral views submitted. HISTORY: Post CABG FINDINGS: Heart is enlarged and there is postsurgical change with persistent right-sided consolidation and smal l effusion mildly progressed. No pneumothorax. No overt failure. Arthropathy of the shoulders. IMPRESSION: 1. Right-sided consolidation and pleural effusion mildly progressed.
== END | disposition home or self-care (01) ==
LOC: RADXRMAIN 15:38
PROVIDERS: ATTEND Nurse Practitioner
DX: J90 Pleural effusion, not elsewhere classified (principal); J18.1 Lobar pneumonia, unspecified organism
CPT/HCPCS: 71046

== ENCOUNTER 2020-07-25 07:49 | Day surgery (SDC) | payer MEDICARE ==
[2020-07-25 08:33] LABS: Mean Platelet Volume 6.6; Platelet Count 260 k/uL (150-450)
[2020-07-25 08:37] VITALS: TEMP 98.1
[2020-07-25 08:38] LABS: Prothrombin Time 10.9 sec (9.0-12.0)
--- NOTE | 2020-07-25 09:57 | XR ---
EXAMINATION TYPE: XR chest 1V portable DATE OF EXAM: 07/25/2020 COMPARISON: 07/16/2020 HISTORY: Post right thoracentesis TECHNIQUE: Single frontal view of the chest is obtained. FINDINGS: There is near complete resolution of right-sided pleural effusion with right basilar conso lidation persisting. Heart is enlarged. Postoperative change. No pneumothorax. Arthropathy of the ana luisa ulders. IMPRESSION: No sizable pneumothorax. Complete resolution of right-sided pleural effusion. Basilar at electasis or early infiltrate.
--- NOTE | 2020-07-25 10:24 | US ---
Ultrasound-guided therapeutic and diagnostic thoracentesis DATE OF EXAM: 07/25/2020 CLINICAL HISTORY: Right pleural effusion The procedure was discussed with the patient. The risks, complications, benefits, and alternatives we re discussed and any questions were answered. Informed consent was obtained. The patient was placed supine on the ultrasound table and prepped and draped in the usual sterile fas hion. All elements of maximal barrier and sterile technique were utilized. Under ultrasound guidance, access into the pleural space was obtained, via the thoracentesis catheter system and direct ultrasound guidance. Ap proximately 0.9 liters of straw-colored fluid was removed. The patient was stable throughout the procedure and remained stable upon discharge from Department of Radiology. IMPRESSION: 1. Successful therapeutic and diagnostic thoracentesis under ultrasound guidance.
[2020-07-25 10:29] VITALS: BP 112/63; PULSE 63; RESP 16
== END 2020-07-25 10:05 | disposition home or self-care (01) ==
LOC: RADPROMAIN 07:49
PROVIDERS: ATTEND Surgery
DX: J90 Pleural effusion, not elsewhere classified (principal)
CPT/HCPCS: 32555; 36415; 71045; 85049; 85610

== ENCOUNTER → 2020-10-03 | Outpatient (CLI) | payer MEDICARE ==
[2020-10-03 19:22] LABS: HCT 32.2 % (37.2-46.3); HGB 10.2 g/dL (12.0-15.0); MCH 29.6 pg (27.0-32.0); MCHC 31.7 g/dL (32.0-37.0); MCV 93.3 fL (80.0-97.0); Mean Platelet Volume 10.1 fL (9.5-12.2); Platelet Count 166 X 10*3/uL (140-440); RBC 3.45 X 10*6/uL (4.10-5.20); RDW 14.6 % (11.5-14.5)
== END ==
LOC: LABWHC1 14:35
PROVIDERS: ATTEND Internal Medicine Interventional Cardiology
DX: I25.10 Atherosclerotic heart disease of native coronary artery without angina pectoris (principal); D64.9 Anemia, unspecified
CPT/HCPCS: 36415; 85027

== ENCOUNTER → 2021-12-03 | Outpatient (CLI) | payer MEDICARE ==
--- NOTE | 2021-12-03 13:18 | XR ---
EXAMINATION TYPE: XR Hip Bilateral and AP pelvis DATE OF EXAM: 12/03/2021 COMPARISON: Pelvis 06/12/2020 HISTORY: Right hip pain TECHNIQUE: A single AP view of the pelvis is obtained. Two views of the bilateral hip are obtained. FINDINGS: There is again noted osteonecrosis of the right femoral head collapse, secondary osteoarth ritic change. Calcification present along the gluteal tendon insertion in the greater trochanter. Mul tiple probable phleboliths are noted incidentally within pelvis. Sacroiliac joints are intact. Degene rative disc changes noted in the lower lumbar spine. No acute fracture or dislocation. Mild osteoarth ritic change present in left hip. 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
== END | disposition home or self-care (01) ==
LOC: RADXRMAIN 12:18
PROVIDERS: ATTEND Family Medicine
DX: M16.9 Osteoarthritis of hip, unspecified (principal); M87.852 Other osteonecrosis, left femur; M87.851 Other osteonecrosis, right femur
CPT/HCPCS: 73521

== ENCOUNTER → 2022-02-27 | Outpatient (CLI) | payer MEDICARE ==
[2022-02-27 22:40] LABS: INR 0.99 (0.90-1.11); Prothrombin Time 10.9 sec (9.9-11.9)
[2022-02-27 23:15] LABS: Basophils # (A) 0.04 X 10*3/uL (0.00-0.10); Basophils % (A) 0.7 %; Eosinophils # (A) 0.06 X 10*3/uL (0.04-0.35); HCT 34.9 % (37.2-46.3); HGB 11.3 g/dL (12.0-15.0); Immature Grans, Automated 0.5 %; Lymphocytes # (A) 1.55 X 10*3/uL (0.90-5.00); Lymphocytes % (A) 26.4 %; MCH 32.5 pg (27.0-32.0); MCHC 32.4 g/dL (32.0-37.0); MCV 100.3 fL (80.0-97.0); Mean Platelet Volume 9.4 fL (9.5-12.2); Monocytes # (A) 0.76 X 10*3/uL (0.20-1.00); Monocytes % (A) 12.9 %; NRBC Per 100 WBC 0 /100 WBCS (0.0-0.0); Neutrophils # (A) 3.43 X 10*3/uL (1.80-7.70); Neutrophils % (A) 58.5 %; Platelet Count 191 X 10*3/uL (140-440); RBC 3.48 X 10*6/uL (4.10-5.20); RDW 13.6 % (11.5-14.5); WBC 5.87 X 10*3/uL (4.50-10.00)
[2022-02-27 23:22] LABS: African American GFR (CKD) 72.8 (60.0-200.0); Anion Gap 10.6 mmol/L (10.00-18.00); BUN/Creat Ratio 23.08 Ratio (12.00-20.00); Blood Urea Nitrogen 21.3 mg/dL (9.0-27.0); Calcium 9.6 mg/dL (8.7-10.3); Carbon Dioxide 26.1 mmol/L (20.0-27.5); Non-African American GFR(CKD) 62.8 (60.0-200.0); Potassium 4.1 mmol/L (3.5-5.5)
== END | disposition home or self-care (01) ==
LOC: LABPAT 15:14
PROVIDERS: ATTEND Orthopaedic Surgery
DX: Z01.812 Encounter for preprocedural laboratory examination (principal); Z22.322 Carrier or suspected carrier of Methicillin resistant Staphylococcus aureus
CPT/HCPCS: 36415; 80048; 85025; 85610; 87070

== ENCOUNTER 2022-03-10 13:05 | Day surgery (SDC) | payer MEDICARE ==
--- NOTE | 2022-03-10 04:45 | HP ---
HISTORY AND PHYSICAL DATE OF SURGERY: 03/10/2022. HISTORY OF PRESENT ILLNESS: Najma Richardson is a 71-year-old patient, seen with symptomatic right hip osteoarthritis. After general treatment options discussed with her, she elected to proceed with direct anterior right total hip arthroplasty. Consent was obtained. Preoperative clearance was provided. PAST MEDICAL HISTORY: Hypertension, hyperlipidemia. PAST SURGICAL HISTORY: Mitral valve replacement surgery. DAILY MEDICATIONS: 1. Atorvastatin. 2. Eliquis. 3. Lisinopril. 4. Metoprolol. 5. Pantoprazole. 6. Tylenol. ALLERGIES: None reported. SOCIAL HISTORY: She denies current tobacco use. PHYSICAL EVALUATION OF THE RIGHT HIP: She has diffuse tenderness about the hip girdle. Limited range of motion with severe pain. Impingement sign is positive. Straight-leg raise is negative. Her distal neurovascular exam is intact. RADIOGRAPHS: Radiographs of the right hip reveal severe osteoarthritic changes. IMPRESSION: 1. Right hip osteoarthritis. 2. Hypertension. 3. Hyperlipidemia. 4. Cardiovascular disease. PLAN: Direct anterior right total hip arthroplasty. MMODL / IJN: [id number] /
[~2022-03-10 13:05] MED LIST changes: +ACETAMINOPHEN TAB 500 MG TAB PO PRN; -ALBUMIN HUMAN 25% 50 ML IV ONE; -ALBUMIN HUMAN 5% 500 ML IVPB ONE; -ASPIRIN 325 MG TAB PO ONE; -ATORVASTATIN 10 MG TAB PO ONE; -CALCIUM CHLORIDE 100 MG/ML 10 ML SYRINGE IV ONE; -CHLORHEXIDINE GLUCONATE 15 ML CUP MUCOUS MEM ONE; -CLEVIDIPINE BUTYRATE 25 MG in EMPTY BAG 1 BAG IV ONE; -DEXTROSE 5% IN WATER 1,000 ML with POTASSIUM CHLORIDE 110 MEQ, MAGNESIUM SULFATE 16 MEQ... IV ONE; -DEXTROSE 5% IN WATER 1,000 ML with POTASSIUM CHLORIDE 25 MEQ, SODIUM CHLORIDE 4MEQ/ML V... IRRIGATION ONE; -HEPARIN SODIUM 1,000 UN/ML (10ML VL) IV ONE; -HEPARIN SODIUM,PORCINE 5,000 UNIT in SODIUM CHLORIDE 0.9% 500 ML 500 ML IV ONE; -INSULIN REGULAR 100 UNIT in SODIUM CHLORIDE 0.9% 100 ML IV ONE; -LACTATED RINGERS 1,000 ML IV ONE; -LACTATED RINGERS 1,000 ML IV SCH; -MAGNESIUM SULFATE MG 500 MG/ML IV ONE; -MANNITOL 25% 12.5 GM/50 ML VIAL IV ONE; +MELOXICAM 7.5 MG TAB PO PRN; -METOPROLOL TARTRATE 12.5 MG TAB PO ONE; -MIDAZOLAM 2 MG/2 ML VIAL IV PRN; -NITROGLYCERIN-D5W PMX 25 MG/250 ML BTL IV ONE; -NITROGLYCERIN-D5W PMX 50 MG in DEXTROSE/WATER 1 250ML.BAG IV ONE; -NOREPINEPHRINE 4 MG in SODIUM CHLORIDE 0.9% 250 ML IV ONE; -PHENYLEPHRINE 10 MG/ML VIAL IV ONE; -PHENYLEPHRINE 40 MG in SODIUM CHLORIDE 0.9% 250 ML IV ONE; -PROTAMINE SULFATE 10 MG/ML 25 ML VIAL IV ONE; -PROTAMINE SULFATE 250 MG in EMPTY BAG 1 BAG IV ONE; -SODIUM BICARB 8.4% 50 ML SYR (1 MEQ/ML) IV ONE; -SODIUM CHLORIDE 0.9% 1,000 ML IV ONE; -TRANEXAMIC ACID 2,000 MG in SODIUM CHLORIDE 0.9% 80 ML IV ONE; +TRANEXAMIC ACID IN NACL,ISO-OS 1,000 MG in SALINE 1 100ML.BAG IVPB PRN; -ceFAZolin 1,000 MG in SODIUM CHLORIDE 0.9% IRRIGATIO 1,000 ML IRRIGATION ONE; -propofoL 1,000 MG/100 ML VIAL IV ONE
[2022-03-10] MEDS ORDERED: ONDANSETRON 4 MG/2 ML VIAL ONE (13:51)
[2022-03-10] MEDS ORDERED: LACTATED RINGERS 1,000 ML IV ONE (14:07)
[2022-03-10] MEDS ORDERED: DEXAMETHASONE SOD PHOSPHATE 4 MG/ML 1 ML VIAL IVP ONE (14:11)
[2022-03-10] MEDS ORDERED: ONDANSETRON 4 MG/2 ML VIAL IVP ONE (14:11)
[2022-03-10] MEDS ORDERED: MIDAZOLAM 2 MG/2 ML VIAL IVP ONE (14:15)
[2022-03-10] MEDS ORDERED: ROPIVACAINE 5 MG/ML 30 ML VIAL ONE (14:41)
[2022-03-10] MEDS ORDERED: ePHEDrine 50 MG/ML 1 ML VIAL ONE (14:41)
[2022-03-10] MEDS ORDERED: PHENYLEPHRINE-0.9% NACL SYG 1,000 MCG/10 ML SYRINGE ONE (14:41)
[2022-03-10] MEDS ORDERED: TRANEXAMIC ACID IN NACL,ISO-OS 1,000 MG/100 ML BAG ONE (14:41)
[2022-03-10] MEDS ORDERED: PROPOFOL 10 MG/ML 20 ML VIAL IV ONE (14:41)
[2022-03-10] MEDS ORDERED: ESMOLOL 100 MG/10 ML VIAL ONE (14:41)
[2022-03-10] MEDS ORDERED: ceFAZolin 1,000 MG in SODIUM CHLORIDE 0.9% 1,000 ML IRRIGATION ONE (14:44)
--- NOTE | 2022-03-10 16:03 | P.OP ---
Date of Procedure: 03/10/22 Preoperative Diagnosis: Right hip osteoarthritis Postoperative Diagnosis: Right hip osteoarthritis Procedure(s) Performed: Direct anterior right total hip arthroplasty Implants: 1. Depuy Corail 135 standard collar size 12 press-fit femoral stem 2. Depuy [place] 54 mm multi hole press-fit acetabular shell 3. Depuy [place] neutral polyethylene acetabular liner 38 mm ID 54 mm OD 4. Biolox delta ceramic femoral head +1.5 36 mm Anesthesia: regional (erector spinae block), spinal Surgeon: Jewel Watts Load Out Supervisor #1: Shiva Cameron Estimated Blood Loss (ml): 95 Pathology: other (Femoral head) Condition: stable Disposition: PACU Indications for Procedure: 71-year-old patient seen with symptomatic right hip osteoarthritis. After treatment options were discussed, she elected to proceed with direct anterior right total hip arthroplasty. Operative Findings: See description of procedure Description of Procedure: The patient was taken to the operative suite. Patient underwent a spinal anesthetic by the department of anesthesia. Patient was then transferred to the [place] table. Patient was given preoperative IV antibiotics and TXA. Both lower extremities were placed in standard leg spars. The hip was then prepped and draped in the normal sterile orthopedic fashion. A standard anterior incision was made beginning 3 cm lateral and 1 cm distal to the ASIS extending 10 cm. Dissection was then carried down through the subcutaneous soft tissues down to the fascia overlying the tensor fascia ermelinda. An incision was now made through the fascia. Careful dissection was taken down exposing the tensor fascia ermelinda muscle. A Cobra retractor was now placed along the medial femoral neck and a second one along the lateral femoral neck. The venous circumflex vessels were now identified, cauterized and clipped. We identified the anterior hip capsule. An incision was made through the hip capsule along the lateral border. I performed a partial anterior capsulectomy. Retractors were now placed around the femoral neck itself. A femoral neck cut was now made with a sagittal saw. It was completed with an osteotome at the lateral neck area. The femoral head was now removed without difficulty. The extremity was now rotated to 60 of external rotation. It was locked in position. Residual labrum was now debrided out. Serial reaming was performed of the acetabulum while Jensen TRAN assisted holding an anterior retractor for exposure. Once we reached the appropriate size and a trial was position and fit nicely. The appropriate size was now chosen opened and made available. It was introduced into the acetabulum without difficulty. The C-arm/fluoroscopy was now brought into the operative field. We made sure we had a true AP pelvic view. We now under direct C- arm/fluoroscopy introduced into the acetabular component with appropriate version and inclination. I held the cup in appropriate position while Jensen TRAN used a mallet to seat the acetabular component. I noted the component now to be well seated and stable. Acetabular cup introduce her was removed. The C-arm was pulled back. An appropriate liner was introduced and clicked into position. It was felt to be stable. At this point retractors were removed. The extremity was now placed into 140 external rotation with no traction. The leg was now dropped to the ground and adducted. Appropriate retractors were now positioned along the proximal femur. We also placed our femoral look into position. Additional capsular releasing was performed to gain access to the proximal femur. We now used a box osteotome. A canal finder was now utilized. Serial broaching was now performed with the assistance of Jensen TRAN tapping the broaches down with a mallet while held the broach in appropriate rotation and position. This was done until we reached the appropriate size with good overall rotational stability. Appropriate calcar planing was performed. A trial head/neck was placed into position. The hip was now reduced. The C- arm/fluoroscopy was brought back into the operative field. I obtained an AP pelvis demonstrated adequate leg lengths. The trial components appeared adequately sized and positioned The C-arm/fluoroscopy was pulled back. Retractors were repositioned and the hip was dislocated. The leg was again taken down to the ground and adducted. Appropriate retractors were repositioned as well as the femoral hook. All trial components were removed. The femoral implant was opened along with the femoral head. The femoral implant was introduced on the appropriate handle into our pre-broached area. I held the component position while Jensen TRAN used a mallet to seat the femoral component. The femoral component was now noted to be well seated and stable. The femoral head was introduced with good positioning and fixation noted. Retractors were now removed. The hip was now reduced. There appeared be good positioning of the hip confirmed on intraoperative fluoroscopy. Spot films were obtained to document this. A second gram of TXA was given. Bipolar cautery had been utilized intermittently through the procedure for hemostasis. The wound was irrigated copiously with pulse lavage mechanical irrigation. The fascia was repaired with Vicryl suture. The subcutaneous soft tissues were repaired in layers with Vicryl suture. The skin was approximated with pernio/Dermabond. Sterile dressings were applied. Patient was then awakened, transferred to a bed and taken to recovery in stable condition. Jensen TRAN assisted with the complex procedure.
[2022-03-10] MEDS ORDERED: HYDROmorphone 0.5 MG/0.5 ML SYRINGE IVP PRN ×3 (16:04)
[2022-03-10] MEDS ORDERED: ONDANSETRON 4 MG/2 ML VIAL IVP PRN (16:04)
[2022-03-10] MEDS ORDERED: NALOXONE 0.4 MG/ML 1 ML VIAL IV PRN (16:04)
[2022-03-10] MEDS ORDERED: LACTATED RINGERS 1,000 ML IV SCH (16:15)
[2022-03-10] MEDS ORDERED: HYDROmorphone 0.5 MG/0.5 ML SYRINGE IVP ONE ×2 (16:40)
[2022-03-10] MEDS: HYDROcodone/APAP 7.5-325MG 1 EACH TAB PO PRN (18:23)
--- NOTE | 2022-03-10 18:45 | P.ANPRN ---
Procedure Note - Anesthesia - Nerve Block Performed Right Erector Spinae Single Time Out Performed: Yes (1415) Date of Procedure: 03/10/22 Procedure Start Time: 14:15 Procedure Stop Time: :22 Location of Patient: PreOp Indication: Acute Post-Operative Pain, Requested by Surgeon Sedation Type: Sedate with meaningful contact maintained Preparation: Sterile Prep, Sterile Dressing Position: Sitting Catheter: None Needle Types: Pajunk Needle Gauge: 21 Ultrasound used to visualize needle placement: Yes Ultrasound used to observe medication spread: Yes Injectate: 0.5% Ropivacaine (see comment for volume) (20 mL of 0.5% preservative-free ropivacaine with intermittent negative aspiration) Blood Aspirated: No Pain Paresthesia on Injection Noted: No Resistance on Injection: Normal Image Stored and Saved: Yes Events: Uneventful and Well Tolerated
[2022-03-10] MEDS ORDERED: SENNOSIDES-DOCUSATE SODIUM 1 EACH TAB PO SCH (21:00)
[2022-03-10] MEDS ORDERED: ACETAMINOPHEN TAB 500 MG TAB PO PRN (22:50)
[2022-03-10] MEDS ORDERED: NITROGLYCERIN SL TABS 0.4 MG TAB SUBLINGUAL PRN (22:50)
[2022-03-11] MEDS: HYDROcodone/APAP 7.5-325MG 1 EACH TAB PO PRN (00:21)
--- NOTE | 2022-03-11 06:21 | FL ---
EXAMINATION TYPE: FL guidance operating room, XR Hip Limited RT DATE OF EXAM: 03/10/2022 CLINICAL HISTORY: Right hip pain and osteoarthritis. TECHNIQUE: Fluoroscopy. Limited intraoperative views right hip. COMPARISON: Outside right hip x-ray January 14, 2022. FINDINGS: Fluoroscopic guidance was provided during right hip replacement procedure performed by Dr. Watts. A total of 13 seconds of fluoroscopic time was utilized during the procedure and 2 spot images was acquired. Intraoperative images obtained show metallic hardware from total right hip arthroplasty satisfactory in position on frontal projection. IMPRESSION: As Above.
[2022-03-11] MEDS: HYDROcodone/APAP 5-325MG 1 EACH TAB PO PRN ×2 (06:48→13:45)
[2022-03-11] MEDS ORDERED: PANTOPRAZOLE 40 MG TABLET PO SCH (07:30)
[2022-03-11 07:58] VITALS: BP 128/72; PULSE 61; TEMP 98.6
[2022-03-11] MEDS ORDERED: ATORVASTATIN 40 MG TAB PO SCH (09:00)
[2022-03-11] MEDS ORDERED: ENOXAPARIN 40 MG/0.4 ML SYRINGE SQ SCH (09:00)
[2022-03-11] MEDS ORDERED: FAMOTIDINE 20 MG TAB PO SCH (09:00)
[2022-03-11] MEDS ORDERED: FERROUS SULFATE 325 MG TAB PO SCH (09:00)
[2022-03-11] MEDS ORDERED: CHOLECALCIFEROL 25 MCG (1000 IU) TABLET PO SCH (09:00)
[2022-03-11 09:30] LABS: Basophils % (A) 0 %; Eosinophils % (A) 0 %; HCT 34.3 % (34.0-46.0); HGB 11.1 gm/dL (11.4-16.0); Lymphocytes # (A) 0.8 k/uL (1.0-4.8); Lymphocytes % (A) 7 %; MCH 31.8 pg (25.0-35.0); MCHC 32.4 g/dL (31.0-37.0); MCV 98.3 fL (80.0-100.0); Mean Platelet Volume 7.8; Monocytes # (A) 0.8 k/uL (0-1.0); Monocytes % (A) 7 %; Neutrophils # (A) 9.3 k/uL (1.3-7.7); Neutrophils % (A) 84 %; Platelet Count 150 k/uL (150-450); RBC 3.49 m/uL (3.80-5.40); RDW 12.6 % (11.5-15.5); WBC 11.1 k/uL (3.8-10.6)
--- NOTE | 2022-03-11 12:19 | P.DS ---
Providers Date of admission: 03/10/2022 Expected date of discharge: 03/11/22 Attending physician: Jewel Watts Consults: 03/10/22 16:04 Consult Physician Routine Consulting Provider: Ponce Suarez Consult Reason/Comments: Medical management Do you want consulting provider notified?: Yes Primary care physician: Ponce Suarez Hospital Course: Date of admission: 03/10/2022 Date of discharge: 03/11/2022 Admission diagnosis: Right hip osteoarthritis Discharge diagnosis: Same Attending physician: Dr. Watts Surgical procedures: Right total hip arthroplasty Brief history: Patient is a 71-year-old female with a history of progressive primary right hip osteoarthritis. At this point patient has failed conservative treatment measures and has opted to proceed with a elective right total hip arthroplasty. Hospital course: Details of patient's surgery can be found in operative report. Patient tolerated the procedure well and was subsequently transported to orthopedic floor. Patient's orthopeidc and medical care was provided daily. Patient had daily laboratory tests performed for evaluation of overall blood counts. Patient had daily physical therapy to include strengthening range of motion as well as education with walker ambulation. Patient was treated with Lovenox for their postoperative DVT prophylaxis during their inpatient stay. Patient was noted to have a relatively uneventful postoperative course. Patient reported satisfactory pain control with oral pain medications by postoperative day 1. Patient showed satisfactory progress with physical therapy. Patient moved steadily through the program and had no difficulty meeting the goals by postoperative day 1. Given patient's otherwise satisfactory course and having met physical therapy goals, plan is to discharge patient home with health services on postoperative day 1. Discharge condition/disposition: Patient will be discharged home with health services in stable condition. Discharge medications: Instructions are given on resumption of patient's normal daily medications per primary care recommendation, in addition patient will be prescribed [place]; Colace; patient takes Eliquis5 mg twice a day at home. Discharge instructions: 1. Wound care and infection precautions, keep incision dry and covered while showering, no lotions, creams, moisturizers. No soaking, tubs, pools, hottubs. Do not scrub over the incision. 2. Weight-bear as tolerated with walker / cane until follow-up. 3. Ice and elevate when necessary. Do not exceed 20 minutes per hour with ice pack. 4. Utilize compression sleeve until seen at first follow up appointment. 5. Visiting nursing care. 6. Home physical therapy. 7. Pain meds and anticoagulants per prescription. 8. Pain medication has potential to cause constipation. Increase oral fluid and fiber intake. Contact primary care provider if you have not had a bowel movement within 48 hours after discharge 9. No anti-inflammatory medication until discussed at first post operative visit, this including Motrin, Aleve, Mobic, Diclofenac. 10. Follow up in office at 2 weeks postop with Jensen Cameron PA-C / Branden Parikh PA-C 11. Follow up with your primary care doctor 7-10 days after discharge. 12. Contact [facility] with any questions, . Medications: [place]; Colace; patient takes Eliquis5 mg twice a day at home. Assessment: Right hip osteoarthritis Procedures: Right total hip arthroplasty Patient Condition at Discharge: Good Plan - Discharge Summary Discharge Rx Participant: Yes New Discharge Prescriptions: New Docusate [Colace] 100 mg PO DAILY #30 capsule HYDROcodone/APAP 5-325MG [[place] 5-325] 1 - 2 tab PO Q6HR PRN #32 tab PRN Reason: Pain No Action Pantoprazole [Protonix] 40 mg PO AC-BRKFST tablet. Acetaminophen Tab [Tylenol] 1,000 mg PO Q6HR PRN tab PRN Reason: Fever And/ Or Pain Furosemide [Lasix] 20 mg PO DAILY #30 tab Apixaban [Eliquis] 5 mg PO BID tab lisinopriL [Zestril] 2.5 mg PO DAILY Metoprolol Tartrate [Lopressor] 25 mg PO BID Cholecalciferol [Vitamin D3 (25 Mcg = 1000 Iu)] 50 mcg PO DAILY Vitamin B Complex 1 each PO DAILY Potassium Chloride [Klor-Con M10] 10 meq PO DAILY Nitroglycerin Sl Tabs [Nitrostat] 0.4 mg SUBLINGUAL Q5M PRN PRN Reason: Chest Pain Ferrous Sulfate [Feosol] 325 mg PO DAILY Atorvastatin [Lipitor] 40 mg PO DAILY Discharge Medication List Acetaminophen Tab [Tylenol] 1,000 mg PO Q6HR PRN tab 06/27/20 [Rx] Furosemide [Lasix] 20 mg PO DAILY #30 tab 06/27/20 [Rx] Pantoprazole [Protonix] 40 mg PO AC-BRKFST tablet. 06/27/20 [Rx] Apixaban [Eliquis] 5 mg PO BID tab 06/29/20 [Rx] Metoprolol Tartrate [Lopressor] 25 mg PO BID 07/23/20 [History] lisinopriL [Zestril] 2.5 mg PO DAILY 07/23/20 [History] Atorvastatin [Lipitor] 40 mg PO DAILY 03/05/22 [History] Cholecalciferol [Vitamin D3 (25 Mcg = 1000 Iu)] 50 mcg PO DAILY 03/05/22 [History] Ferrous Sulfate [Feosol] 325 mg PO DAILY 03/05/22 [History] Nitroglycerin Sl Tabs [Nitrostat] 0.4 mg SUBLINGUAL Q5M PRN 03/05/22 [History] Potassium Chloride [Klor-Con M10] 10 meq PO DAILY 03/05/22 [History] Vitamin B Complex 1 each PO DAILY 03/05/22 [History] Docusate [Colace] 100 mg PO DAILY #30 capsule 03/11/22 [Rx] HYDROcodone/APAP 5-325MG [[place] 5-325] 1 - 2 tab PO Q6HR PRN #32 tab 03/11/22 [Rx] Follow up Appointment(s)/Referral(s): [facility], [NON-STAFF] - As Needed Shiva Cameron PAC [PHYSICIAN TELETYPE TELEGRAPHER] - 03/25/22 10:00 am Patient Instructions/Handouts: Total Hip Replacement (DC) Activity/Diet/Wound Care/Special Instructions: Orthopedic Discharge Instructions: 1. Wound care and infection precautions, keep incision dry and covered while showering, no lotions, creams, moisturizers. No soaking, pools, hot tubs. Do not scrub over incision. 2. Weight-bear as tolerated with walker / cane until follow-up. 3. Ice and elevate when necessary. Do not exceed 20 minutes per hour with ice pack. 4. Utilize compression sleeve until seen at first follow up appointment. 5. Pain meds and anticoagulants per prescription. 6. Pain medication has potential to cause constipation. Increase oral fluid and fiber intake. Contact primary care provider if you have not had a bowel movement within 48 hours after discharge. 7. No anti-inflammatory medication until discussed at first post operative visit, this including Motrin, Aleve, Mobic, Diclofenac 8. Follow up in office at 2 weeks postop with Jensen Cameron PA-C / Branden Parikh PA-C 9. Follow up with your primary care doctor 7-10 days after discharge. 10. Contact [facility] with any questions, . Keep incision clean, dry, intact. While showering, cover silver foam dressing was Saran wrap. Silver foam dressing may be removed in 7 days, 03/17/2022 Medications: [place]; Colace; patient takes Eliquis5 mg twice a day at home. Discharge Disposition: HOME WITH HOME HEALTH SERVICES
--- NOTE | 2022-03-11 12:29 | P.PN ---
Subjective Progress Note Date: 03/11/22 Principal diagnosis: Right hip osteoarthritis Patient was seen at bedside this morning resting comfortably sitting up in chair. Patient says she did work with physical therapy this morning and walk around the room and into the hallway. Patient says she did go up-and-down steps. Patient says she does have a walker for home. Patient states she is having moderate pain to the right hip currently. Patient denies any radiation of pain. Patient says she has not had bowel movement yet, however, patient says she has been passing gas. Patient says she has urinated several times since surgery yesterday. Patient denies chest pain, fever, shortness breath, nausea, vomiting, change in vision, loss of bowel/bladder control. Objective - Vital Signs Vital signs: Vital Signs Temp 98.6 F 03/11/22 07:57 Pulse 61 03/11/22 07:57 Resp 17 03/11/22 07:57 BP 128/72 03/11/22 07:57 Pulse Ox 94 L 03/11/22 07:57 FiO2 Intake & Output 03/10/22 03/11/22 03/11/22 18:59 06:59 18:59 Intake Total 1801 400 Output Total 95 Balance 1706 400 Weight 68.9 kg 68.9 kg Intake: IV 801 Intake, IV Titration 800 Amount Lactated Ringers 1,000 ml 0 @ 0 mls/hr IV .[facility] Rx#:[id number] Lactated Ringers 1,000 ml 800 @ 80 mls/hr IV .[id number] [facility] Rx#:[id number] Tranexamic Acid in NaCl, 0 Iso-Os 1,000 mg In Saline 1 100ml.bag @ 200 mls/hr IVPB ONCE PRN Rx#: [id number] Tranexamic Acid in NaCl, 0 Iso-Os 1,000 mg In Saline 1 100ml.bag @ 200 mls/hr IVPB ONCE PRN Rx#: [id number] ceFAZolin 2 gm In Sodium 0 Chloride 0.9% 50 ml @ 100 mls/hr IVPB ONCE PRN Rx# :[id number] ceFAZolin 2 gm In Sodium 0 Chloride 0.9% 50 ml @ 100 mls/hr IVPB Q8HR [facility] Rx# :[id number] Oral 200 400 Output: Estimated Blood Loss 95 Other: # Voids 2 # Bowel Movements 0 - Exam Right hip: Incision is clean, dry, and intact. The silver foam dressing is in good condition. There is minimal soft tissue swelling and ecchymosis surrounding the medial and lateral aspects of the incision. Calf is soft, no tenderness with palpation. Plantar flexion, dorsiflexion, EHL, FHL are intact. Sensory exam to light touch throughout the extremity is intact, dorsal pedis pulses 2+. - Labs CBC & Chem 7: 03/11/22 08:46 Labs: Abnormal Lab Results - Last 24 Hours (Table) 03/11/22 Range/Units 08:46 WBC 11.1 H (3.8-10.6) k/uL RBC 3.49 L (3.80-5.40) m/uL Hgb 11.1 L (11.4-16.0) gm/dL Neutrophils # 9.3 H (1.3-7.7) k/uL Lymphocytes # 0.8 L (1.0-4.8) k/uL Assessment and Plan Assessment: 1. Right knee osteoarthritis - Postoperative day 1 status post right total knee arthroplasty Plan: 1. Right hip osteoarthritis - right total hip arthroplasty performed yesterday, 03/10/2022. Patient stable at bedside this morning Patient does have a walker at home. Discharge home today with health services. 2. Appreciate medical management 3. Pain management - [place] 4. DVT prophylaxis - Lovenox in hospital. Resume Eliquis 5 mg BID once home 5. GI prophylaxis - senna in hospital. Discharge home with Colace 6. PT/OT - weightbearing as tolerated with walker 7. Encourage incentive spirometer use 8. Discharge planning - home with health services today Time with Patient: Less than 30
--- NOTE | 2022-03-11 12:39 | P.CONS ---
History of Present Illness - Reason for Consult Leukocytosis - History of Present Illness This is a pleasant 71-year-old female admitted for right hip arthroplasty patient is clinically doing well post surgery passing gas patient pain is well controlled at this time. Patient is on anticoagulation with a cause for her previous atrial fibrillation history and status post aortic valve replacement in June 2020. REVIEW OF SYSTEMS: CONSTITUTIONAL: No fever, no malaise, no fatigue. HEENT: No recent visual problems or hearing problems. Denied any sore throat. CARDIOVASCULAR: No chest pain, orthopnea, PND, no palpitations, no syncope. PULMONARY: No shortness of breath, no cough, no hemoptysis. GASTROINTESTINAL: No diarrhea, no nausea, no vomiting, no abdominal pain. NEUROLOGICAL: No headaches, no weakness, no numbness. HEMATOLOGICAL: Denies any bleeding or petechiae. GENITOURINARY: Denies any burning micturition, frequency, or urgency. MUSCULOSKELETAL/RHEUMATOLOGICAL: Denies any joint pain, swelling, or any muscle pain. ENDOCRINE: Denies any polyuria or polydipsia. The rest of the 14-point review of systems is negative. PHYSICAL EXAMINATION: GENERAL: The patient is alert and oriented x3, not in any acute distress. Well developed, well nourished. HEENT: Pupils are round and equally reacting to light. EOMI. No scleral icterus. No conjunctival pallor. Normocephalic, atraumatic. No pharyngeal erythema. No thyromegaly. CARDIOVASCULAR: S1 and S2 present. No murmurs, rubs, or gallops. PULMONARY: Chest is clear to auscultation, no wheezing or crackles. ABDOMEN: Soft, nontender, nondistended, normoactive bowel sounds. No palpable organomegaly. MUSCULOSKELETAL: No joint swelling or deformity. EXTREMITIES: No cyanosis, clubbing, or pedal edema. NEUROLOGICAL: Gross neurological examination did not reveal any focal deficits. SKIN: No rashes. Assessment and plan -Leukocytosis: Reactive secondary to surgery without any evidence of infection clinically -The right hip arthroplasty clinically doing well patient can be discharged from medical perspective and patient will continue a course -Atrial fibrillation presently sinus rhythm rate controlled continue with home medications -Hyperlipidemia -Hypertension -History of aortic stenosis with valve replacement in the past Patient is stable medically to be discharged Past Medical History Past Medical History: Heart Failure, GERD/Reflux, Hyperlipidemia, Hypertension, Osteoarthritis (OA) Additional Past Medical History / Comment(s): hx. Aortic stenosis, anemia, think she has rheumatoid arthritis in hands. History of Any Multi-Drug Resistant Organisms: None Reported Past Surgical History: Cardiac Valve Replacement, Heart Catheterization Additional Past Surgical History / Comment(s): aortic valve replacement 07/01, [place] Past Anesthesia/Blood Transfusion Reactions: No Reported Reaction Additional Past Anesthesia/Blood Transfusion Reaction / Comm: never had blood transfusion Past Psychological History: No Psychological Hx Reported Smoking Status: Never smoker Past Alcohol Use History: None Reported Past Drug Use History: None Reported - Past Family History Father Family Medical History: Diabetes Mellitus Mother Family Medical History: Cancer Additional Family Medical History / Comment(s): cervical Medications and Allergies Home Medications Medication Instructions Recorded Confirmed Type Acetaminophen Tab [Tylenol] 1,000 mg PO Q6HR PRN tab 06/27/20 03/10/22 Rx Furosemide [Lasix] 20 mg PO DAILY #30 tab 06/27/20 03/05/22 Rx Pantoprazole [Protonix] 40 mg PO AC-BRKFST tablet. 06/27/20 03/05/22 Rx Apixaban [Eliquis] 5 mg PO BID tab 06/29/20 03/10/22 Rx Metoprolol Tartrate [Lopressor] 25 mg PO BID 07/23/20 03/10/22 History lisinopriL [Zestril] 2.5 mg PO DAILY 07/23/20 03/05/22 History Atorvastatin [Lipitor] 40 mg PO DAILY 03/05/22 03/10/22 History Cholecalciferol [Vitamin D3 (25 50 mcg PO DAILY 03/05/22 03/05/22 History Mcg = 1000 Iu)] Ferrous Sulfate [Feosol] 325 mg PO DAILY 03/05/22 03/05/22 History Nitroglycerin Sl Tabs [Nitrostat] 0.4 mg SUBLINGUAL Q5M PRN 03/05/22 03/05/22 History Potassium Chloride [Klor-Con M10] 10 meq PO DAILY 03/05/22 03/10/22 History Vitamin B Complex 1 each PO DAILY 03/05/22 03/05/22 History Docusate [Colace] 100 mg PO DAILY #30 capsule 03/11/22 Rx HYDROcodone/APAP 5-325MG [[place] 1 - 2 tab PO Q6HR PRN #32 tab 03/11/22 Rx 5325] Allergies Allergy/AdvReac Type Severity Reaction Status Date / Time No Known Allergies Allergy Verified 03/10/22 13:25 Physical Exam Vitals: Vital Signs Temp Pulse Pulse Resp BP Pulse Ox 03/11/22 10:50 61 17 03/11/22 08:00 17 03/11/22 07:57 98.6 F 61 17 128/72 94 L 03/11/22 02:00 98.3 F 73 15 124/67 97 03/10/22 22:29 16 03/10/22 20:00 98.5 F 88 16 133/71 95 03/10/22 17:05 80 16 100/52 98 03/10/22 16:50 80 16 112/72 03/10/22 16:35 68 16 99/52 99 03/10/22 16:20 97.4 F L 102 H 16 106/82 96 03/10/22 14:29 75 16 117/55 100 03/10/22 13:42 98.1 F 77 18 144/63 97 Intake and Output 03/10/22 03/11/22 03/11/22 22:59 06:59 14:59 Intake Total 1350 400 Output Total 95 Balance 1255 400 Intake: IV 350 Intake, IV Titration 800 Amount Lactated Ringers 1,000 ml 0 @ 0 mls/hr IV .[facility] Rx#:[id number] Lactated Ringers 1,000 ml 800 @ 80 mls/hr IV .[id number] [facility] Rx#:[id number] Tranexamic Acid in NaCl, 0 Iso-Os 1,000 mg In Saline 1 100ml.bag @ 200 mls/hr IVPB ONCE PRN Rx#: [id number] Tranexamic Acid in NaCl, 0 Iso-Os 1,000 mg In Saline 1 100ml.bag @ 200 mls/hr IVPB ONCE PRN Rx#: [id number] ceFAZolin 2 gm In Sodium 0 Chloride 0.9% 50 ml @ 100 mls/hr IVPB ONCE PRN Rx# :[id number] ceFAZolin 2 gm In Sodium 0 Chloride 0.9% 50 ml @ 100 mls/hr IVPB Q8HR [facility] Rx# :[id number] Oral 200 400 Output: Estimated Blood Loss 95 Other: # Voids 2 # Bowel Movements 0 Weight 68.9 kg Results CBC & Chem 7: 03/11/22 08:46 Labs: Abnormal Lab Results - Last 24 Hours (Table) 03/11/22 Range/Units 08:46 WBC 11.1 H (3.8-10.6) k/uL RBC 3.49 L (3.80-5.40) m/uL Hgb 11.1 L (11.4-16.0) gm/dL Neutrophils # 9.3 H (1.3-7.7) k/uL Lymphocytes # 0.8 L (1.0-4.8) k/uL
[2022-03-11 13:12] VITALS: RESP 16
== END 2022-03-11 14:00 | disposition home health service (06) ==
LOC: OR 13:05 → 4SSUR 15:58 → OR 03-11 14:00
PROVIDERS: ATTEND Orthopaedic Surgery
DX: M16.11 Unilateral primary osteoarthritis, right hip (principal); G89.18 Other acute postprocedural pain; I10 Essential (primary) hypertension; E78.5 Hyperlipidemia, unspecified; Z79.899 Other long term (current) drug therapy; Z95.2 Presence of prosthetic heart valve
CPT/HCPCS: 97161; 97535; 97166; 64999; 86900; 86901; 85025; 86850; 73501; 27130; C1776; J2250; J1100; J0690 ×3; J2405; J1650; J1170; 88300

== ENCOUNTER → 2022-08-22 | Outpatient (CLI) | payer MEDICARE ==
--- NOTE | 2022-08-22 17:27 | BD ---
EXAMINATION TYPE: Axial Bone Density DATE OF EXAM: 08/22/2022 CLINICAL HISTORY: 72 years old Female. ICD-10 CODE: Z78.0 MENOPAUSAL STATE Height: 58in Weight: 154lb FRAX RISK QUESTIONS: History of Fracture in Adulthood: yes 3. Menopause before 45: pt unsure RISK FACTORS HISTORY OF: History of Wrist Fracture: yes, jero wrists When: 2011 Surgery to Spine/Hip(right/left)/Wrist (right/left): yes, rt hip When: 2021 Active: yes Postmenopausal woman: yes Lost more than 2 inches in height since high school: yes MEDICATIONS: Additional Medications: bp med, cholesterol med, vitamin d Additional History: rt hip replacement, jero wrist fx's EXAM MEASUREMENTS: Bone mineral densitometry was performed using the [employer] System. Bone mineral density as measured about the Lumbar spine is: ----- L1-L4(G/cm2): 1.189 T Score Values are as follows: ----- L1: 1.6 ----- L2: 0.4 ----- L3: -1.0 ----- L4: -0.5 ----- L1-L4: 0.1 Z Score Values are as follows: ----- L1: 3.1 ----- L2: 1.9 ----- L3: 0.5 ----- L4: 1.0 ----- L1-L4: 1.6 First dexa at [facility] Bone mineral density about the L hip (g/cm2): 0.596 T Score values are as follows: -----L Neck: -3.5 -----L Total: -3.3 Z Score values are as follows: -----L Neck: -1.9 -----L Total: -1.9 FRAX%s: The graph provided illustrates a 35.4% chance for a major osteoporotic fx and a 15.1% chance for the hips probability for fx in 10 years time. IMPRESSION: Osteoporosis (T Score less than -2.5). There is increased fracture risk and therapy is usually indicated based on age. Re-Screen 1-2 years. NOTE: T-SCORE=SD OF THE YOUNG ADULT MEAN.
--- NOTE | 2022-08-25 08:13 | MM ---
Reason for Exam: Screening (asymptomatic). Patient History: Menarche at age 15. Patient has no children. Postmenopausal. Risk Values: Lisbet 5 year model risk: 1.8%. NCI Lifetime model risk: 4.9%. Prior Study Comparison: No prior studies available for comparison. Tissue Density: The breast tissue is heterogeneously dense. This may lower the sensitivity of mammography. Findings: Analyzed By CAD. There is no suspicious group of microcalcifications or new suspicious mass in either breast. Overall Assessment: Benign, BI-RAD 2 Management: Screening Mammogram of both breasts in 1 year. A clinical breast exam by your physician is recommended on an annual basis and results should be correlated with mammographic findings. Electronically signed and approved by: Florencio Braxton M.D. Radiologis
== END | disposition home or self-care (01) ==
LOC: RADBDWWP 12:58
PROVIDERS: ATTEND Family Medicine
DX: Z12.31 Encounter for screening mammogram for malignant neoplasm of breast (principal); M81.0 Age-related osteoporosis without current pathological fracture; Z78.0 Asymptomatic menopausal state
CPT/HCPCS: 77063; 77067; 77080

== ENCOUNTER → 2023-08-24 | Outpatient (CLI) | payer MEDICARE ==
--- NOTE | 2023-08-26 12:33 | MM ---
Reason for Exam: Screening (asymptomatic). Last screening mammogram was performed 12 month(s) ago. Patient History: Menarche at age 15. Patient has no children. Postmenopausal. Risk Values: Lisbet 5 year model risk: 1.8%. NCI Lifetime model risk: 4.6%. Prior Study Comparison: 08/22/2022 Bilateral MG 3D screening mammo w/cad, [facility]. Tissue Density: The breasts are heterogeneously dense, which may obscure small masses. Findings: Analyzed By CAD. The pattern is symmetrical. Multiple benign-appearing rounded spherical calcifications are present. No suspicious groups of microcalcifications, spiculated or lobular masses, architectural distortion or other secondary signs of malignancy are mammographically apparent. Overall Assessment: Benign, BI-RAD 2 Management: Screening Mammogram of both breasts in 1 year. A negative mammogram report should not preclude additional follow up of suspicious palpable abnormalities. Patient should continue monthly self breast exam. A clinical breast exam by your physician is recommended on an annual basis and results should be correlated with mammographic findings. Note on Lisbet scores and lifetime risk: 1. A Lisbet score greater than 3% is considered moderate risk. If this is the case, consider specialist referral to assess eligibility for a risk reducing agent. 2. If overall lifetime risk for the development of breast cancer is 20% or higher, the patient may qualify for future screening with alternating mammogram and breast MRI. Electronically signed and approved by: Ronald Bledsoe D.O. Radiologis
== END | disposition home or self-care (01) ==
LOC: RADMAMWWP 12:51
PROVIDERS: ATTEND Family Medicine
DX: Z12.31 Encounter for screening mammogram for malignant neoplasm of breast (principal); Z78.0 Asymptomatic menopausal state
CPT/HCPCS: 77067

== ENCOUNTER → 2024-11-02 | Outpatient (CLI) | payer MEDICARE ==
--- NOTE | 2024-11-02 15:03 | MM ---
Reason for Exam: Screening (asymptomatic). Last mammogram was performed 1 year(s) and 2 month(s) ago. Patient History: Menarche at age 15. Patient has no children. Postmenopausal. Risk Values: Lisbet 5 year model risk: 1.8%. NCI Lifetime model risk: 4.4%. Prior Study Comparison: 08/22/2022 Bilateral MG 3D screening mammo w/cad, [facility]. 08/24/2023 Bilateral MG screening mammo w CAD, [facility]. Tissue Density: The breasts are heterogeneously dense, which may obscure small masses. Findings: Analyzed By CAD. Right breast: There is no suspicious group of microcalcifications or new suspicious mass. Benign-appearing calcifications right breast. Left breast: There is no suspicious group of microcalcifications or new suspicious mass. Benign-appearing calcifications left breast. Overall Assessment: Benign, BI-RAD 2 Management: Screening Mammogram of both breasts in [address] [facility] will attempt to contact patient to return for supplemental views and ultrasound if indicated. Patient should continue monthly self-breast exams. A clinical breast exam by your physician is recommended on an annual basis. This exam should not preclude additional follow-up of suspicious palpable abnormalities. Note on Lisbet scores and lifetime risk: 1. A Lisbet score greater than 3% is considered moderate risk. If this is the case, consider specialist referral to assess eligibility for a risk reducing agent. 2. If overall lifetime risk for the development of breast cancer is 20% or higher, the patient may qualify for future screening with alternating mammogram and breast MRI. [facility], , 11/02/2024 3:00 PM. Electronically signed and approved by: Yury Sharp DO
--- NOTE | 2024-11-03 15:27 | BD ---
EXAMINATION TYPE: Axial Bone Density DATE OF EXAM: 11/02/2024 CLINICAL HISTORY: 74 years old Female. ICD-10 CODE: Z78.0 ASX MENOPAUSAL STATE , Additional History: Height: 59 Weight: 150 FRAX RISK QUESTIONS: Family History (Parent hip fracture): no History of Fracture in Adulthood: yes Secondary Osteoporosis: no RISK FACTORS HISTORY OF: History of bilat Wrist Fracture: yes When: 2011 Surgery to Hip(right): yes When: 2021 MEDICATIONS: Thyroid Medications: no Osteoporosis Medications: no EXAM MEASUREMENTS: Bone mineral densitometry was performed using the [employer] System. Bone mineral density as measured about the Lumbar spine is: ----- L1-L4(G/cm2): 1.249 T Score Values are as follows: ----- L1: 1.4 ----- L2: 0.6 ----- L3: -0.1 ----- L4: 0.3 ----- L1-L4: 0.6 Z Score Values are as follows: ----- L1: 3.0 ----- L2: 2.2 ----- L3: 1.5 ----- L4: 1.8 ----- L1-L4: 2.2 Bone mineral density has: Increased 5.0% since study of: 08-22-2022 Bone mineral density about the L hip (g/cm2): 0.609 T Score values are as follows: -----L Neck: -4.0 -----L Total: -3.2 Z Score values are as follows: -----L Neck: -2.2 -----L Total: -1.6 Bone mineral density has: Increased 2.2 % since study of: 08-22-2022 FRAX%s: The graph provided illustrates a 44.2% chance for a major osteoporotic fx and a 23.3% chance for the hips probability for fx in 10 years time. IMPRESSION: Osteoporosis (T Score less than -2.5). There is increased fracture risk and therapy is usually indicated based on age. Re-Screen 1-2 years. NOTE: T-SCORE=SD OF THE YOUNG ADULT MEAN. [facility], , 11/03/2024 3:25 PM
== END | disposition home or self-care (01) ==
LOC: RADMAMWWP 14:31
PROVIDERS: ATTEND Family Medicine
DX: Z12.31 Encounter for screening mammogram for malignant neoplasm of breast (principal); R92.333 Mammographic heterogeneous density, bilateral breasts; R92.1 Mammographic calcification found on diagnostic imaging of breast; M81.0 Age-related osteoporosis without current pathological fracture; Z78.0 Asymptomatic menopausal state
CPT/HCPCS: 77063; 77067; 77080